=== PATIENT | female | born 1955 | race Caucasian/White ===

== ENCOUNTER 2017-04-08 06:58 | Inpatient (IN) | payer BC ==
[2017-03-22 13:16] VITALS: BMI 40.0
--- NOTE | 2017-03-22 13:49 | PAT Medication Instructions ---
Service Date Mar 22, 2017. Current Home Medication List Adalimumab (Humira Pen), 0.8 ML SC [id number] B-Complex Vitamins (B Complex), 1 CAP PO QAM Cholecalciferol (Vitamin D3), 1 TAB PO QAM Folic Acid (Folvite), 1 MG PO QAM Indomethacin (Indocin), 25 MG PO BID Loratadine (Claritin), 10 MG PO QAM Methotrexate (Methotrexate), 8 TABS PO qsat Multivitamin (Multivitamin), 1 TAB PO QAM Naproxen (Aleve), 440 MG PO QAM Rizatriptan Benzoate (Maxalt), 10 MG PO PRN Triamterene/Hctz (Triamterene/Hctz 37.5-25MG), 1 TAB PO QAM Medication Instructions For Your Scheduled Surgery - Hold the following medications per surgeon's instructions: Adalimumab (Humira Pen), 0.8 ML SC [id number] Methotrexate (Methotrexate), 8 TABS PO qsat Naproxen (Aleve), 440 MG PO QAM Indomethacin (Indocin), 25 MG PO BID - Hold the following medications the morning of surgery: Triamterene/Hctz (Triamterene/Hctz 37.5-25MG), 1 TAB PO QAM Multivitamin (Multivitamin), 1 TAB PO QAM Folic Acid (Folvite), 1 MG PO QAM Loratadine (Claritin), 10 MG PO QAM B-Complex Vitamins (B Complex), 1 CAP PO QAM Cholecalciferol (Vitamin D3), 1 TAB PO QAM - Take the following medications the morning of surgery (IF NEEDED) with a sip of water OTHERWISE NOTHING TO EAT OR DRINK AFTER MIDNIGHT: Rizatriptan Benzoate (Maxalt), 10 MG PO PRN If you have any questions please call us at [phone] or [phone] or [phone]
[2017-03-22 14:43] LABS: BASO % 1.6 %; BASO ABS # 0.09 K/uL (0-0.2); COMPLETE YES; EOS % 3.9 %; HEMATOCRIT 43.9 % (37-47); IG% 0.2 %; LYMPH % 27.1 %; LYMPH ABS # 1.53 K/uL (1.2-3.4); MEAN CORPUSCULAR HEMOGLOBIN 33.7 pg (25-34); MEAN CORPUSCULAR HGB CONC 34.4 g/dl (32-36); MEAN PLATELET VOLUME 10.4 fL (7.4-10.4); MONO % 13.8 %; NEUT % 53.4 %; PLATELET COUNT 276 K/uL (130-400); RED BLOOD COUNT 4.48 M/uL (4.2-5.4); WHITE BLOOD COUNT 5.64 K/uL (4.8-10.8)
[2017-03-22 14:51] LABS: PARTIAL THROMBOPLASTIN RATIO 1.1; PROTHROMBIN TIME (PATIENT) 11.1 SECONDS (9.0-12.0)
[2017-03-22 14:52] LABS: URINE APPEARANCE CLEAR (CLEAR); URINE BILIRUBIN NEG (NEG); URINE COLOR DK YELLOW; URINE EPITHELIAL CELL AUTO >30 /lpf (0-5); URINE NITRITE NEG (NEG); URINE PH 5.5 (4.5-7.5); URINE SPECIFIC GRAVITY 1.031 (1.000-1.030); UROBILINOGEN NEG (NEG); ZZUR CULT IF INDIC CLEAN CATCH NO
[2017-03-22 14:56] LABS: MANUAL MICROSCOPIC REQUIRED? NO; REVIEW REQ? YES
[2017-03-22 14:57] LABS: BUN/CREATININE RATIO 18.9 (10-20); CALCIUM 9.3 mg/dl (8.5-10.1); CREATININE 1.04 mg/dl (0.60-1.20); POTASSIUM 3.4 mmol/L (3.5-5.1)
--- NOTE | 2017-03-22 15:01 | DIAGNOSTIC IMAGING REPORT ---
CHEST PREADMISSION(PA/LAT) CLINICAL HISTORY: Preoperative chest COMPARISON STUDY: 04/08/2015 FINDINGS: The heart is normal in size. There is no failure. There is no focal pulmonary consolidation. There are linear opacities the left lung base likely atelectatic. There are postsurgical changes present within the cervical spine.[ IMPRESSION: Left basilar subsegmental atelectatic change. Otherwise negative chest. Electronically signed by: Brijesh Dave M.D. 03/22/2017 2:59 PM Dictated Date/Time: 03/22/2017 2:58 PM
--- NOTE | 2017-03-22 15:03 | DIAGNOSTIC IMAGING REPORT ---
LATERAL CERVICAL SPINE RADIOGRAPHS INCLUDING FLEXION AND EXTENSION CLINICAL HISTORY: Rheumatoid arthritis. Preoperative evaluation. COMPARISON STUDY: Cervical spine radiographs January 15, 2014. FINDINGS: The patient is status post C5-C6 anterior discectomy and fusion. The hardware is intact. Lucency surrounding at least one screw at the C5 level raises the possibility of loosening. There is no evidence of instability during flexion or extension. No fracture is identified although C7 is partially obscured on this exam. A 3 mm metallic density projecting over the posterior aspect of the thyroid cartilage is unchanged since prior exam. There is severe multilevel facet arthrosis. There is moderate multilevel degenerative disc disease. IMPRESSION: 1. No evidence of cervical spine instability during flexion or extension. 2. Status post C5-C6 anterior discectomy and fusion. Lucency surrounding C5 screws raises the possibility of loosening. 3. Severe multilevel facet arthrosis and moderate multilevel degenerative disc disease. Electronically signed by: Benny Danielle M.D. 03/22/2017 3:01 PM Dictated Date/Time: 03/22/2017 2:58 PM
[2017-03-23 06:39] LABS: ESTIMATED AVERAGE GLUCOSE 137 mg/dl; HA1C FLAG Normal (Normal)
--- NOTE | 2017-04-07 14:45 | HISTORY & PHYSICAL EXAMINATION ---
DATE OF ADMISSION: 04/08/2017 CHIEF COMPLAINT: Chronic left shoulder pain. HISTORY OF PRESENT ILLNESS: This is a 61-year-old female patient of Dr. Valiente, complaining of chronic left shoulder pain, longstanding, now progressively getting worse. She has failed conservative treatment including intraarticular injections, physical therapy, and pain medications. She has been diagnosed with end-stage osteoarthritis per clinical and radiographic exams. The patient wished to proceed with a left total shoulder arthroplasty. PAST MEDICAL HISTORY: Hypertension, possible sleep apnea, carpal tunnel syndrome, rheumatoid arthritis, osteoarthritis, spine problems, neck problems, and obesity. SOCIAL HISTORY: Nonsmoker. Occasional drinker. PAST SURGICAL HISTORY: Bilateral carpal tunnel, cervical spine surgery, bilateral knee replacements, right hip replacement, and right elbow tendonitis surgery. FAMILY HISTORY: Noncontributory. REVIEW OF SYSTEMS: The patient complains of chronic left shoulder pain and decreased function. Otherwise, denies any shortness of breath, chest pain, nausea, vomiting, or any other joint complaints. MEDICATIONS: 1. Triamterene 37.5 mg daily. 2. Hydrochlorothiazide 25 mg daily. 3. ____ daily. 4. Folic acid 1 mg daily. 5. Multivitamin daily. 6. Loratadine 10 mg daily. 7. Humira Pen 40 mg/0.8 mL subQ every 2 weeks. 8. Indomethacin 25 mg b.i.d. with food. 9. Methotrexate 2.5 mg 8 tablets every week. 10. Vitamin D3 daily. 11. Vitamin B daily. 12. Aleve as needed. ALLERGIES: SULFA. PHYSICAL EXAMINATION: GENERAL: Well-developed and well-nourished 61-year-old female, in no acute distress. She is alert and oriented x3 and pleasant. HEENT: Normocephalic and atraumatic. Extraocular motions are intact. Pupils are equal and reactive to light. HEART: Regular rate and rhythm. No murmurs appreciated. LUNGS: Clear. ABDOMEN: Soft and nontender. Bowel sounds are present. EXTREMITIES: Left shoulder reveals 4+/5 strength. She has crepitation with strength at testing and passive range of motion. Actively, she can get to 100 degrees and passively to 140. NEUROLOGIC: Neurovascularly, she is intact in her left upper extremity. DIAGNOSES: Left shoulder end-stage osteoarthritis, hypertension, snoring, questionable shortness of breath, carpal tunnel syndrome, rheumatoid arthritis, osteoarthritis, neck problems, spine problems, and obesity. PLAN: The patient was advised of her diagnoses. Indications, risks, benefits, and postop course have all been reviewed. The patient wished to proceed with a left total shoulder arthroplasty and biceps tenodesis. Necessary consent forms, preoperative testing, and clearances will be obtained.
[~2017-04-08] VITALS: Ht 167.6 cm; Wt 112.4 kg
[2017-04-08] VITALS (8 sets, daily range): BP systolic 129–168; BP diastolic 74–93; PULSE 82–109; TEMP 36.3–37; O2SAT 91–95; BMI 40.0
[~2017-04-08 06:58] MED LIST: ACETAMINOPHEN 500 MG TAB PO SCH; ADAL40KI SC; B-CO1CAP3 PO; CEFAZOLIN 2000MG IV PUSH 10 ML IV SCH; CHOL1000 PO; CLR10 PO; DEXAMETHASONE 4 MG TAB PO SCH; DEXAMETHASONE SOD INJ 4 MG/ML VIAL ONE; FENTANYL CITRATE INJ 50 MCG/1 ML 2 ML VIAL ONE; FOLI1TAB7 PO; GABAPENTIN 300 MG CAP PO SCH; GLYCOPYRROLATE INJ 0.2 MG/ML VIAL ONE; INDO-22 PO; LACTATED RINGER'S 1000ML 1,000 ML IV SCH; LACTATED RINGER'S 1000ML IV SCH; LIDOCAINE HCL 2% 2 ML VIAL (20MG/ML) ONE; METH2.5T PO; METOCLOPRAMIDE HCL 10 MG TAB PO SCH; MIDAZOLAM HCL 1 MG/ML 2ML VIAL ONE; MULT-506 PO; NAPR1TAB9 PO; NEOSTIGMINE METHYLSULFATE 5 MG/5 ML SYR ONE; ONDANSETRON INJ 2 MG/ML 2 ML VIAL ONE; PROPOFOL IV EMULSION 10 MG/ML 20 ML VIAL IV ONE; RIZA10TA18 PO; ROPIVACAINE 0.5% 5 MG/ML 30 ML VIAL ONE; TRIATAB3 PO
[2017-04-08] MEDS ORDERED: BACITRACIN 50000 UNIT VIAL ONE (07:25)
[2017-04-08] MEDS ORDERED: EpINEphrine HCL INJ 1 MG/ML 5ML SYRINGE ONE (07:25)
--- NOTE | 2017-04-08 07:32 | History & Physical Bridge Note ---
H&P Re-Evaluation Bridge Note: I have examined the patient, reviewed the History & Physical and in the interval since the performance of the History & Physical I have noted the following changes of clinical significance: No changes noted
[2017-04-08] MEDS ORDERED: ATROPINE SULFATE 0.1 MG/ML 5ML SYR IV PRN (07:45)
[2017-04-08] MEDS ORDERED: EpHEDrine SULFATE INJ 50 MG/ML AMP IV PRN (07:45)
[2017-04-08] MEDS ORDERED: ONDANSETRON INJ 2 MG/ML 2 ML VIAL IV PRN ×2 (07:45→12:45)
[2017-04-08] MEDS ORDERED: FENTANYL CITRATE INJ 50 MCG/1 ML 2 ML VIAL IV PRN (07:45)
[2017-04-08] MEDS ORDERED: ROCURONIUM BROMIDE 10 MG/ML 5 ML VIAL IV ONE ×2 (10:43→11:15)
--- NOTE | 2017-04-08 12:38 | [facility] Post Operative Brief Note ---
Immediate Operative Summary Operative Date Apr 08, 2017. Pre-Operative Diagnosis Left shoulder end stage osteoarthritis,biceps tendinopathy,morbid obesity Post-Operative Diagnosis Left shoulder end state osteoarthritis,biceps tendinopathy,morbid obesity Procedure(s) Performed Left total shoulder arthroplasty, biceps tenodesis,increased dificulty BMI 40.[address] Valiente Technical Fellow Surgeon(s) Virgil Salcedo PA-C Estimated Blood Loss 100 cc Findings as above Specimens A: left humeral head Drains 2 hemovac Anesthesia general and regional Complication(s) None Disposition Recovery Room / PACU
[2017-04-08] MEDS ORDERED: BISACODYL 10 MG SUPP PR PRN (12:45)
[2017-04-08] MEDS ORDERED: SOD PHOSPHATE/SOD BIPHOSPHATE ENEMA 132 ML BTL PR PRN (12:45)
[2017-04-08] MEDS ORDERED: ZOLPIDEM TARTRATE 5 MG TAB PO PRN (12:45)
[2017-04-08] MEDS ORDERED: MAGNESIUM HYDROXIDE SUSP 30 ML UDC PO PRN (12:45)
[2017-04-08] MEDS ORDERED: RIZATRIPTAN BENZOATE 10 MG TAB PO PRN (12:45)
[2017-04-08] MEDS ORDERED: METOCLOPRAMIDE HCL INJ 5 MG/ML 2 ML VIAL IV PRN (12:45)
[2017-04-08] MEDS ORDERED: OXYCODONE HCL IR 5 MG TAB (IMMEDIATE RELEASE) PO PRN (12:45)
[2017-04-08] MEDS ORDERED: MoRPHine SULFATE 2 MG/ML CARP IV PRN (12:45)
[2017-04-08] MEDS ORDERED: NALOXONE HCL 0.4 MG/1 ML VIAL/CARP IV PRN (12:45)
[2017-04-08] MEDS ORDERED: PHENYLEPHRINE 100MCG/ML 5ML SYR ONE (12:50)
[2017-04-08] MEDS ORDERED: EpHEDrine SULFATE 50MG/5ML SYR ONE (12:50)
--- NOTE | 2017-04-08 13:21 | DIAGNOSTIC IMAGING REPORT ---
LEFT SHOULDER 3 VIEWS CLINICAL HISTORY: Postoperative examination. FINDINGS: 3 portable views of the left shoulder are obtained. A left shoulder arthroplasty is in near anatomic alignment. No acute fracture is seen. There has likely been osteotomy of the distal clavicle. There are expected postoperative changes overlying the left shoulder including skin clips, a surgical drain, subcutaneous gas, and soft tissue swelling. The imaged left lung parenchyma appears clear. IMPRESSION: Expected postoperative findings status post left shoulder arthroplasty. No acute fracture is seen. Electronically signed by: Dannie Campbell M.D. 04/08/2017 1:20 PM Dictated Date/Time: 04/08/2017 1:19 PM
--- NOTE | 2017-04-08 13:23 | Anesthesiology Progress Note ---
Anesthesia Post Op Note Date & Time Apr 08, 2017 at 13:22 Vital Signs Pain Intensity: 0 Vital Signs Past 12 Hours Date Time Temp Pulse Resp B/P (MAP) Pulse Ox O2 Delivery O2 Flow Rate FiO2 04/08/17 13:15 36.2 100 20 156/86 95 Nasal Cannula 2 04/08/17 13:05 99 16 164/69 94 Nasal Cannula 2 04/08/17 12:55 100 19 163/81 94 Oxymask 10 04/08/17 12:45 91 16 165/86 93 Oxymask 10 04/08/17 12:39 36.6 91 17 169/89 96 Oxymask 10 04/08/17 07:25 36.8 82 16 168/84 Room Air Notes Mental Status: alert / awake / arousable, participated in evaluation Pt Amnestic to Procedure: Yes Nausea / Vomiting: adequately controlled Pain: adequately controlled Airway Patency, RR, SpO2: stable & adequate BP & HR: stable & adequate Hydration State: stable & adequate Anesthetic Complications: no major complications apparent
--- NOTE | 2017-04-08 13:45 | OPERATIVE REPORT ---
DATE OF OPERATION: 04/08/2017 INDICATION FOR PROCEDURE: The patient is a 61-year-old female who presents with chronic progressive osteoarthritis of the left shoulder. She had arthroscopic debridement in the past. She has failed conservative management. Radiographs demonstrate she is [id number] in the glenohumeral joint and she has a large inferior humeral osteophytes consistent with osteoarthritis. She is also morbidly obese, BMI of 40. She also had an MRI with significant tenosynovitis of the biceps tendon and likely has significant biceps tendinopathy. PREOPERATIVE DIAGNOSES: Left shoulder end-stage glenohumeral osteoarthritis and chronic biceps tenosynovitis, biceps tendinopathy also morbid obesity, BMI of 40. POSTOPERATIVE DIAGNOSES: Same. PROCEDURE: Left total shoulder arthroplasty including biceps tenodesis and increased difficulty due to morbid obesity, BMI of 40. SURGEON: Dr. Valiente. STEEL FAB[employer]ICATING SUPERVISOR: Virgil Salcedo PA-C. ANESTHESIA: Regional block and general. OPERATIVE PROCEDURE: The patient was brought to the operating room, anesthetized with regional block and general anesthetic. She was placed in the 40 degree beachchair position on a standard operating room table. She was translated to left side of the bed, so her shoulder could be manipulated off the bed as necessary. Her head was placed on a foam headrest. She had protective eyewear. She had TEDs and SCDs. Left shoulder exam demonstrated that she had about 140 to 150 degrees of forward elevation, external rotation to 30 degrees and abduction to 80 degrees. She had an obese arm. She had previous arthroscopic portals that were well healed. Her left shoulder was sterilely prepped and draped with ChloraPrep. An anterior deltopectoral approach was performed. We made it longer than typical incision due to her obesity for exposure purposes. Skin was incised sharply. Deep layer of fat was divided down to the fascia. Subcutaneous flaps were developed off the deltopectoral interval. She did not have a typical cephalic vein. There was a vein that was medially along the pectoralis crossed across the deltopectoral interval and continued up into the anterior superior edge of the deltoid. This had to be sacrificed for exposure. We tied off with silk ties and divided it. She had some other branches to higher up that were crossing and these were tied off with silk ties and divided as well, so we could retract the deltoid laterally. The falciform ligament pectoralis was identified and the proximal 1 cm was released. This revealed a chronic tenosynovitis around the biceps tendon with an intact biceps tendon. In the bicipital groove further large bicipital bone groove spurs. Tenosynovitis continued up into the joint. Tenosynovectomy was performed. The biceps was tenodesed to the pectoralis tendon with [id number] #2 FiberWire sutures and the proximal biceps was resected in the biceps spurs were resected. The circumflex vessels were identified, tied off with silk ties and divided laterally. The rotator cuff was noted to be completely intact. There was some bursa that was resected, some old scarred rotator cuff bursa. The rotator interval was opened up and the fluid was evacuated. The subscapularis muscle fibers were split at the level of the circumflex vessels leaving a cuff of tissue to protect the axillary nerve inferiorly. The capsule was identified clearly and a Kitner elevator was used to reflect these inferior fibers off the capsule and a blunt Hohmann retractor was placed to protect the axillary nerve inferiorly. A blunt Hohmann retractor was placed superiorly. The rotator interval was opened up and divided down to the glenoid. A transtendinous incision was made through the subscapularis tendon leaving a cuff of tissue for repair on the lesser tuberosity. A traction suture was placed with #1 Vicryl into the subscapularis tendon. The incision was carried down through the subscapularis tendon through the capsule and the capsule was taken down off the inferior humeral osteophyte gradually as we externally rotated the humerus. Then the large osteophytes were removed with an artist chisel and a rongeur and then we released the capsule was released around the neck of the humerus using electrocautery on bone and also using a small Marx elevator. After the neck capsule was released, I went ahead and retracted the humerus posterior to the glenoid with a Fukuda retractor and resected the remainder of tendinopathic biceps tendon from within the joint where the biceps was noted to be widened and thickened and chronically tendinopathic. The labrum was resected circumferentially. The glenoid wear pattern was fairly concentric, there was a little bit of articular cartilage on the anterior most rim of the glenoid and a little bit superior. Remainder was completely exposed eburnated bone. The humeral head was completely down to eburnated bone with minimal articular cartilage around the rim. The capsule was then released anteriorly inferiorly and posterior inferiorly using both electrocardiogram bone and a Marx elevator to release the capsule for exposure. Then the humerus was exposed with extension and external rotation. Oscillating saw was used to make the humeral head cut. I used the Tornier Ascend Flex humeral components and the Affinity CortiLoc glenoid component. The humerus head cut was sized for a 46 mm diameter cut, so we went ahead and used a 44 mm glenoid. With the glenoid fully exposed with retractors, we made the drill hole into the central glenoid and then a power reamer was used followed by widening the central hole for the peg and the implant and then using the peripheral peg hole guide, drilled those holes and then after copious irrigation, the drill holes were packed with epinephrine-soaked sponges and then the Palacos G cement was vacuum mixed. Then we placed the Affinity 44 mm pegged glenoid component into position cementing the peripheral pegs, the base of the central peg and back of the implant. There was a tight pressfit and we did hold the implant until the cement cured. All excess cement was cleared. Attention was taken to the humerus. Humerus was repaired with a central awl the broaches to sizing this up to a 3 broaches up to a 3B and then a 46 x 17 low offset head trial and then we did a trial reduction which was stable. Then this trial was then removed after irrigation of the canal, placed 3 drill holes through the hard bone in the bicipital groove lateral to the medial lesser tuberosity and placed #5 FiberWire sutures x3 transosseously. Then went ahead and irrigated out the canal again and assembled the final component which was the 46 x 17 low offset humeral head to the standard 3B Ascend Flex stem. The final implant was then impacted in position with a tight pressfit and then the humerus was reduced to the glenoid. After more copious irrigation, the subscapularis was repaired using #5 FiberWire sutures with the Beka-Jose suture technique and the lateral row soft tissue repair with [id number] #2 FiberWire sutures including the lateral rotator interval. The more medial rotator was closed with #1 Vicryl suture in maximal external rotation which was at 45 degrees. The wound was copiously irrigated. The pectoralis split was repaired with [id number] #2 FiberWire sutures reinforcing the biceps tenodesis. The 2 Hemovac drains were brought out laterally and then the deltopectoral interval was closed with [id number] #1 Vicryl suture and then the subcutaneous tissue closed with interrupted #1 Vicryl and #2 Vicryl sutures. Skin closed with jovanny. Sterile dressings were applied. The patient had estimated 100 mL of blood loss. Increased level of difficulty was significant due to her morbid obesity including exposure and retraction throughout all aspects of the procedure. NIRANJAN Ramirez was my resident care assistant. He functioned as resident care assistant for the entire procedure. He assisted in patient positioning, prepping, draping, arm positioning, instrument management, soft tissue retraction, and instrument management during the procedure, performed the subcutaneous and skin closure and will participate in postoperative care of the patient. I attest to the content of the Intraoperative Record and any orders documented therein. Any exception s are noted below.
[2017-04-08] MEDS ORDERED: MoRPHine SULFATE 4 MG/ML 1 ML CARP\\VIAL IV PRN (14:30)
--- NOTE | 2017-04-08 14:43 | Medical Consult ---
Consultation Date of Consultation: Apr 08, 2017. Attending Physician: Eliseo Valiente M.D. Reason for Consultation: Medical Management History of Present Illness This is a 61 yo F with PMHx of HTN, rheumatoid arthritis on methotrexate, osteoathritis, multiple joint replacements, s/p surgical spine surgery with hardware insertion for DJD/herniated disk. Pt underwent elective total shoulder joint replacement by Dr. Valiente on 04/08/17. She reports still feeling numb and has some tingling into her fingers. She was initially dizzy after surgery and was slightly nauseous. At this point she has lunch and seems to be tolerating a diet. Her dizziness has somewhat improved with some food and fluids. She does not know about plans for rehab at this time, but lives at home with her . Past Medical/Surgical History HTN Rheumatoid arthritis on methotrexate osteoathritis s/p surgical spine surgery with hardware insertion for DJD/herniated disk Surgical Hx Bilateral knee replacements Left hip replacement Left shoulder replacement this admission Cervical spine surgery Social History Smoking Status: Never Smoker Alcohol Use: occasionally Drug Use: none Marital Status: Housing Status: lives with family Occupation Status: employed Allergies Coded Allergies: Sulfa Antibiotics (Unverified Allergy, Severe, difficulty breathing per pt , 03/22/17) Codeine (Verified Adverse Reaction, Unknown, N&V, 03/22/17) Current Inpatient Medications Current Inpatient Medications Medications (Trade) Dose Ordered Sig/Raymond Route Start Time Stop Time Status Last Admin Dose Admin Lactated Ringer's 1,000 ml @ 60 mls/hr [id number] IV 04/08/17 06:00 04/08/17 22:39 04/08/17 07:56 60 MLS/HR Cefazolin Sodium 10 ml @ 2.5 mls/min PREOP IV 04/08/17 06:00 04/08/17 18:00 04/08/17 09:31 2.5 MLS/MIN Acetaminophen (Tylenol Tab) 1,000 mg PREOP PO 04/08/17 06:00 04/08/17 18:00 04/08/17 07:57 1,000 MG Dexamethasone (Decadron Tab) 8 mg PREOP PO 04/08/17 06:00 04/08/17 18:00 04/08/17 07:56 8 MG Gabapentin (Neurontin Cap) 600 mg PREOP PO 04/08/17 06:00 04/08/17 18:00 04/08/17 07:56 600 MG Metoclopramide HCl (Reglan Tab) 10 mg PREOP PO 04/08/17 06:00 04/08/17 18:00 04/08/17 07:56 10 MG Lactated Ringer's 1,000 ml @ 15 mls/hr Q24H IV 04/08/17 06:00 04/09/17 05:59 Vitamin B Complex (Vitamin B Complex) 1 tab QAM PO 04/09/17 09:00 05/09/17 08:59 Cholecalciferol (Vitamin D Tab) 1,000 inter.unit QAM PO 04/09/17 09:00 05/09/17 08:59 Folic Acid (Folvite Tab) 1 mg QAM PO 04/09/17 09:00 05/09/17 08:59 Indomethacin (Indocin Cap) 25 mg BID PO 04/08/17 21:00 05/08/17 20:59 Loratadine (Claritin Tab) 10 mg QAM PO 04/09/17 09:00 05/09/17 08:59 Multivitamins (Multivitamin Tab) 1 tab QAM PO 04/09/17 09:00 05/09/17 08:59 Rizatriptan Benzoate (Maxalt Tab) 10 mg UD PRN PO 04/08/17 12:45 05/08/17 12:44 Triamterene/HCTZ (Maxzide 37.5/25 Tab) 1 tab QAM PO 04/09/17 09:00 05/09/17 08:59 Diphenhydramine HCl (Benadryl Cap) 25 mg Q8 PRN PO 04/08/17 12:45 05/08/17 12:44 Zolpidem Tartrate (Ambien Tab) 5 mg HSZ PRN PO 04/08/17 12:45 05/08/17 12:44 Metoclopramide HCl (Reglan Inj) 10 mg Q6H PRN IV 04/08/17 12:45 05/08/17 12:44 Ondansetron HCl (Zofran Inj) 4 mg Q6H PRN IV 04/08/17 12:45 05/08/17 12:44 Pantoprazole Sodium (Protonix Tab) 40 mg QAM PO 04/09/17 09:00 05/09/17 08:59 Potassium Chloride/Dextrose/ Sod Cl 1,000 ml @ 100 mls/hr Q10H IV 04/08/17 14:30 04/09/17 14:29 Oxycodone HCl (Roxicodone Immediate Rel Tab) `1-2 TABS FOR PAIN `1 TAB... Q4H PRN PO 04/08/17 12:45 04/22/17 12:44 Acetaminophen (Tylenol Tab) 1,000 mg Q8 PO 04/08/17 14:45 05/08/17 14:44 Morphine Sulfate (MoRPHine SULFATE INJ) 2 mg Q2H PRN IV 04/08/17 12:45 04/22/17 12:44 Naloxone HCl (Narcan Inj) 0.1 mg Q2M PRN IV 04/08/17 12:45 05/08/17 12:44 Magnesium Hydroxide (Milk Of Magnesia Susp) 30 ml Q6H PRN PO 04/08/17 12:45 05/08/17 12:44 Bisacodyl (Dulcolax Supp) 10 mg DAILY PRN LA 04/08/17 12:45 05/08/17 12:44 Sodium Biphosphate/ Sodium Phosphate (Fleet Enema) 132 ml DAILY PRN LA 04/08/17 12:45 05/08/17 12:44 Docusate Sodium (coLACE CAP) 100 mg BID PO 04/08/17 21:00 05/08/17 20:59 Cefazolin Sodium 2000 mg/Syringe 10 ml @ 2.5 mls/min Q8H IV 04/08/17 17:00 04/09/17 01:03 Morphine Sulfate (MoRPHine SULFATE INJ) 4 mg Q2H PRN IV 04/08/17 14:30 04/22/17 14:29 Review of Systems Constitutional: No fever, No chills, No sweats, No fatigue Eyes: No redness, No diplopia ENT: No sore throat, No trouble swallowing Respiratory: No cough, No sputum, No wheezing, No shortness of breath Cardiovascular: No chest pain, No edema Abdomen: + nausea (as noted above), No pain, No vomiting, No diarrhea, No constipation Musculoskeletal: No joint pain, No swelling, No calf pain Genitourinary - Female: No dysuria Neurologic: + numbness/tingling (Left hand), No balance problems Endocrine: No fatigue Integumentary: No rash, No itch Physical Exam Date Time Temp Pulse Resp B/P (MAP) Pulse Ox O2 Delivery O2 Flow Rate FiO2 04/08/17 13:30 96 14 156/78 95 Nasal Cannula 2 04/08/17 13:15 36.2 100 20 156/86 95 Nasal Cannula 2 04/08/17 13:05 99 16 164/69 94 Nasal Cannula 2 04/08/17 12:55 100 19 163/81 94 Oxymask 10 04/08/17 12:45 91 16 165/86 93 Oxymask 10 04/08/17 12:39 36.6 91 17 169/89 96 Oxymask 10 04/08/17 07:25 36.8 82 16 168/84 Room Air General Appearance: WD/WN, no apparent distress, + obese Head: normocephalic, atraumatic Eyes: PERRL, EOMI ENT: hearing grossly normal, pharynx normal Neck: no adenopathy, no JVD Respiratory/Chest: lungs clear, no respiratory distress, no accessory muscle use Cardiovascular: regular rate, rhythm, no murmur, normal peripheral pulses Abdomen/GI: normal bowel sounds, non tender, soft Back: normal inspection Extremities/Musculoskelatal: no calf tenderness, no pedal edema, + pertinent finding (Left should dressing C/D/I, Solomon wrap in place, ice pack, hemovac drain in place) Neurologic/Psych: alert, normal reflexes, oriented x 3 Skin: normal color, warm/dry Assessment & Plan This is a 61 yo F with PMHx of HTN, rheumatoid arthritis on methotrexate, osteoathritis, multiple joint replacements, s/p surgical spine surgery with hardware insertion for DJD/herniated disk. Pt underwent elective total shoulder joint replacement by Dr. Valiente on 04/08/17. Left Total Shoulder replacement - Pain management, bowel regimen and DVT ppx per primary team - Pt notes severe constipation with narcotics in the past - she would like to take minimal narcotics if possible. - PT/OT per primary team - Pt from home, not sure about placement at this time Rheumatoid Arthritis - No active flare, methotrexate has been held for 2 week prior to the surgery, and per her waste water worker can resume after off tylenol and in approximately 2 weeks. HTN - Continue triamterene/HCTZ 37.5/25 at this time, BP seems slighty elevated in 150s DVT ppx: Ambulatory CODE STATUS: FULL CODE Disposition: From home, lives with family Thank you for involving us in the consultation of Mrs. Philip, we will follow along. PA Physician Supervision Note: I interviewed and examined the patient. Discussed with Jessenia Pérez PAC and agree with findings and plan as documented in the note. Any exceptions or clarifications are listed here: None Patient status post shoulder surgery she has a history of hypertension and rheumatoid arthritis has stopped her methotrexate and Humira and vitals are stable Her nerve block is still in place on physical exam shows regular heart clear lungs Continue modest hypertensive treatment with Dyazide Documented By: Tim Stewart
[2017-04-08] MEDS: D5W AND 1/2NSS + 20MEQ KCL 1,000 ML IV SCH ×2 (15:49→23:41)
[2017-04-08] MEDS: ACETAMINOPHEN 500 MG TAB PO SCH ×2 (15:49→21:12)
[2017-04-08] MEDS: CEFAZOLIN IV 2,000 MG in SYRINGE 0 ML IV SCH (17:51)
[2017-04-08] MEDS: INDOMETHACIN 25 MG CAP PO SCH (20:50)
[2017-04-08] MEDS: DOCUSATE SODIUM 100 MG CAP PO SCH (20:50)
[2017-04-08] MEDS: POTASSIUM CHLORIDE 20 MEQ TABCR PO SCH (21:11)
[2017-04-09] MEDS: CEFAZOLIN IV 2,000 MG in SYRINGE 0 ML IV SCH (01:20)
[2017-04-09 03:30] VITALS: BP 110/64; PULSE 79; TEMP 36.6; O2SAT 91
[2017-04-09] MEDS: ACETAMINOPHEN 500 MG TAB PO SCH ×3 (05:43→21:48)
[2017-04-09 06:23] LABS: HEMATOCRIT 37.9 % (37-47); MEAN CELL VOLUME 97.2 fL (80-100); MEAN CORPUSCULAR HEMOGLOBIN 33.6 pg (25-34); MEAN CORPUSCULAR HGB CONC 34.6 g/dl (32-36); MEAN PLATELET VOLUME 10.3 fL (7.4-10.4); PLATELET COUNT 290 K/uL (130-400); WHITE BLOOD COUNT 18.34 K/uL (4.8-10.8)
[2017-04-09 06:49] LABS: BUN/CREATININE RATIO 17.2 (10-20); CALCIUM 8.2 mg/dl (8.5-10.1); CREATININE 1.05 mg/dl (0.60-1.20); POTASSIUM 3.8 mmol/L (3.5-5.1)
[2017-04-09 07:01] VITALS: BP 123/68; PULSE 71; TEMP 36.4; O2SAT 92
--- NOTE | 2017-04-09 07:31 | Orthopedic Progress Note ---
Orthopedic Progress Note Date of Service Apr 09, 2017. Subjective Post OP Day: 1 Reports: feeling well, pain controlled w PO medications, Denies: complaints, chest pain, SOB, nausea / vomiting, light headedness, calf pain Objective N/V intact, capillary refill less than 2 sec., dressing C/D/I, A&O x3 Sling in tact, Fingers mobile. Date Time Temp Pulse Resp B/P (MAP) Pulse Ox O2 Delivery O2 Flow Rate FiO2 04/09/17 07:01 36.4 71 16 123/68 (86) 92 Room Air 04/09/17 03:30 36.6 79 17 110/64 (79) 91 Room Air 04/08/17 23:40 Room Air 04/08/17 23:15 36.6 91 17 154/93 (113) 91 Room Air 04/08/17 20:00 37.0 97 18 139/79 (99) 92 Room Air 04/08/17 16:45 36.9 109 18 129/74 (92) 94 Nasal Cannula 2.0 04/08/17 15:45 Nasal Cannula 3.0 04/08/17 15:45 36.7 104 18 154/78 (103) 93 Nasal Cannula 2.0 04/08/17 14:44 100 20 132/75 (94) 91 Nasal Cannula 2.0 04/08/17 14:15 36.3 98 16 130/77 (94) 95 Nasal Cannula 3.0 04/08/17 13:45 93 Nasal Cannula 3.0 04/08/17 13:45 36.6 102 16 135/77 (96) 93 Nasal Cannula 3.0 04/08/17 13:45 93 Nasal Cannula 3.0 04/08/17 13:30 96 14 156/78 95 Nasal Cannula 2 04/08/17 13:15 36.2 100 20 156/86 95 Nasal Cannula 2 04/08/17 13:05 99 16 164/69 94 Nasal Cannula 2 04/08/17 12:55 100 19 163/81 94 Oxymask 10 04/08/17 12:45 91 16 165/86 93 Oxymask 10 04/08/17 12:39 36.6 91 17 169/89 96 Oxymask 10 Laboratory Results 24 Hours: Test 04/09/17 05:36 Hematocrit 37.9 % Hemoglobin 13.1 g/dL Assessment & Plan Assessment: POD #1, Left TSA, Biceps Tenodesis Plan: PT/ OT D/C planning- Home w OPPT As per medicine. Inhouse Planning Pain Management: Morphine, PO Tylenol, Oxy IR DVT Prophylaxis: SCDs Discharge Planning Discharge Planning: home with oppt Pain Management: PO Tylenol, Oxy IR Therapy: Physical Therapy, Occupational Therapy
--- NOTE | 2017-04-09 07:53 | Anesthesiology Progress Note ---
Anesthesia Post Op Note Date & Time Apr 09, 2017 at 07:52 Vital Signs Pain Intensity: 0.0 Vital Signs Past 12 Hours Date Time Temp Pulse Resp B/P (MAP) Pulse Ox O2 Delivery O2 Flow Rate FiO2 04/09/17 07:01 36.4 71 16 123/68 (86) 92 Room Air 04/09/17 03:30 36.6 79 17 110/64 (79) 91 Room Air 04/08/17 23:40 Room Air 04/08/17 23:15 36.6 91 17 154/93 (113) 91 Room Air 04/08/17 20:00 37.0 97 18 139/79 (99) 92 Room Air Notes Mental Status: alert / awake / arousable, participated in evaluation Pt Amnestic to Procedure: Yes Nausea / Vomiting: adequately controlled Pain: adequately controlled Airway Patency, RR, SpO2: stable & adequate BP & HR: stable & adequate Hydration State: stable & adequate Anesthetic Complications: no major complications apparent
--- NOTE | 2017-04-09 08:05 | Hospitalist Progress Note ---
Hospitalist Progress Note Date of Service Apr 09, 2017. Subjective Pt evaluation today including: conversation w/ patient, physical exam, chart review, lab review, review of studies Pain: Moderate L shoulder PO Intake: Good Voiding: no voiding problems The patient was seen and examined this morning. Pt reports her shoulder is hurting today but that it is tolerable. She is requesting a bowel regimen for constipation since she is taking narcotics. Pt is passing gas. She has been ambulating with assistance and is doing well. Numbness and tingling has resolved. Pt reports dizziness has also resolved. Discussion was held regaring Hgb A1C of 6.4 and diet and exercise modification. Pt has been on several courses of steroids in the past few months so this is likely affecting her detention glucose. She is agreeable to diet and exercise. 25 minutes of cardio was encouraged 5x per week, and also yoga for strength training and balance since she has multiple replaced joints. Pt notes cardio is difficult due to joint replacements. She is agreeable to meeting with the channel development manager today. ROS: 6 point ROS reviewed and otherwise negative. Objective Vital Signs Date Time Temp Pulse Resp B/P (MAP) Pulse Ox O2 Delivery O2 Flow Rate FiO2 04/09/17 07:01 36.4 71 16 123/68 (86) 92 Room Air 04/09/17 03:30 36.6 79 17 110/64 (79) 91 Room Air 04/08/17 23:40 Room Air 04/08/17 23:15 36.6 91 17 154/93 (113) 91 Room Air 04/08/17 20:00 37.0 97 18 139/79 (99) 92 Room Air 04/08/17 16:45 36.9 109 18 129/74 (92) 94 Nasal Cannula 2.0 04/08/17 15:45 Nasal Cannula 3.0 04/08/17 15:45 36.7 104 18 154/78 (103) 93 Nasal Cannula 2.0 04/08/17 14:44 100 20 132/75 (94) 91 Nasal Cannula 2.0 04/08/17 14:15 36.3 98 16 130/77 (94) 95 Nasal Cannula 3.0 04/08/17 13:45 93 Nasal Cannula 3.0 04/08/17 13:45 36.6 102 16 135/77 (96) 93 Nasal Cannula 3.0 04/08/17 13:45 93 Nasal Cannula 3.0 04/08/17 13:30 96 14 156/78 95 Nasal Cannula 2 04/08/17 13:15 36.2 100 20 156/86 95 Nasal Cannula 2 04/08/17 13:05 99 16 164/69 94 Nasal Cannula 2 04/08/17 12:55 100 19 163/81 94 Oxymask 10 04/08/17 12:45 91 16 165/86 93 Oxymask 10 04/08/17 12:39 36.6 91 17 169/89 96 Oxymask 10 Physical Exam Notes: General Appearance: WD/WN, no apparent distress, + obese Head: normocephalic, atraumatic Eyes: PERRL, EOMI ENT: hearing grossly normal, pharynx normal Neck: no adenopathy, no JVD Respiratory/Chest: lungs clear, no respiratory distress, no accessory muscle use Cardiovascular: regular rate, rhythm, no murmur, normal peripheral pulses Abdomen/GI: normal bowel sounds, non tender, soft Back: normal inspection Extremities/Musculoskeletal: no calf tenderness, no pedal edema, + pertinent finding (Left should dressing C/D/I, Solomon wrap in place, ice pack, +good sensation to light touch in left fingers) Neurologic/Psych: alert, normal reflexes, oriented x 3 Skin: normal color, warm/dry Laboratory Results Last 24 Hours Test 04/09/17 05:36 White Blood Count 18.34 K/uL Red Blood Count 3.90 M/uL Hemoglobin 13.1 g/dL Hematocrit 37.9 % Mean Corpuscular Volume 97.2 fL Mean Corpuscular Hemoglobin 33.6 pg Mean Corpuscular Hemoglobin Concent 34.6 g/dl RDW Standard Deviation 48.7 fL RDW Coefficient of Variation 13.7 % Platelet Count 290 K/uL Mean Platelet Volume 10.3 fL Sodium Level 139 mmol/L Potassium Level 3.8 mmol/L Chloride Level 102 mmol/L Carbon Dioxide Level 28 mmol/L Anion Gap 9.0 mmol/L Blood Urea Nitrogen 18 mg/dl Creatinine 1.05 mg/dl Est Creatinine Clear Calc Drug Dose 73.3 ml/min Estimated GFR () 67.3 Estimated GFR (Non- 58.1 BUN/Creatinine Ratio 17.2 Random Glucose 184 mg/dl Calcium Level 8.2 mg/dl Assessment and Plan This is a 61 yo F with PMHx of HTN, rheumatoid arthritis on methotrexate, osteoathritis, multiple joint replacements, s/p surgical spine surgery with hardware insertion for DJD/herniated disk. Pt underwent elective total shoulder joint replacement by Dr. Valiente on 04/08/17. Left Total Shoulder replacement - Pain management, bowel regimen and DVT ppx per primary team - Pt notes severe constipation with narcotics in the past - she would like to take minimal narcotics if possible - added daily dulcolax 10 mg PO and miralax daily. Dulcolax suppository prn daily for constipation. - PT/OT per primary team - Pt from home Rheumatoid Arthritis - No active flare, methotrexate has been held for 2 week prior to the surgery, and per her bacteriologist soil can resume after off tylenol and in approximately 2 weeks. HTN - Continue triamterene/HCTZ 37.5/25 at this time, BP seems slighty elevated in 150s DM II - Hgb A1C = 6.4, glucose has been running high in the 160s and 180s likely due to dexamethasone from surgery. - Will ask channel development manager to see the patient - Diet and exercise recommended to the patient - at this point no needs to start oral agent. Will ask PCP to follow A1C in 3 monts as an outpt. DVT ppx: Ambulatory CODE STATUS: FULL CODE Disposition: From home, lives with family Thank you for involving us in the consultation of Mrs. Philip, we will follow along.
[2017-04-09] MEDS: DOCUSATE SODIUM 100 MG CAP PO SCH ×2 (08:32→20:36)
[2017-04-09] MEDS: LORATADINE 10 MG TAB PO SCH (08:32)
[2017-04-09] MEDS: INDOMETHACIN 25 MG CAP PO SCH ×2 (08:33→20:34)
[2017-04-09] MEDS: TRIAMTERENE/HCTZ 37.5/25MG TAB PO SCH (08:33)
[2017-04-09] MEDS: POTASSIUM CHLORIDE 20 MEQ TABCR PO SCH ×2 (08:33→20:34)
[2017-04-09] MEDS: PANTOprazole SOD 40 MG TAB PO SCH (08:34)
[2017-04-09] MEDS: MULTIVITAMIN TAB PO SCH (08:34)
[2017-04-09] MEDS: VITAMIN B COMPLEX TAB PO SCH (08:34)
[2017-04-09] MEDS: CHOLECALCIFEROL 1000 INTER.UNIT TAB PO SCH (08:35)
[2017-04-09] MEDS ORDERED: MULTIVITAMIN TAB PO SCH (09:00)
[2017-04-09] MEDS: D5W AND 1/2NSS + 20MEQ KCL 1,000 ML IV SCH (10:20)
[2017-04-09 11:19] VITALS: BP 146/65; PULSE 76; O2SAT 94
[2017-04-09 11:21] VITALS: PULSE 88; O2SAT 94
[2017-04-09] MEDS: POLYETHYLENE (MIRALAX) 17 GM PACK PO SCH (12:30)
[2017-04-09] MEDS ORDERED: POLYETHYLENE (MIRALAX) 17 GM PACK ONE (13:39)
[2017-04-09] MEDS: BISACODYL 5 MG TABEC PO SCH (13:49)
[2017-04-09 15:15] VITALS: BP 151/70; PULSE 79; TEMP 36.8; O2SAT 94
[2017-04-09 15:31] VITALS: Ht 167.6 cm; Wt 112.4 kg
[2017-04-09] MEDS ORDERED: LOPERAMIDE HCL 2 MG CAP PO PRN ×2 (19:45)
[2017-04-09] MEDS ORDERED: NURSING VERBAL MED ORDER ONE (19:45)
[2017-04-09 22:49] VITALS: BP 133/74; PULSE 72; TEMP 36.4; O2SAT 95
[2017-04-10] MEDS: ACETAMINOPHEN 500 MG TAB PO SCH (05:50)
[2017-04-10 06:15] VITALS: BP 124/76; PULSE 69; TEMP 36.5; O2SAT 94
--- NOTE | 2017-04-10 07:00 | Orthopedic Progress Note ---
Orthopedic Progress Note Date of Service Apr 10, 2017. Subjective Post OP Day: 2 Reports: feeling well, pain controlled w PO medications, Denies: complaints, chest pain, SOB, nausea / vomiting, light headedness, calf pain Objective N/V intact, capillary refill less than 2 sec., incision C/D/I, A&O x3 Fingers mobile, sling in tact. Date Time Temp Pulse Resp B/P (MAP) Pulse Ox O2 Delivery O2 Flow Rate FiO2 04/10/17 06:15 36.5 69 16 124/76 (92) 94 Room Air 04/10/17 00:09 Room Air 04/09/17 22:49 36.4 72 16 133/74 (93) 95 Room Air 04/09/17 15:20 Room Air 04/09/17 15:15 36.8 79 16 151/70 (97) 94 Room Air 04/09/17 11:21 88 94 04/09/17 11:19 76 16 146/65 (92) 94 Room Air 04/09/17 08:16 Room Air 04/09/17 07:01 36.4 71 16 123/68 (86) 92 Room Air Laboratory Results 24 Hours: Test 04/10/17 04:44 Assessment & Plan Assessment: POD #2, Left TSA, Biceps Tenodesis Plan: PT/ OT D/C planning- Home w OPPT As per medicine. Inhouse Planning Pain Management: Morphine, PO Tylenol, Oxy IR DVT Prophylaxis: SCDs Discharge Planning Discharge Planning: home with oppt Pain Management: PO Tylenol, Oxy IR Therapy: Physical Therapy, Occupational Therapy
[2017-04-10] MEDS ORDERED: RXC5 PO (07:03)
[2017-04-10] MEDS ORDERED: ACET-24 PO (07:03)
--- NOTE | 2017-04-10 07:04 | Discharge Instructions ---
Discharge Instructions Date of Service Apr 10, 2017. Admission Reason for Admission: Left Shoulder Degenerative Joint Disease Discharge Discharge Diagnosis / Problem: Left TSA, biceps tenodesis Discharge Goals Goal(s): Improve function Activity Recommendations Activity Limitations: as noted below . Instructions / Follow-Up Instructions / Follow-Up ACTIVITY RECOMMENDATIONS: SELF CARE INSTRUCTIONS AFTER TOTAL SHOULDER ARTHROPLASTY A. You may do daily exercises as taught in physical therapy while in hospital. No lifting with the operative arm. Please schedule your outpatient physical therapy appointment to begin within 2-3 days after leaving the hospital. Specific restrictions will be written on your physical therapy prescription that is provided to you. B. You are to wear your sling/immobilizer at all times EXCEPT when performing your daily exercises, participating in physical therapy and for hygiene purposes. C. You may perform dry, daily dressing changes. Please keep your incision covered. You may shower 48 hours after surgery. Do not apply soap or any ointment/ lotions directly over incision. Do not soak incision in bath tub/swimming pool. D. You may use ice as needed to operative shoulder. SPECIAL CARE INSTRUCTIONS: MEDICATION INSTRUCTIONS: *It is recommended you take Aspirin 325mg daily for four weeks post-op. VERY IMPORTANT TO READ AND REVIEW A. There are a few signs you need to watch for after you are home. Call [facility] at [phone] if you experience any of the followin. Increased severe shoulder pain. Some pain is expected especially when you exercise. 2. Increased swelling in you shoulder or arm; pain or swelling in either upper extremity. 3. Any fluid drainage from the incision. 4. Shortness of breath or chest pain. B. Please call [facility] at [phone] if you have any questions or concerns about your operation or recovery. C. Call your physician if: 1. Temperature is greater than 101 degrees (F). 2. Pain is not relieved by prescribed pain medications. 3. Increase drainage or redness from incision. 4. Unanswered questions or concerns. FOLLOW UP VISIT: Please call [facility] at [phone] to schedule a follow up appointment with Dr. Valiente or his PA in 12-14 days from your surgery date. Current Hospital Diet Patient's current hospital diet: Diabetes Type 2 Diet Discharge Diet Recommended Diet: Regular Diet Procedures Procedures Performed: Left total shoulder arthroplasty, biceps tenodesis,increased dificulty BMI 40.0 Pending Studies Studies pending at discharge: no Laboratory Results Hemoglobin A1c Test 03/22/17 14:05 Range/Units Estimated Average Glucose 137 mg/dl Hemoglobin A1c 6.4 H 4.5-5.6 % Medical Emergencies . Who to Call and When: Medical Emergencies: If at any time you feel your situation is an emergency, please call 911 immediately. . Non-Emergent Contact Non-Emergency issues call your: Primary Care Provider . "Provider Documentation" section prepared by Virgil Salcedo. . VTE Core Measure Inpt VTE Proph given/why not?: SCD's [place] Drug Monitoring Program Search Results: patient reviewed within database, no issues identified
[2017-04-10 07:30] LABS: HEMATOCRIT 39.3 % (37-47); MEAN CELL VOLUME 98.3 fL (80-100); MEAN CORPUSCULAR HEMOGLOBIN 33.5 pg (25-34); MEAN CORPUSCULAR HGB CONC 34.1 g/dl (32-36); MEAN PLATELET VOLUME 9.9 fL (7.4-10.4); PLATELET COUNT 263 K/uL (130-400); WHITE BLOOD COUNT 10.96 K/uL (4.8-10.8)
[2017-04-10] MEDS: VITAMIN B COMPLEX TAB PO SCH (07:47)
[2017-04-10] MEDS: TRIAMTERENE/HCTZ 37.5/25MG TAB PO SCH (07:47)
[2017-04-10] MEDS: PANTOprazole SOD 40 MG TAB PO SCH (07:47)
[2017-04-10] MEDS: MULTIVITAMIN TAB PO SCH (07:47)
[2017-04-10] MEDS: LORATADINE 10 MG TAB PO SCH (07:47)
[2017-04-10] MEDS: BISACODYL 5 MG TABEC PO SCH (07:48)
[2017-04-10] MEDS: DOCUSATE SODIUM 100 MG CAP PO SCH (07:48)
[2017-04-10] MEDS: CHOLECALCIFEROL 1000 INTER.UNIT TAB PO SCH (07:48)
[2017-04-10] MEDS: POLYETHYLENE (MIRALAX) 17 GM PACK PO SCH (07:49)
[2017-04-10 07:58] LABS: BUN/CREATININE RATIO 20.9 (10-20); CALCIUM 8.4 mg/dl (8.5-10.1); CREATININE 1.01 mg/dl (0.60-1.20); POTASSIUM 3.9 mmol/L (3.5-5.1)
[2017-04-10 08:00] VITALS: BP_SYST 128; BP_SYST 172; BP_DIAS 110; BP_DIAS 75; PULSE 62; TEMP 36.6; O2SAT 93
[2017-04-10] MEDS: INDOMETHACIN 25 MG CAP PO SCH (08:16)
[2017-04-10 08:41] VITALS: BP 128/75; PULSE 62; TEMP 36.6; O2SAT 93
[2017-04-10 08:55] VITALS: O2SAT 93
--- NOTE | 2017-04-10 10:57 | Hospitalist Progress Note ---
Hospitalist Progress Note Date of Service Apr 10, 2017. Subjective Pt evaluation today including: conversation w/ patient, physical exam, chart review, lab review, review of studies Pain: L shoulder pain PO Intake: Good Voiding: no voiding problems The patient was seen and examined this morning. Pt reports feeling ok today. She took stool softeners and miralax yesterday and her bowels became loose. She reports now "refusing both the narcotics and bowel regimen" in a joking manor. She is anticipating going home soon, her sister is picking her up. She denies any other acute complaints. Again diet and exercise was encouraged with the patient. ROS: 6 point ROS was reviewed and otherwise negative. Objective Vital Signs Date Time Temp Pulse Resp B/P (MAP) Pulse Ox O2 Delivery O2 Flow Rate FiO2 04/10/17 08:55 93 Room Air 04/10/17 08:41 36.6 62 18 93 Room Air 04/10/17 08:00 36.6 62 18 172/110 (130) 93 Room Air 128/75 (92) 04/10/17 07:20 Room Air 04/10/17 06:15 36.5 69 16 124/76 (92) 94 Room Air 04/10/17 00:09 Room Air 04/09/17 22:49 36.4 72 16 133/74 (93) 95 Room Air 04/09/17 15:20 Room Air 04/09/17 15:15 36.8 79 16 151/70 (97) 94 Room Air 04/09/17 11:21 88 94 04/09/17 11:19 76 16 146/65 (92) 94 Room Air Physical Exam General Appearance: WD/WN, no apparent distress, + obese ENT: hearing grossly normal Neck: supple Respiratory/Chest: lungs clear, no respiratory distress, no accessory muscle use, + pertinent finding (on room air) Cardiovascular: regular rate, rhythm Abdomen: normal bowel sounds, non tender, soft Neurologic/Psychiatric: normal mood/affect, oriented x 3 Skin: normal color, warm/dry Laboratory Results Last 24 Hours Test 04/10/17 06:23 04/10/17 07:12 Bedside Glucose 124 mg/dl White Blood Count 10.96 K/uL Red Blood Count 4.00 M/uL Hemoglobin 13.4 g/dL Hematocrit 39.3 % Mean Corpuscular Volume 98.3 fL Mean Corpuscular Hemoglobin 33.5 pg Mean Corpuscular Hemoglobin Concent 34.1 g/dl RDW Standard Deviation 50.2 fL RDW Coefficient of Variation 14.0 % Platelet Count 263 K/uL Mean Platelet Volume 9.9 fL Sodium Level 140 mmol/L Potassium Level 3.9 mmol/L Chloride Level 105 mmol/L Carbon Dioxide Level 29 mmol/L Anion Gap 6.0 mmol/L Blood Urea Nitrogen 21 mg/dl Creatinine 1.01 mg/dl Est Creatinine Clear Calc Drug Dose 76.2 ml/min Estimated GFR () 70.6 Estimated GFR (Non- 60.9 BUN/Creatinine Ratio 20.9 Random Glucose 133 mg/dl Calcium Level 8.4 mg/dl Assessment and Plan This is a 61 yo F with PMHx of HTN, rheumatoid arthritis on methotrexate, osteoathritis, multiple joint replacements, s/p surgical spine surgery with hardware insertion for DJD/herniated disk. Pt underwent elective total shoulder joint replacement by Dr. Valiente on 04/08/17. Left Total Shoulder replacement - Pain management, bowel regimen and DVT ppx per primary team - Pt notes severe constipation with narcotics in the past - resolved with stool softeners and miralax. - PT/OT per primary team - Pt from home Rheumatoid Arthritis - No active flare, methotrexate has been held for 2 week prior to the surgery, and per her primer charging tool setter can resume after off tylenol and in approximately 2 weeks. HTN - Continue triamterene/HCTZ 37.5/25 at this time, BP controlled DM II - Hgb A1C = 6.4, glucose has been running more stable now: low 133 and highs of 180s. - due to dexamethasone from surgery. - ems educator consulted - appreciate recs - Diet and exercise recommended to the patient - at this point no needs to start oral agent. Will ask PCP to follow A1C in 3 monts as an outpt. DVT ppx: Ambulatory CODE STATUS: FULL CODE Disposition: From home, lives with family Thank you for involving us in the consultation of Mrs. Philip.
== END 2017-04-10 11:40 | disposition home or self-care (01) | DRG 483 ==
LOC: C.ACU 06:58 → C.3E 07:27 → ENRESERV 13:25
PROVIDERS: ADMIT Orthopaedic Surgery Sports Medicine; ATTEND Orthopaedic Surgery Sports Medicine
PROC: 0LQ40ZZ Repair Left Upper Arm Tendon, Open Approach (ICD-10-PCS; principal; 2017-04-08 09:15)
PROC: 0RRK0JZ Replacement of Left Shoulder Joint with Synthetic Substitute, Open Approach (ICD-10-PCS; principal; 2017-04-08 09:15)
DX: M19.012 Primary osteoarthritis, left shoulder (principal); Z68.41 Body mass index [BMI] 40.0-44.9, adult; M75.22 Bicipital tendinitis, left shoulder; E66.01 Morbid (severe) obesity due to excess calories; I10 Essential (primary) hypertension; M06.9 Rheumatoid arthritis, unspecified; E11.9 Type 2 diabetes mellitus without complications; Z79.899 Other long term (current) drug therapy; Z79.52 Long term (current) use of systemic steroids

== ENCOUNTER 2022-07-25 09:25 | Observation (INO) ==
--- NOTE | 2022-07-06 16:01 | PAT Medication Instructions ---
Medication Instructions Date of Service July 06, 2022 Home Medications Medication Instructions Recorded montelukast 10 mg tablet 10 mg PO QPM #30 tabs 09/27/21 (Singulair) cholecalciferol (vitamin D3) 25 mcg (1,000 unit) capsule (Vitamin D3) 1,000 unit PO QAM folic acid 1 mg tablet 1 mg PO QAM hydrochlorothiazide 25 mg tablet 25 mg PO QAM loratadine 10 mg capsule 10 mg PO QAM multivitamin 1 tab PO QAM tofacitinib 11 mg tablet,extended release 24 hr (Xeljanz XR) 11 mg PO QAM vitamin B complex 1 tab PO QAM docusate sodium 100 mg tablet 100 mg PO UD PRN inhalational spacing device (Vortex Holding Chamber) gabapentin 300 mg capsule 300 - 600 mg PO UD aspirin 81 mg tablet,delayed release 81 mg PO QAM diclofenac sodium 50 mg tablet,delayed release 50 mg PO QPM olmesartan 5 mg tablet 5 mg PO QAM montelukast 10 mg tablet (Singulair) 10 mg PO QPM Folate 666 mcg PO HS azelastine 137 mcg (0.1 %) nasal spray aerosol 1 spray intranasal BID PRN biotin 1 tab PO QPM empagliflozin 25 mg tablet (Jardiance) 25 mg PO QAM peg 400-propylene glycol (PF) 0.4 %-0.3 % eye drops in a dropperette (Systane (PF)) 1 drp ophthalmic (eye) BID PRN simvastatin 10 mg tablet 10 mg PO HS trazodone 50 mg tablet 50 mg PO HS STOP 3 days before surgery empagliflozin 25 mg tablet (Jardiance) 25 mg PO QAM Continue as directed gabapentin 300 mg capsule 300 - 600 mg PO UD ASK your surgeon for instructions diclofenac sodium 50 mg tablet,delayed release 50 mg PO QPM ASK your prescriber and surgeon tofacitinib 11 mg tablet,extended release 24 hr (Xeljanz XR) 11 mg PO QAM DO NOT take the morning of surgery cholecalciferol (vitamin D3) 25 mcg (1,000 unit) capsule (Vitamin D3) 1,000 unit PO QAM folic acid 1 mg tablet 1 mg PO QAM hydrochlorothiazide 25 mg tablet 25 mg PO QAM loratadine 10 mg capsule 10 mg PO QAM multivitamin 1 tab PO QAM vitamin B complex 1 tab PO QAM docusate sodium 100 mg tablet 100 mg PO UD PRN(if needed) olmesartan 5 mg tablet 5 mg PO QAM Take morning of surgery With a small sip of water, OTHERWISE NOTHING TO EAT OR DRINK AFTER MIDNIGHT: aspirin 81 mg tablet,delayed release 81 mg PO QAM (unless directed otherwise by surgeon) azelastine 137 mcg (0.1 %) nasal spray aerosol 1 spray intranasal BID PRN(if needed) peg 400-propylene glycol (PF) 0.4 %-0.3 % eye drops in a dropperette (Systane (PF)) 1 drp ophthalmic (eye) BID PRN(if needed) Take evening before surgery montelukast 10 mg tablet (Singulair) 10 mg PO QPM Folate 666 mcg PO HS azelastine 137 mcg (0.1 %) nasal spray aerosol 1 spray intranasal BID PRN(if needed) biotin 1 tab PO QPM peg 400-propylene glycol (PF) 0.4 %-0.3 % eye drops in a dropperette (Systane (PF)) 1 drp ophthalmic (eye) BID PRN(if needed) simvastatin 10 mg tablet 10 mg PO HS trazodone 50 mg tablet 50 mg PO HS Other Notes If you have any questions please call us at [phone] or [phone] or [phone] or [phone]
--- NOTE | 2022-07-11 10:48 | Anesthesiology Consultation ---
Date of Service July 11, 2022 Assessment & Plan (1) Encounter for pre-operative examination: Chart Review Chart Review: Acceptable Risk for Surgery (pending PCP clearance 07/17/22) and Patient seen in Pre Admission Testing - Awaiting PCP clearance PCP 07/17/22 - Discussed with Dr. Rodriguez- patient is not an acceptable Same Day Joint candidate - Check BSG AM DOS Per PAT appt on 07/11/22, patient denies any recent travel or large group activities. Pt is vaccinated for Covid. Will leave to surgeon's discretion if preop Covid testing needed. Educated on importance of using Covid precautions one week prior to surgery Right shoulder arthroscopic SAD, DCE, RC debridement, glenohumeral debridement 03/31/20= Done under [facility] with LMA #4 x 1 attempt/atraumatic/good seal/small preexisting chip to front tooth unchanged Teaching & Discussion Pre-Anesthesia Teaching/Discussion Notes: Instructed NPO after midnight before surgery,except medications with 15 cc of water. Medication instructions provided according to the PAT guidelines. History Surgery Operation Date: 07/25/22 14:25 Proposed Procedures p Right Shoulder Total Arthroplasty - Eliseo Valiente MD Height/Weight Height: 5 ft 3 in Weight: 108.6 kg Allergies Allergy/AdvReac Type Severity Reaction Status Date / Time Sulfa (Sulfonamide Allergy Severe difficulty Verified 07/06/22 09:35 Antibiotics) breathing per pt/pt thinks it rash? celecoxib [From Celebrex] AdvReac Unknown ISN'T Verified 07/06/22 09:35 EFFECTIVE codeine AdvReac Unknown N&V Verified 07/06/22 09:35 Medications Home Medications Medication Instructions Recorded Confirmed Last Taken cholecalciferol (vitamin D3) 25 1,000 unit PO QAM 03/25/18 07/06/22 03/30/20 08:00 mcg (1,000 unit) capsule (Vitamin D3) folic acid 1 mg tablet 1 mg PO QAM 03/25/18 07/06/22 03/30/20 08:00 hydrochlorothiazide 25 mg tablet 25 mg PO QAM 03/25/18 07/06/22 03/30/20 08:00 loratadine 10 mg capsule 10 mg PO QAM 03/25/18 07/06/22 03/30/20 08:00 multivitamin 1 tab PO QAM 03/25/18 07/06/22 03/30/20 08:00 tofacitinib 11 mg tablet,extended 11 mg PO QAM 03/25/18 07/06/22 03/18/20 08:00 release 24 hr (Xeljanz XR) vitamin B complex 1 tab PO QAM 03/25/18 07/06/22 03/30/20 08:00 docusate sodium 100 mg tablet 100 mg PO UD PRN Constipation 12/30/18 07/06/22 03/29/20 08:00 inhalational spacing device #1 ea 12/30/18 10/05/21 Unknown (Vortex Holding Chamber) gabapentin 300 mg capsule 300 - 600 mg PO UD 04/27/19 07/06/22 03/30/20 21:30 aspirin 81 mg tablet,delayed 81 mg PO QAM 03/09/20 07/06/22 03/23/20 08:00 release diclofenac sodium 50 mg 50 mg PO QPM 08/15/20 07/06/22 Unknown tablet,delayed release olmesartan 5 mg tablet 5 mg PO QAM 08/15/20 07/06/22 Unknown montelukast 10 mg tablet 10 mg PO QPM #30 tabs 09/27/21 07/06/22 Unknown (Singulair) Folate 666 mcg PO HS 07/06/22 07/06/22 Unknown azelastine 137 mcg (0.1 %) nasal 1 spray intranasal BID PRN 07/06/22 07/06/22 Unknown spray aerosol allergies biotin 1 tab PO QPM 07/06/22 07/06/22 Unknown empagliflozin 25 mg tablet 25 mg PO QAM 07/06/22 07/06/22 Unknown (Jardiance) peg 400-propylene glycol (PF) 0.4 1 drp ophthalmic (eye) BID PRN Dry 07/06/22 07/06/22 Unknown %-0.3 % eye drops in a dropperette Eyes (Systane (PF)) simvastatin 10 mg tablet 10 mg PO HS 07/06/22 07/06/22 Unknown trazodone 50 mg tablet 50 mg PO HS 07/06/22 07/06/22 Unknown Past Medical History Medical History (Updated 07/12/22 @ 09:34 by Kirsten Good PA-C) Allergies Asthma Appears to be triggered by allergies - follows with pulm- last seen 09/2021- can follow up PRN Diabetes mellitus, type 2 NIDDM; currently on simvastatin for DM purposes per patient Fibromyalgia Hypertension Migraine Hx Morbid obesity Osteoarthritis Rheumatoid arthritis Follows with rheum in [place]- Dr. Aranda Sleep apnea in adult Non-compliant with CPAP Exercise / Class Metabolic Activity II 4-5 Yardwork/Stairs/Walk up hill (one flight of stairs - no chest pain or SOB ) Past Family History Family History Grandfather (Maternal) Family hx of colon cancer Grandfather (Paternal) Family hx of colon cancer Past Surgical History Surgical History Fusion of spine Cervical History of arthroplasty of left shoulder History of arthroscopic surgery of shoulder Right RCR, biceps tendon repair History of carpal tunnel release R/L History of colonoscopy History of total left knee replacement (TKR) History of total right hip replacement History of total right knee replacement (TKR) Hx of myomectomy Hx of release of tendon Right arm Past Anesthesia History No Hx of Anesthesia Complications and No Family Hx of Anesthesia Complications History of PONV No Hx of PONV and No Hx of Motion Sickness Social History Smoking Status: Never smoker Do You Dip or Chew Tobacco: No Hx Alcohol Use: Yes Alcohol type: other alcohol intake frequency: holidays/special occasions only Alcohol Intake Frequency Comment: wine coolers Hx Substance Use: No substance use type: does not use Review of Systems Patient denies chest pain, shortness of breath, dyspnea on exertion, reflux, cough, wheezing, palpitations. No hx of seizures, stroke, [place]. No hx of blood clots or blood transfusions Physical Exam Vital Signs VITALS BP 126/69 P 87 TEMP 98.5 SP02 93% RESP 16 Constitutional no acute distress ENMT Mouth: no TMJ clicking Thyromental Distance: < 3.5 Finger Breadths (3.0) Mallampati Class: III Cap to molar Neck + thick neck and + limited neck extension (minimal) Respiratory normal respiratory effort; no respiratory distress Auscultation: lungs clear to auscultation bilaterally; no wheezes Cardiovascular Rate/Rhythm: regular rate and regular rhythm Heart Sounds: no murmur Vessels: no carotid bruit Musculoskeletal Spine: no pain with cervical ROM Extremities: extremities normal to inspection Psychiatric Orientation: alert Lab Results Anesthesia Preop Results Results Anesthesia Widget: WBC 8.93 K/ul (4.8-10.8) 07/11/22 Hgb 16.0 g/dl (12.0-16.0) 07/11/22 Hct 46.4 % (37.0-47.0) 07/11/22 Plt 311 K/uL (130-400) 07/11/22 Na 140 mmol/L (136-145) 07/11/22 K 3.6 mmol/L (3.5-5.1) 07/11/22 Cl 101 mmol/L (98-107) 07/11/22 CO2 32 mmol/L (21-32) 07/11/22 BUN 21 mg/dl (6-23) 07/11/22 Creat 1.00 mg/dl (0.6-1.2) 07/11/22 Glucose Level 171 mg/dl (70-99(Fasting)) H 07/11/22 PT 11.6 Seconds (9.0-12.0) 07/11/22 PTT 29.2 Seconds (21.0-31.0) 07/11/22 INR 1.1 (0.9-1.1) 07/11/22 HA1c 7.9 % (4.5-5.6) H 07/11/22 Urine Color Yellow 07/11/22 Urine Appearance Clear (Clear) 07/11/22 Urine pH 5.0 (4.5-7.5) 07/11/22 Urine Specific [place] 1.041 (1.000-1.030) H 07/11/22 Urine Protein Negative (Negative) 07/11/22 Urine Glucose (UA) 3+ (Negative) H 07/11/22 Urine Ketones Trace (Negative) H 07/11/22 Urine Blood Negative (Negative) 07/11/22 Urine Nitrite Positive (Negative) A 07/11/22 Urine Bilirubin Negative (Negative) 07/11/22 Urine Urobilinogen Negative (Negative) 07/11/22 Urine Leukocyte Esterase Trace (Negative) H 07/11/22 Urine WBC (Auto) >30 /hpf (0-5) H 07/11/22 Urine RBC (Auto) 0-4 /hpf (0-4) 07/11/22 Urine Hyaline Casts (Auto) 1-5 /lpf (0-5) 07/11/22 Urine Epithelial Cells (Auto) 20-30 /lpf (0-5) H 07/11/22 Urine Bacteria (Auto) 4+ (Negative) H 07/11/22 Blood Type O Positive 07/11/22 Antibody Screen NEGATIVE 07/11/22 Testing Laboratory Results *Surgeon's office informed of UA results Electrocardiogram Date: 07/11/22 Findings: + NSR @ (86bpm ) Incomplete RBBB Chest X-Ray Date: 07/12/22 FINDINGS: There are low lung volumes. No pneumothorax. No pleural effusions. The heart remains borderline enlarged. A few bibasilar linear densities favor subsegmental atelectasis. Otherwise, the lungs are clear. Cervical spinal fusion hardware is noted. There is a left shoulder prosthesis. IMPRESSION: Low lung volumes with a few bibasilar linear densities. These favor subsegmental atelectasis. Otherwise, no acute process within the chest. Cervical Spine Date: 07/11/22 FINDINGS: Anterior cervical fixation hardware is seen. Bilateral shoulder arthroplasty is seen. Degenerative changes are noted in the cervical spine. The alignment is anatomic. Prevertebral soft tissues are within normal limits. IMPRESSION: Degenerative changes without evidence of acute abnormality. COVID-19 Risk Screen Screening Information COVID-19 Screen Date: 07/11/22 Exposure 21 Days Family/Household +COVID Last 21 Days: No Exposure 10 Days Any COVID Exposure Last 10 Days: No Symptoms Last 10 Days Experienced COVID Sx Last 10 Days: No + COVID 0-90 Days COVID + in Last 0-90 Days: No Risk Plan COVID Risk Plan: No Risk Identified Patient Education COVID Preop Screening Education Complete: Yes
--- NOTE | 2022-07-23 09:31 | History & Physical Report ---
Date of Service July 23, 2022 Assessment & Plan (1) Primary osteoarthritis, right shoulder: Plan: Treatment options discussed with the patient. She would like to proceed with surgical intervention. Risks, benefits and alternatives to surgery including but not limited to infection, DVT, pain, stiffness, need for revision surgery, damage to blood vessels, damage to nerves, PE, , were discussed with the patient and they wish to proceed. Plan for right total shoulder arthroplasty scheduled for at [facility] with Dr. Valiente on July 25. Plan on outpatient physical therapy postop. All questions answered. Patient will follow-up postoperatively. History of Present Illness Chief Complaint: Right shoulder pain Primary Care Provider: Skyler Jimenez DO 66-year-old female with past medical history significant for high blood pressure, sleep apnea, diabetes, migraines presents who presents with serina ding right shoulder pain. Pain is interfering with her daily activities. She has failed conservative measures. She would like to proceed with surgical intervention. Patient denies headaches, sweats, fevers, chills, double vision, blurred vision, cough, sore throat, dysphagia, chest pain, sob, wheezing, n/v/d/c, numbness, tingling, fatigue, urinary symptoms, mood disorders. ROS positive for right shoulder pain and stiffness. Allergies Allergy/AdvReac Type Severity Reaction Status Date / Time Sulfa (Sulfonamide Allergy Severe difficulty Verified 07/06/22 09:35 Antibiotics) breathing per pt/pt thinks it rash? celecoxib [From Celebrex] AdvReac Unknown ISN'T Verified 07/06/22 09:35 EFFECTIVE codeine AdvReac Unknown N&V Verified 07/06/22 09:35 Home Medications Medication Instructions Recorded Confirmed Type cholecalciferol (vitamin D3) 25 1,000 unit PO QAM 03/25/18 07/06/22 History mcg (1,000 unit) capsule (Vitamin D3) folic acid 1 mg tablet 1 mg PO QAM 03/25/18 07/06/22 History hydrochlorothiazide 25 mg tablet 25 mg PO QAM 03/25/18 07/06/22 History loratadine 10 mg capsule 10 mg PO QAM 03/25/18 07/06/22 History multivitamin 1 tab PO QAM 03/25/18 07/06/22 History tofacitinib 11 mg tablet,extended 11 mg PO QAM 03/25/18 07/06/22 History release 24 hr (Xeljanz XR) vitamin B complex 1 tab PO QAM 03/25/18 07/06/22 History docusate sodium 100 mg tablet 100 mg PO UD PRN Constipation 12/30/18 07/06/22 History inhalational spacing device #1 ea 12/30/18 10/05/21 History (Vortex Holding Chamber) gabapentin 300 mg capsule 300 - 600 mg PO UD 04/27/19 07/06/22 History aspirin 81 mg tablet,delayed 81 mg PO QAM 03/09/20 07/06/22 History release diclofenac sodium 50 mg 50 mg PO QPM 08/15/20 07/06/22 History tablet,delayed release olmesartan 5 mg tablet 5 mg PO QAM 08/15/20 07/06/22 History montelukast 10 mg tablet 10 mg PO QPM #30 tabs 09/27/21 07/06/22 Rx (Singulair) Folate 666 mcg PO HS 07/06/22 07/06/22 History azelastine 137 mcg (0.1 %) nasal 1 spray intranasal BID PRN 07/06/22 07/06/22 History spray aerosol allergies biotin 1 tab PO QPM 07/06/22 07/06/22 History empagliflozin 25 mg tablet 25 mg PO QAM 07/06/22 07/06/22 History (Jardiance) peg 400-propylene glycol (PF) 0.4 1 drp ophthalmic (eye) BID PRN Dry 07/06/22 07/06/22 History %-0.3 % eye drops in a dropperette Eyes (Systane (PF)) simvastatin 10 mg tablet 10 mg PO HS 07/06/22 07/06/22 History trazodone 50 mg tablet 50 mg PO HS 07/06/22 07/06/22 History Past Med/Surg History Medical History (Updated 07/23/22 @ 09:38 by Benito Pan PA-C) Allergies Asthma Appears to be triggered by allergies - follows with pulm- last seen 09/2021- can follow up PRN Diabetes mellitus, type 2 NIDDM; currently on simvastatin for DM purposes per patient Fibromyalgia Hypertension Migraine Hx Morbid obesity Osteoarthritis Rheumatoid arthritis Follows with rheum in [place]- Dr. Aranda Sleep apnea in adult Non-compliant with CPAP Surgical History Fusion of spine Cervical History of arthroplasty of left shoulder History of arthroscopic surgery of shoulder Right RCR, biceps tendon repair History of carpal tunnel release R/L History of colonoscopy History of total left knee replacement (TKR) History of total right hip replacement History of total right knee replacement (TKR) Hx of myomectomy Hx of release of tendon Right arm Family History Grandfather (Maternal) Family hx of colon cancer Grandfather (Paternal) Family hx of colon cancer Social History Smoking Status: Never smoker Second Hand Exposure: Yes (years ago); Hx Alcohol Use: Yes Alcohol type: other Hx Substance Use: No Preferred Language: Telugu Communication Ability: Effective 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 Beliefs That Will Affect Care: None marital status: Single Current Living Situation: Alone Current Living Situation Comment: with 7 cats current occupational status: employed Feels Safe at Home: Yes Assistive Devices: Glasses Review of Systems All systems reviewed & are unremarkable except as noted in HPI & below Physical Exam Constitutional: well developed and well nourished; no acute distress Eyes: PERRL, conjunctivae normal, anicteric sclerae ENMT: external ear and nose normal, oropharynx normal Neck: trachea midline, no thyromegaly Respiratory: normal respiratory effort, lungs clear to auscultation Cardiovascular: RRR, no murmur, no edema Musculoskeletal: Right shoulder: Pain with resisted strength testing. [id number] crepitation right shoulder consistent with end-stage osteoarthritis. Tenderness anterolateral acromion and anterior glenoid. Range of motion is 140 degrees into abduction, forward flexion into 130 degrees, external rotation at 30 degrees. Ex-Fix Skin: no rashes, warm and dry Neurologic: patellar DTR's 2+ bilat, sensation intact Psychiatric: A+Ox3, euthymic affect Results & Data ([facility]) Diagnostic Findings Right shoulder radiographs demonstrate end-stage osteoarthritis glenohumeral joint with large inferior humeral spur. MRI demonstrates intact rotator cuff, partial tearing to subscapularis.
[~2022-07-25 09:25] MED LIST changes: -ADAL40KI SC; -B-CO1CAP3 PO; +BUPIVACAINE 0.5 % 5 MG/1 ML PF 10ML VIAL ONE; -CEFAZOLIN 2000MG IV PUSH 10 ML IV SCH; -CHOL1000 PO; -CLR10 PO; -DEXAMETHASONE 4 MG TAB PO SCH; -DEXAMETHASONE SOD INJ 4 MG/ML VIAL ONE; +FAMOTIDINE 20 MG TAB PO SCH; -FENTANYL CITRATE INJ 50 MCG/1 ML 2 ML VIAL ONE; -FOLI1TAB7 PO; -GABAPENTIN 300 MG CAP PO SCH; +GABAPENTIN 600 MG DOSE PO SCH; -GLYCOPYRROLATE INJ 0.2 MG/ML VIAL ONE; -INDO-22 PO; -LACTATED RINGER'S 1000ML 1,000 ML IV SCH; -LACTATED RINGER'S 1000ML IV SCH; +LIDOCAINE 2% MPF LOCAL 5 ML VIAL INFIL ONE; -LIDOCAINE HCL 2% 2 ML VIAL (20MG/ML) ONE; +LR 15ML/HR IV SCH; -METH2.5T PO; -METOCLOPRAMIDE HCL 10 MG TAB PO SCH; +METOCLOPRAMIDE HCL 10 MG TABLET PO SCH; -MIDAZOLAM HCL 1 MG/ML 2ML VIAL ONE; -MULT-506 PO; -NAPR1TAB9 PO; -NEOSTIGMINE METHYLSULFATE 5 MG/5 ML SYR ONE; -ONDANSETRON INJ 2 MG/ML 2 ML VIAL ONE; -RIZA10TA18 PO; +ROCURONIUM BROMIDE 10 MG/ML 5 ML VIAL IV ONE; -ROPIVACAINE 0.5% 5 MG/ML 30 ML VIAL ONE; +TRANEXAMIC ACID 1,000 MG **IV Intra-op IV SCH; +TRANEXAMIC ACID 1,000 MG **IV Pre-op IV SCH; -TRIATAB3 PO; +ceFAZolin 2000MG 2,000 MG/15 ML SYR IV SCH
--- NOTE | 2022-07-25 09:44 | History & Physical Bridge Note ---
Date of Service July 25, 2022 History & Physical Bridge Note I have examined the patient, reviewed the History & Physical and in the interval since the performance of the History & Physical I have noted the following changes of clinical significance: no changes noted
[2022-07-25] MEDS ORDERED: HYDROmorphone INJ 2 MG/ML SYR/VIAL IV PRN (10:08)
[2022-07-25] MEDS ORDERED: ePHEDrine sulfate 50 MG/ML AMP IV PRN (10:08)
[2022-07-25] MEDS ORDERED: ONDANSETRON INJ 2 MG/ML 2 ML VIAL IV PRN ×2 (10:08→16:27)
[2022-07-25] MEDS ORDERED: ATROPINE SULFATE 0.1 MG/ML 10ML SYR IV PRN (10:08)
[2022-07-25] MEDS ORDERED: SCOPOLAMINE 1 MG TDSY TD ONE (10:53)
[2022-07-25] MEDS ORDERED: MIDAZOLAM HCL 1 MG/ML 2ML VIAL ONE (11:07)
[2022-07-25] MEDS ORDERED: fentaNYL citrate PF 100 MCG/2 ML VIAL ONE (11:07)
[2022-07-25] MEDS ORDERED: SCOPOLAMINE 1 MG TDSY TD STA (11:12)
[2022-07-25] MEDS ORDERED: EpINEphrine HCL INJ 1 MG/ML 1ML SYRINGE ONE (11:17)
[2022-07-25] MEDS ORDERED: ROCURONIUM BROMIDE 10 MG/ML 5 ML VIAL IV ONE ×2 (13:35→15:01)
[2022-07-25] MEDS ORDERED: GLYCOPYRROLATE 0.2 MG/ML VIAL ONE (14:26)
[2022-07-25] MEDS ORDERED: ONDANSETRON INJ 2 MG/ML 2 ML VIAL ONE ×2 (14:26)
[2022-07-25] MEDS ORDERED: NEOSTIGMINE METHYLSULFATE 1 MG/ML 10ML VIAL ONE (14:26)
--- NOTE | 2022-07-25 14:47 | Operative Report ---
Post Operative Report Pre & Post Diagnosis Operation Date: 07/25/22 11:50 Pre-Op Diagnosis: Right Shoulder Osteoarthritis, marked subacromial bursitis, partial tear rotator cuff, history of right scopic rotator cuff repair subacromial decompression. Post-Op Diagnosis: Right Shoulder Osteoarthritis, marked subacromial bursitis, partial bursal sided rotator cuff tear supraspinatus, partial intra-articular tearing infraspinatus with rotator cuff tendinopathy, loose bodies anterior glenoid. I identified the patient and participated in the time-out.: Yes Procedure Operation Date: 07/25/22 11:50 Actual Procedures p Right Shoulder Total Arthroplasty, subacromial bursectomy, small rotator Cuff Tear Repair, Suture and suture anchor Removal, increased difficulty obesity BMI 40.2. (Right) - Eliseo Valiente MD Surgeon Eliseo Valiente MD Civil Cadd Technician Derek UREÑA, Mary UREÑA Estimated Blood Loss 125 Findings Consistent with Post-Op Diagnosis Specimens Humeral head Drains 2 Hemovac Anesthesia Type General Regional Complications none Disposition Disposition: Recovery Room Indications 66-year-old female history of prior rotator cuff repair. Patient did well for years and has progressive osteoarthritis in the glenohumeral joint to the point where she is [id number] with large inferior osteophytes and limited range of motion now. MRI demonstrates a massive subacromial bursitis but intact appearing rotator cuff repair with some partial tearing of the supraspinatus bursal sided and some intra-articular tendinopathy of the rotator cuff without a clearance of the tear. Biceps tendon absent from prior surgical release or rupture. Description of Procedure The patient was taken to the operating room and anesthetized under a general and regional block anesthesia. A towel roll was placed under the medial border of the scapula of the right shoulder. The patient's head was placed on a foam headrest and protective eyewear was placed and the extremities were well padded. The arm was draped free in order to manipulate the shoulder as necessary. The shoulder exam demonstrated forward flexion 165 degrees, abduction 100 degrees, external rotation 35 degrees. Patient had an obese chest and arm area.. The shoulder was sterilely prepped and draped in the usual sterile fashion. An anterior deltopectoral approach was performed. A slightly larger than typical longitudinal incision was made in the interval due to the obesity to improve exposure. The skin was incised sharply and subcutaneous tissues dissected down to the fascia. The cephalic vein was identified and retracted medially with the pectoralis muscle. Any crossing veins were tied off with silk ties and divided. The clavipectoral fascia was divided at the lateral margin of the conjoined tendon and divided up to the level of the coracoacromial ligament which was preserved. The upper 1 cm of the pectoralis was released for inferior exposure. The biceps tendon findings demonstrated absent biceps tendon. The rotator cuff tendon findings demonstrated rotator cuff repair with a medial row being intact and some partial tearing of the lateral aspect of the supraspinatus with a subcentimeter small transverse bursal sided tear. There was a large bursal collection over the entire rotator cuff with a large chronic bursitis in the subacromial space extending over the subscapularis. The bursa was dissected out carefully from underneath the deltoid and off of the rotator cuff and excised.. The circumflex vessels were identified and tied off with silk ties and divided laterally. The fibers and subscapularis were split longitudinally at the level of the circumflex vessels down to the capsule and then reflected off the inferior capsule using a Kitner elevator. The axillary nerve was identified with a tug test and protected with a blunt Scotty retractor. The rotator interval was opened up and extended down to the glenoid. There were 2 large loose bodies over the anterior degenerative labrum on the anterior labrum that were excised. The subscapularis tendon was taken down with a trans-tendinous incision leaving a cuff of tissue for repair on the lesser tuberosity. The incision was carried down to the tendon and the capsule and a #1 Vicryl suture was placed into the free end of the subscapularis tendon. The capsule was subperiosteally dissected off the inferior neck of the humerus exposing the humeral osteophytes which demonstrated large inferior osteophytes extending from anterior to posterior. Humeral head was eburnated bone with exposed bone on the majority of the humeral head. The osteophytes were excised with an artist chisel and a rongeur. The capsular release along the inferior neck of the humerus was completed. The humerus was then retracted posterior to the glenoid with a Fukuda retractor. The remainder of the labrum was resected. The glenoid findings demonstrated exposed bone with multiple subchondral cysts that were very small cysts but there were multiple cysts covering the entire glenoid surface.. I did an anterior inferior and posterior inferior release with electrocautery on bone and a Marx elevator with the axillary nerve continuing to be protected with the blunt Hohmann retractor inferiorly. When the releases were completed and the humeral head was exposed with some extension and external rotation and an anatomic head cut was made using the oscillating saw. The Tornier total shoulder arthroplasty was used including the Cortiloc glenoid component. Attention was first taken to preparation of the humeral shaft. A peak footprint type suture anchor was removed which was necessary in order to place the stem. The sutures were cut off this anchor and then retrieved in the subacromial space and were cut leaving the medial row tied sutures intact for medial row support as this area was still healed. A centralizing awl was used followed by broaches up to the appropriate templated size. The trial broach was left in place and a cut protector was placed. The humerus was then retracted posterior to the glenoid using a Bankart retractor anteriorly and blunt Scotty and posterior Tornier glenoid retractor. A central drill hole was made into the glenoid. The glenoid was sized for a size 30 radius small Cortiloc glenoid component. The glenoid was reamed and the central drill widened and the guide for the 3 peripheral peg holes was placed in the peg holes were drilled and a trial component was placed with a tight fit. The trial was removed and the glenoid was irrigated with pulsatile lavage antibiotic solution and the drill holes were dried and packed with epinephrine-soaked tampons for hemostasis. The Palacos G cement was vacuum mixed. The final component was cemented into position and held in position with pressure until the cement cured. A humeral head trial was placed. A trial reduction was performed and the shoulder was stable. The trial was removed and the humerus and canal were irrigated with pulse saline solution. The rotator cuff bursal sided tear was repaired with a Beka-Jose suture that was placed transosseous with a drill hole and cutting needle. Repair was secure fully repairing the small tear.. 3 drill holes were made into the hard bone in the bicipital groove lateral to the lesser tuberosity and 3 #5 FiberWire transosseous sutures were placed for repair of the subscapularis. After further irrigation of the canal and the final components were assembled. The final components were the 3A standard humeral stem ass embled to the 46 x 17 low offset humeral head. The implant was then impacted into the humerus with a tight press-fit. The humerus was reduced to the glenoid and stability verified. The subscapularis was repaired with the #5 FiberWire sutures in a Beka-Jose suture technique and lateral row fixation with [id number] #2 FiberWire in the soft tissue. The rotator interval was closed in maximal external rotation. The pectoralis was then closed with [id number] #2 FiberWire suture. the 2 Hemovac drains were placed. The deltopectoral interval was closed with [id number] #1 Vicryl sutures. The subcutaneous tissues were closed with interrupted 2-0 Vicryl and the skin was closed with jovanny and a sterile dressing was applied. The patient tolerated the procedure well. Derek UREÑA my physician events and promotions assistant, participated as executive administrative assistant and was integral part in all aspects of the procedure. He assisted in soft tissue retraction instrument management suture management and assisted in the subcutaneous and skin closure and will participate in the postoperative care the patient. Mary UREÑA also assisted in the procedure and participated in retraction and arm positioning and closure and postoperative care. There was increased difficulty due to her morbid obesity which added 25 minutes to 30 minutes to the procedure. I attest to the content of the Intraoperative Record and any orders documented therein. Any exceptions are noted below.
--- NOTE | 2022-07-25 15:52 | XRay Report ---
XR shoulder RT min 2V routine CLINICAL HISTORY: Post shoulder surgery TECHNIQUE: 3 views of the right shoulder were obtained. Comparison: None available at the time of this dictation. FINDINGS: Patient is status post shoulder arthroplasty with expected postsurgical changes including soft tissue swelling and subcutaneous emphysema. No periarticular lucency or hardware fracture is seen. IMPRESSION: Expected postoperative appearance status post placement of shoulder arthroplasty. ACT 112: Negative or not required by law. Electronically signed by: Hipolito Ricks M.D. 07/25/2022 3:50 PM
--- NOTE | 2022-07-25 15:59 | Anesthesiology Progress Note ---
Date of Service July 25, 2022 Anesthesia Post Procedure Vital Signs Vital Signs: Temp Pulse Resp BP Pulse Ox O2 Del Method O2 Flow Rate 07/25/22 15:45 72 20 149/74 H 95 Nasal Cannula 2 07/25/22 15:35 36.7 C 75 20 151/79 H 96 Nasal Cannula 2 07/25/22 15:25 72 18 153/79 H 91 Room Air 07/25/22 15:15 73 19 159/84 H 96 Oxymask 4 07/25/22 15:05 77 18 167/87 H 98 Oxymask 4 07/25/22 14:55 83 17 178/99 H 97 Oxymask 4 07/25/22 14:48 36.4 C L 69 16 176/88 H 97 Oxymask 6 07/25/22 09:50 36.8 C 89 20 160/84 H 95 Room Air Pain Intensity Right Shoulder: Pain Intensity: 10 Transfer of Care Handoff Completed per policy Notes Mental Status: alert / awake / arousable and participated in evaluation Patient Amnestic to Procedure: Yes Nausea / Vomiting: adequately controlled Pain: adequately controlled Airway Patency, RR, SpO2: stable & adequate BP & HR: stable & adequate Hydration State: stable & adequate Anesthetic Complications: no major complications apparent and Pt Satisfied with anesthetic care
[2022-07-25] MEDS: SODIUM CHLORIDE 0.9% 1000ML 1,000 ML IV SCH (16:00)
[2022-07-25] MEDS ORDERED: CHECK SCOPOLAMINE PATCH PLACEMENT SCH (16:00)
[2022-07-25] MEDS ORDERED: HYDROmorphone INJ 0.5 MG/0.5 ML SYR IV PRN (16:27)
[2022-07-25] MEDS ORDERED: METOCLOPRAMIDE HCL INJ 5 MG/ML 2 ML VIAL IV PRN (16:27)
[2022-07-25] MEDS ORDERED: oxyCODONE HCL IR 5 MG TAB (IMMEDIATE RELEASE) PO PRN (16:27)
[2022-07-25] MEDS ORDERED: PHARMACY GLYCEMIC MGMT CONSULT PRN (16:27)
[2022-07-25] MEDS ORDERED: AZELASTINE HCL 0.1% NASAL 200 SPRAYS/27,400 MCG BTL PRN (16:27)
[2022-07-25] MEDS ORDERED: NALOXONE HCL 0.4 MG/1 ML VIAL/CARP IV PRN (16:27)
[2022-07-25] MEDS ORDERED: MAGNESIUM HYDROXIDE SUSP 30 ML UDC PO PRN (16:27)
[2022-07-25] MEDS ORDERED: bisacodyL 10 MG SUPP PR PRN (16:27)
[2022-07-25] MEDS ORDERED: ARTIFICIAL TEARS OP PRN (16:35)
[2022-07-25] MEDS ORDERED: GLUCAGON FOR INJ 1 MG VIAL IM PRN (16:45)
[2022-07-25] MEDS ORDERED: GLUCOSE 10 TAB/TUBE PO PRN (16:45)
[2022-07-25] MEDS ORDERED: LANTUS PER UNIT CHARGE SQ ONE (16:45)
[2022-07-25] MEDS ORDERED: GLUCOSE 40% GEL 15 GM TUBE PO PRN (16:45)
[2022-07-25] MEDS ORDERED: DEXTROSE 50% 50 ML SYRINGE IV PRN (16:45)
[2022-07-25] MEDS ORDERED: CARBOHYDRATES FOR HYPOGLYCEMIA PO PRN (16:45)
--- NOTE | 2022-07-25 17:42 | Hospitalist Consultation ---
Date of Consultation July 25, 2022 Assessment & Plan (1) Status post reverse arthroplasty of right shoulder: -The patient is currently afebrile, hemodynamically stable, and stable on RA -Pain control, perioperative abx, DVT PPX and IV fluids per the primary team -Agree with am CBC and BMP, we will review -Added daily famotidine for stress ulcer PPX while admitted -Thank you for allowing us to participate in this patient's care, please reach out with any questions or concerns (2) Asthma: -Stable on RA -Added incentive spirometry and prn albuterol nebs (3) Sleep apnea in adult: -Non-compliant with CPAP -Continue to monitor respiratory status (4) Hypertension: -Stable -Can restart Cozaar and HCTZ tomorrow if renal function and electrolytes are stable (5) Rheumatoid arthritis: -Continue to hold Xeljanz until the primary team is comfortable restarting (6) Diabetes mellitus, type 2: -Hold Jardiance -Pharmacy Glycemic control consult already placed -Continue to follow pharmacy's orders -DMII diet Plan The patient was discussed with Dr. Trejo at the time of the consult Supervising Physician Co-Signing Physician Notes I personally saw and examined the patient. I verified all davenport points and agree with Daniel Anderson PA-C with the following exceptions and/or additions: 66 year old female POD#0 right total shoulder. EBL 125ml. O/E HS RRR, no murmurs, Chest CTAB, Abdo SNT, NV intact distal to operation site A/P VTE/Pain/Bowel management per primary orthopedic team In addition to chronic medical conditions above she has fibromyalgia for which she takes gabapentin, continue her usual dosing of this. Thank you for the consult. We will continue to follow along with you. History of Present Illness Reason for Consultation: Post-op medical management Requesting Physician: Eliseo Valiente MD Attending Physician: Dr. Andrew Trejo History of Present Illness Linn is a 66 year old female with a PMH significant for DM II on Jardiance, lumbar stenosis, RA, HTN, hyperlipidemia, migraines, and GERMAINE who presented to the [facility] OR on 07/25/22 for Right Shoulder Total Arthroplasty, subacromial bursectomy, small rotator Cuff Tear Repair, Suture and suture anchor Removal with Dr. Valiente. Per review of the patient's vitals she has been afebrile, hemodynamically stable, and stable on RA. Per the operative report, anesthesia was listed as "General Regional", EBL was listed as 125 cc, and there were no reported intraoperative complications. At the time of the exam the patient was resting in her bedside recliner in no acute distress, she just finished dinner. She states she has mild pain in her RUE at this time, otherwise no other complaints. She states that she refuses to use a CPAP machine as she cannot tolerate the mask. She has been holding her Xeljanz for the past week as instructed. Please refer to Dr. Trejo's attestation for any changes to the treatment plan Allergies Allergy/AdvReac Type Severity Reaction Status Date / Time Sulfa (Sulfonamide Allergy Severe difficulty Verified 07/25/22 09:54 Antibiotics) breathing per pt/pt thinks it rash? celecoxib [From Celebrex] AdvReac Unknown ISN'T Verified 07/25/22 09:54 EFFECTIVE codeine AdvReac Unknown N&V Verified 07/25/22 09:54 Home Medications Medication Instructions Recorded Confirmed Type cholecalciferol (vitamin D3) 25 1,000 unit PO QAM 03/25/18 07/25/22 History mcg (1,000 unit) capsule (Vitamin D3) folic acid 1 mg tablet 1 mg PO QAM 03/25/18 07/25/22 History hydrochlorothiazide 25 mg tablet 25 mg PO QAM 03/25/18 07/25/22 History loratadine 10 mg capsule 10 mg PO QAM 03/25/18 07/25/22 History multivitamin 1 tab PO QAM 03/25/18 07/25/22 History tofacitinib 11 mg tablet,extended 11 mg PO QAM 03/25/18 07/25/22 History release 24 hr (Xeljanz XR) vitamin B complex 1 tab PO QAM 03/25/18 07/25/22 History docusate sodium 100 mg tablet 100 mg PO UD PRN Constipation 12/30/18 07/25/22 History inhalational spacing device #1 ea 12/30/18 10/05/21 History (Vortex Holding Chamber) gabapentin 300 mg capsule 300 - 600 mg PO UD 04/27/19 07/25/22 History aspirin 81 mg tablet,delayed 81 mg PO QAM 03/09/20 07/25/22 History release diclofenac sodium 50 mg 50 mg PO QPM 08/15/20 07/25/22 History tablet,delayed release olmesartan 5 mg tablet 5 mg PO QAM 08/15/20 07/25/22 History montelukast 10 mg tablet 10 mg PO QPM #30 tabs 09/27/21 07/25/22 Rx (Singulair) Folate 666 mcg PO HS 07/06/22 07/25/22 History azelastine 137 mcg (0.1 %) nasal 1 spray intranasal BID PRN 07/06/22 07/25/22 History spray aerosol allergies biotin 1 tab PO QPM 07/06/22 07/25/22 History empagliflozin 25 mg tablet 25 mg PO QAM 07/06/22 07/25/22 History (Jardiance) peg 400-propylene glycol (PF) 0.4 1 drp ophthalmic (eye) BID PRN Dry 07/06/22 07/25/22 History %-0.3 % eye drops in a dropperette Eyes (Systane (PF)) simvastatin 10 mg tablet 10 mg PO HS 07/06/22 07/25/22 History trazodone 50 mg tablet 50 mg PO HS 07/06/22 07/25/22 History Patient History Medical History (Updated 07/25/22 @ 18:35 by Daniel Anderson PA-C) Allergies Asthma Appears to be triggered by allergies - follows with pulm- last seen 09/2021- can follow up PRN Diabetes mellitus, type 2 NIDDM; currently on simvastatin for DM purposes per patient Fibromyalgia Hypertension Migraine Hx Morbid obesity Osteoarthritis Rheumatoid arthritis Follows with rheum in [place]- Dr. Aranda Sleep apnea in adult Non-compliant with CPAP Surgical History (Updated 07/25/22 @ 18:35 by Daniel Anderson PA-C) Fusion of spine Cervical History of arthroplasty of left shoulder History of arthroscopic surgery of shoulder Right RCR, biceps tendon repair History of carpal tunnel release R/L History of colonoscopy History of total left knee replacement (TKR) History of total right hip replacement History of total right knee replacement (TKR) Hx of myomectomy Hx of release of tendon Right arm Family History Grandfather (Maternal) Family hx of colon cancer Grandfather (Paternal) Family hx of colon cancer Social History Smoking Status: Never smoker Second Hand Exposure: Yes (years ago); Do You Dip or Chew Tobacco: No; Tobacco Cessation Education Requested by Patient: No Hx Alcohol Use: Yes Alcohol type: other Hx Substance Use: No Preferred Language: Irish Communication Ability: Effective Universal Grinder Tool Required: No Beliefs That Will Affect Care: None marital status: Single Current Living Situation: Alone Current Living Situation Comment: with 7 cats current occupational status: employed Other Information That Helps Us Care for You: No Feels Safe at Home: Yes Safety Concerns: Feels Safe At This Time Assistive Devices: Glasses Review of Systems Review of Systems: Denies current fever, chills, headache, changes in vision, hearing, taste, and smell, chest pain, SOB, cough, abdominal pain, nausea, vomiting, diarrhea, hematemesis, melena, dysuria, hematuria, and recent falls. All systems have been reviewed and are otherwise negative. Physical Exam Physical Exam: Physical Exam: General: In no acute distress, stated age, obese, non-toxic appearing HEENT: Normocephalic, atraumatic, no scleral icterus, pupils around round, symmetrical, and reactive to light, moist mucus membranes, trachea midline, no thyromegaly Chest/Pulm: No respiratory distress, symmetrical chest expansion, clear breath sounds throughout Cardiac: RRR, no murmurs noted Abdomen: Negative for ascites and bruising, normoactive bowel sounds, soft, non-tender to palpation throughout Musculoskeletal: Patient with RUE wrapped, in a sling, with her drain in place. Currently with intact sensation and strength Extremities: Radial, dorsalis pedis, and posterior tibial pulses are intact and symmetrical, no edema noted in the BL LE's Skin: Warm, dry, no rashes , lesions, or scars noted Neuro: Alert and oriented to person, place, month, year, and president, no focal defects, no tremors noted Psych: No acute distress, calm and cooperative during the exam Results & Data Results & Data ([facility]) Vital Signs (Past 12 Hours) Vital Signs Temp Pulse Resp BP Pulse Ox O2 Del Method O2 Flow Rate 07/25/22 16:00 Nasal Cannula 2 07/25/22 16:00 36.5 C 18 138/75 92 Nasal Cannula 2 07/25/22 16:29 146/83 H 91 Room Air 07/25/22 15:45 72 20 149/74 H 95 Nasal Cannula 2 07/25/22 15:35 36.7 C 75 20 151/79 H 96 Nasal Cannula 2 07/25/22 15:25 72 18 153/79 H 91 Room Air 07/25/22 15:15 73 19 159/84 H 96 Oxymask 4 07/25/22 15:05 77 18 167/87 H 98 Oxymask 4 07/25/22 14:55 83 17 178/99 H 97 Oxymask 4 07/25/22 14:48 36.4 C L 69 16 176/88 H 97 Oxymask 6 07/25/22 09:50 36.8 C 89 20 160/84 H 95 Room Air Laboratory Results Abnormal lab results 07/25/22 07/25/22 07/25/22 Range/Units 09:55 14:51 16:24 POC Glucose 162 H 143 H 147 H (70-99) mg/dl Diagnostic Findings Shoulder X-Ray 07/25/22 14:52 XR shoulder RT min 2V routine CLINICAL HISTORY: Post shoulder surgery TECHNIQUE: 3 views of the right shoulder were obtained. Comparison: None available at the time of this dictation. FINDINGS: Patient is status post shoulder arthroplasty with expected postsurgical changes including soft tissue swelling and subcutaneous emphysema. No periarticular lucency or hardware fracture is seen. IMPRESSION: Expected postoperative appearance status post placement of shoulder arthroplasty. ACT 112: Negative or not required by law. Electronically signed by: Hipolito Ricks M.D. 07/25/2022 3:50 PM PG Care Time/CCT Total # of Minutes Spent Total Time Spent with Patient: Total time spent is greater than 50% in coordination of care (as documented) at patient's floor/unit and/or counseling patient: Coding [place] [address] IN/OBS CONSULT LVL 5,80M Patient Type Established Medical Decision Making Moderate Complexity Diagnoses Status post reverse arthroplasty of right shoulder Z96.611 Asthma J45.909 Sleep apnea in adult G47.30 Hypertension I10 Rheumatoid arthritis M06.9 Diabetes mellitus, type 2 E11.9
[2022-07-25] MEDS: INSULIN ASPART PER UNIT SC SCH ×2 (18:27→22:02)
[2022-07-25] MEDS: ceFAZolin 2000MG 2,000 MG/15 ML SYR IV SCH (18:28)
[2022-07-25] MEDS ORDERED: ALBUTEROL 0.5% NEB SOLN 2.5 MG/0.5 ML VIAL NEB PRN (18:38)
[2022-07-25] MEDS: GABAPENTIN 600 MG TAB PO SCH (21:37)
[2022-07-25] MEDS: DOCUSATE SODIUM 100 MG CAP PO SCH (21:37)
[2022-07-25] MEDS: SENNA 8.6 MG TAB PO SCH (21:38)
[2022-07-25] MEDS: traZODone HCL 50 MG TAB PO SCH (21:38)
[2022-07-25] MEDS: SIMVASTATIN 10 MG TAB PO SCH (21:38)
[2022-07-25] MEDS: MONTELUKAST SODIUM 10 MG TABLET PO SCH (21:38)
[2022-07-25] MEDS: ACETAMINOPHEN 500 MG TAB PO SCH (21:39)
[2022-07-26] MEDS: SODIUM CHLORIDE 0.9% 1000ML 1,000 ML IV SCH (01:19)
[2022-07-26] MEDS: ceFAZolin 2000MG 2,000 MG/15 ML SYR IV SCH (03:28)
[2022-07-26] MEDS: ACETAMINOPHEN 500 MG TAB PO SCH ×3 (06:06→22:51)
[2022-07-26] MEDS: GABAPENTIN 300 MG CAP PO SCH ×2 (08:06→13:02)
[2022-07-26] MEDS: FAMOTIDINE 20 MG TAB PO SCH (08:06)
[2022-07-26] MEDS: DOCUSATE SODIUM 100 MG CAP PO SCH ×2 (08:06→20:21)
[2022-07-26] MEDS: VITAMIN B COMPLEX TAB PO SCH (08:06)
[2022-07-26] MEDS: FOLIC ACID 1 MG TAB PO SCH (08:06)
[2022-07-26] MEDS: LOSARTAN POTASSIUM 25 MG TAB PO SCH (08:07)
[2022-07-26] MEDS: LORATADINE 10 MG TAB PO SCH (08:07)
[2022-07-26] MEDS: hydroCHLOROthiazide 25 MG TAB PO SCH (08:07)
[2022-07-26] MEDS: CHOLECALCIFEROL 1,000 UNITS 25 MCG TAB PO SCH (08:08)
[2022-07-26] MEDS: MULTIVITAMIN TAB PO SCH (08:08)
[2022-07-26] MEDS: ASPIRIN 81 MG ECTAB PO SCH (08:08)
[2022-07-26] MEDS ORDERED: NON-FORMULARY MEDICATION (Multivitamin Tablet) PO SCH (09:00)
[2022-07-26] MEDS: LANTUS PER UNIT CHARGE SQ SCH (09:05)
[2022-07-26] MEDS: INSULIN ASPART PER UNIT SC SCH ×4 (09:06→20:23)
[2022-07-26] MEDS ORDERED: traMADol HCL 50 MG TABLET PO PRN (09:49)
--- NOTE | 2022-07-26 09:54 | Orthopedic Progress Note ---
Date of Service July 26, 2022 Postop day 1 from right shoulder anatomic shoulder arthroplasty Assessment & Plan (1) Status post reverse arthroplasty of right shoulder: Plan: Pt is POD #1 from right reverse arthroplasty of right shoulder -Pt having some pain, states only taking Tylenol because trying to avoid narcotics, will switch Oxycodone to Tramadol. -Pt would like to have more PT/OT prior to D/C, will plan for discharge tomorrow -DVT ppx with SCD/TEDs Admission and Anticipated Discharge Date Admission Date: July 25, 2022 Subjective -Pt is POD #1 from right reverse shoulder arthroplasty. -Pt sitting in up in chair, doing well this morning. States she has some pain but is trying to avoid narcotics due to previous issues with constipation. -Expresses concern about daily activities due to being right handed. Would like to work with PT/OT an additional day before going home. -Drain output 80cc over last shift -Denies CP, SOB, or N/V Review of Systems Constitutional: no fever, no chills, no body aches and no weakness Respiratory: no cough, no dyspnea and no problem reported Cardiovascular: no chest pain, no palpitations, no calf pain and no problem reported Gastrointestinal: no abdominal pain, no heartburn, no nausea and no vomiting Physical Exam Physical Exam: RUE with dressing in place, dressing is c/d/i. Drain in place with minimal output noted. Able to wiggle fingers without issue, good ROM through right wrist, capillary refill less than 2 seconds, perfusion and sensation grossly intact. Results & Data ([facility]) Vital Signs (Past 12 Hours) Vital Signs Temp Pulse Resp BP Pulse Ox O2 Del Method O2 Flow Rate 07/26/22 08:02 91 Room Air 07/26/22 08:02 93 Room Air, Nasal Cannula 2 07/26/22 07:50 89 L Room Air, Nasal Cannula 0 07/26/22 07:37 37.1 C 88 18 134/67 94 Nasal Cannula 2 07/26/22 07:26 Room Air 07/26/22 03:09 37 C 82 20 117/68 95 Room Air 07/25/22 22:45 37.3 C 86 18 109/65 95 Room Air
--- NOTE | 2022-07-26 09:58 | Pharmacy Report ---
Pharmacy Glycemic Short Note 2 - Date of Service July 26, 2022 - Glycemic Short BSG Results (Last 24 hours): 07/25/22 07/25/22 07/25/22 09:55 14:51 16:24 POC Glucose 162 H 143 H 147 H 07/25/22 07/26/22 21:03 08:09 POC Glucose 169 H 169 H OUTPATIENT ANTIDIABETIC REGIMEN: * Jardiance 25mg PO daily * HbA1c: 7.9% (07/11/22) ASSESSMENT: * Ms Philip is a 66yo diabetic F who is POD #1 s/p R total shoulder w/ Dr Valiente yesterday. * It does not appear as though pt received any intraoperative steroids. * Patient's oral DM med held on admission and pt initiated on SQ basal/bolus insulin for glycemic control during hospital stay. * Fasting BSG above goal this morning, so Lantus dose was increased. * Will continue to follow and adjust regimen as indicated. PLAN FOR INPATIENT GLYCEMIC CONTROL: * Hold outpatient oral diabetes medications * Basal insulin * Lantus 15 units SQ daily * Bolus insulin * NovoLog per scale ACHS or Q6hrs while NPO * Goal Range: Low 110 mg/dL - High 140 mg/dL * Correction Factor: 30 mg/dL/unit * Nutritional / Prandial insulin per carb ratio of 1 unit per 10 grams CHO consumed
[2022-07-26 11:17] LABS: Basophils # (auto) 0.06 K/uL (0-0.2); Basophils % (auto) 0.6 %; Eosinophils # (auto) 0.08 K/uL (0-0.50); Eosinophils % (auto) 0.9 %; Hematocrit (blood only) 44.2 % (37.0-47.0); Hemoglobin 15.3 g/dl (12.0-16.0); Immature Granulocytes # (auto) 0.04 K/uL (0.01-0.20); Immature Granulocytes % (auto) 0.4 %; Lymphocytes # (auto) 0.74 K/uL (1.2-3.4); Lymphocytes % (auto) 7.9 %; Mean Corpuscular Hemoglobin 31.6 pg (25.0-34.0); Mean Corpuscular Hgb Conc 34.6 g/dL (32.0-36.0); Mean Corpuscular Volume 91.3 fL (80.0-100.0); Mean Platelet Volume 10.8 fL (9.4-12.4); Monocytes # (auto) 1.16 K/uL (0.11-0.59); Monocytes % (auto) 12.3 %; Neutrophils # (auto) 7.32 K/uL (1.40-6.50); Neutrophils % (auto) 77.9 %; Platelet Count 252 K/uL (130-400); RDW Coefficient of Variation 13.9 % (11.5-14.5); RDW Standard Deviation 46.4 fL (36.4-46.3); Red Blood Count 4.84 M/uL (4.20-5.40)
[2022-07-26 11:46] LABS: BUN Creatinine Ratio 13.7 (10-20); Calcium 8.8 mg/dl (8.5-10.1); Creatinine Clr Calc Pharmacy 68.6 ml/min; Est GFR (African American) 73.4 ml/min; Est GFR (Non-African American) 63.3 ml/min; Potassium 3.2 mmol/L (3.5-5.1)
[2022-07-26] MEDS ORDERED: POTASSIUM CHLORIDE CRTAB 20 MEQ TABCR PO STA (12:41)
--- NOTE | 2022-07-26 12:42 | Hospitalist Progress Note ---
Date of Service July 26, 2022 Assessment & Plan (1) Status post reverse arthroplasty of right shoulder: Plan: -Postop day #1 from right reverse shoulder arthroplasty -Pain control, perioperative abx, DVT PPX and IV fluids per the primary team -Added daily famotidine for stress ulcer PPX while admitted -PT/OT prior to discharge, and work with case management with regard to placement vs. discharge home (2) Hypertension: Plan: -Stable,, mildly hypotensive in the postoperative period however is asymptomatic -Cozaar and HCTZ resumed today, creatinine 0.95 stable, continue to monitor blood pressure with resuming antihypertensives (3) Asthma: Plan: -Stable on RA -Continue incentive spirometry and prn albuterol nebs (4) Sleep apnea in adult: Plan: -Non-compliant with CPAP -Continue to monitor respiratory status (5) Rheumatoid arthritis: Plan: -Continue to hold Xeljanz until the primary team is comfortable restarting, suspect 1 week after surgery (6) Diabetes mellitus, type 2: Plan: -Hold Jardiance -Pharmacy Glycemic control consult already placed -Continue to follow pharmacy's orders -DMII diet (7) Hypokalemia: Plan: - In the setting of no intake yesterday as well as chronic HCTZ use - KCl 40 mEq p.o. given today with repeat BMP in the morning, patient reports that she has had low potassium in the past, may need to either adjust antihypertensive regimen or add potassium supplement, defer to PCP Admission and Anticipated Discharge Date Admission Date: July 25, 2022 Subjective Patient without any acute overnight events. She reports that therapy was difficult secondary to her right shoulder sling, able to walk without issues but is worried that she will be unable to perform her ADLs without assistance and does not have a lot of help at home. She denies any chest pain or shortness of breath, abdominal pain. She states that shoulder pain is not terrible, using Tylenol as needed. Review of Systems Review of Systems: All systems reviewed & are unremarkable except as noted in Subjective Physical Exam Constitutional: WD/WN, vitals as above Respiratory: normal respiratory effort, lungs clear to auscultation Cardiovascular: RRR, no murmur, no edema Gastrointestinal (Abdomen): normal bowel sounds, soft, nontender, no hepatosplenomegaly Musculoskeletal: Right shoulder with sling in place Skin: no rashes, warm and dry Psychiatric: A+Ox3, euthymic affect Results & Data Results & Data ([facility]) Vital Signs (Past 12 Hours) Vital Signs Temp Pulse Resp BP Pulse Ox O2 Del Method O2 Flow Rate 07/26/22 08:02 91 Room Air 07/26/22 08:02 93 Room Air, Nasal Cannula 2 07/26/22 07:50 89 L Room Air, Nasal Cannula 0 07/26/22 07:37 37.1 C 88 18 134/67 94 Nasal Cannula 2 07/26/22 07:26 Room Air 07/26/22 03:09 37 C 82 20 117/68 95 Room Air PG Care Time/CCT Total # of Minutes Spent Total Time Spent with Patient: Total time spent is greater than 50% in coordination of care (as documented) at patient's floor/unit and/or counseling patient: Coding Level of Care Code 83260 SUB INP/OBS CARE 2/35MIN Diagnoses Status post reverse arthroplasty of right shoulder Z96.611 Hypertension I10 Asthma J45.909 Sleep apnea in adult G47.30 Rheumatoid arthritis M06.9 Diabetes mellitus, type 2 E11.9 Hypokalemia E87.6
[2022-07-26] MEDS: MONTELUKAST SODIUM 10 MG TABLET PO SCH (20:21)
[2022-07-26] MEDS: traZODone HCL 50 MG TAB PO SCH (20:21)
[2022-07-26] MEDS: SIMVASTATIN 10 MG TAB PO SCH (20:21)
[2022-07-26] MEDS: GABAPENTIN 600 MG TAB PO SCH (20:22)
[2022-07-26] MEDS: SENNA 8.6 MG TAB PO SCH (20:22)
[2022-07-27] MEDS: ACETAMINOPHEN 500 MG TAB PO SCH (05:49)
--- NOTE | 2022-07-27 07:23 | Orthopedic Progress Note ---
Date of Service July 27, 2022 Assessment & Plan (1) Status post reverse arthroplasty of right shoulder: Plan: Pt is POD #2 right total shoulder arthroplasty -PT/OT: No active motion of her shoulder. PT per total shoulder protocol -Pain management as written. Patient would like to avoid narcotics due to side effects. Tramadol was ordered as needed. -DVT prophylaxis: SCDs, aspirin 81 mg daily -Discharge planning: Plan on discharge home today after therapy. Admission and Anticipated Discharge Date Admission Date: July 25, 2022 Subjective Patient is postop day #1 right total shoulder. She is feeling improved today from yesterday. Pain is controlled. Patient denies chest pain, shortness of breath, nausea/vomiting/diarrhea. Review of Systems Review of Systems: All systems reviewed & are unremarkable except as noted in Subjective Physical Exam Physical Exam: Right shoulder: Dressing is clean, dry, intact. Hemovac in place. Sling in place. Fingers are mobile with good direct entry midwife strength. Distally neurovascular status and sensation grossly intact. Results & Data ([facility]) Vital Signs (Past 12 Hours) Vital Signs Temp Pulse Resp BP Pulse Ox O2 Del Method 07/26/22 20:19 37.2 C 88 16 130/74 95 Room Air
--- NOTE | 2022-07-27 07:46 | Hospitalist Progress Note ---
Date of Service July 27, 2022 Assessment & Plan (1) Status post reverse arthroplasty of right shoulder: Plan: -Postop day #2 from right reverse shoulder arthroplasty -Pain control per the primary team -Will have home PT/OT (2) Hypertension: Plan: -Stable,, mildly hypotensive in the postoperative period however is asymptomatic -Cozaar and HCTZ resumed today, creatinine 0.95 stable, continue to monitor blood pressure with resuming antihypertensives (3) Asthma: Plan: -Stable on RA -Continue incentive spirometry and prn albuterol nebs (4) Sleep apnea in adult: Plan: -Non-compliant with CPAP (5) Rheumatoid arthritis: Plan: -Continue to hold Xeljanz until the primary team is comfortable restarting, suspect 1 week after surgery (6) Diabetes mellitus, type 2: Plan: -Resume home medications (7) Hypokalemia: Plan: - In the setting of no intake prior to surgery as well as chronic HCTZ use - K 3.0 today - Given mild hypokalemia x2 days have started KCl 20 meq PO daily and can continue HCTZ with PCP follow up Admission and Anticipated Discharge Date Admission Date: July 25, 2022 Subjective Patient without any acute events overnight. She is tearful today while talking to me about some losses that she has experienced recently, including a beloved pet, as well as her ongoing musculoskeletal issues and having to navigate her ADLs on her own. She has some shoulder pain, but is otherwise feeling fine without chest pain or shortness of breath. 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 normal Skin: no rashes, warm and dry Psychiatric: A+Ox3, euthymic affect Results & Data Results & Data ([facility]) Vital Signs (Past 12 Hours) Vital Signs Temp Pulse Resp BP Pulse Ox O2 Del Method 07/26/22 20:19 37.2 C 88 16 130/74 95 Room Air PG Care Time/CCT Total # of Minutes Spent Total Time Spent with Patient: Total time spent is greater than 50% in coordination of care (as documented) at patient's floor/unit and/or counseling patient: Coding Level of Care Code 91483 SUB INP/OBS CARE MIN Diagnoses Status post reverse arthroplasty of right shoulder Z96.611 Hypertension I10 Asthma J45.909 Sleep apnea in adult G47.30 Rheumatoid arthritis M06.9 Diabetes mellitus, type 2 E11.9 Hypokalemia E87.6
[2022-07-27 08:15] LABS: BUN Creatinine Ratio 14.4 (10-20); Calcium 8.5 mg/dl (8.5-10.1); Creatinine Clr Calc Pharmacy 72.4 ml/min; Est GFR (African American) 78.3 ml/min; Est GFR (Non-African American) 67.6 ml/min; Magnesium 1.9 mg/dl (1.7-2.4)
[2022-07-27] MEDS: LOSARTAN POTASSIUM 25 MG TAB PO SCH (08:38)
[2022-07-27] MEDS: hydroCHLOROthiazide 25 MG TAB PO SCH (08:38)
[2022-07-27] MEDS: ASPIRIN 81 MG ECTAB PO SCH (08:38)
[2022-07-27] MEDS: FOLIC ACID 1 MG TAB PO SCH (08:38)
[2022-07-27] MEDS: VITAMIN B COMPLEX TAB PO SCH (08:38)
[2022-07-27] MEDS: FAMOTIDINE 20 MG TAB PO SCH (08:38)
[2022-07-27] MEDS: GABAPENTIN 300 MG CAP PO SCH (08:38)
[2022-07-27] MEDS: CHOLECALCIFEROL 1,000 UNITS 25 MCG TAB PO SCH (08:38)
[2022-07-27] MEDS: MULTIVITAMIN TAB PO SCH (08:38)
[2022-07-27] MEDS: LORATADINE 10 MG TAB PO SCH (08:39)
[2022-07-27] MEDS: DOCUSATE SODIUM 100 MG CAP PO SCH (08:39)
[2022-07-27] MEDS: LANTUS PER UNIT CHARGE SQ SCH (08:50)
[2022-07-27] MEDS: INSULIN ASPART PER UNIT SC SCH (08:51)
[2022-07-27] MEDS ORDERED: POTASSIUM CHLORIDE CRTAB 20 MEQ TABCR PO STA (09:10)
[2022-07-27] MEDS ORDERED: POTASSIUM CHLORIDE CRTAB 20 MEQ TABCR PO SCH ×2 (09:45→12:00)
--- NOTE | 2022-07-30 07:32 | Discharge Summary ---
Date of Service July 30, 2022 Admission HPI Per Admitting Provider 66-year-old female with past medical history significant for high blood pressure, sleep apnea, diabetes, migraines presents who presents with longstanding right shoulder pain. Pain is interfering with her daily activit ies. She has failed conservative measures. She would like to proceed with surgical intervention. Patient denies headaches, sweats, fevers, chills, double vision, blurred vision, cough, sore throat, dysphagia, chest pain, sob, wheezing, n/v/d/c, numbness, tingling, fatigue, urinary symptoms, mood disorders. ROS positive for right shoulder pain and stiffness. Admission Exam Per Admitting Provider Constitutional: well developed and well nourished; no acute distress Eyes: PERRL, conjunctivae normal, anicteric sclerae ENMT: external ear and nose normal, oropharynx normal Neck: trachea midline, no thyromegaly Respiratory: normal respiratory effort, lungs clear to auscultation Cardiovascular: RRR, no murmur, no edema Musculoskeletal: Right shoulder: Pain with resisted strength testing. [id number] crepitation right shoulder consistent with end-stage osteoarthritis. Tenderness anterolater al acromion and anterior glenoid. Range of motion is 140 degrees into abduction, forward flexion into 130 degrees, external rotation at 30 degrees. Ex-Fix Skin: no rashes, warm and dry Neurologic: patellar DTR's 2+ bilat, sensation intact Psychiatric: A+Ox3, euthymic affect Principal Diagnosis Right shoulder osteoarthritis Discharge Exam Right shoulder: Dressing is clean, dry, intact. Hemovac in place. Sling in place. Fingers are mobile with good sound recordist strength. Distally neurovascular status and sensation grossly intact. Constitutional well developed and well nourished; no acute distress Discharge Data Allergies Allergy/AdvReac Type Severity Reaction Status Date / Time Sulfa (Sulfonamide Allergy Severe difficulty Verified 07/25/22 09:54 Antibiotics) breathing per pt/pt thinks it rash? celecoxib [From Celebrex] AdvReac Unknown ISN'T Verified 07/25/22 09:54 EFFECTIVE codeine AdvReac Unknown N&V Verified 07/25/22 09:54 Consultations 07/20/22 11:15 Consult Hospitalist Routine Procedures Performed Operation Date: 07/25/22 11:50 Actual Procedures p Right Shoulder Total Arthroplasty, Small rotator Cuff Tear Repair, (Right) - Eliseo Valiente MD s Suture [place] Removal(Right) - Eliseo Valiente MD Ordered Studies 07/25/22 05:00 US - OR guided needle placemen Routine Hospital Course (1) Status post reverse arthroplasty of right shoulder: Pt is POD #2 right total shoulder arthroplasty -PT/OT: No active motion of her shoulder. PT per total shoulder protocol -Pain management as written. Patient would like to avoid narcotics due to side effects. Tramadol was ordered as needed. -DVT prophylaxis: SCDs, aspirin 81 mg daily -Discharge planning: Plan on discharge home today after therapy. Pt is POD #1 from right reverse arthroplasty of right shoulder -Pt having some pain, states only taking Tylenol because trying to avoid narcotics, will switch Oxycodone to Tramadol. -Pt would like to have more PT/OT prior to D/C, will plan for discharge tomorrow -DVT ppx with SCD/TEDs Lab Results 07/25/22 07/25/22 07/25/22 Range/Units 09:49 09:55 14:51 WBC (4.8-10.8) K/ul RBC (4.20-5.40) M/uL Hgb (12.0-16.0) g/dl Hct (37.0-47.0) % MCV (80.0-100.0) fL MCH (25.0-34.0) pg MCHC (32.0-36.0) g/dL RDW Std Deviation (36.4-46.3) fL RDW Coeff of Rachel (11.5-14.5) % Plt Count (130-400) K/uL MPV (9.4-12.4) fL Immature Gran % (Auto) % Neut % (Auto) % Lymph % (Auto) % [place] % (Auto) % Eos % (Auto) % Baso % (Auto) % Neut # (Auto) (1.40-6.50) K/uL Lymph # (Auto) (1.2-3.4) K/uL [place] # (Auto) (0.11-0.59) K/uL Eos # (Auto) (0-0.50) K/uL Baso # (Auto) (0-0.2) K/uL Immature Gran # (Auto) (0.01-0.20) K/uL Sodium (136-145) mmol/L Potassium (3.5-5.1) mmol/L Chloride (98-107) mmol/L Carbon Dioxide (21-32) mmol/L Anion Gap (3-11) BUN (6-23) mg/dl Creatinine (0.6-1.2) mg/dl Est Cr Clr Drug Dosing ml/min Est GFR ( Amer) ml/min Est GFR (Non-Af Amer) ml/min BUN/Creatinine Ratio (10-20) Glucose (70-99(Fasting)) mg/dl POC Glucose 162 H 143 H (70-99) mg/dl Calcium (8.5-10.1) mg/dl Magnesium (1.7-2.4) mg/dl SARS-CoV-2, RNA, NAAT NEGATIVE (NEGATIVE) 07/25/22 07/25/22 07/26/22 Range/Units 16:24 21:03 08:09 WBC (4.8-10.8) K/ul RBC (4.20-5.40) M/uL Hgb (12.0-16.0) g/dl Hct (37.0-47.0) % MCV (80.0-100.0) fL MCH (25.0-34.0) pg MCHC (32.0-36.0) g/dL RDW Std Deviation (36.4-46.3) fL RDW Coeff of Rachel (11.5-14.5) % Plt Count (130-400) K/uL MPV (9.4-12.4) fL Immature Gran % (Auto) % Neut % (Auto) % Lymph % (Auto) % [place] % (Auto) % Eos % (Auto) % Baso % (Auto) % Neut # (Auto) (1.40-6.50) K/uL Lymph # (Auto) (1.2-3.4) K/uL [place] # (Auto) (0.11-0.59) K/uL Eos # (Auto) (0-0.50) K/uL Baso # (Auto) (0-0.2) K/uL Immature Gran # (Auto) (0.01-0.20) K/uL Sodium (136-145) mmol/L Potassium (3.5-5.1) mmol/L Chloride (98-107) mmol/L Carbon Dioxide (21-32) mmol/L Anion Gap (3-11) BUN (6-23) mg/dl Creatinine (0.6-1.2) mg/dl Est Cr Clr Drug Dosing ml/min Est GFR ( Amer) ml/min Est GFR (Non-Af Amer) ml/min BUN/Creatinine Ratio (10-20) Glucose (70-99(Fasting)) mg/dl POC Glucose 147 H 169 H 169 H (70-99) mg/dl Calcium (8.5-10.1) mg/dl Magnesium (1.7-2.4) mg/dl SARS-CoV-2, RNA, NAAT (NEGATIVE) 07/26/22 07/26/22 07/26/22 Range/Units 10:41 10:41 11:49 WBC 9.40 (4.8-10.8) K/ul RBC 4.84 (4.20-5.40) M/uL Hgb 15.3 (12.0-16.0) g/dl Hct 44.2 (37.0-47.0) % MCV 91.3 (80.0-100.0) fL MCH 31.6 (25.0-34.0) pg MCHC 34.6 (32.0-36.0) g/dL RDW Std Deviation 46.4 H (36.4-46.3) fL RDW Coeff of Rachel 13.9 (11.5-14.5) % Plt Count 252 (130-400) K/uL MPV 10.8 (9.4-12.4) fL Immature Gran % (Auto) 0.4 % Neut % (Auto) 77.9 % Lymph % (Auto) 7.9 % [place] % (Auto) 12.3 % Eos % (Auto) 0.9 % Baso % (Auto) 0.6 % Neut # (Auto) 7.32 H (1.40-6.50) K/uL Lymph # (Auto) 0.74 L (1.2-3.4) K/uL [place] # (Auto) 1.16 H (0.11-0.59) K/uL Eos # (Auto) 0.08 (0-0.50) K/uL Baso # (Auto) 0.06 (0-0.2) K/uL Immature Gran # (Auto) 0.04 (0.01-0.20) K/uL Sodium 138 (136-145) mmol/L Potassium 3.2 L (3.5-5.1) mmol/L Chloride 103 (98-107) mmol/L Carbon Dioxide 26 (21-32) mmol/L Anion Gap 9 (3-11) BUN 13 (6-23) mg/dl Creatinine 0.95 (0.6-1.2) mg/dl Est Cr Clr Drug Dosing 68.6 ml/min Est GFR ( Amer) 73.4 ml/min Est GFR (Non-Af Amer) 63.3 ml/min BUN/Creatinine Ratio 13.7 (10-20) Glucose 159 H (70-99(Fasting)) mg/dl POC Glucose 131 H (70-99) mg/dl Calcium 8.8 (8.5-10.1) mg/dl Magnesium (1.7-2.4) mg/dl SARS-CoV-2, RNA, NAAT (NEGATIVE) 07/26/22 07/26/22 07/27/22 Range/Units 17:12 20:18 07:34 WBC (4.8-10.8) K/ul RBC (4.20-5.40) M/uL Hgb (12.0-16.0) g/dl Hct (37.0-47.0) % MCV (80.0-100.0) fL MCH (25.0-34.0) pg MCHC (32.0-36.0) g/dL RDW Std Deviation (36.4-46.3) fL RDW Coeff of Rachel (11.5-14.5) % Plt Count (130-400) K/uL MPV (9.4-12.4) fL Immature Gran % (Auto) % Neut % (Auto) % Lymph % (Auto) % [place] % (Auto) % Eos % (Auto) % Baso % (Auto) % Neut # (Auto) (1.40-6.50) K/uL Lymph # (Auto) (1.2-3.4) K/uL [place] # (Auto) (0.11-0.59) K/uL Eos # (Auto) (0-0.50) K/uL Baso # (Auto) (0-0.2) K/uL Immature Gran # (Auto) (0.01-0.20) K/uL Sodium 136 (136-145) mmol/L Potassium 3.0 L (3.5-5.1) mmol/L Chloride 101 (98-107) mmol/L Carbon Dioxide 29 (21-32) mmol/L Anion Gap 6 (3-11) BUN 13 (6-23) mg/dl Creatinine 0.90 (0.6-1.2) mg/dl Est Cr Clr Drug Dosing 72.4 ml/min Est GFR ( Amer) 78.3 ml/min Est GFR (Non-Af Amer) 67.6 ml/min BUN/Creatinine Ratio 14.4 (10-20) Glucose 150 H (70-99(Fasting)) mg/dl POC Glucose 153 H 123 H (70-99) mg/dl Calcium 8.5 (8.5-10.1) mg/dl Magnesium 1.9 (1.7-2.4) mg/dl SARS-CoV-2, RNA, NAAT (NEGATIVE) 07/27/22 Range/Units 08:01 WBC (4.8-10.8) K/ul RBC (4.20-5.40) M/uL Hgb (12.0-16.0) g/dl Hct (37.0-47.0) % MCV (80.0-100.0) fL MCH (25.0-34.0) pg MCHC (32.0-36.0) g/dL RDW Std Deviation (36.4-46.3) fL RDW Coeff of Rachel (11.5-14.5) % Plt Count (130-400) K/uL MPV (9.4-12.4) fL Immature Gran % (Auto) % Neut % (Auto) % Lymph % (Auto) % [place] % (Auto) % Eos % (Auto) % Baso % (Auto) % Neut # (Auto) (1.40-6.50) K/uL Lymph # (Auto) (1.2-3.4) K/uL [place] # (Auto) (0.11-0.59) K/uL Eos # (Auto) (0-0.50) K/uL Baso # (Auto) (0-0.2) K/uL Immature Gran # (Auto) (0.01-0.20) K/uL Sodium (136-145) mmol/L Potassium (3.5-5.1) mmol/L Chloride (98-107) mmol/L Carbon Dioxide (21-32) mmol/L Anion Gap (3-11) BUN (6-23) mg/dl Creatinine (0.6-1.2) mg/dl Est Cr Clr Drug Dosing ml/min Est GFR ( Amer) ml/min Est GFR (Non-Af Amer) ml/min BUN/Creatinine Ratio (10-20) Glucose (70-99(Fasting)) mg/dl POC Glucose 127 H (70-99) mg/dl Calcium (8.5-10.1) mg/dl Magnesium (1.7-2.4) mg/dl SARS-CoV-2, RNA, NAAT (NEGATIVE) Total Time Total Time Spent Total Time Spent (In Minutes): 20 Discharge Plan Discharge Items Patient Disposition: Home - Home Health Services Reason For Visit: Right Shoulder Osteoarthritis Discharge Diagnosis: Right shoulder arthritis Activity: Per Instructions section Non-emergency contact: Surgeon Call non-emergency contact if: you have any medication questions, your pain is worsening, you have a fever, your temperature is above 101, your wound has increased redness and your wound has increased drainage Follow-up/Referrals: Skyler Jimenez DO [Primary Care Provider] - Diet: Regular Addtl Attending Provider Instructions: ACTIVITY RECOMMENDATIONS: SELF CARE INSTRUCTIONS AFTER TOTAL SHOULDER ARTHROPLASTY A. You may do daily exercises as taught in physical therapy while in hospital. No lifting with the operative arm. Please schedule your outpatient physical therapy appointment to begin within 2-3 days after leaving the hospital. Specific restrictions will be written on your physical therapy prescription that is provided to you. B. You are to wear your sling/immobilizer at all times EXCEPT when performing your daily exercises, participating in physical therapy and for hygiene purposes. C. You may perform dry, daily dressing changes. Please keep your incision covered. You may shower 48 hours after surgery. Do not apply soap or any ointment/lotions directly over incision. Do not soak incision in bath tub/swimming pool. D. You may use ice as needed to operative shoulder. SPECIAL CARE INSTRUCTIONS: MEDICATION INSTRUCTIONS: *It is recommended you take Aspirin 81mg daily for four weeks post-op. You may restart your Xeljanz 2 weeks post op. VERY IMPORTANT TO READ AND REVIEW A. There are a few signs you need to watch for after you are home. Call [facility] at [phone] if you experience any of the followin. Increased severe shoulder pain. Some pain is expected especially when you exercise. 2. Increased swelling in you shoulder or arm; pain or swelling in either upper extremity. 3. Any fluid drainage from the incision. 4. Shortness of breath or chest pain. B. Please call [facility] at [phone] if you have any questions or concerns about your operation or recovery. C. Call your physician if: 1. Temperature is greater than 101 degrees (F). 2. Pain is not relieved by prescribed pain medications. 3. Increase drainage or redness from incision. 4. Unanswered questions or concerns. FOLLOW UP VISIT: Please call [facility] at [phone] to schedule a follow up appointment with Dr. Valiente or his PA in 12-14 days from your surgery date. Addtl Cut Out Operator Provider Instructions: Your potassium was low, this can be due to hydrochlorothiazide. I sent in prescription for 20 meq potassium chloride to take daily, and you should have fo llow up about your low potassium with your family doctor in the next week or two. Stand-Alone Forms: My [employer], Smoking Cessation Medications and DC Order Prescriptions: New tramadol 50 mg Tablet 50 - 100 mg PO Q4H MDD 6 PRN (Reason: pain) Qty: 30 0RF Rx Instructions: Ongoing therapy, Dr. Valiente supervising acetaminophen [Tylenol Extra Strength] 500 mg Tablet 1,000 mg PO Q8 Qty: 60 0RF cefadroxil 500 mg capsule 500 mg PO BID Qty: 28 0RF potassium chloride 20 mEq tablet extended release 20 meq PO DAILY Qty: 30 0RF Continued montelukast [Singulair] 10 mg tablet 10 mg PO QPM Qty: 30 0RF gabapentin 300 mg capsule 300 - 600 mg PO UD Rx Instructions: 300 mg PO 1 tab in am and midday and 2 at hs; docusate sodium 100 mg tablet 100 mg PO UD PRN (Reason: Constipation) (DME) Vortex Holding Chamber spacer See Dose Instructions .ROUTE .MEDSUPPLY Qty: 1 Rx Instructions: As directed olmesartan 5 mg tablet 5 mg PO QAM multivitamin Tablet 1 tab PO QAM vitamin B complex Tablet 1 tab PO QAM folic acid 1 mg Tablet 1 mg PO QAM hydrochlorothiazide 25 mg Tablet 25 mg PO QAM cholecalciferol (vitamin D3) [Vitamin D3] 1,000 unit Capsule 1,000 unit PO QAM loratadine 10 mg Capsule 10 mg PO QAM aspirin 81 mg Tablet,Delayed Release (Dr/Ec) 81 mg PO QAM trazodone 50 mg Tablet 50 mg PO HS simvastatin 10 mg Tablet 10 mg PO HS Jardiance 25 mg Tablet 25 mg PO QAM Folate 666 mcg PO HS biotin 1 tab PO QPM azelastine 137 mcg (0.1 %) aerosol,spray 1 spray INTNAS BID PRN (Reason: allergies) Rx Instructions: administer into each nostril Systane (PF) 0.4-0.3 % Dropperette 1 drp OPHTHALMIC (EYE) BID PRN (Reason: Dry Eyes) Discontinued diclofenac sodium 50 mg tablet,delayed release (DR/EC) 50 mg PO QPM Rx Instructions: lunchtime Xeljanz XR 11 mg Tablet Extended Release 24 Hr 11 mg PO QAM Discharge Orders: Discharge Order (Routine); Ordered 07/27/22 Ordered By: Benito Pan Admission Data Admit Date/Time: 07/25/22 14:52 Attending Provider: Eliseo Valiente Admit Provider: Eliseo Valiente Primary Care Provider: Skyler Jimenez Other Providers: Andrew Lanier Marina M. Other Interventions: Discharge Summary Assessment (RN) Last Done: 07/27/22 10:18
== END 2022-07-27 10:58 | disposition home health service (06) | DRG 483 ==
LOC: ASU 09:25 → INTOOBSV 14:52 → 3N 14:52
DX: E87.6 Hypokalemia; Z79.84 Long term (current) use of oral hypoglycemic drugs; M19.011 Primary osteoarthritis, right shoulder; M85.611 Other cyst of bone, right shoulder; Z88.2 Allergy status to sulfonamides; J45.909 Unspecified asthma, uncomplicated; Z98.1 Arthrodesis status; E11.9 Type 2 diabetes mellitus without complications; E66.01 Morbid (severe) obesity due to excess calories; I45.10 Unspecified right bundle-branch block; M75.51 Bursitis of right shoulder; G47.30 Sleep apnea, unspecified; M06.9 Rheumatoid arthritis, unspecified; Z96.653 Presence of artificial knee joint, bilateral; M75.111 Incomplete rotator cuff tear or rupture of right shoulder, not specified as traumatic; Z68.41 Body mass index [BMI] 40.0-44.9, adult; I10 Essential (primary) hypertension; Z88.5 Allergy status to narcotic agent; Z79.82 Long term (current) use of aspirin

== ENCOUNTER 2024-06-02 15:40 | Inpatient (IN) ==
--- NOTE | 2024-06-02 17:05 | XRay Report ---
EXAM: Radiographs of the Right Elbow Complete 3 Views INDICATION: Trauma. TECHNIQUE: Frontal, lateral and oblique views of the right elbow. COMPARISON: No relevant prior studies available. FINDINGS: Bones/joints: There is a tiny olecranon spur. There is mild spurring of the medial humeral epicondyle and a well-corticated ossicle noted adjacent to the lateral humeral epicondyle presumably related to previous trauma. Appearance chronic. No acute fracture. Joint spaces are maintained. No dislocation or joint effusion. Soft tissues: Mild dorsal soft tissue swelling noted. IMPRESSION: 1. Mild dorsal soft tissue swelling noted. No fracture. 2. Probable previous trauma of the lateral humeral epicondyle. ACT 112: Negative or not required by law. Electronically signed by Lori Gavin 06-02-2024 5:04 PM
--- NOTE | 2024-06-02 17:06 | XRay Report ---
EXAM: Radiographs of the Right Shoulder Complete 2 Views INDICATION: Trauma. TECHNIQUE: 2 views of the right shoulder. COMPARISON: 07/25/2022 FINDINGS: Bones/joints: Satisfactory appearance of humeral prosthesis. No loosening or fracture. No dislocation. Stable acromial spurring and probable post operative deformity of the acromioclavicular joint. Soft tissues: No abnormality noted. No radiopaque foreign body noted. IMPRESSION: No acute abnormality of the right shoulder noted. ACT 112: Negative or not required by law. Electronically signed by Lori Gavin 06-02-2024 5:04 PM
--- NOTE | 2024-06-02 17:06 | XRay Report ---
EXAM: Radiographs of the Right Hip 3 Views INDICATION: Fall. TECHNIQUE: Front view pelvis and AP and frog leg lateral views of the right hip. COMPARISON: No relevant prior studies available. FINDINGS: Limitations: None. Bones/joints: Noncemented total hip arthroplasty components well-seated and intact. No fracture or dislocation. Degenerative changes noted in the lower lumbar segments. Soft tissues: No abnormality noted. No radiopaque foreign body noted. IMPRESSION: No acute abnormality of the right hip. ACT 112: Negative or not required by law. Electronically signed by Lori Gavin 06-02-2024 5:04 PM
--- NOTE | 2024-06-02 17:35 | CT Scan Report ---
Clinical History: Dizziness and falls Technique: Axial computed tomography images were obtained of the brain without intravenous contrast. Findings: There is mild cerebral atrophy, within expected limits for the patient's age. Areas of decreased attenuation are seen within the periventricular white matter, likely representing chronic small vessel ischemic disease. There is no definite sign of acute or old infarction. No intracranial hemorrhage is evident. No definite mass lesion is seen on this noncontrast examination. There is no midline shift or other form of herniation. No hydrocephalus is seen. No fracture is identified. The orbits and the visualized paranasal sinuses appear unremarkable. The mastoid air cells appear clear. Impression: 1. Cerebral atrophy and chronic small vessel ischemic disease 2. Otherwise unremarkable noncontrast CT of the brain Electronically signed by Carmine Queen 06-02-2024 5:34 PM
--- NOTE | 2024-06-02 17:39 | CT Scan Report ---
Clinical History: Dizziness and falls Technique: Axial computed tomography images were obtained of the cervical spine without intravenous contrast. Sagittal and coronal reconstructions were obtained Findings: No definite acute fracture is identified. Well-corticated fragmentation of the spinous process of C7 may be due to old injury. No listhesis is seen. No focal osseous lesion is evident. There is atlantoaxial osteoarthritis. There is an anterior fusion of C5 and C6 with an anterior fixation plate and screws and solidly fused interbody bone graft. There is no definite sign of instrumentation failure At C2-3, no disc herniation is identified. There is no spinal stenosis. The neural foramen are patent At C3-4, there is spinal stenosis due to a disc bulge and a central disc protrusion. There is bilateral neural foramen narrowing that may affect the exiting C4 nerve roots At C4-5, there is spinal stenosis due to a disc bulge and a central disc protrusion. There is right greater than left neural foramen narrowing that may affect the right C5 nerve root At C5-6, there is no spinal stenosis. There is mild left neural foramen narrowing At C6-7, there is a disc bulge without clear spinal cord deformity. There is mild right neural foramen narrowing At C7-T1, there is a disc bulge without clear spinal cord deformity. The neural foramen are patent The lung apices appear clear. The visualized soft tissues of the neck appear unremarkable. No foreign body is seen Impression: 1. No definite cervical spine fracture 2. C5-6 fusion 3. Spinal stenosis at C3-4 and C4-5 4. Bilateral C3-4 and right C4-5 neural foramen narrowing, which may affect the exiting nerve roots Electronically signed by Carmine Queen 06-02-2024 5:38 PM
[2024-06-02] MEDS: DIPHTHER/TETAN/PERTUS Vaccine (Tdap, Adol/Adult) 0.5mL IM ONE (18:17)
--- NOTE | 2024-06-02 19:01 | Emergency Department Note ---
Impression & Plan Closed head injury, Ambulatory dysfunction, Acute hip pain ED Provider Note NAME: HELEN BRAMBILA AGE: 68 SEX: F : 1955 ARRIVES VIA: Ambulance INFORMANT: Patient, ED PROVIDER(S): Kalli Ramirez MD CHIEF COMPLAINT: Fall HPI: This is a 68-year-old female presenting for fall. Patient notes that she has had significant difficulty with ambulation over the past few months gradually worsening since December and worsening over the past few weeks. She notes that today she lost her balance with a walker and fell onto her right side hurting her right arm and hip. She notes that she lives alone with 10+ cats and 1 dog. ROS: See above HPI for pertinent positives & negatives. A total of 10 systems reviewed and were otherwise negative. PAST MEDICAL HISTORY: See Below PAST SURGICAL HISTORY: See Below FAMILY HISTORY: See Below SOCIAL HISTORY: See Below HOME MEDICATIONS: See Below ALLERGIES: See Below VITALS: See Below PHYSICAL EXAMINATION: General: resting comfortably in no acute distress Head: Normocephalic and atraumatic Eyes: Normal inspection, extraocular muscles intact Ear, nose, throat: Normal external exam Neck: Normal range of motion Respiratory: lungs clear to auscultation bilaterally Cardiovascular: Regular rate/rhythm, no murmur GI: soft, nontender, no guarding or rebound Extremities: nontender, moves all extremities Neuro: The patient awake and alert, appropriately conversive, no focal deficits, symmetric faces, cranial 2 through 12 intact Skin: Warm, dry, and intact MEDICAL DECISION MAKING: This is a 68-year-old female presenting after a fall. Patient notes increasing weakness in her right side for she has not had a workup previously. She notes feeling unsteady and has not fallen and lives alone. Will do screening workup that includes x-rays of the shoulder, elbow and hip. Will do CT of the head/neck for trauma. -Scans currently negative for traumatic injuries. -X-rays of the shoulder, elbow and hip are negative for osseous fractures or dislocations upon independent interpretation. -Discussed option with patient and her good to be discharged with outpatient follow-up versus inpatient admission. Patient does not feel safe going home as she lives alone and feels her ambulation is getting worse. -Will admit patient for amatory dysfunction, physical therapy, possible placement -Discussed care with Dr. Terrell for admission Differential diagnosis: Osseous fracture denies hip shoulder or elbow fractures or dislocations, intracranial hemorrhage Independent History obtained from: [facility] interpreted by me: ECG: ECG independently interpreted by me with sinus bradycardia, rate of 57, normal MA, incomplete right bundle branch block, normal QTc, no ST segment elevations consistent with STEMI criteria Cardiac Monitoring: An order was placed for continuous cardiac monitoring. The monitor shows a rate of 67 with sinus rhythm. Past Med/Surg History Problem List (Updated 06/02/24 @ 23:43 by Kalli Ramirez MD) Acute hip pain (Acute) Ambulatory dysfunction (Acute) Closed head injury (Acute) Sacral wound Osteoarthritis Ambulatory dysfunction Abnormal EKG Hypokalemia Diabetes mellitus, type 2 NIDDM; currently on simvastatin for DM purposes per patient Status post reverse arthroplasty of right shoulder Primary osteoarthritis, right shoulder Asthma Appears to be triggered by allergies - follows with pulm- last seen 09/2021- can follow up PRN Inability to ambulate due to hip (Acute) DVT prophylaxis Daytime hypersomnolence Encounter for pre-operative examination Idiopathic polyneuropathy Lumbosacral radiculopathy Dyspnea resolved Allergies Sleep apnea in adult Non-compliant with CPAP History of arthroplasty of left shoulder (Chronic) 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 Aranda Hypertension (Chronic) Medical History (Updated 06/02/24 @ 23:43 by Kalli Ramirez MD) Morbid obesity Migraine Hx Fibromyalgia Surgical History (Updated 07/25/22 @ 18:35 by Daniel Anderson PA-C) Hx of myomectomy History of arthroscopic surgery of shoulder Right RCR, biceps tendon repair Hx of release of tendon Right arm History of colonoscopy Fusion of spine Cervical History of carpal tunnel release R/L Family History Grandfather (Maternal) Family hx of colon cancer Grandfather (Paternal) Family hx of colon cancer Social History Smoking Status: Never smoker Second Hand Exposure: Yes (years ago); Do You Dip or Chew Tobacco: No; Hx Alcohol Use: Yes Alcohol type: other Hx Substance Use: No Preferred Language: Indonesian Communication Ability: Effective [employer] Technician Required: No Beliefs That Will Affect Care: None marital status: Single Current Living Situation: Alone Current Living Situation Comment: with 7 cats current occupational status: employed Feels Safe at Home: Yes Assistive Devices: Cane Allergies Allergies Allergy/AdvReac Type Severity Reaction Status Date / Time Sulfa (Sulfonamide Allergy Severe difficulty Verified 09/25/22 12:39 Antibiotics) breathing per pt/pt thinks it rash? celecoxib [From Celebrex] AdvReac Unknown ISN'T Verified 09/25/22 12:39 EFFECTIVE codeine AdvReac Unknown N&V Verified 09/25/22 12:39 Home Meds Home Medications Medication Instructions Recorded Confirmed cholecalciferol (vitamin D3) 25 1,000 unit PO QAM 03/25/18 06/02/24 mcg (1,000 unit) capsule (Vitamin D3) loratadine 10 mg capsule 10 mg PO QAM 03/25/18 06/02/24 multivitamin 1 tab PO QAM 03/25/18 06/02/24 vitamin B complex 1 tab PO QAM 03/25/18 06/02/24 docusate sodium 100 mg tablet 100 mg PO UD PRN Constipation 12/30/18 06/02/24 inhalational spacing device #1 ea 12/30/18 09/25/22 (Vortex Holding Chamber) gabapentin 300 mg capsule 300 - 600 mg PO UD 04/27/19 06/02/24 aspirin 81 mg tablet,delayed 81 mg PO QAM 03/09/20 06/02/24 release olmesartan 5 mg tablet 5 mg PO QAM 08/15/20 06/02/24 Folate 666 mcg PO HS 07/06/22 06/02/24 azelastine 137 mcg (0.1 %) nasal 1 spray intranasal BID PRN 07/06/22 06/02/24 spray allergies biotin 1 tab PO QPM 07/06/22 06/02/24 empagliflozin 25 mg tablet 25 mg PO QAM 07/06/22 06/02/24 (Jardiance) simvastatin 10 mg tablet 10 mg PO HS 07/06/22 06/02/24 Xeljanz XR 11 mg PO DAILY 06/02/24 06/02/24 diclofenac sodium 25 mg PO DAILY 06/02/24 06/02/24 spironolactone 25 mg PO DAILY 06/02/24 06/02/24 Previous Rx's Medication Instructions Recorded montelukast 10 mg tablet 10 mg PO QPM #30 tabs 09/27/21 (Singulair) acetaminophen 500 mg tablet 1,000 mg (2 x 500 mg) PO Q8 #60 07/27/22 (Tylenol Extra Strength) tabs Results & Data (ED) Vital Signs Vital Signs - 24 hr 06/02/24 15:53 06/02/24 18:44 Temperature 36.6 C Temperature Source Oral Pulse Rate 85 Pulse Rate [Apical] 82 Respiratory Rate 18 18 Blood Pressure 147/86 H Blood Pressure [Left Arm] 165/80 H Blood Pressure Mean 106 Blood Pressure Mean [Left Arm] 108 Pulse Oximetry 98 95 Oxygen Delivery Method Room Air Room Air Sepsis Recent Fever Within 48 Hours No Sepsis New/Unexplained Change in Mental Status No Sepsis Action Taken by Nursing No Action Required Laboratory Data 06/02/24 19:30 06/02/24 19:30 Lab Results 06/02/24 Range/Units 19:30 WBC 10.51 (4.8-10.8) K/ul RBC 5.11 (4.20-5.40) M/uL Hgb 16.1 H (12.0-16.0) g/dl Hct 47.1 H (37.0-47.0) % MCV 92.2 (80.0-100.0) fL MCH 31.5 (25.0-34.0) pg MCHC 34.2 (32.0-36.0) g/dL RDW Std Deviation 45.2 (36.4-46.3) fL RDW Coeff of Rachel 13.2 (11.5-14.5) % Plt Count 376 (130-400) K/uL MPV 10.4 (9.4-12.4) fL Immature Gran % (Auto) 0.3 % Neut % (Auto) 69.8 % Lymph % (Auto) 16.1 % [place] % (Auto) 11.2 % Eos % (Auto) 1.9 % Baso % (Auto) 0.7 % Neut # (Auto) 7.34 H (1.40-6.50) K/uL Lymph # (Auto) 1.69 (1.20-3.40) K/uL [place] # (Auto) 1.18 H (0.11-0.59) K/uL Eos # (Auto) 0.20 (0.00-0.50) K/uL Baso # (Auto) 0.07 (0.00-0.20) K/uL Immature Gran # (Auto) 0.03 (0.01-0.20) K/uL Sodium 143 (136-145) mmol/L Potassium 3.8 (3.5-5.1) mmol/L Chloride 108 H (98-107) mmol/L Carbon Dioxide 27 (21-32) mmol/L Anion Gap 8 (3-11) BUN 21 (6-23) mg/dl Creatinine 0.80 (0.6-1.2) mg/dl Est Cr Clr Drug Dosing 74.8 ml/min eGFR 81.21 BUN/Creatinine Ratio 26.3 H (10-20) Glucose 111 H (70-99(Fasting)) mg/dl Calcium 10.0 (8.6-10.3) mg/dl Magnesium 2.2 (1.7-2.4) mg/dl Total Bilirubin 0.4 (0.2-1.0) mg/dl AST 18 (13-39) U/L ALT 20 (7-52) U/L Alkaline Phosphatase 67 (34-104) U/L Total Protein 7.1 (6.0-8.3) gm/dl Albumin 4.1 (3.4-5.0) gm/dl Globulin 3.0 (2.5-4.0) gm/dl Albumin/Globulin Ratio 1.4 (0.9-2) TSH 2.474 (0.300-4.500) uIu/ml Administered Medications Gabapentin (Gabapentin 300 Mg Cap) 600 mg PO HS ALEXANDR Stop: 07/02/24 22:24 Last Admin: 06/02/24 23:19 Dose: 600 mg Documented By: MPS Montelukast Sodium (Montelukast Sodium 10 Mg Tablet) 10 mg PO QPM ALEXANDR Stop: 07/02/24 22:24 Last Admin: 06/02/24 23:20 Dose: 10 mg Documented By: MPS Simvastatin (Simvastatin 10 Mg Tab) 10 mg PO HS ALEXANDR Stop: 07/02/24 22:24 Last Admin: 06/02/24 23:20 Dose: 10 mg Documented By: MPS Discontinued Medications Diphtheria/Pertussis/Tetanus Vacc (Diphther/Tetan/Pertus Vaccine (Tdap, Adol/Adult) 0.5ml) 0.5 ml IM .ONCE ONE Stop: 06/02/24 16:35 Last Admin: 06/02/24 18:17 Dose: 0.5 ml Documented By: BRONWYN Methylprednisolone (Methylprednisolone 125 Mg/2 Ml Vial) 125 mg IV NOW STA Stop: 06/02/24 21:08 Last Admin: 06/02/24 23:19 Dose: 125 mg Documented By: MPS Imaging Data Radiologist's Impression: Cervical Spine CT 06/02/24 16:34 Clinical History: Dizziness and falls Technique: Axial computed tomography images were obtained of the cervical spine without intravenous contrast. Sagittal and coronal reconstructions were obtained Findings: No definite acute fracture is identified. Well-corticated fragmentation of the spinous process of C7 may be due to old injury. No listhesis is seen. No focal osseous lesion is evident. There is atlantoaxial osteoarthritis. There is an anterior fusion of C5 and C6 with an anterior fixation plate and screws and solidly fused interbody bone graft. There is no definite sign of instrumentation failure At C2-3, no disc herniation is identified. There is no spinal stenosis. The neural foramen are patent At C3-4, there is spinal stenosis due to a disc bulge and a central disc protrusion. There is bilateral neural foramen narrowing that may affect the exiting C4 nerve roots At C4-5, there is spinal stenosis due to a disc bulge and a central disc protrusion. There is right greater than left neural foramen narrowing that may affect the right C5 nerve root At C5-6, there is no spinal stenosis. There is mild left neural foramen narrowing At C6-7, there is a disc bulge without clear spinal cord deformity. There is mild right neural foramen narrowing At C7-T1, there is a disc bulge without clear spinal cord deformity. The neural foramen are patent The lung apices appear clear. The visualized soft tissues of the neck appear unremarkable. No foreign body is seen Impression: 1. No definite cervical spine fracture 2. C5-6 fusion 3. Spinal stenosis at C3-4 and C4-5 4. Bilateral C3-4 and right C4-5 neural foramen narrowing, which may affect the exiting nerve roots Electronically signed by Carmine Queen 06-02-2024 5:38 PM Elbow X-Ray 06/02/24 16:34 EXAM: Radiographs of the Right Elbow Complete 3 Views INDICATION: Trauma. TECHNIQUE: Frontal, lateral and oblique views of the right elbow. COMPARISON: No relevant prior studies available. FINDINGS: Bones/joints: There is a tiny olecranon spur. There is mild spurring of the medial humeral epicondyle and a well-corticated ossicle noted adjacent to the lateral humeral epicondyle presumably related to previous trauma. Appearance chronic. No acute fracture. Joint spaces are maintained. No dislocation or joint effusion. Soft tissues: Mild dorsal soft tissue swelling noted. IMPRESSION: 1. Mild dorsal soft tissue swelling noted. No fracture. 2. Probable previous trauma of the lateral humeral epicondyle. ACT 112: Negative or not required by law. Electronically signed by Lori Gavin 06-02-2024 5:[address] 06/02/24 16:34 Clinical History: Dizziness and falls Technique: Axial computed tomography images were obtained of the brain without intravenous contrast. Findings: There is mild cerebral atrophy, within expected limits for the patient's age. Areas of decreased attenuation are seen within the periventricular white matter, likely representing chronic small vessel ischemic disease. There is no definite sign of acute or old infarction. No intracranial hemorrhage is evident. No definite mass lesion is seen on this noncontrast examination. There is no midline shift or other form of herniation. No hydrocephalus is seen. No fracture is identified. The orbits and the visualized paranasal sinuses appear unremarkable. The mastoid air cells appear clear. Impression: 1. Cerebral atrophy and chronic small vessel ischemic disease 2. Otherwise unremarkable noncontrast CT of the brain Electronically signed by Carmine Queen 06-02-2024 5:34 PM Hip/Pelvis X-Ray 06/02/24 16:34 EXAM: Radiographs of the Right Hip 3 Views INDICATION: Fall. TECHNIQUE: Front view pelvis and AP and frog leg lateral views of the right hip. COMPARISON: No relevant prior studies available. FINDINGS: Limitations: None. Bones/joints: Noncemented total hip arthroplasty components well-seated and intact. No fracture or dislocation. Degenerative changes noted in the lower lumbar segments. Soft tissues: No abnormality noted. No radiopaque foreign body noted. IMPRESSION: No acute abnormality of the right hip. ACT 112: Negative or not required by law. Electronically signed by Lori Gavin 06-02-2024 5:04 PM Shoulder X-Ray 06/02/24 16:34 EXAM: Radiographs of the Right Shoulder Complete 2 Views INDICATION: Trauma. TECHNIQUE: 2 views of the right shoulder. COMPARISON: 07/25/2022 FINDINGS: Bones/joints: Satisfactory appearance of humeral prosthesis. No loosening or fracture. No dislocation. Stable acromial spurring and probable post operative deformity of the acromioclavicular joint. Soft tissues: No abnormality noted. No radiopaque foreign body noted. IMPRESSION: No acute abnormality of the right shoulder noted. ACT 112: Negative or not required by law. Electronically signed by Lori Gavin 06-02-2024 5:04 PM Discharge Plan Visit Data Chief Complaint: Fall ED Provider: Kalli Ramirez Discharge Problem: Closed head injury, Ambulatory dysfunction, Acute hip pain Patient Disposition: Admitted As Inpatient Discharge Instructions Interventions: ED Discharge Assessment Last Done: 06/02/24 21:33
--- NOTE | 2024-06-02 19:19 | History & Physical Report ---
Date of Service June 02, 2024 Assessment & Plan (1) Ambulatory dysfunction: (2) Idiopathic polyneuropathy: (3) Rheumatoid arthritis: (4) Osteoarthritis: (5) Sacral wound: (6) Diabetes mellitus, type 2: (7) Sleep apnea in adult: Plan Patient is a 68-year-old female with a past medical history of hypertension, GERMAINE, DM, osteoarthritis, rheumatoid arthritis, fibromyalgia, asthma. She presents today after a fall; all imaging negative for acute fractures. She has been admitted for ambulatory dysfunction with PT/OT evals. Patient lives at home alone and has HH services with [facility]. #ambulatory dysfunction/fall Uses walker at baseline, lives at home alone s/p fall at home 06/02, NO HS or LOC Overall decline since December 2023, frequently loses balance and falls right elbow XR showing probable previous trauma of lateral humeral epicondyle head CT, hip/pelvis XR, shoulder XR, cervical spine CT negative for acute changes TSH WNL UA ordered PT/OT consulted fall and aspiration precautions #Polyneuropathy Patient stated worsening numbness and tingling of extremities since March 2024, contributing to falls outpatient appointment with neurology 07/[address] 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, cannot hotel custodian walker, resulting in falls Continue tofacitinib, diclofenac PO Voltaren gel prn and Tylenol prn ordered ordered 125 mg IV solu-Medrol on admission; defer further dosing based on response #sacral wound stage 1 daily wound care #T2DM Controlled on Jardiance at home; held Most recent A1C 7.3 in 2022; A1C with AM labs loose SSI with target BSG range 110-140mg/dL, CF 30, defer carb ratio; adjust prn #GERMAINE no CPAP/BiPap; declines use declines sleep study out patient Chronic stable diagnoses: cervical stenosis - seen on cervical CT, continue OTC pain medication as above HTN - continue olmesartan and spironolactone HLD - continue statin neuropathy - continue gabapentin asthma - induced by allergies, continue home loratadine, singular, and nasal spray VTE ppx: SCDs - low risk Diet: T2DM Dispo: med surg Admission and Anticipated Discharge Date Admission Date: 06/02/24 History of Present Illness Chief Complaint: fall Primary Care Provider: Skyler Jimenez DO Patient is a 68-year-old female with a past medical history of hypertension, GERMAINE, DM, osteoarthritis, rheumatoid arthritis, fibromyalgia, asthma. She presents today after a fall; all imaging negative for acute fractures. She has been admitted for ambulatory dysfunction with PT/OT stephanie. Patient seen at bedside. She stated that since December she has been losing her balance and feels as though she falls backwards easily. She has been using a walker since early March. She has bilateral lower extremity numbness and tingling since March, she has an appointment to see neurologist, Dr. Lennon, 07/07. She feels as though she has been overall declining since December. She stated in the past few weeks her right hand has been swollen and had decreased strength, she cannot close it as she used to. This is caused issues because she cannot hotel custodian her walker and it has resulted in her fall this morning. This morning she was walking with her walker and felt like she lost her balance and like she was falling backwards. She fell to the floor because she was unable to hotel custodian her walker. She fell on her right side which has a replaced hip, she came into the ER because she was concerned that this was fractured. She has chronic pain of her bilateral hips, shoulders, elbows, hands. This pain is unchanged. Patient stated that she lives at home alone with her 10 cats and 1 dog. Her sister has been checking on her daily since when she noticed a decline in the patient. The patient has had a decreased appetite and often skips meals, her sister has been bringing her dinner daily and helping her take care of her cats. She denies any chest pain or dizziness prior to the fall. Patient denies headache, dizziness, lightheadedness, dyspnea,chest pain, abdominal pain, nausea, vomiting, diarrhea, constipation. she does not use nicotine products and only drinks alcohol approximately 3 times a year. She denies past history of CA, or VTE. She does not use any oxygen at home; no CPAP/BiPAP for GERMAINE. She has declined sleep studies. She took her home medications this morning and at noon, she is due for her evening doses. She wishes to be full code at this time. She does have home health PT/OT with [facility] services. Allergies Allergy/AdvReac Type Severity Reaction Status Date / Time Sulfa (Sulfonamide Allergy Severe difficulty Verified 09/25/22 12:39 Antibiotics) breathing per pt/pt thinks it rash? celecoxib [From Celebrex] AdvReac Unknown ISN'T Verified 09/25/22 12:39 EFFECTIVE codeine AdvReac Unknown N&V Verified 09/25/22 12:39 Home Medications Medication Instructions Recorded Confirmed Type cholecalciferol (vitamin D3) 25 1,000 unit PO QAM 03/25/18 06/02/24 History mcg (1,000 unit) capsule (Vitamin D3) loratadine 10 mg capsule 10 mg PO QAM 03/25/18 06/02/24 History multivitamin 1 tab PO QAM 03/25/18 06/02/24 History vitamin B complex 1 tab PO QAM 03/25/18 06/02/24 History docusate sodium 100 mg tablet 100 mg PO UD PRN Constipation 12/30/18 06/02/24 History inhalational spacing device #1 ea 12/30/18 09/25/22 History (Vortex Holding Chamber) gabapentin 300 mg capsule 300 - 600 mg PO UD 04/27/19 06/02/24 History aspirin 81 mg tablet,delayed 81 mg PO QAM 03/09/20 06/02/24 History release olmesartan 5 mg tablet 5 mg PO QAM 08/15/20 06/02/24 History montelukast 10 mg tablet 10 mg PO QPM #30 tabs 09/27/21 06/02/24 Rx (Singulair) Folate 666 mcg PO HS 07/06/22 06/02/24 History azelastine 137 mcg (0.1 %) nasal 1 spray intranasal BID PRN 07/06/22 06/02/24 History spray allergies biotin 1 tab PO QPM 07/06/22 06/02/24 History empagliflozin 25 mg tablet 25 mg PO QAM 07/06/22 06/02/24 History (Jardiance) simvastatin 10 mg tablet 10 mg PO HS 07/06/22 06/02/24 History acetaminophen 500 mg tablet 1,000 mg (2 x 500 mg) PO Q8 #60 07/27/22 06/02/24 Rx (Tylenol Extra Strength) tabs Xeljanz XR 11 mg PO DAILY 06/02/24 06/02/24 History diclofenac sodium 25 mg PO DAILY 06/02/24 06/02/24 History spironolactone 25 mg PO DAILY 06/02/24 06/02/24 History Past Med/Surg History Problem List (Updated 06/02/24 @ 21:12 by Karen Izaguirre PA-C) Sacral wound Osteoarthritis Ambulatory dysfunction Abnormal EKG Hypokalemia Diabetes mellitus, type 2 NIDDM; currently on simvastatin for DM purposes per patient Status post reverse arthroplasty of right shoulder Primary osteoarthritis, right shoulder Asthma Appears to be triggered by allergies - follows with pulm- last seen 09/2021- can follow up PRN Inability to ambulate due to hip (Acute) DVT prophylaxis Daytime hypersomnolence Encounter for pre-operative examination Idiopathic polyneuropathy Lumbosacral radiculopathy Dyspnea resolved Allergies Sleep apnea in adult Non-compliant with CPAP History of arthroplasty of left shoulder (Chronic) History of total right hip replacement (Chronic) History of total left knee replacement (TKR) (Chronic) History of total right knee replacement (TKR) (Chronic) Rheumatoid arthritis (Chronic) Follows with rheum in [place]- Dr. Aranda Hypertension (Chronic) Medical History (Updated 06/02/24 @ 21:12 by Karen Izaguirre PA-C) Morbid obesity Migraine Hx Fibromyalgia Surgical History (Updated 07/25/22 @ 18:35 by Daniel Anderson PA-C) Hx of myomectomy History of arthroscopic surgery of shoulder Right RCR, biceps tendon repair Hx of release of tendon Right arm History of colonoscopy Fusion of spine Cervical History of carpal tunnel release R/L Family History Grandfather (Maternal) Family hx of colon cancer Grandfather (Paternal) Family hx of colon cancer Social History Smoking Status: Never smoker Second Hand Exposure: Yes (years ago); Do You Dip or Chew Tobacco: No; Hx Alcohol Use: Yes Alcohol type: other Hx Substance Use: No Preferred Language: Slovenian Communication Ability: Effective Dat Instructor Required: No Beliefs That Will Affect Care: None marital status: Single Current Living Situation: Alone Current Living Situation Comment: with 7 cats current occupational status: employed Feels Safe at Home: Yes Assistive Devices: Cane Review of Systems Review of Systems: see HPI Physical Exam Physical Exam: The patient is awake, alert and oriented 3, well developed and well nourished, normocephalic and atraumatic, in no acute distress. Non-toxic appearing. HEENT- EOMI, mucous membranes moist. Hearing grossly intact. Heart-normal S1 and S2. No murmurs, rubs or gallops. Lungs-clear bilaterally, no respiratory distress, no accessory muscle use. Abdomen-normal bowel sounds and soft. No ascites noted. Non-tender. Extremities- no clubbing, cyanosis. Right hand with swelling. Rheumatologic-decreased range of motion. Psychiatric-normal affect. Skin: Sacral wound, stage 1 Results & Data Results & Data Vital Signs (Past 12 Hours) Vital Signs Temp Pulse Pulse Resp BP BP Pulse Ox 06/02/24 18:44 82 18 165/80 H 95 06/02/24 15:53 36.6 C 85 18 147/86 H 98 O2 Del Method 06/02/24 18:44 Room Air 06/02/24 15:53 Room Air Laboratory Results Reviewed CBC, CMP, Mg, TSH Diagnostic Findings reviewed shoulder XR, hip and pelvis XR, head CT, elbow XR, cervical spine CT Medications Administered TDAP vaccine ECG Additional Comments: NSR Code Status & VTE Plan Code Status full VTE Prophylaxis Plan VTE Prophylaxis will be ordered: Yes Supervising Physician Co-Signing Physician Notes Attending addendum: I have physically seen this patient, have supervised the SERJIO's activities, and agree with the H&P unless as otherwise noted. Assessment and Plan: Patient is a 68-year-old female medical history including hypertension, GERMAINE, diabetes mellitus, severe osteoarthritis, rheumatoid arthritis, fibromyalgia, asthma who presents to the emergency department with progressively worsening generalized weakness, ambulatory dysfunction, and frequent falls at home. She had a fall earlier in the day today where she laid on the right side, with imaging in the emergency department negative for fracture. She will be admitted for PT/OT assessment, and probable inpatient rehab. She should likely be assessed for a home health assessment. #Ambulatory dysfunction/frequent falls- CT scan head without acute event, primarily shows chronic small vessel disease CT scan cervical spine shows bilateral C3-4 foraminal narrowing, and right C4-5 foraminal narrowing X-ray right shoulder is negative X-ray right hip and pelvis negative X-ray right elbow shows mild dorsal swelling Consult PT/OT, and will need inpatient rehab #Rheumatoid arthritis/osteoarthritis- Patient is on Xeljanz in the outpatient setting She did have a short course of prednisone over the holidays, which seemed to help somewhat. Placed on a trial of methylprednisolone 125 mg IV now, and if improvement over the evening, can continue adjusted dosing in the a.m. #Neuropathy- Symptoms in part may be related to underlying neurologic issue She has an appoint with Dr. Lennon from neurology in July 05. Place a consult with neurology see while in hospital #Ongoing medical issues- Hypertension-continue aspirin, hold losartan, spironolactone Diabetes mellitus-hold Jardiance-most recent hemoglobin A1c is 7.323 Placed on Accu-Cheks with NovoLog SSI as noted Hyperlipidemia-simvastatin PG Care Time/CCT Total # of Minutes Spent Total Time Spent with Patient: Total time spent is greater than 50% in coordination of care (as documented) at patient's floor/unit and/or counseling patient: Coding Level of Care Code 76999 INT INP/OBS CARE 3/75MIN Diagnoses Ambulatory dysfunction R26.2 Idiopathic polyneuropathy G60.9 Rheumatoid arthritis M06.9 Osteoarthritis M19.90 Sacral wound S31.000A Diabetes mellitus, type 2 E11.9 Sleep apnea in adult G47.30
[2024-06-02 19:48] LABS: Basophils # (auto) 0.07 K/uL (0.00-0.20); Basophils % (auto) 0.7 %; Eosinophils % (auto) 1.9 %; Hematocrit (blood only) 47.1 % (37.0-47.0); Hemoglobin 16.1 g/dl (12.0-16.0); Immature Granulocytes # (auto) 0.03 K/uL (0.01-0.20); Immature Granulocytes % (auto) 0.3 %; Lymphocytes # (auto) 1.69 K/uL (1.20-3.40); Lymphocytes % (auto) 16.1 %; Mean Corpuscular Hemoglobin 31.5 pg (25.0-34.0); Mean Corpuscular Hgb Conc 34.2 g/dL (32.0-36.0); Mean Corpuscular Volume 92.2 fL (80.0-100.0); Mean Platelet Volume 10.4 fL (9.4-12.4); Monocytes # (auto) 1.18 K/uL (0.11-0.59); Monocytes % (auto) 11.2 %; Neutrophils # (auto) 7.34 K/uL (1.40-6.50); Neutrophils % (auto) 69.8 %; Platelet Count 376 K/uL (130-400); RDW Coefficient of Variation 13.2 % (11.5-14.5); RDW Standard Deviation 45.2 fL (36.4-46.3); Red Blood Count 5.11 M/uL (4.20-5.40); White Blood Count 10.51 K/ul (4.8-10.8)
[2024-06-02 20:04] LABS: Albumin Globulin Ratio 1.4 (0.9-2); Albumin Level 4.1 gm/dl (3.4-5.0); BUN Creatinine Ratio 26.3 (10-20); Bilirubin,Total 0.4 mg/dl (0.2-1.0); Creatinine Clr Calc Pharmacy 74.8 ml/min; Magnesium 2.2 mg/dl (1.7-2.4); Potassium 3.8 mmol/L (3.5-5.1); Total Protein 7.1 gm/dl (6.0-8.3)
[2024-06-02 20:19] LABS: Thyroid Stimulating Hormone 2.474 uIu/ml (0.300-4.500)
[2024-06-02] MEDS ORDERED: ACETAMINOPHEN 325 MG TAB PO PRN (22:25)
[2024-06-02] MEDS ORDERED: CARBOHYDRATES FOR HYPOGLYCEMIA PO PRN (22:25)
[2024-06-02] MEDS ORDERED: GLUCOSE 10 TAB/TUBE PO PRN (22:25)
[2024-06-02] MEDS ORDERED: GLUCAGON FOR INJ 1 MG VIAL SQ PRN (22:25)
[2024-06-02] MEDS ORDERED: DEXTROSE 50% 50 ML SYRINGE IV PRN (22:25)
[2024-06-02] MEDS ORDERED: GLUCOSE 40% GEL 15 GM TUBE PO PRN (22:25)
[2024-06-02] MEDS: INSULIN ASPART PER UNIT CHARGE SC SCH (23:00)
[2024-06-02] MEDS: GABAPENTIN 300 MG CAP PO SCH (23:19)
[2024-06-02] MEDS: methylPREDNISolone 125 MG/2 ML VIAL IV STA (23:19)
[2024-06-02] MEDS: MONTELUKAST SODIUM 10 MG TABLET PO SCH (23:20)
[2024-06-02] MEDS: SIMVASTATIN 10 MG TAB PO SCH (23:20)
[2024-06-03 04:36] LABS: Appearance Urine Cloudy (Clear); Bacteria Urine Automated 2+ (None Seen); Bilirubin Urine Negative (Negative); Blood Urine Negative (Negative); Calcium Oxalate Crystals Urine Present (None Prsent); Cast Urine Automated 0-2 /lpf (0-2); Color Urine Dark Yellow; Glucose Urine UA 3+ (Negative); Ketones Urine Trace (Negative); Leukocyte Esterase Urine 1+ (Negative); Nitrite Urine Negative (Negative); Protein Urine Negative (Negative); Specific Gravity Urine > 1.045 (1.000-1.030); Urobilinogen Urine Negative (Negative); WBC Urine Automated >50 /hpf (0-5)
[2024-06-03 04:38] LABS: RBC Urine Automated 0-2 /hpf (0-2)
[2024-06-03] MEDS: ACETAMINOPHEN 500 MG TAB PO PRN (07:25)
[2024-06-03] MEDS: DICLOFENAC SOD 1% GEL 100 GM TUBE EXT PRN (07:26)
[2024-06-03 08:41] LABS: Estimated Average Glucose 140 mg/dl; Hemoglobin A1C 6.5 % (4.5-5.6)
[2024-06-03] MEDS: ASPIRIN 81 MG ECTAB PO SCH (08:58)
[2024-06-03] MEDS: CHOLECALCIFEROL 25 MCG (1000 UNITS) TAB PO SCH (08:59)
[2024-06-03] MEDS: LOSARTAN POTASSIUM 25 MG TAB PO SCH (08:59)
[2024-06-03] MEDS ORDERED: SPIRONOLACTONE 25 MG TAB PO SCH (09:00)
[2024-06-03] MEDS: DICLOFENAC SODIUM 25 MG TABDR PO SCH (09:00)
[2024-06-03] MEDS: GABAPENTIN 300 MG CAP PO SCH (09:01)
[2024-06-03] MEDS: LORATADINE 10 MG TAB PO SCH (09:51)
--- NOTE | 2024-06-03 09:57 | Hospitalist Progress Note ---
Date of Service June 03, 2024 Assessment & Plan (1) Ambulatory dysfunction: (2) Idiopathic polyneuropathy: (3) Rheumatoid arthritis: (4) Osteoarthritis: (5) Sacral wound: (6) Diabetes mellitus, type 2: (7) Sleep apnea in adult: Plan Patient is a 68-year-old female with a past medical history of hypertension, GERMAINE, DM, osteoarthritis, rheumatoid arthritis, fibromyalgia, asthma. She presents today after a fall; all imaging negative for acute fractures. She has been admitted for ambulatory dysfunction with PT/OT evals. Patient lives at home alone and has HH services with [facility]. #ambulatory dysfunction/fall Uses walker at baseline, lives at home alone s/p fall at home 06/02, NO HS or LOC Overall decline since December 2023, frequently loses balance and falls Likely a combination of arthritis and deconditioning right elbow XR showing probable previous trauma of lateral humeral epicondyle head CT, hip/pelvis XR, shoulder XR, cervical spine CT negative for acute changes Physical Therapy #Polyneuropathy Patient stated worsening numbness and tingling of extremities since March 2024, contributing to falls outpatient appointment with neurology 07/[address] 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, cannot building attendant walker, resulting in falls Continue tofacitinib, diclofenac PO Voltaren gel prn and Tylenol prn ordered ordered 125 mg IV solu-Medrol on admission; #sacral wound stage 1 daily wound care #T2DM Controlled on Jardiance at home; held Most recent A1C 7.3 in 2022; A1C with AM labs loose SSI with target BSG range 110-140mg/dL, CF 30, defer carb ratio; adjust prn #GERMAINE no CPAP/BiPap; declines use declines sleep study out patient Chronic stable diagnoses: cervical stenosis - seen on cervical CT, continue OTC pain medication as above HTN - continue olmesartan and spironolactone HLD - continue statin neuropathy - continue gabapentin asthma - induced by allergies, continue home loratadine, singular, and nasal spray VTE ppx: SCDs - low risk Diet: T2DM Dispo: med surg Admission and Anticipated Discharge Date Admission Date: June 02, 2024 Subjective patient seen and examined, feels better, but says she still has some pain on the right arm Review of Systems Review of Systems: All systems reviewed are negative, apart from the ones contained in the history. Physical Exam Physical Exam: The patient is awake, alert and oriented 3, well developed and well nourished, normocephalic and atraumatic, lying in bed and in no acute distress. HEENT--PERRL, EOMI, mucous membranes and oropharynx mildly dry Neck--supple. No JVD. No bruits. Thyroid normal, trachea midline, no adenopathy. Heart--normal S1 and S2. No murmurs, rubs or gallops. Lungs--clear bilaterally, no respiratory distress, no accessory muscle use. Abdomen--normal bowel sounds and soft. Extremities--no cyanosis or clubbing. No edema. Dermatologic--normal skin turgor, normal color, no abnormal lymph nodes, no rash. Neurologic--cranial nerves II through XII grossly intact. Rheumatologic--normal range of motion. Psychiatric--normal affect. Results & Data Results & Data Vital Signs (Past 12 Hours) Vital Signs Temp Pulse Resp BP Pulse Ox O2 Del Method 06/03/24 08:03 Room Air 06/03/24 08:03 97.9 F 83 16 163/83 H 92 Room Air 06/02/24 22:00 Room Air 06/02/24 22:00 97.9 F 70 16 137/72 94 Room Air PG Care Time/CCT Total # of Minutes Spent Total Time Spent with Patient: Total time spent is greater than 50% in coordination of care (as documented) at patient's floor/unit and/or counseling patient: Coding Level of Care Code 25618 SUB INP/OBS CARE 2/35MIN Diagnoses Ambulatory dysfunction R26.2 Idiopathic polyneuropathy G60.9 Rheumatoid arthritis M06.9 Osteoarthritis M19.90 Sacral wound S31.000A Diabetes mellitus, type 2 E11.9 Sleep apnea in adult G47.30 Time Spent (min) 35
--- NOTE | 2024-06-03 10:35 | Neurology Consultation ---
Date of Consultation June 03, 2024 Assessment & Plan (1) Ambulatory dysfunction: (2) Weakness: (3) Numbness and tingling in both hands: (4) Idiopathic polyneuropathy: (5) Lhermitte sign positive: Plan This patient has progressive gait disturbance with falling over at least 6 months. She has progressive weakness and numbness in the upper extremities, right greater than left side, and some right lower extremity weakness with spasticity in the legs. Reflexes are relative brisk, and despite her polyneuropathy (which will decrease reflexes) she still has Achilles reflexes. She has upgoing toes bilaterally. Clinically she has a positive Lhermitte sign referable to the cervical spine. Taking this altogether, I suspect cervical spinal stenosis with cervical myelopathy creating progressive upper motor neuron signs in the legs and mixed upper and lower motor neuron symptoms and signs in her arms. She does have peripheral neuropathy involving predominantly sensory fibers. There is no evidence to necessarily suspect a brain origin to her symptoms. This is not consistent with multiple sclerosis, but rather, a progressive cervical spine/spinal cord problem. Taken together and myelopathy and neuropathy will give significant gait disturbance. Recommendations: 1. MRI of the cervical spine with and without contrast. 2. Consider MRI of the brain 3. Physical and Occupational Therapy with strengthening and gait training. This patient would likely make an excellent rehab hospital candidate. 4. EMG and nerve conduction studies can be done but these can only be done as an outpatient. 5. B12, CK, ESR, CRP Lyme antibody titers, and MERCED profile 12. 6. Additional recommendations will be made after the above test, specifically the MRI of the cervical spine. Overall, I spent a total of 90 minutes with this case, including review of records, review of CT films, direct evaluation of the patient at bedside, report generation, and discussion of the case with the patient and RN at bedside, and Dr. Mann, including differential diagnosis and treatment options. History of Present Illness Reason for Consultation: Patient is a 68-year-old, who I was asked to see at the request of MAKAYLA Hunter, for neurologic evaluation regarding progressive weakness and numbness with falling. Requesting Physician: Familia Izaguirre PA-C Attending Physician: Conner Mann MD History of Present Illness This patient has a 12-year history of rheumatoid arthritis and advanced osteoarthritis followed by Dr. Aranda in [place], rheumatology. She has been on multiple treatments but currently is on Xeljanz. This helped at first but is no t helping as much and she does have joint pain. She has a history of diabetes, hypertension, asthma, and sleep apnea. Over the years she has had multiple surgeries including a right hip replacement and bilateral knee replacement. She also, in the late , had fusion with plate and screws at C5-6 in [place]. She has had shoulder/rotator cuff issues and repairs, as recently as July 2022. In May 2021, I did EMG and nerve conduction studies of both legs. She had a mild underlying polyneuropathy involving predominantly sensory fibers and very mild L4/S1 radiculopathy. She believes she has had numbness in her feet for at least 2 years. Starting in 2023 the patient has had the gradual onset and progression of limb symptoms and gait problems. By December she had her first significant fall. She has had 6-8 falls since as well as numerous "near falls". Starting in February of this year she is had the onset of numbness and tingling in the right hand which over time has come up the arm. It started in the left hand in March 2024. By April 2024 she has had hand and arm weakness right greater than left side. All of the symptoms are currently still progressive. She does not have a lot of neck pain but has noted since the fall that when she moves her neck in certain directions, takes a deep breath, or coughs, she will have electric shocks down the back of the spine from the neck to the lumbar spine and sometimes even down the legs into the toes. This is a frequent symptom. She denies incontinence of bowel or bladder. Despite the progression of the upper extremities, she has had no progressive numbness or weakness of her lower extremities. She has had cramps and spasms, however, and her legs over the last 2 months, getting worse with time. The patient stopped driving in March and has been using a wheeled walker since 2023. Patient is falling, without any dizziness, vertigo, lightheadedness, or syncope. She does not trip. She just simply loses her balance. 1 time, recently, she was pulling a shirt over her head and just fell over. The most recent fall, June 02, occurred when she was trying to hold onto her walker and missed the crew mess attendant and fell over to the side. She arrived to emergency room June 02 at 1553 with a temperature 36.0, pulse 85 and regular, respiratory rate 18, blood pressure 147/86, and O2 saturation 98%. Examination did not show any focal findings in the emergency room. CBC showed polycythemia and CHEM profile was unremarkable. Urinalysis showed changes consistent with possible urinary tract infection. CT scan of the head showed some minor atrophy and small vessel ischemic disease of a nonspecific nature with no acute findings. CT scan of the cervical spine showed degenerative changes in the fusion at C5-6. Plain x-rays did not show any fractures. Currently the patient has low back pain, was weak all over, and is tired. Allergies Allergy/AdvReac Type Severity Reaction Status Date / Time Sulfa (Sulfonamide Allergy Severe difficulty Verified 09/25/22 12:39 Antibiotics) breathing per pt/pt thinks it rash? celecoxib [From Celebrex] AdvReac Unknown ISN'T Verified 09/25/22 12:39 EFFECTIVE codeine AdvReac Unknown N&V Verified 09/25/22 12:39 Home Medications Medication Instructions Recorded Confirmed Type cholecalciferol (vitamin D3) 25 1,000 unit PO QAM 03/25/18 06/02/24 History mcg (1,000 unit) capsule (Vitamin D3) loratadine 10 mg capsule 10 mg PO QAM 03/25/18 06/02/24 History multivitamin 1 tab PO QAM 03/25/18 06/02/24 History vitamin B complex 1 tab PO QAM 03/25/18 06/02/24 History docusate sodium 100 mg tablet 100 mg PO UD PRN Constipation 12/30/18 06/02/24 History inhalational spacing device #1 ea 12/30/18 09/25/22 History (Vortex Holding Chamber) gabapentin 300 mg capsule 300 - 600 mg PO UD 04/27/19 06/02/24 History aspirin 81 mg tablet,delayed 81 mg PO QAM 03/09/20 06/02/24 History release olmesartan 5 mg tablet 5 mg PO QAM 08/15/20 06/02/24 History montelukast 10 mg tablet 10 mg PO QPM #30 tabs 09/27/21 06/02/24 Rx (Singulair) Folate 666 mcg PO HS 07/06/22 06/02/24 History azelastine 137 mcg (0.1 %) nasal 1 spray intranasal BID PRN 07/06/22 06/02/24 History spray allergies biotin 1 tab PO QPM 07/06/22 06/02/24 History empagliflozin 25 mg tablet 25 mg PO QAM 07/06/22 06/02/24 History (Jardiance) simvastatin 10 mg tablet 10 mg PO HS 07/06/22 06/02/24 History acetaminophen 500 mg tablet 1,000 mg (2 x 500 mg) PO Q8 #60 07/27/22 06/02/24 Rx (Tylenol Extra Strength) tabs Xeljanz XR 11 mg PO DAILY 06/02/24 06/02/24 History diclofenac sodium 25 mg PO DAILY 06/02/24 06/02/24 History spironolactone 25 mg PO DAILY 06/02/24 06/02/24 History Patient History Medical History Morbid obesity Migraine Hx Fibromyalgia Surgical History Hx of myomectomy History of arthroscopic surgery of shoulder Right RCR, biceps tendon repair Hx of release of tendon Right arm History of colonoscopy Fusion of spine Cervical History of carpal tunnel release R/L Family History Grandfather (Maternal) Family hx of colon cancer Grandfather (Paternal) Family hx of colon cancer Mother , in their mid 80s of an [place]. Stroke Myocardial infarction Father , in his mid 80s of a brain bleed. 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 Other Information That Helps Us Care for You: No Feels Safe at Home: Yes Safety Concerns: Feels Safe At This Time Assistive Devices: Walker Review of Systems Constitutional: + fatigue and + weakness; no fever Eyes: no diplopia, no eye pain and no worsening vision Ear, Nose, Mouth, Throat: no ear pain, no tinnitus, no hearing loss, no dizziness, no snoring, no hoarseness and no dysphagia Respiratory: no cough and no dyspnea Cardiovascular: no chest pain, no palpitations and no lightheadedness Gastrointestinal: no abdominal pain, no nausea and no vomiting Genitourinary: no dysuria, no urinary frequency and no urinary incontinence Musculoskeletal: + back pain, + neck pain and + joint rosalee n; no radicular pain and no myalgia Integumentary: no rash and no lesions Neurologic: + gait abnormality, + localized weakness and + numbness; no generalized weakness, no tingling, no tremor(s), no abnormal movements, no headache(s), no abnormal speech, no confusion and no memory loss Psychiatric: no depression, no irritability, no anxiety, no difficulty concentrating, no confusion and no hallucinations Endocrine: no fatigue and no flushing Hematologic / Lymphatic: no easy bleeding and no easy bruising Allergy / Immunological: no urticaria and no problem reported Exam (Neuro) Physical Exam: The patient is right-handed (does some things with her left hand). The patient is awake, alert, and attentive. Speech is normal without any aphasia or dysarthria. Mentation and thought processes are intact, with full orientation and normal fund of knowledge. Mood and affect are normal and appropriate. Appearance and grooming are normal. Short and long-term memory are intact. Pupils are 4 mm bilaterally and reactive to light. Extraocular eye muscles are intact without nystagmus. Visual acuity and visual new seem normal grossly to confrontation. There are no deficits to sensation in the face in all 3 distributions of the fifth cranial nerve bilaterally. Corneal reflexes are positive bilaterally. Facial strength and symmetry was normal bilaterally. Hearing seems intact grossly to voice and finger rub bilaterally. Palate moves well without asymmetry. There is normal sternocleidomastoid and trapezius strength bilaterally. Tongue is midline with good strength bilaterally. Neck has a deep range of motion with some discomfort. With neck extension, she had pain radiating down her spine. There are no cervical bruits bilaterally. There are no cranial or ocular bruits. Heart is without murmur. There is a regular rhythm and rate. Cervical, thoracic, and lumbar spine are nontender to palpation on the surface. Gait was not tested and stance sitting up is somewhat poor secondary to spine pain. With outstretched arms there is drift on the right. There are no resting, postural, or action tremors. There is no ataxia with finger to nose testing. There is decreased facility in the right hand. No other abnormal involuntary movements are noted. Motor strength is 4+/5 diffusely in the left upper extremity, including de ltoids, biceps, triceps, brachioradialis, wrist flexors and extensors, crew mess attendant, and intrinsic hand muscles. Motor strength is 4/5 diffusely in the right upper extremity proximally and 4-/5 distally. Motor strength is essentially 5/5 diffusely in the left lower extremity, including hip flexors, quadriceps, hamstrings, gastrocnemius, tibialis anterior, tibialis posterior, and Peroneii muscles. Motor strength is 4/5 diffusely in the right lower extremity both proximally and distally. Legs have increased tone (mild spasticity). Sensory examination reveals mild decreased pinprick in a stocking glove distribution to the ankles and wrist bilaterally. More proximally is spared. Reflexes are 2/4 (close to 3/4) in the biceps, triceps, brachioradialis, and quadriceps tendons bilaterally. The right Achilles reflex is trace in the left is 1/4. Toes are upgoing with plantar stimulation bilaterally. Peripheral pulses are present and of normal quality distally in all 4 limbs. There is no peripheral edema noted in the limbs. Results & Data Vital Signs (Past 12 Hours) Vital Signs Temp Pulse Resp BP Pulse Ox O2 Del Method 06/03/24 08:03 Room Air 06/03/24 08:03 36.6 C 83 16 163/83 H 92 Room Air PG Care Time/CCT Total # of Minutes Spent Total Time Spent with Patient: Total time spent is greater than 50% in coordination of care (as documented) at patient's floor/unit and/or counseling patient: Coding Level of Care Code 31862 INT INP/OBS CARE 3/75MIN Diagnoses Ambulatory dysfunction R26.2 Weakness R53.1 Numbness and tingling in both hands R20.0; R20.2 Idiopathic polyneuropathy G60.9 Lhermitte sign positive R29.818 Time Spent (min) 90
[2024-06-03] MEDS: LORazepam 2 MG/1 ML VIAL IV STA (13:10)
[2024-06-03] MEDS: diphenhydrAMINE 50 MG/ML VIAL IV STA (13:12)
[2024-06-04] MEDS ORDERED: Nursing to Pharmacy Communication SCH ×2 (02:30→18:45)
[2024-06-04] MEDS: INSULIN ASPART PER UNIT CHARGE SC SCH ×2 (06:13→21:33)
[2024-06-04 08:02] LABS: Hematocrit (blood only) 45.4 % (37.0-47.0); Hemoglobin 15.5 g/dl (12.0-16.0); Mean Corpuscular Hemoglobin 31.8 pg (25.0-34.0); Mean Corpuscular Hgb Conc 34.1 g/dL (32.0-36.0); Mean Corpuscular Volume 93.2 fL (80.0-100.0); Mean Platelet Volume 10.5 fL (9.4-12.4); Platelet Count 393 K/uL (130-400); RDW Coefficient of Variation 13.5 % (11.5-14.5); RDW Standard Deviation 46.5 fL (36.4-46.3); Red Blood Count 4.87 M/uL (4.20-5.40); White Blood Count 10.38 K/ul (4.8-10.8)
[2024-06-04 08:06] LABS: BUN Creatinine Ratio 35.5 (10-20); Calcium 9.7 mg/dl (8.6-10.3); Creatinine Clr Calc Pharmacy 66.2 ml/min; Potassium 3.7 mmol/L (3.5-5.1)
[2024-06-04] MEDS: AZELASTINE HCL 0.1% NASAL 200 SPRAYS/27,400 MCG BTL PRN (08:35)
--- NOTE | 2024-06-04 09:47 | Hospitalist Progress Note ---
Date of Service June 04, 2024 Assessment & Plan (1) Ambulatory dysfunction: (2) Idiopathic polyneuropathy: (3) Rheumatoid arthritis: (4) Osteoarthritis: (5) Sacral wound: (6) Diabetes mellitus, type 2: (7) Sleep apnea in adult: (8) Lhermitte sign positive: (9) Numbness and tingling in both hands: (10) Myelopathic gait: Plan Patient is a 68-year-old female with a past medical history of hypertension, GERMAINE, DM, osteoarthritis, rheumatoid arthritis, fibromyalgia, asthma. She presents today after a fall; all imaging negative for acute fractures. She has been admitted for ambulatory dysfunction with PT/OT evals. Patient lives at home alone and has HH services with [facility]. # Myelopathy Most likely cervical myelopathy causing upper motor neuron signs CT c spine suggests some cervical stenosis of c3-5 Patient could not tolerate MRI c spine yesterday even with ativan and Benadryl Plan is for MRI under anastdeyviia Appreciate Neurology recs #ambulatory dysfunction/fall Uses walker at baseline, lives at home alone s/p fall at home 06/02, NO HS or LOC Overall decline since December 2023, frequently loses balance and falls Likely a combination of arthritis and deconditioning right elbow XR showing probable previous trauma of lateral humeral epicondyle head CT, hip/pelvis XR, shoulder XR, cervical spine CT negative for acute changes Physical Therapy #Polyneuropathy Patient stated worsening numbness and tingling of extremities since March 2024, contributing to falls outpatient appointment with neurology 07/[address] 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, resulting in falls Continue tofacitinib, diclofenac PO Voltaren gel prn and Tylenol prn ordered ordered 125 mg IV solu-Medrol on admission; #sacral wound stage 1 daily wound care #T2DM Controlled on Jardiance at home; held Most recent A1C 7.3 in 2022; A1C with AM labs loose SSI with target BSG range 110-140mg/dL, CF 30, defer carb ratio; adjust prn #GERMAINE no CPAP/BiPap; declines use declines sleep study out patient Chronic stable diagnoses: cervical stenosis - seen on cervical CT, continue OTC pain medication as above HTN - continue olmesartan and spironolactone HLD - continue statin neuropathy - continue gabapentin asthma - induced by allergies, continue home loratadine, singular, and nasal spray VTE ppx: SCDs - low risk Diet: T2DM Dispo: med surg Admission and Anticipated Discharge Date Admission Date: June 02, 2024 Subjective patient seen and examined, feels better, but says she still has some pain on the right arm Review of Systems Review of Systems: All systems reviewed are negative, apart from the ones contained in the history. Physical Exam Physical Exam: The patient is awake, alert and oriented 3, well developed and well nourished, normocephalic and atraumatic, lying in bed and in no acute distress. HEENT--PERRL, EOMI, mucous membranes and oropharynx mildly dry Neck--supple. No JVD. No bruits. Thyroid normal, trachea midline, no adenopathy. Heart--normal S1 and S2. No murmurs, rubs or gallops. Lungs--clear bilaterally, no respiratory distress, no accessory muscle use. Abdomen--normal bowel sounds and soft. Extremities--no cyanosis or clubbing. No edema. Dermatologic--normal skin turgor, normal color, no abnormal lymph nodes, no rash . Neurologic--cranial nerves II through XII grossly intact. brisk reflex Rheumatologic--normal range of motion. Psychiatric--normal affect. Results & Data Results & Data Vital Signs (Past 12 Hours) Vital Signs Temp Pulse Resp BP Pulse Ox O2 Del Method 06/04/24 07:33 98.1 F 68 16 116/70 94 Room Air PG Care Time/CCT Total # of Minutes Spent Total Time Spent with Patient: Total time spent is greater than 50% in coordination of care (as documented) at patient's floor/unit and/or counseling patient: Coding Level of Care Code 25584 SUB INP/OBS CARE 2/35MIN Diagnoses Ambulatory dysfunction R26.2 Idiopathic polyneuropathy G60.9 Rheumatoid arthritis M06.9 Osteoarthritis M19.90 Sacral wound S31.000A Diabetes mellitus, type 2 E11.9 Sleep apnea in adult G47.30 Lhermitte sign positive R29.818 Numbness and tingling in both hands R20.0; R20.2 Myelopathic gait R26.89 Time Spent (min) 35
--- NOTE | 2024-06-04 09:59 | Neurology Progress Note ---
Date of Service June 04, 2024 Assessment & Plan (1) Ambulatory dysfunction: (2) Weakness: (3) Numbness and tingling in both hands: (4) Idiopathic polyneuropathy: (5) Lhermitte sign positive: Plan This patient has progressive gait disturbance with falling over at least 6 m onths. She has progressive weakness and numbness in the upper extremities, right greater than left side, and some right lower extremity weakness with spasticity in the legs. Reflexes are relative brisk, and despite her polyneuropathy (which will decrease reflexes) she still has Achilles reflexes. She has upgoing toes bilaterally. Clinically she has a positive Lhermitte sign referable to the cervical spine. Taking this altogether, I suspect cervical spinal stenosis with cervical myelopathy creating progressive upper motor neuron signs in the legs and mixed upper and lower motor neuron symptoms and signs in her arms. She does have peripheral neuropathy involving predominantly sensory fibers. There is no evidence to necessarily suspect a brain origin to her symptoms. This is not consistent with multiple sclerosis, but rather, a progressive cervical spine/spinal cord problem. Taken together and myelopathy and neuropathy will give significant gait disturbance. Recommendations: 1. MRI of the cervical spine with and without contrast. Likely will need heavier sedation to get through this test. 2. Consider adding MRI of the brain (with and without contrast) also. 3. Physical and Occupational Therapy with strengthening and gait training. This patient would likely make an excellent rehab hospital candidate. 4. EMG and nerve conduction studies of all 4 limbs. This has to be scheduled as an outpatient, however. 5. Obtain B12, CK, ESR, CRP Lyme antibody titers, and MERCED profile 12. 6. Additional recommendations will be made after the above tests, specifically the MRI of the cervical spine. Overall, I spent a total of 35 minutes with this case, including review of records, direct evaluation of the patient at bedside, report generation, and discussion of the case with the patient at bedside, and Dr. Mann, including differential diagnosis and treatment options. Admission and Anticipated Discharge Date Admission Date: June 02, 2024 Subjective Patient has been doing well since yesterday with no new issues or problems. She continues to have some neck pain and the weakness and numbness in her limbs as per yesterday. CBC and CHEM profile were largely unremarkable. Blood pressure is 116/70 and she is afebrile. Unfortunately, she could not get MRI of the cervical spine due to "claustrophobia". Results & Data Vital Signs (Past 12 Hours) Vital Signs Temp Pulse Resp BP Pulse Ox O2 Del Method 06/04/24 07:33 36.7 C 68 16 116/70 94 Room Air Exam (Neuro) Physical Exam: She is awake and alert. Speech is without aphasia or dysarthria. Mood and affect are normal and appropriate. Processes are intact to conversation Extraocular muscles are intact without nystagmus. There is no facial droop. Tongue is midline. Coordination is normal in the arms without obvious tremor or ataxia. She has some drift and clumsiness of the right hand as before compared to the left which is more normal. Strength is about the same as yesterday with the right arm and leg weaker than the left arm and leg. Reflexes are 3/4 in the right biceps, triceps, brachioradialis, and quadriceps tendons. Reflexes are 2/4 in these locations on the left. The Achilles tendon reflexes are 1/4 bilaterally without clonus. Toes are upgoing with plantar stimulation bilaterally. There is increased tone in the limbs right greater than left side and legs greater than arms. PG Care Time/CCT Total # of Minutes Spent Total Time Spent with Patient: Total time spent is greater than 50% in coordination of care (as documented) at patient's floor/unit and/or counseling patient: Coding Level of Care Code 60311 SUB INP/OBS CARE 2/35MIN Diagnoses Ambulatory dysfunction R26.2 Weakness R53.1 Numbness and tingling in both hands R20.0; R20.2 Idiopathic polyneuropathy G60.9 Lhermitte sign positive R29.818 Time Spent (min) 35
--- NOTE | 2024-06-04 12:23 | Anesthesiology Consultation ---
Date of Service June 04, 2024 Assessment & Plan (1) Encounter for pre-operative examination: Chart Review Chart Review: Acceptable Risk for Surgery and Patient NOT seen in Pre Admission Testing Consults Requested none History Height/Weight Height: 5 ft 3 in Weight: 97.5 kg Allergies Allergy/AdvReac Type Severity Reaction Status Date / Time Sulfa (Sulfonamide Allergy Severe difficulty Verified 09/25/22 12:39 Antibiotics) breathing per pt/pt thinks it rash? celecoxib [From Celebrex] AdvReac Unknown ISN'T Verified 09/25/22 12:39 EFFECTIVE codeine AdvReac Unknown N&V Verified 09/25/22 12:39 Medications Home Medications Medication Instructions Recorded Confirmed Last Taken cholecalciferol (vitamin D3) 25 1,000 unit PO QAM 03/25/18 06/02/24 06/02/24 mcg (1,000 unit) capsule (Vitamin D3) loratadine 10 mg capsule 10 mg PO QAM 03/25/18 06/02/24 06/02/24 multivitamin 1 tab PO QAM 03/25/18 06/02/24 06/02/24 vitamin B complex 1 tab PO QAM 03/25/18 06/02/24 06/02/24 docusate sodium 100 mg tablet 100 mg PO UD PRN Constipation 12/30/18 06/02/24 06/02/24 inhalational spacing device #1 ea 12/30/18 09/25/22 Unknown (Vortex Holding Chamber) gabapentin 300 mg capsule 300 - 600 mg PO UD 04/27/19 06/02/24 06/02/24 aspirin 81 mg tablet,delayed 81 mg PO QAM 03/09/20 06/02/24 06/02/24 release olmesartan 5 mg tablet 5 mg PO QAM 08/15/20 06/02/24 06/02/24 montelukast 10 mg tablet 10 mg PO QPM #30 tabs 09/27/21 06/02/24 06/02/24 (Singulair) Folate 666 mcg PO HS 07/06/22 06/02/24 06/02/24 azelastine 137 mcg (0.1 %) nasal 1 spray intranasal BID PRN 07/06/22 06/02/24 06/02/24 spray allergies biotin 1 tab PO QPM 07/06/22 06/02/24 06/02/24 empagliflozin 25 mg tablet 25 mg PO QAM 07/06/22 06/02/24 06/02/24 (Jardiance) simvastatin 10 mg tablet 10 mg PO HS 07/06/22 06/02/24 06/02/24 acetaminophen 500 mg tablet 1,000 mg (2 x 500 mg) PO Q8 #60 07/27/22 06/02/24 06/02/24 (Tylenol Extra Strength) tabs Xeljanz XR 11 mg PO DAILY 06/02/24 06/02/24 06/02/24 diclofenac sodium 25 mg PO DAILY 06/02/24 06/02/24 06/02/24 spironolactone 25 mg PO DAILY 06/02/24 06/02/24 06/02/24 Active Medications Generic Name Dose Route Start Last Admin Trade Name Freq PRN Reason Stop Dose Admin Acetaminophen 1,000 mg 06/03/24 00:52 06/03/24 07:25 Acetaminophen 500 Mg Tab PO 07/03/24 00:51 1,000 mg Q8H PRN Administration Pain or Fever Aspirin 81 mg 06/03/24 09:00 06/04/24 08:37 Aspirin 81 Mg Ectab PO 07/03/24 08:59 81 mg QAM ALEXANDR Administration Diclofenac Sodium 4 gm 06/02/24 22:25 06/03/24 07:26 Diclofenac Sod 1% Gel 100 Gm Tube EXT 07/02/24 22:24 4 gm QID PRN Administration Pain Protocol Diclofenac Sodium 25 mg 06/03/24 09:00 06/04/24 08:35 Diclofenac Sodium 25 Mg Tabdr PO 07/03/24 08:59 25 mg DAILY ALEXANDR Administration Gabapentin 600 mg 06/02/24 22:25 06/03/24 20:30 Gabapentin 300 Mg Cap PO 07/02/24 22:24 600 mg HS ALEXANDR Administration Gabapentin 300 mg 06/03/24 09:00 06/04/24 08:38 Gabapentin 300 Mg Cap PO 07/03/24 08:59 300 mg TODAY@0900,1400 ALEXANDR Administration Insulin Aspart 0 units 06/04/24 06:00 06/04/24 06:13 Insulin Aspart Per Unit Charge SC 07/02/24 22:24 Not Given Q6 ALEXANDR Loratadine 10 mg 06/03/24 09:00 06/04/24 08:37 Loratadine 10 Mg Tab PO 07/03/24 08:59 10 mg QAM ALEXANDR Administration Losartan Potassium 12.5 mg 06/03/24 09:00 06/04/24 08:37 Losartan Potassium 25 Mg Tab PO 07/03/24 08:59 12.5 mg QAM ALEXANDR Administration Miscellaneous 1 each 06/03/24 00:00 06/04/24 08:35 Order Awaiting Action - Xeljanz Xr 11 Mg Capsule N/A 07/03/24 00:00 Not Given QS ALEXANDR Montelukast Sodium 10 mg 06/02/24 22:25 06/03/24 20:31 Montelukast Sodium 10 Mg Tablet PO 07/02/24 22:24 10 mg QPM ALEXANDR Administration Simvastatin 10 mg 06/02/24 22:25 06/03/24 20:31 Simvastatin 10 Mg Tab PO 07/02/24 22:24 10 mg HS ALEXANDR Administration Vitamin D 25 mcg 06/03/24 09:00 06/04/24 08:38 Cholecalciferol 25 Mcg (1000 Units) Tab PO 07/03/24 08:59 25 mcg QAM ALEXANDR Administration Past Medical History Medical History (Updated 06/04/24 @ 12:23 by Ruperto Brownlee MD) Myelopathic gait Numbness and tingling in both hands Weakness Ambulatory dysfunction Diabetes mellitus, type 2 NIDDM; currently on simvastatin for DM purposes per patient Asthma Appears to be triggered by allergies - follows with pulm- last seen 09/2021- can follow up PRN Idiopathic polyneuropathy Sleep apnea in adult Non-compliant with CPAP Rheumatoid arthritis Follows with rheum in [place]- Dr. Aranda Morbid obesity Migraine Hx Fibromyalgia Past Family History Family History Grandfather (Maternal) Family hx of colon cancer Grandfather (Paternal) Family hx of colon cancer Mother , in their mid 80s of an LA. Stroke Myocardial infarction Father , in his mid 80s of a brain bleed. Heart disease Hypertension Past Surgical History Surgical History Hx of myomectomy History of arthroscopic surgery of shoulder Right RCR, biceps tendon repair Hx of release of tendon Right arm History of colonoscopy Fusion of spine Cervical History of carpal tunnel release R/L Social History Smoking Status: Never smoker Do You Dip or Chew Tobacco: No Hx Alcohol Use: Yes Alcohol type: wine alcohol intake frequency: holidays/special occasions only Hx Substance Use: No substance use type: does not use Physical Exam Vital Signs Last Vital Signs Temp 36.7 C 06/04/24 07:33 Pulse 68 06/04/24 07:33 Resp 16 06/04/24 07:33 BP 116/70 06/04/24 07:33 Pulse Ox 94 06/04/24 07:33 O2 Del Method Room Air 06/04/24 07:33 Testing Laboratory Results 06/04/24 06:21 06/04/24 06:21 Hemoglobin A1c 6.5 % (4.5-5.6) H 06/03/24 07:23 Urine Color Dark Yellow 06/03/24 04:05 Urine Appearance Cloudy (Clear) A 06/03/24 04:05 Urine pH 5.0 (4.5-7.5) 06/03/24 04:05 Ur Specific [place] > 1.045 (1.000-1.030) H 06/03/24 04:05 Urine Protein Negative (Negative) 06/03/24 04:05 Urine Glucose (UA) 3+ (Negative) H 06/03/24 04:05 Urine Ketones Trace (Negative) H 06/03/24 04:05 Urine Nitrite Negative (Negative) 06/03/24 04:05 Ur Leukocyte Esterase 1+ (Negative) H 06/03/24 04:05 Urine WBC (Auto) >50 /hpf (0-5) H 06/03/24 04:05 Urine RBC (Auto) 0-2 /hpf (0-2) 06/03/24 04:05 U Hyaline Cast (Auto) 0-2 /lpf (0-2) 06/03/24 04:05 U Epithel Cells (Auto) 3-5 /hpf (0-2) H 06/03/24 04:05 Urine Bacteria (Auto) 2+ (None Seen) H 06/03/24 04:05 06/03/24 04:05 Urine Culture - Final Urine,Clean Catch Three types or organisms present, all moderate counts probable skin andie. No further identifications or sensitivities to follow. 06/04/24 06/04/24 11:40 06:07 POC Glucose 95 114 H Electrocardiogram Date: 06/02/24 sinus isabella. sinus arrhythmia.
[2024-06-04] MEDS ORDERED: PROPOFOL IV EMULSION 10 MG/ML 20 ML VIAL IV ONE (12:46)
[2024-06-04] MEDS ORDERED: LIDOCAINE 2% 2 ML VIAL/AMP(20MG/ML) INFIL ONE (12:46)
[2024-06-04] MEDS ORDERED: MIDAZOLAM HCL 1 MG/ML 2ML VIAL ONE (12:46)
[2024-06-04] MEDS ORDERED: KETAMINE HCL 10MG/ML SYR ONE (12:46)
[2024-06-04] MEDS ORDERED: fentaNYL citrate PF 100 MCG/2 ML VIAL ONE (12:48)
[2024-06-04] MEDS ORDERED: fentaNYL citrate PF 100 MCG/2 ML VIAL IV PRN (13:20)
[2024-06-04] MEDS ORDERED: ATROPINE SULFATE 0.1 MG/ML 10ML SYR IV PRN (13:20)
[2024-06-04] MEDS ORDERED: ePHEDrine sulfate 50 MG/ML AMP IV PRN (13:20)
[2024-06-04] MEDS ORDERED: ONDANSETRON INJ 2 MG/ML 2 ML VIAL IV PRN (13:20)
[2024-06-04] MEDS: GADOBUTROL 65ML VIAL IV ONE (14:05)
--- NOTE | 2024-06-04 14:48 | Magnetic Resonance Report ---
CLINICAL HISTORY: cord compression TECHNIQUE: MRI of the cervical spine is performed utilizing various T1 and T2 sequences in the axial and sagittal planes. IV contrast was administered for this examination. Comparison: None available at the time of this dictation. FINDINGS: The alignment is anatomical. ACDF is seen spanning C5-C6. C2-C3: Unremarkable. C3-C4: Facet arthropathy is seen with moderate bilateral neural foraminal stenosis. C4-C5: Bilateral facet arthropathy and posterior disc bulges are seen with moderate canal stenosis, A P diameter 7 mm, and severe bilateral neuroforaminal stenosis. C5-C6: Unremarkable. C6-C7: Facet arthropathy results in mild bilateral foraminal stenosis. C7-T1: Unremarkable. The spinal ligaments are intact, without evidence of disruption or abnormal signal intensity. There i s minimal increased T2 signal at the level of C4-C5. There is no evidence of an extradural, intradura l, extramedullary or intramedullary lesion. Visualized soft tissues are normal. Visualized brain pare nchyma is normal. IMPRESSION: Multilevel degenerative changes with up to moderate canal stenosis, AP diameter 7 mm and severe bilat eral neuroforaminal stenosis. There is displacement of the cord at the level of C4-C5 with minimal T2 signal which may represent mild compression. ACT 112: Negative or not required by law. Electronically signed by: Hipolito Ricks M.D. 06/04/2024 2:46 PM
--- NOTE | 2024-06-04 16:04 | Anesthesiology Progress Note ---
Date of Service June 04, 2024 Anesthesia Post Procedure Vital Signs Vital Signs: Temp Pulse Pulse Resp BP Pulse Ox O2 Del Method 06/04/24 15:10 36.5 C 16 123/70 92 Room Air 06/04/24 15:00 60 18 121/75 94 Room Air 06/04/24 14:50 36.4 C L 61 17 124/73 95 Room Air 06/04/24 14:40 70 17 125/75 93 Nasal Cannula 06/04/24 14:31 36.5 C 74 20 114/73 90 Room Air 06/04/24 07:33 36.7 C 68 16 116/70 94 Room Air 06/03/24 19:50 36.7 C 80 16 145/73 H 93 Room Air O2 Flow Rate 06/04/24 15:10 06/04/24 15:00 0 06/04/24 14:50 0 06/04/24 14:40 2 06/04/24 14:31 06/04/24 07:33 06/03/24 19:50 Pain Intensity Generalized: Pain Intensity: 8 Lower Back: Pain Intensity: 5 Transfer of Care Handoff Completed per policy Notes Mental Status: alert / awake / arousable and participated in evaluation Patient Amnestic to Procedure: Yes Nausea / Vomiting: adequately controlled Pain: adequately controlled Airway Patency, RR, SpO2: stable & adequate BP & HR: stable & adequate Hydration State: stable & adequate Anesthetic Complications: no major complications apparent and Pt Satisfied with anesthetic care
--- NOTE | 2024-06-04 16:16 | Magnetic Resonance Report ---
MR brain MS wo/w con HISTORY: 68 years-old Female upper extremity weakness COMPARISON: MRI cervical spine of same day, head CT 06/02/2024 TECHNIQUE: Multiplanar multisequence MRI the brain was obtained with and without IV contrast FINDINGS: No restricted diffusion to suggest acute or subacute infarct. Midline structures appear unremarkable. Degenerative changes of the cervical spine. No acute intracranial hemorrhage, midline shift, abnorma l extra-axial collection, hydrocephalus or intra-axial mass. Indeterminate 1.3 cm right parotid gland lesion. Cerebral venous sinuses and major arterial flow voids appear patent. Skull, orbits and soft tissues a re unremarkable. Mastoid air cells and paranasal sinuses appear clear. Mild involutional changes. Charles dy is motion degraded. Mild scattered T2/FLAIR hyperintense foci noted throughout the white matter of the cerebral hemispheres. No infratentorial or brainstem lesions identified. No abnormal enhancement . IMPRESSION: 1. Motion degraded exam without acute intracranial abnormality identified. 2. Mild scattered T2/FLAIR hyperintense foci noted within the white matter of the cerebral hemisphere s. This is a nonspecific finding and favors chronic microvascular ischemic disease. A demyelinating p rocess such as multiple sclerosis could appear similarly. 3. No abnormal enhancement. 4. Indeterminate 1.3 cm right parotid gland lesion. ACT 112: Negative or not required by law. The above report was generated using voice recognition software. It may contain grammatical, syntax o r spelling errors. Electronically signed by: Fox Goodrich M.D. 06/04/2024 4:13 PM
[2024-06-04] MEDS: KETOROLAC TROMETHAMINE 15 MG/ML VIAL IV ONE (18:34)
--- NOTE | 2024-06-05 07:03 | Hospitalist Progress Note ---
Date of Service June 05, 2024 Assessment & Plan (1) Myelopathy concurrent with and due to spinal stenosis of cervical region: (2) Ambulatory dysfunction: (3) Frequent falls: (4) Rheumatoid arthritis: (5) Osteoarthritis: Plan Patient is a 68-year-old female medical history including hypertension, GERMAINE, diabetes mellitus, severe osteoarthritis, rheumatoid arthritis, fibromyalgia, asthma who presents to the emergency department with progressively worsening generalized weakness, ambulatory dysfunction, and frequent falls at home. She had a fall earlier in the day of ED arrival where she laid on the right side, with imaging in the emergency department negative for fracture. She will be admitted for further neurological work-up. #Myelopathy Concurrent with and due to Spinal Stenosis of Cervical Region #Ambulatory Dysfunction/Frequent Falls - Progressive gait disturbance/falling for 6 months + weakness/numbness of limbs (R>L) - X-ray: right shoulder, right hip, and right elbow unremarkable - CT head: unremarkable for acute processes - CT C-spine: bilateral cervical foraminal narrowing (C3-C4) and right sided narrowing (C4-C5) - MRI Brain: unremarkable for acute processes - MRI C-spine: severe spinal stenosis with cord compression at C4-C5 (above previous C5-C6 fusion) - Neurology consulted and following - Spinal Orthopaedist consulted and following - Cervical spinal decompression tentatively scheduled for 06/08 - Anterior cervical corpectomy of the C4 with possible removal of instrumentation at C5-C6 - Will continue to follow recommendations - Soft collar to limit neck motion - PT/OT evaluation held to after surgery - Oxycodone 5 mg PO TID PRN - Gabapentin 600 mg PO QHS - Diclofenac (gel) 4 g PO QID PRN - Cyclobenzaprine 5 mg PO BID PRN - Acetaminophen 1000 mg PO TID PRN #Rheumatoid Arthritis/Osteoarthritis - Continue Tofacitinib 1 tab PO QD - Methylprednisolone 125 mg IV, once #Chronic Conditions - Hypertension - continue aspirin, hold losartan, spironolactone - Diabetes mellitus - hold Jardiance-most recent hemoglobin A1c is 7.323 - Placed on Accu-Cheks with NovoLog SSI as noted - Hyperlipidemia - simvastatin Admission and Anticipated Discharge Date Admission Date: June 02, 2024 Supervising Physician Co-Signing Physician Notes I personally examined the patient and verified all [place] points of history and exam, discussed case, and agree with decision making with Dr Murillo and Apolinar Cramer MS4 feeling ok at rest but does have a lot of pain vitals noted nad heent nc at mmm breathing unlabored no accessory muscles good effort. Exam otherwise as above. Cervical myelopathy weakness cervical spinal stenosispain control, surgery next week. Continue to follow closely. DVT proph - SCDs, OOB to chair Subjective Linn was seen at bedside after being reevaluated by Dr. Diaz. She described how difficulty her life has been since dealing with weakness, numbness, and inability to ambulate. She mentioned how she has been the foundation for other people to lean on, and having the role swapped has been disheartening as she cannot help them in her current state. She mentioned that her sister has been taking care of her (helping with activities of daily life) and helping care for her dogs and cats. She became tearful during the conversation. I reassured her that, especially given her circumstance, that though it is difficult to switch roles, being taken care of shows that she is loved and supported. Additionally, in order to take care of others, we must be able to care for ourselves. From there, she was concerned about having another spinal surgery and what she will look like post-operatively (i.e., limitations, time of rehab, time before getting home). At this time, it is hard to tell because we need to get through the surgery first, and then we can game plan from there. Afterwards, we talked about her family and animals. She was smiling prior to my departure. Review of Systems Review of Systems: Per HPI Physical Exam Constitutional: Lying in bed, though appear uncomfortable Respiratory: Conversational without shortness of breath Respiratory effort and rate appropriate for situation Neurologic: Relatively unchanged compared to neurology's assessment Notable for brisk reflexes bilaterally Right sided strength < Left sided strength Sensory deficits to light touch Dorsiflexion on Babinski reflex Results & Data Results & Data Vital Signs (Past 12 Hours) Vital Signs Temp Pulse Resp BP Pulse Ox O2 Del Method 06/05/24 02:48 36.4 C L 50 L 16 119/69 96 Room Air 06/04/24 22:47 36.5 C 56 L 16 156/78 H 94 Room Air 06/04/24 21:45 Room Air 06/04/24 19:52 36.8 C 58 L 14 136/74 93 Room Air Resident Activity Tracking Resident Involvement: Resident Care Provided Care Provided: Adult [facility]
[2024-06-05 07:52] LABS: Hematocrit (blood only) 47.8 % (37.0-47.0); Mean Corpuscular Hemoglobin 31.4 pg (25.0-34.0); Mean Corpuscular Hgb Conc 33.5 g/dL (32.0-36.0); Mean Corpuscular Volume 93.7 fL (80.0-100.0); Mean Platelet Volume 10.3 fL (9.4-12.4); Platelet Count 350 K/uL (130-400); RDW Coefficient of Variation 13.2 % (11.5-14.5); RDW Standard Deviation 45.7 fL (36.4-46.3); White Blood Count 9.67 K/ul (4.8-10.8)
[2024-06-05 08:10] LABS: Albumin Globulin Ratio 1.4 (0.9-2); Albumin Level 3.9 gm/dl (3.4-5.0); BUN Creatinine Ratio 34.9 (10-20); Bilirubin,Total 0.5 mg/dl (0.2-1.0); C Reactive Protein 0.6 mg/dl (0-0.5); Calcium 9.6 mg/dl (8.6-10.3); Creatinine Clr Calc Pharmacy 71.6 ml/min; Globulin 2.7 gm/dl (2.5-4.0); Total Protein 6.6 gm/dl (6.0-8.3)
--- NOTE | 2024-06-05 08:42 | Neurology Progress Note ---
Date of Service June 05, 2024 Assessment & Plan (1) Ambulatory dysfunction: (2) Weakness: (3) Numbness and tingling in both hands: (4) Idiopathic polyneuropathy: (5) Lhermitte sign positive: Plan This patient has progressive gait disturbance with falling over at least 6 m onths. She has progressive weakness and numbness in the upper extremities, right greater than left side, and some right lower extremity weakness with spasticity in the legs. Reflexes are relative brisk, and despite her polyneuropathy (which will decrease reflexes) she still has Achilles reflexes. She has upgoing toes bilaterally. Clinically she has a positive Lhermitte sign referable to the cervical spine. Taking this altogether, I suspect cervical spinal stenosis with cervical myelopathy creating progressive upper motor neuron signs in the legs and mixed upper and lower motor neuron symptoms and signs in her arms. She does have peripheral neuropathy involving predominantly sensory fibers. There is no evidence to necessarily suspect a brain origin to her symptoms. This is not consistent with multiple sclerosis, but rather, a progressive cervical spine/spinal cord problem. Taken together and myelopathy and neuropathy will give significant gait disturbance. MRI of the cervical spine showed severe spinal stenosis with cord compression at C4-5. There was signal change within the cord as well. This was just above her surgical site/fusion at C5-6. MRI of the brain was largely unremarkable although she has some mild old small vessel ischemic disease. Recommendations: 1. Urgent orthopedic spine consultation. 2. Consider soft collar to limit neck motion until surgical correction, but I will leave this to orthopedic spine to order. 3. Physical and Occupational Therapy with strengthening and gait training. This patient would likely make an excellent rehab hospital candidate. However, avoid neck movements and strain on the cervical spine. . 4. We could consider EMG and nerve conduction studies as an outpatient but will see how the patient does postoperatively. Overall, I spent a total of 50 minutes with this case, including review of records, review of MRI films, direct evaluation of the patient at bedside, report generation, and discussion of the case with the patient and RN at bedside, and Dr. Murillo, including differential diagnosis and treatment options. Admission and Anticipated Discharge Date Admission Date: June 02, 2024 Subjective Patient feels about the same today as yesterday. Discomfort, weakness, and numbness is unchanged. She has no new issues. MRI of the brain without contrast showed some mild, nonspecific old small vessel ischemic disease but no acute issues. There was no enhancement with contrast. I reviewed these films MRI of the cervical spine showed a severe spinal stenosis from disc and bone at C4-5 (just above the surgical siteC5/C6 fusion). This stenosis created cord impingement with deforming of the cord and signal change within the cord suggesting compression/irritation. I reviewed these films. Blood pressure is 138/80 and she is afebrile. CBC is unremarkable. Sed rate was normal at 23. CHEM profile was unremarkable and liver profile was normal. C-reactive protein was slightly elevated at 0.6. B12 was normal at 337. MERCED 12 profile is pending and Lyme antibody titer is pending Results & Data Vital Signs (Past 12 Hours) Vital Signs Temp Pulse Resp BP Pulse Ox O2 Del Method 06/05/24 07:42 Room Air 06/05/24 07:40 36.6 C 52 L 15 138/80 93 Room Air 06/05/24 02:48 36.4 C L 50 L 16 119/69 96 Room Air 06/04/24 22:47 36.5 C 56 L 16 156/78 H 94 Room Air 06/04/24 21:45 Room Air Exam (Neuro) Physical Exam: Patient is awake and alert. Speech is without aphasia or dysarthria. Mood and affect are normal and appropriate. Thought processes are intact to conversation Extraocular eye muscles are intact without nystagmus. There is no facial droop and tongue is midline. The patient still has clumsiness and weakness in the right greater than left hands and her motor strength is 4/5 with some spasticity in the right arm and leg and 4+/5 with less spasticity in the left arm and leg. Reflexes are 3/4 in the right arm and leg as before. Reflexes are 2/4 in the left arm and leg. Toes are upgoing with plantar stimulation bilaterally. Achilles tendon reflexes are trace bilaterally. PG Care Time/CCT Total # of Minutes Spent Total Time Spent with Patient: Total time spent is greater than 50% in coordination of care (as documented) at patient's floor/unit and/or counseling patient: Coding Level of Care Code 18452 SUB INP/OBS CARE 3/50MIN Diagnoses Ambulatory dysfunction R26.2 Weakness R53.1 Numbness and tingling in both hands R20.0; R20.2 Idiopathic polyneuropathy G60.9 Lhermitte sign positive R29.818 Time Spent (min) 50
[2024-06-05] MEDS: TOFACITINIB CITRATE 11 MG PO SCH (09:53)
--- NOTE | 2024-06-05 10:11 | XRay Report ---
XR cervical spine w flex/ext HISTORY: 68 years-old Female neck pain COMPARISON: MRI cervical spine 06/04/2024 TECHNIQUE: 7 radiographic views of the cervical spine FINDINGS: Anterior plate and screw fusion hardware with discectomy noted at C5-C6. The hardware appears intact. Multilevel degenerative changes of the cervical spine including moderate disc space narrowing at C4- C5 and C6-C7 with moderate to severe multilevel facet arthrosis. No acute fracture, subluxation or en dplate erosion. Bilateral bony neuroforaminal narrowing, better assessed on prior MRI. Unchanged appe arance of the C7 spinous process. Unremarkable prevertebral tissues. The lung apices appear clear. IMPRESSION: 1. No acute fracture or subluxation. 2. Degenerative and postoperative changes as above. ACT 112: Negative or not required by law. The above report was generated using voice recognition software. It may contain grammatical, syntax o r spelling errors. Electronically signed by: Fox Goodrich M.D. 06/05/2024 10:09 AM
[2024-06-05] MEDS: oxyCODONE HCL IR 5 MG TAB (IMMEDIATE RELEASE) PO PRN (11:34)
--- NOTE | 2024-06-05 12:20 | Orthopedic Consultation ---
Date of Consultation June 05, 2024 Assessment & Plan (1) Myelopathy concurrent with and due to spinal stenosis of cervical region: Assessment cervical spinal stenosis with myelopathy. Plan at this time patient is obtained x-rays as well as an updated MRI of the cervical spine demonstrates evidence of instability at C4-C5 with gross cord myelomalacia. There is evidence of fusion with instrumentation C5-C6. Plan at this time at length discussed today with the patient reviewing her MRI findings and clinical representation. In light of her cord compression and impending damage I am recommending surgical invention. Would require an anterior cervical corpectomy of the C4 with possible removal of instrumentation at C5-C6. The primary goal of surgery is to decompress the cervical canal and prevent any further cord deterioration. Hopefully in time she will obtain some recovery of function. Risk benefits pros cons and alternatives were all in detail. Risk include but not limited to anesthesia blindness to process nerve damage blood loss requiring transfusion infection requiring reoperation dysphonia dysphagia. Passively be stabilization of cervical spine and improvement of her neurologic function. At this time we will have her cleared medically and plan for surgery as soon as possible. History of Present Illness Reason for Consultation: Cervical spinal stenosis Attending Physician: Abhi Irving DO History of Present Illness This is a 68-year-old female who presents the hospital with a marked decline in status over the past several months. She is noting balance disturbance leg weakness loss of function of the bilateral upper extremities including her hands. She has been in and out of the emergency room on several occasions and finally was admitted and underwent a thorough evaluation. An MRI cervical spine was obtained demonstrating severe cervical spinal stenosis with evidence of cord myelomalacia. Patient notes still loss of function has been progressive but denies any specific trauma fall or event. Allergies Allergy/AdvReac Type Severity Reaction Status Date / Time Sulfa (Sulfonamide Allergy Severe difficulty Verified 09/25/22 12:39 Antibiotics) breathing per pt/pt thinks it rash? celecoxib [From Celebrex] AdvReac Unknown ISN'T Verified 09/25/22 12:39 EFFECTIVE codeine AdvReac Unknown N&V Verified 09/25/22 12:39 Home Medications Medication Instructions Recorded Confirmed Type cholecalciferol (vitamin D3) 25 1,000 unit PO QAM 03/25/18 06/02/24 History mcg (1,000 unit) capsule (Vitamin D3) loratadine 10 mg capsule 10 mg PO QAM 03/25/18 06/02/24 History multivitamin 1 tab PO QAM 03/25/18 06/02/24 History vitamin B complex 1 tab PO QAM 03/25/18 06/02/24 History docusate sodium 100 mg tablet 100 mg PO UD PRN Constipation 12/30/18 06/02/24 History inhalational spacing device #1 ea 12/30/18 09/25/22 History (Vortex Holding Chamber) gabapentin 300 mg capsule 300 - 600 mg PO UD 04/27/19 06/02/24 History aspirin 81 mg tablet,delayed 81 mg PO QAM 03/09/20 06/02/24 History release olmesartan 5 mg tablet 5 mg PO QAM 08/15/20 06/02/24 History montelukast 10 mg tablet 10 mg PO QPM #30 tabs 09/27/21 06/02/24 Rx (Singulair) Folate 666 mcg PO HS 07/06/22 06/02/24 History azelastine 137 mcg (0.1 %) nasal 1 spray intranasal BID PRN 07/06/22 06/02/24 History spray allergies biotin 1 tab PO QPM 07/06/22 06/02/24 History empagliflozin 25 mg tablet 25 mg PO QAM 07/06/22 06/02/24 History (Jardiance) simvastatin 10 mg tablet 10 mg PO HS 07/06/22 06/02/24 History acetaminophen 500 mg tablet 1,000 mg (2 x 500 mg) PO Q8 #60 07/27/22 06/02/24 Rx (Tylenol Extra Strength) tabs Xeljanz XR 11 mg PO DAILY 06/02/24 06/02/24 History diclofenac sodium 25 mg PO DAILY 06/02/24 06/02/24 History spironolactone 25 mg PO DAILY 06/02/24 06/02/24 History Patient History Medical History (Updated 06/05/24 @ 12:18 by Kush Murphy DO) Myelopathic gait Numbness and tingling in both hands Weakness Ambulatory dysfunction Diabetes mellitus, type 2 NIDDM; currently on simvastatin for DM purposes per patient Asthma Appears to be triggered by allergies - follows with pulm- last seen 09/2021- can follow up PRN Idiopathic polyneuropathy Sleep apnea in adult Non-compliant with CPAP Rheumatoid arthritis Follows with rheum in [place]- Dr. Aranda Morbid obesity Migraine Hx Fibromyalgia Surgical History Hx of myomectomy History of arthroscopic surgery of shoulder Right RCR, biceps tendon repair Hx of release of tendon Right arm History of colonoscopy Fusion of spine Cervical History of carpal tunnel release R/L Family History Grandfather (Maternal) Family hx of colon cancer Grandfather (Paternal) Family hx of colon cancer Mother , in their mid 80s of an [place]. Stroke Myocardial infarction Father , in his mid 80s of a brain bleed. 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 She exhibits bilateral Babinski sign I am unable to obtain clonus in the bilateral ankles. Sensory is diminished. Strength is a 4+/5 bilateral lower extremities plantarflexion dorsiflexion. Upper extremities demonstrate significant deficits in the hand grasp at 4-/5 bilaterally biceps triceps 4/5. Sensory deficits in the hand.-Unable to elicit a Liz sign. She has Lhermitte's phenomenon cervical flexion. Results & Data Vital Signs (Past 12 Hours) Vital Signs Temp Pulse Resp BP Pulse Ox O2 Del Method 06/05/24 07:42 Room Air 06/05/24 07:40 36.6 C 52 L 15 138/80 93 Room Air 06/05/24 02:48 36.4 C L 50 L 16 119/69 96 Room Air
[2024-06-05] MEDS: CYCLOBENZAPRINE HCL 5 MG TAB PO PRN (12:52)
--- NOTE | 2024-06-05 18:07 | Billing Data ---
Date of Service June 05, 2024 Coding Level of Care Code 83674 SUB INP/OBS CARE MIN
[2024-06-05] MEDS: DOCUSATE SODIUM 100 MG CAP PO PRN (21:03)
[2024-06-05] MEDS: NYSTATIN POWDER 15GM BTL EXT PRN (21:30)
--- NOTE | 2024-06-05 22:13 | Electrocardiogram Report ---
Test Reason : Blood Pressure : */* mmHG Vent. Rate : 57 BPM Atrial Rate : 57 BPM P-R Int : 168 ms QRS Dur : 106 ms QT Int : 444 ms P-R-T Axes : 50 32 38 degrees QTcB Int : 432 ms Sinus bradycardia with sinus arrhythmia Low voltage QRS Incomplete right bundle branch block Borderline ECG When compared with ECG of 11-Jul-2022 11:07, Vent. rate has decreased by 29 bpm Confirmed by Shashi Cárdenas ([id number]) on 06/05/2024 10:12:46 PM Referred By: REFERRED SELF Confirmed By: Shashi Cárdenas
--- NOTE | 2024-06-06 07:04 | Hospitalist Progress Note ---
Date of Service June 06, 2024 Assessment & Plan (1) Myelopathy concurrent with and due to spinal stenosis of cervical region: (2) Ambulatory dysfunction: (3) Frequent falls: (4) Osteoarthritis: Plan Patient is a 68-year-old female medical history including hypertension, GERMAINE, diabetes mellitus, severe osteoarthritis, rheumatoid arthritis, fibromyalgia, asthma who presented for worsening weakness and falls at home, she was admitted for management of myelopathy 2/2 cervical spinal stenosis. #Myelopathy a/w Cervical Spinal Stenosis w/ Cord Compression at C4-C5 #Ambulatory Dysfunction/Frequent Falls - Progressive gait disturbance/falling for 6 months + weakness/numbness of limbs (R>L) - Imaging: XR Shoulder, CT Head, and MRI brain w/o acute process CT C-spine: bilateral cervical foraminal narrowing (C3-C4) and right sided narrowing (C4-C5) MRI C-spine: severe spinal stenosis with cord compression at C4-C5 (above previous C5-C6 fusion) - Neurology following, appreciate recommendations - Ortho-spine following, appreciate recommendations Cervical spinal decompression tentatively scheduled for 06/08 Anterior cervical corpectomy of the C4 with possible removal of instrumentation at C5-C6 Soft collar to limit neck motion - Pain Management: Oxycodone 5 mg PO TID PRN Gabapentin 600 mg PO QHS Diclofenac (gel) 4 g PO QID PRN Cyclobenzaprine 5 mg PO BID PRN Acetaminophen 1000 mg PO TID PRN - PT/OT evaluation held to after surgery #Rheumatoid Arthritis/Osteoarthritis - Continue Tofacitinib 1 tab PO QD - Methylprednisolone 125 mg IV, once #Chronic Conditions - Hypertension - continue aspirin, hold losartan, spironolactone - Diabetes mellitus - hold Jardiance-most recent hemoglobin A1c is 7.323 Placed on Accu-Cheks with NovoLog SSI as noted - Hyperlipidemia - Simvastatin DVT Ppx: SCDs Code: Full Dispo: Pending surgical intervention Admission and Anticipated Discharge Date Admission Date: June 02, 2024 Supervising Physician Co-Signing Physician Notes I personally examined the patient and verified all [place] points of history and exam, discussed case, and agree with decision making with Dr Marquez Pain under better control. Denies needs for escalating medications. Sister present. Updated her to the best my ability and her satisfaction as well. vitals noted nad heent nc at mmm breathing unlabored no accessory muscles good effort. Exam otherwise as above. Cervical myelopathy weakness cervical spinal stenosispain control is doing better, surgery next week. Continue to follow closely. somewhat low B12 levelreplacesuspect her myelopathy is really due to her spinal stenosis, but certainly a low B12 would not be helpful. DVT proph - SCDs, OOB to chair Subjective No acute events overnight. Notes frustration about requiring help w/ ADLs, provided reassurance. Ongoing limb weakness and intermittent neck pains w/o acute worsening. Physical Exam Physical Exam: Gen: NAD, alert, interactive HEENT: Supple, NCAT Resp:Non-labored, CTAB CV:RRR, normal S1/S2, no M/R/G Neuro: Brisk reflexes remain, R side UE/LE strength diminished, reduced sensation to light tough Extr: 2+ dp bilaterally, no edema Skin: No rashes lesions or erythema Results & Data Results & Data Vital Signs (Past 12 Hours) Vital Signs Temp Pulse Resp BP Pulse Ox O2 Del Method 06/05/24 21:05 Room Air 06/05/24 20:29 36.6 C 63 16 150/88 H 94 Room Air Resident Activity Tracking Resident Involvement: Resident Care Provided Care Provided: Adult Hospital Medicine
[2024-06-06 07:46] LABS: Hematocrit (blood only) 47.7 % (37.0-47.0); Hemoglobin 16.2 g/dl (12.0-16.0); Mean Corpuscular Volume 94.1 fL (80.0-100.0); Mean Platelet Volume 10.5 fL (9.4-12.4); Platelet Count 339 K/uL (130-400); RDW Coefficient of Variation 13.2 % (11.5-14.5); RDW Standard Deviation 45.9 fL (36.4-46.3); Red Blood Count 5.07 M/uL (4.20-5.40); White Blood Count 9.73 K/ul (4.8-10.8)
[2024-06-06 08:05] LABS: BUN Creatinine Ratio 30.5 (10-20); Calcium 9.5 mg/dl (8.6-10.3); Potassium 3.9 mmol/L (3.5-5.1)
[2024-06-06] MEDS: CYANOCOBALAMIN 1000 MCG/ML VIAL IM SCH (10:28)
[2024-06-06] MEDS: POLYETHYLENE (MIRALAX) 17 GM PACK PO PRN (14:09)
--- NOTE | 2024-06-06 17:53 | Billing Data ---
Date of Service June 06, 2024 Coding Level of Care Code 98530 SUB INP/OBS CARE MIN
--- NOTE | 2024-06-07 06:50 | Hospitalist Progress Note ---
Date of Service June 07, 2024 Assessment & Plan (1) Myelopathy concurrent with and due to spinal stenosis of cervical region: (2) Ambulatory dysfunction: (3) Frequent falls: (4) Osteoarthritis: Plan Patient is a 68-year-old female medical history including hypertension, GERMAINE, diabetes mellitus, severe osteoarthritis, rheumatoid arthritis, fibromyalgia, asthma who presented for worsening weakness and falls at home, she was admitted for management of myelopathy 2/2 cervical spinal stenosis. #Myelopathy a/w Cervical Spinal Stenosis w/ Cord Compression at C4-C5 #Ambulatory Dysfunction/Frequent Falls - Progressive gait disturbance/falling for 6 months + weakness/numbness of limbs (R>L) - Imaging: XR Shoulder, CT Head, and MRI brain w/o acute process CT C-spine: bilateral cervical foraminal narrowing (C3-C4) and right sided narrowing (C4-C5) MRI C-spine: severe spinal stenosis with cord compression at C4-C5 (above previous C5-C6 fusion) - Neurology evaluated, appreciate recommendations - Ortho-spine following, appreciate ongoing recommendations Cervical spinal decompression tentatively scheduled for 06/08 Anterior cervical corpectomy of the C4 with possible removal of instrumentation at C5-C6 Soft collar to limit neck motion - Pain Management: Oxycodone 5 mg PO TID PRN Gabapentin 600 mg PO QHS Diclofenac (gel) 4 g PO QID PRN Cyclobenzaprine 5 mg PO BID PRN Acetaminophen 1000 mg PO TID PRN - PT/OT evaluation held to after surgery Constipation - Encouraged daily use of Miralax to promote soft bowel movements - Discussed importance of preventing constipation/obstruction w/ narcotic use and upcoming surgery #Rheumatoid Arthritis/Osteoarthritis - Continue Tofacitinib 1 tab PO QD - Methylprednisolone 125 mg IV, once #Chronic Conditions - Hypertension - continue aspirin, hold losartan, spironolactone - Diabetes mellitus - hold Jardiance-most recent hemoglobin A1c is 7.323 Placed on Accu-Cheks with NovoLog SSI as noted - Hyperlipidemia - Simvastatin DVT Ppx: SCDs Code: Full Dispo: Pending surgical intervention Admission and Anticipated Discharge Date Admission Date: June 02, 2024 Supervising Physician Co-Signing Physician Notes I personally examined the patient and verified all [place] points of history and exam, discussed case, and agree with decision making with Dr Marquez patient sleeping. With no new issues, and case discussed with resident physician, and pain under good control. Patient allowed to rest. vitals noted nad heent nc at mmm breathing unlabored no accessory muscles good effort. Exam otherwise as above. Cervical myelopathy weakness cervical spinal stenosispain control is doing better, surgery tomorrow. somewhat low B12 levelreplacesuspect her myelopathy is really due to her spinal stenosis, but certainly a low B12 would not be helpful. DVT proph - SCDs, OOB to chair postopPT/OT, high likelihood to need rehab Subjective No acute events overnight. Feels she is unable to transition to chair/ambulate w/o instability. No acute change in weakness or pain. Patient attempting to limit narcotic use. Has hx of infrequent bowel movements when not eating/ambulating consistently. Denies abdominal discomfort, nausea, or emesis. Has been 1 week since last BM. Physical Exam Physical Exam: Gen: NAD, alert, interactive HEENT: NCAT, MMM Resp:Non-labored, CTAB CV:RRR, normal S1/S2, no M/R/G Neuro: Brisk reflexes remain, R side UE/LE strength diminished, reduced sensation to light tough Extr: 2+ dp bilaterally, no edema Skin: No rashes lesions or erythema Results & Data Results & Data Vital Signs (Past 12 Hours) Vital Signs Temp Pulse Resp BP Pulse Ox O2 Del Method 06/07/24 02:41 Room Air 06/06/24 20:49 36.7 C 75 18 113/70 94 Room Air Resident Activity Tracking Resident Involvement: Resident Care Provided Care Provided: Adult Hospital Medicine
[2024-06-07 07:07] LABS: Hematocrit (blood only) 47.9 % (37.0-47.0); Hemoglobin 16.5 g/dl (12.0-16.0); Mean Corpuscular Hemoglobin 32.3 pg (25.0-34.0); Mean Corpuscular Hgb Conc 34.4 g/dL (32.0-36.0); Mean Corpuscular Volume 93.7 fL (80.0-100.0); Mean Platelet Volume 10.6 fL (9.4-12.4); Platelet Count 353 K/uL (130-400); RDW Coefficient of Variation 13.2 % (11.5-14.5); RDW Standard Deviation 45.6 fL (36.4-46.3); Red Blood Count 5.11 M/uL (4.20-5.40); White Blood Count 8.41 K/ul (4.8-10.8)
[2024-06-07 07:23] LABS: BUN Creatinine Ratio 28.6 (10-20); Calcium 9.5 mg/dl (8.6-10.3); Creatinine Clr Calc Pharmacy 67.6 ml/min; Potassium 4.1 mmol/L (3.5-5.1)
--- NOTE | 2024-06-07 17:20 | Billing Data ---
Date of Service June 07, 2024 Coding Level of Care Code 91646 SUB INP/OBS CARE
[2024-06-07] MEDS: MELATONIN 3 MG TAB PO PRN (20:28)
[2024-06-08] MEDS ORDERED: Nursing to Pharmacy Communication SCH ×3 (06:00→16:30)
[2024-06-08] MEDS: INSULIN ASPART PER UNIT CHARGE SC SCH ×2 (06:11→17:02)
[2024-06-08] MEDS ORDERED: ROCURONIUM BROMIDE 10 MG/ML 5 ML VIAL IV ONE (07:02)
[2024-06-08] MEDS ORDERED: LIDOCAINE 2% 2 ML VIAL/AMP(20MG/ML) INFIL ONE (07:02)
[2024-06-08] MEDS ORDERED: ONDANSETRON INJ 2 MG/ML 2 ML VIAL ONE (07:02)
[2024-06-08] MEDS ORDERED: DEXAMETHASONE SOD INJ 4 MG/ML VIAL ONE (07:02)
[2024-06-08] MEDS ORDERED: PROPOFOL IV EMULSION 10 MG/ML 20 ML VIAL IV ONE (07:02)
[2024-06-08] MEDS ORDERED: MIDAZOLAM HCL 1 MG/ML 2ML VIAL ONE (07:03)
[2024-06-08] MEDS ORDERED: fentaNYL citrate PF 100 MCG/2 ML VIAL ONE ×2 (07:03→09:28)
[2024-06-08] MEDS: LR 15ML/HR IV SCH (07:08)
[2024-06-08 07:21] LABS: Hematocrit (blood only) 48.2 % (37.0-47.0); Hemoglobin 16.3 g/dl (12.0-16.0); Mean Corpuscular Hemoglobin 31.5 pg (25.0-34.0); Mean Corpuscular Hgb Conc 33.8 g/dL (32.0-36.0); Mean Corpuscular Volume 93.1 fL (80.0-100.0); Mean Platelet Volume 10.6 fL (9.4-12.4); Platelet Count 354 K/uL (130-400); RDW Coefficient of Variation 13.2 % (11.5-14.5); RDW Standard Deviation 45.3 fL (36.4-46.3); Red Blood Count 5.18 M/uL (4.20-5.40); White Blood Count 10.22 K/ul (4.8-10.8)
--- NOTE | 2024-06-08 07:24 | Anesthesiology Consultation ---
Date of Service June 08, 2024 Assessment & Plan ASA [id number] Proposed Anesthesia Anesthesia Type: General Risk / Benefits Reviewed With: PT / POA / Parent / Guardian, Accepts Plan and Informed Consent Obtained History Surgery Operation Date: 06/04/24 11:20 Proposed Procedures p Brain and Cervical MRI with Anesthesia Sedation, with and without Contrast - Conner Mann MD Operation Date: 06/08/24 07:45 Proposed Procedures p C4 Corpectomy - Kush Murphy DO Height/Weight Height: 5 ft 3 in Weight: 97.5 kg Allergies Allergy/AdvReac Type Severity Reaction Status Date / Time Sulfa (Sulfonamide Allergy Severe difficulty Verified 09/25/22 12:39 Antibiotics) breathing per pt/pt thinks it rash? celecoxib [From Celebrex] AdvReac Unknown ISN'T Verified 09/25/22 12:39 EFFECTIVE codeine AdvReac Unknown N&V Verified 09/25/22 12:39 Medications Home Medications Medication Instructions Recorded Confirmed Last Taken cholecalciferol (vitamin D3) 25 1,000 unit PO QAM 03/25/18 06/02/24 06/02/24 mcg (1,000 unit) capsule (Vitamin D3) loratadine 10 mg capsule 10 mg PO QAM 03/25/18 06/02/24 06/02/24 multivitamin 1 tab PO QAM 03/25/18 06/02/24 06/02/24 vitamin B complex 1 tab PO QAM 03/25/18 06/02/24 06/02/24 docusate sodium 100 mg tablet 100 mg PO UD PRN Constipation 12/30/18 06/02/24 06/02/24 inhalational spacing device #1 ea 12/30/18 09/25/22 Unknown (Vortex Holding Chamber) gabapentin 300 mg capsule 300 - 600 mg PO UD 04/27/19 06/02/24 06/02/24 aspirin 81 mg tablet,delayed 81 mg PO QAM 03/09/20 06/02/24 06/02/24 release olmesartan 5 mg tablet 5 mg PO QAM 08/15/20 06/02/24 06/02/24 montelukast 10 mg tablet 10 mg PO QPM #30 tabs 09/27/21 06/02/24 06/02/24 (Singulair) Folate 666 mcg PO HS 07/06/22 06/02/24 06/02/24 azelastine 137 mcg (0.1 %) nasal 1 spray intranasal BID PRN 07/06/22 06/02/24 06/02/24 spray allergies biotin 1 tab PO QPM 07/06/22 06/02/24 06/02/24 empagliflozin 25 mg tablet 25 mg PO QAM 07/06/22 06/02/24 06/02/24 (Jardiance) simvastatin 10 mg tablet 10 mg PO HS 07/06/22 06/02/24 06/02/24 acetaminophen 500 mg tablet 1,000 mg (2 x 500 mg) PO Q8 #60 07/27/22 06/02/24 06/02/24 (Tylenol Extra Strength) tabs Xeljanz XR 11 mg PO DAILY 06/02/24 06/02/24 06/02/24 diclofenac sodium 25 mg PO DAILY 06/02/24 06/02/24 06/02/24 spironolactone 25 mg PO DAILY 06/02/24 06/02/24 06/02/24 cyanocobalamin (vitamin B-12) 1,000 mcg PO DAILY #30 tabs 06/06/24 Unknown 1,000 mcg tablet Active Medications Generic Name Dose Route Start Last Admin Trade Name Freq PRN Reason Stop Dose Admin Acetaminophen 1,000 mg 06/03/24 00:52 06/03/24 07:25 Acetaminophen 500 Mg Tab PO 07/03/24 00:51 1,000 mg Q8H PRN Administration Pain or Fever Aspirin 81 mg 06/03/24 09:00 06/07/24 08:08 Aspirin 81 Mg Ectab PO 07/03/24 08:59 81 mg QAM ALEXANDR Administration Cyanocobalamin 1,000 mcg 06/06/24 09:30 06/07/24 08:09 Cyanocobalamin 1000 Mcg/Ml Vial IM 07/06/24 09:29 1,000 mcg QAM ALEXANDR Administration Cyclobenzaprine HCl 5 mg 06/05/24 11:18 06/08/24 00:27 Cyclobenzaprine Hcl 5 Mg Tab PO 07/05/24 11:29 5 mg BID PRN Administration muscle spasm Diclofenac Sodium 4 gm 06/02/24 22:25 06/07/24 19:45 Diclofenac Sod 1% Gel 100 Gm Tube EXT 07/02/24 22:24 4 gm QID PRN Administration Pain Protocol Diclofenac Sodium 25 mg 06/03/24 09:00 06/07/24 08:08 Diclofenac Sodium 25 Mg Tabdr PO 07/03/24 08:59 25 mg DAILY ALEXANDR Administration Docusate Sodium 100 mg 06/02/24 22:36 06/07/24 20:31 Docusate Sodium 100 Mg Cap PO 07/02/24 22:35 100 mg DAILY PRN Administration Constipation Gabapentin 600 mg 06/02/24 22:25 06/07/24 20:30 Gabapentin 300 Mg Cap PO 07/02/24 22:24 600 mg HS ALEXANDR Administration Gabapentin 300 mg 06/03/24 09:00 06/07/24 14:33 Gabapentin 300 Mg Cap PO 07/03/24 08:59 300 mg TODAY@0900,1400 ALEXANDR Administration Lactated Ringer's 1,000 mls @ 15 mls/hr 06/08/24 06:00 06/08/24 07:08 Lr IV 06/09/24 05:59 0 mls/hr .Q24H ALEXANDR Infusion Insulin Aspart 0 units 06/08/24 06:00 06/08/24 06:11 Insulin Aspart Per Unit Charge SC 07/08/24 05:59 Not Given Q6 ALEXANDR Loratadine 10 mg 06/03/24 09:00 06/07/24 08:08 Loratadine 10 Mg Tab PO 07/03/24 08:59 10 mg QAM ALEXANDR Administration Losartan Potassium 12.5 mg 06/03/24 09:00 06/07/24 08:08 Losartan Potassium 25 Mg Tab PO 07/03/24 08:59 12.5 mg QAM ALEXANDR Administration Melatonin 3 mg 06/02/24 22:25 06/07/24 20:28 Melatonin 3 Mg Tab PO 07/02/24 22:24 3 mg HS PRN Administration Insomnia Montelukast Sodium 10 mg 06/02/24 22:25 06/07/24 20:30 Montelukast Sodium 10 Mg Tablet PO 07/02/24 22:24 10 mg QPM ALEXNADR Administration Nystatin 1 appln 06/03/24 12:44 06/06/24 13:38 Nystatin Powder 15gm Btl EXT 07/03/24 12:43 1 appln Q8H PRN Administration Rash Oxycodone HCl 5 mg 06/05/24 11:18 06/06/24 09:15 Oxycodone Hcl Ir 5 Mg Tab (Immediate Release) PO 06/19/24 11:17 5 mg Q8H PRN Administration Pain Polyethylene Glycol 17 gm 06/06/24 13:41 06/06/24 14:09 Polyethylene (Miralax) 17 Gm Pack PO 07/06/24 13:40 17 gm DAILY PRN Administration Constipation Simvastatin 10 mg 06/02/24 22:25 06/07/24 20:31 Simvastatin 10 Mg Tab PO 07/02/24 22:24 10 mg HS ALEXANDR Administration Tofacitinib 1 each 06/05/24 09:00 06/07/24 08:09 Tofacitinib Citrate 11mg PO 07/05/24 08:59 1 each DAILY ALEXANDR Administration Protocol Vitamin D 25 mcg 06/03/24 09:00 06/07/24 08:08 Cholecalciferol 25 Mcg (1000 Units) Tab PO 07/03/24 08:59 25 mcg QAM ALEXANDR Administration NPO Date Last Intake of Fluids: 06/08/24 Time Last Intake of Fluids: 00:30 Last Intake of Fluids Comment: sip water with pill Date Last Intake of Solids: 06/07/24 Time Last Intake of Solids: 17:00 Past Medical History Medical History Myelopathic gait Numbness and tingling in both hands Weakness Ambulatory dysfunction Diabetes mellitus, type 2 NIDDM; currently on simvastatin for DM purposes per patient Asthma Appears to be triggered by allergies - follows with pulm- last seen 09/2021- can follow up PRN Idiopathic polyneuropathy Sleep apnea in adult Non-compliant with CPAP Rheumatoid arthritis Follows with rheum in [place]- Dr. Aranda Morbid obesity Migraine Hx Fibromyalgia Exercise / Class Metabolic Activity II 4-5 Yardwork/Stairs/Walk up hill Past Family History Family History Grandfather (Maternal) Family hx of colon cancer Grandfather (Paternal) Family hx of colon cancer Mother , in their mid 80s of an [place]. Stroke Myocardial infarction Father , in his mid 80s of a brain bleed. Heart disease Hypertension Past Surgical History Surgical History Hx of myomectomy History of arthroscopic surgery of shoulder Right RCR, biceps tendon repair Hx of release of tendon Right arm History of colonoscopy Fusion of spine Cervical History of carpal tunnel release R/L Past Anesthesia History No Hx of Anesthesia Complications and No Family Hx of Anesthesia Complications History of PONV No Hx of PONV and No Hx of Motion Sickness Social History Smoking Status: Never smoker Do You Dip or Chew Tobacco: No Hx Alcohol Use: Yes Alcohol type: wine alcohol intake frequency: holidays/special occasions only Hx Substance Use: No substance use type: does not use Review of Systems denies fever/cough/ colds/ chest pain/ SOB/ GERMAINE denies GERMAINE Physical Exam Vital Signs Last Vital Signs Temp 36.8 C 06/08/24 06:49 Pulse 62 06/08/24 06:49 Resp 20 06/08/24 06:49 BP 134/83 06/08/24 06:49 Pulse Ox 93 06/08/24 06:49 O2 Del Method Room Air 06/08/24 06:49 O2 Flow Rate 0 06/04/24 15:00 ENMT Mouth: no TMJ abnormality and no dentition abnormality Thyromental Distance: > or= 3.5 Finger Breadths Mallampati Class: IV Neck + limited neck extension Respiratory normal respiratory effort; no respiratory distress Auscultation: lungs clear to auscultation bilaterally Cardiovascular Rate/Rhythm: regular rate and regular rhythm Neurologic pt can move all extremities but to varying degrees. she is weaker on the right side in both upper and lower extremities. she is unable to lift her arms very much Psychiatric Orientation: alert and oriented x 3 Testing Laboratory Results 06/08/24 07:01 Hemoglobin A1c 6.5 % (4.5-5.6) H 06/03/24 07:23 Urine Color Dark Yellow 06/03/24 04:05 Urine Appearance Cloudy (Clear) A 06/03/24 04:05 Urine pH 5.0 (4.5-7.5) 06/03/24 04:05 Ur Specific [place] > 1.045 (1.000-1.030) H 06/03/24 04:05 Urine Protein Negative (Negative) 06/03/24 04:05 Urine Glucose (UA) 3+ (Negative) H 06/03/24 04:05 Urine Ketones Trace (Negative) H 06/03/24 04:05 Urine Nitrite Negative (Negative) 06/03/24 04:05 Ur Leukocyte Esterase 1+ (Negative) H 06/03/24 04:05 Urine WBC (Auto) >50 /hpf (0-5) H 06/03/24 04:05 Urine RBC (Auto) 0-2 /hpf (0-2) 06/03/24 04:05 U Hyaline Cast (Auto) 0-2 /lpf (0-2) 06/03/24 04:05 U Epithel Cells (Auto) 3-5 /hpf (0-2) H 06/03/24 04:05 Urine Bacteria (Auto) 2+ (None Seen) H 06/03/24 04:05 06/03/24 04:05 Urine Culture - Final Urine,Clean Catch Three types or organisms present, all moderate counts probable skin andie. No further identifications or sensitivities to follow. 06/08/24 06/07/24 06:00 20:19 POC Glucose 137 H 123 H Electrocardiogram Date: 06/02/24 sinus isabella. sinus arrhythmia.
[2024-06-08] MEDS ORDERED: fentaNYL citrate PF 100 MCG/2 ML VIAL IV PRN (07:25)
[2024-06-08] MEDS ORDERED: ATROPINE SULFATE 0.1 MG/ML 10ML SYR IV PRN (07:25)
[2024-06-08] MEDS ORDERED: HYDROmorphone INJ 2 MG/ML SYR/VIAL IV PRN (07:25)
[2024-06-08] MEDS ORDERED: ePHEDrine sulfate 50 MG/ML AMP IV PRN (07:25)
--- NOTE | 2024-06-08 07:40 | History & Physical Bridge Note ---
Date of Service June 08, 2024 History & Physical Bridge Note I have examined the patient, reviewed the History & Physical and in the interval since the performance of the History & Physical I have noted the following changes of clinical significance: no changes noted C4 corpectomy with hardware removal C5-C6
[2024-06-08] MEDS: ceFAZolin 2000MG 2,000 MG/15 ML SYR IV ONE (07:45)
--- NOTE | 2024-06-08 07:46 | Hospitalist Progress Note ---
Date of Service June 08, 2024 Assessment & Plan (1) Myelopathy concurrent with and due to spinal stenosis of cervical region: (2) Ambulatory dysfunction: (3) Frequent falls: (4) Osteoarthritis: Plan Patient is a 68-year-old female medical history including hypertension, GERMAINE, diabetes mellitus, severe osteoarthritis, rheumatoid arthritis, fibromyalgia, asthma who presented for worsening weakness and falls at home, she was admitted for management of myelopathy 2/2 cervical spinal stenosis. #Myelopathy a/w Cervical Spinal Stenosis w/ Cord Compression at C4-C5 #Ambulatory Dysfunction/Frequent Falls - Progressive gait disturbance/falling for 6 months + weakness/numbness of limbs (R>L) - Imaging: XR Shoulder, CT Head, and MRI brain w/o acute process CT C-spine: bilateral cervical foraminal narrowing (C3-C4) and right sided narrowing (C4-C5) MRI C-spine: severe spinal stenosis with cord compression at C4-C5 (above previous C5-C6 fusion) - Neurology evaluated, appreciate recommendations - Ortho-spine following, appreciate ongoing recommendations POD 0 s/p Cervical spinal decompression (anterior cervical corpectomy of of C4) Soft collar to limit neck motion - Pain Management: Oxycodone 5-10 mg PO Q4H PRN Gabapentin 600 mg PO QHS Dilaudid .5/1 mg Q3H PRN Cyclobenzaprine 5 mg PO BID PRN Acetaminophen 1000 mg PO TID PRN - PT/OT evaluation post-op Constipation - Miralax Q6H, Senokot BID to promote soft bowel movements - Discussed importance of preventing constipation/obstruction w/ narcotic use #Rheumatoid Arthritis/Osteoarthritis - Continue Tofacitinib 1 tab PO QD #Chronic Conditions - Hypertension - continue Losartan - Diabetes mellitus - hold Jardiance-most recent hemoglobin A1c is 7.323 Placed on Accu-Cheks with NovoLog SSI as noted - Hyperlipidemia - Simvastatin DVT Ppx: SCDs Code: Full Dispo: Med-Surg Admission and Anticipated Discharge Date Admission Date: June 02, 2024 Supervising Physician Co-Signing Physician Notes Attending attestation Pt seen and examined in concert with Dr. Slater. In agreement with the documented findings as noted in the resident documentation with any exceptions or additions as noted here. Resting in bed with pain well controlled on present regimen following procedure. Some interval improvement in LUE paresthesia reported, RUE stable at present. Not comfortable in the collar. V/S as noted. On examination, S1/S2 nl RRR no MCG. CTAB. Abd NT/ND BS+ve Myelopathy in the setting of cervical spinal stenosis and cord compression s/p decompression - continue pain control, monitor for anxiety and treat if needed. PT/OT consult. Constipation, acute on chronic - management as noted above, limit opioid use where able, encourage activity when appropriate Else see resident documentation as noted. Subjective POD 0, wearing cervical collar. Pain adequately controlled, neuro sx largely unchanged. No acute concerns. Review of Systems Review of Systems: as per HPI Physical Exam Physical Exam: Constitutional: no acute distress HEENT: NCAT, no conjunctival injection CV: extremities well-perfused, no LE edema Resp: no increased work of breathing GI: nondistended MSK: Right hand motor skills less proficient compared to left Skin: warm, dry, no rash appreciated Neuro: alert, oriented, no focal neurologic deficit appreciated Results & Data Results & Data Vital Signs (Past 12 Hours) Vital Signs Temp Pulse Resp BP Pulse Ox O2 Del Method 06/08/24 06:49 36.8 C 62 20 134/83 93 Room Air Resident Activity Tracking Resident Involvement: Resident Care Provided Care Provided: Adult Hospital Medicine
[2024-06-08 07:50] LABS: BUN Creatinine Ratio 27.1 (10-20); Calcium 9.8 mg/dl (8.6-10.3); Creatinine Clr Calc Pharmacy 72.4 ml/min; Potassium 4.6 mmol/L (3.5-5.1)
[2024-06-08] MEDS ORDERED: SUGAMMADEX SODIUM 200 MG/2 ML VIAL IV ONE (09:39)
[2024-06-08] MEDS: FLOSEAL HEMOSTATIC MATRIX 10ML TOP ONE (09:44)
[2024-06-08] MEDS: ceFAZolin 330 MG/ML 1 GM VIAL ONE (09:44)
--- NOTE | 2024-06-08 09:53 | Operative Report ---
Post Operative Report Pre & Post Diagnosis Operation Date: 06/08/24 07:45 Pre-Op Diagnosis: Myelopathy concurrent with and due to spinal stenosis of cervical region Post-Op Diagnosis: Myelopathy concurrent with and due to spinal stenosis of cervical region I identified the patient and participated in the time-out.: Yes Procedure Operation Date: 06/08/24 07:45 Actual Procedures #1 removal of anterior cervical plate and screws c 5 C6. #2 expiration fusion C5-C6. #3 anterior cervical corpectomy of C4 with bilateral foraminotomies. #4 anterior cervical arthrodesis C3-C5. #5 placement Spira 23 mm cage C3-C5. #6 placement locally harvested morselized autograft combined with os design bone graft in the interbody cage. #7 application of Z plate and screws from C3-C5. Surgeon Kush Murphy, DO Custom Van Converter None Estimated Blood Loss 25 Findings Consistent with Post-Op Diagnosis Specimens None Indications This is a 68-year-old female who presents with profound myelopathy. Imaging demonstrates severe cord compression she is here for urgent decompression fusion. Description of Procedure Patient was met with identified informed consent obtained. Patient was then taken to the operative suite underwent send patient placed in a supine position on the Alcides table with a head August head ordered. All bony promises well- padded eyes inspected to ensure no external pressure placed upon the. This point the anterior cervical spine was prepped and draped no sterile fashion. The assistance of fluoroscopy identified the see 4 vertebral body. A longitudinal incision was then placed along the right anterior aspect of the cervical spine extending from C3-C6. Blunt dissection with the assistance of bipolar electrocautery was performed down to and exposing the anterior cervical spine from C3 to the instrumentation at C5-C6. Then proceeded to move the hardware at C5-C6. Explored the fusion to be intact. I then performed a complete discectomy of C3-C4 out to the uncovertebral joints bilaterally followed by complete discectomy of C4-C5 out to the joints bilaterally. Lamar distracting pins were then placed in C3 and C5 distract processes for vertebral body. Complete corpectomy of C4 was then performed. This included removal of all posterior annular fibers longitudinal ligament bilateral foraminotomies performed for complete decompression. Endplates were then burred to subcortical bleeding bone and a 23 mm spiral cage filled with os design and local morselized autograft was tapped into position. Distracting apparatus was removed. A Z plate and screws applied with the assistance of fluoroscopy. The incision was then copiously irrigated explored to ensure no damage to surrounding structures or remaining bleeding. 10 round TIGRE drain inserted. The incision was then closed with 2 Vicryl in the fashion of 4 Monocryl for final skin closure. Ster i-Strips sterile dressing placed. Patient waken taken PACU stable condition. Please note spinal cord monitoring was utilized at the procedure no changes noted. I attest to the content of the Intraoperative Record and any orders documented therein. Any exceptions are noted below.
[2024-06-08] MEDS: ONDANSETRON INJ 2 MG/ML 2 ML VIAL IV PRN (10:26)
[2024-06-08] MEDS ORDERED: LORazepam 0.5 MG TAB PO PRN (11:06)
[2024-06-08] MEDS ORDERED: SOD PHOSPHATE/SOD BIPHOSPHATE ENEMA 132 ML BTL PR PRN (11:06)
[2024-06-08] MEDS ORDERED: RACEPINEPHRINE 2.25% NEBU SOLN 0.5 ML VIAL INH PRN (11:06)
[2024-06-08] MEDS ORDERED: LORazepam 2 MG/1 ML VIAL IV PRN (11:06)
[2024-06-08] MEDS ORDERED: hydrOXYzine HCl 25 MG TAB PO PRN (11:06)
[2024-06-08] MEDS ORDERED: oxyCODONE HCL IR 5 MG TAB (IMMEDIATE RELEASE) PO PRN (11:06)
[2024-06-08] MEDS ORDERED: MAGNESIUM HYDROXIDE SUSP 30 ML UDC PO PRN (11:06)
[2024-06-08] MEDS ORDERED: ACETAMINOPHEN 1,000 MG/100 ML VIAL IV PRN (11:06)
[2024-06-08] MEDS ORDERED: HYDROmorphone INJ 0.5 MG/0.5 ML SYR IV PRN (11:06)
[2024-06-08] MEDS ORDERED: diphenhydrAMINE Capsule 25 MG CAP PO PRN (11:06)
[2024-06-08] MEDS ORDERED: FAMOTIDINE 20 MG TAB PO PRN (11:06)
[2024-06-08] MEDS ORDERED: DO NOT ADMINISTER FLU VACCINE PRN (11:06)
[2024-06-08] MEDS ORDERED: ALUMINUM/MAGNESIUM SUSP 30 ML UDC PO PRN (11:06)
[2024-06-08] MEDS ORDERED: ONDANSETRON INJ 2 MG/ML 2 ML VIAL IV PRN (11:06)
[2024-06-08] MEDS ORDERED: METOCLOPRAMIDE HCL INJ 5 MG/ML 2 ML VIAL IV PRN (11:06)
[2024-06-08] MEDS ORDERED: ONDANSETRON 4 MG OD TAB PO PRN (11:06)
[2024-06-08] MEDS ORDERED: ACETAMINOPHEN 500 MG TAB PO PRN (11:06)
[2024-06-08] MEDS ORDERED: PROMETHAZINE 12.5 MG/50.5 ML BAG IV PRN (11:06)
[2024-06-08] MEDS ORDERED: dexAMETHasone 8 MG in SYRINGE 0 ML IV PRN (11:06)
[2024-06-08] MEDS ORDERED: DO NOT ADMINISTER PNEUMOCOCCAL VACCINE PRN (11:06)
[2024-06-08] MEDS ORDERED: NALOXONE HCL 0.4 MG/1 ML VIAL/CARP IV PRN (11:06)
--- NOTE | 2024-06-08 11:41 | Anesthesiology Progress Note ---
Date of Service June 08, 2024 Anesthesia Post Procedure Vital Signs Vital Signs: Temp Pulse Pulse Resp BP Pulse Ox O2 Del Method 06/08/24 11:25 36.5 C 84 16 136/80 95 Nasal Cannula 06/08/24 11:17 Nasal Cannula 06/08/24 11:00 86 16 94 Nasal Cannula 06/08/24 10:55 36.3 C L 103 H 14 146/82 H 93 Nasal Cannula 06/08/24 10:45 85 16 155/80 H 92 Nasal Cannula 06/08/24 10:30 36.6 C 86 16 157/81 H 92 Room Air 06/08/24 10:20 95 H 14 147/84 H 96 Nasal Cannula 06/08/24 10:10 87 14 171/94 H 95 Nasal Cannula 06/08/24 10:04 36.1 C L 112 H 12 156/100 H 94 Nasal Cannula 06/08/24 06:49 36.8 C 62 20 134/83 93 Room Air 06/07/24 19:45 36.3 C L 94 H 18 136/74 93 Room Air 06/07/24 15:35 36.9 C 75 16 142/73 H 94 Room Air O2 Flow Rate 06/08/24 11:25 1 06/08/24 11:17 2 06/08/24 11:00 2 06/08/24 10:55 2 06/08/24 10:45 2 06/08/24 10:30 06/08/24 10:20 3 06/08/24 10:10 3 06/08/24 10:04 4 06/08/24 06:49 06/07/24 19:45 06/07/24 15:35 Pain Intensity Generalized: Pain Intensity: 8 Lower Back: Pain Intensity: 9 Anterior Neck: Pain Intensity: 4 Transfer of Care Handoff Completed per policy Notes Mental Status: alert / awake / arousable and participated in evaluation Patient Amnestic to Procedure: Yes Nausea / Vomiting: adequately controlled Pain: adequately controlled Airway Patency, RR, SpO2: stable & adequate BP & HR: stable & adequate Hydration State: stable & adequate Anesthetic Complications: no major complications apparent and Pt Satisfied with anesthetic care
[2024-06-08] MEDS: HYDROmorphone INJ 0.5 MG/0.5 ML SYR ONE (11:45)
[2024-06-08] MEDS: dexAMETHasone 10 MG in SYRINGE 0 ML IV SCH (12:03)
[2024-06-08] MEDS: ceFAZolin 2000MG 2,000 MG/15 ML SYR IV SCH (16:27)
[2024-06-08] MEDS: bisacodyL 10 MG SUPP PR PRN (16:32)
[2024-06-08] MEDS: DOCUSATE SODIUM/SENNA 50/8.6MG TAB PO SCH (20:39)
[2024-06-09] MEDS: HYDROmorphone INJ 1 MG/ML SYRINGE IV PRN (00:15)
[2024-06-09] MEDS: POLYETHYLENE (MIRALAX) 17 GM PACK PO SCH (06:14)
--- NOTE | 2024-06-09 07:08 | Hospitalist Progress Note ---
Date of Service June 09, 2024 Assessment & Plan (1) Myelopathy concurrent with and due to spinal stenosis of cervical region: (2) Ambulatory dysfunction: (3) Frequent falls: (4) Osteoarthritis: Plan Linn Philip is a 68-year-old female with a past medical history including hypertension, GERMAINE, diabetes mellitus, severe osteoarthritis, rheumatoid arthritis, fibromyalgia, asthma who presented for worsening weakness and falls at home, she was admitted for management of myelopathy 2/2 cervical spinal stenosis with cord compression. #Myelopathy associated with Cervical Spinal Stenosis with Cord Compression at C4-C5 #Ambulatory Dysfunction/Frequent Falls - Progressive gait disturbance/falling for 6 months + weakness/numbness of limbs (R>L) - Imaging: XR Shoulder, CT Head, and MRI brain w/o acute process CT C-spine: bilateral cervical foraminal narrowing (C3-C4) and right sided narrowing (C4-C5) MRI C-spine: severe spinal stenosis with cord compression at C4-C5 (above previous C5-C6 fusion) - Neurology evaluated, appreciate recommendations - Ortho-spine following, appreciate ongoing recommendations POD 1 s/p Cervical spinal decompression (anterior cervical corpectomy of of C4) Soft collar to limit neck motion - Pain Management: Oxycodone 5-10 mg PO Q4H PRN Gabapentin 600 mg PO QHS Dilaudid .5/1 mg Q3H PRN Cyclobenzaprine 5 mg PO BID PRN Acetaminophen 1000 mg PO TID PRN - PT/OT following: Working on ADLS and mobility with most activities between minimum assistance to complete dependence #Constipation - resolved - Miralax Q6H, Senokot BID to promote soft bowel movements - Discussed importance of preventing constipation/obstruction w/ narcotic use - Bowel movement on the night of 06/08 Continue bowel program #Rheumatoid Arthritis/Osteoarthritis - Continue Tofacitinib 1 tab PO QD #Chronic Conditions - Hypertension - continue Losartan - Diabetes mellitus - hold Jardiance-most recent hemoglobin A1c is 7.323 Placed on Accu-Cheks with NovoLog SSI as noted - Hyperlipidemia - Simvastatin DVT Ppx: SCDs Code: Full Dispo: Med-Surg Admission and Anticipated Discharge Date Admission Date: June 02, 2024 Supervising Physician Co-Signing Physician Notes Attending attestation Pt seen and examined in concert with Dr. Slater. In agreement with the documented findings as noted in the resident documentation with any exceptions or additions as noted here. Resting in bed with pain well controlled on present regimen. Ongoing improvement in LUE paresthesia, RUE function. Engaged w/ PT/OT V/S as noted. On examination, S1/S2 nl RRR no MCG. CTAB. Abd NT/ND BS+ve Myelopathy in the setting of cervical spinal stenosis and cord compression s/p decompression - continue pain control, monitor for anxiety and treat if needed. PT/OT consult. Constipation, acute on chronic - management as noted above, limit opioid use where able, encourage activity when appropriate Else see resident documentation as noted. Queta Esteves was seen at bedside this morning on post-operative day 1. She stated that she has had no back pain/spasming since the cervical spinal surgery, irrespective of position (which used to be positionally triggered). She mentioned that she was regain functionality of her right hand and arms, which was an improvement for yesterday. She states that she still has some right leg weakness but is able to use it more than prior to the surgery. She supported that her ideal rehabilitation process would be closer to [place], but is okay if she needs to remain the the [place] area for some more time. She moved her bowels yesterday. She is excited to get to work with physical/occupational therapy. Otherwise, she denies pain, has no further questions, concerns, or updates. Review of Systems Review of Systems: as per HPI Physical Exam Constitutional: Sitting comfortably in bed with a rigid C-collar in place In no apparent distress Respiratory: Lungs are clear to auscultation bilaterally in the upper lungs new Possible bibasilar crackles Conversational without shortness of breath Respiratory rate and effort appropriate for situation Cardiovascular: Regular rate and rhythm S1 and S2 appreciated No murmurs, rubs, or gallops appreciated. 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, wrist extension, wrist flexion, arm flexion, arm extension 3/5 on the right + 4/5 on the left Lower Extremity Leg flexion & leg extension 3/5 on the right + 4/5 on the left Dorsiflexion & Plantarflexion 5/5 bilaterally Sensation: Grossly intact bilaterally to light touch in the upper and lower limbs Results & Data Results & Data Vital Signs (Past 12 Hours) Vital Signs Temp Pulse Resp BP Pulse Ox O2 Del Method O2 Flow Rate 06/09/24 05:55 36.3 C L 78 16 116/72 95 Nasal Cannula 2 06/09/24 03:56 36.3 C L 79 16 114/76 96 Nasal Cannula 2 06/09/24 02:31 79 18 96 Nasal Cannula 1 06/09/24 01:55 36.3 C L 72 16 137/70 94 Nasal Cannula 2 06/08/24 23:55 36.6 C 75 14 119/72 94 Nasal Cannula 2 06/08/24 23:48 90 18 93 Nasal Cannula 1 06/08/24 21:57 36.3 C L 86 14 116/74 95 Nasal Cannula 2 06/08/24 20:39 Nasal Cannula 2 06/08/24 20:30 91 H 16 92 Nasal Cannula 1 06/08/24 19:55 36.4 C L 93 H 18 109/68 93 Nasal Cannula 2.0 Resident Activity Tracking Resident Involvement: Resident Care Provided Care Provided: Adult Hospital Medicine
[2024-06-09 07:11] LABS: Hemoglobin 16.3 g/dl (12.0-16.0); Mean Corpuscular Hemoglobin 31.6 pg (25.0-34.0); Mean Platelet Volume 10.8 fL (9.4-12.4); Platelet Count 372 K/uL (130-400); RDW Coefficient of Variation 13.3 % (11.5-14.5); RDW Standard Deviation 45.6 fL (36.4-46.3); Red Blood Count 5.16 M/uL (4.20-5.40); White Blood Count 17.71 K/ul (4.8-10.8)
--- NOTE | 2024-06-09 07:46 | Fluoroscopy Report ---
FL cervical 2-3V CLINICAL HISTORY: C4 CORPECTOMY COMPARISON STUDY: None FLUOROSCOPY TIME: 11 seconds FLUOROSCOPY IMAGES: 3 EXPOSURE DOSE: 2 mGy FINDINGS: Fluoroscopy was provided for spinal fusion. IMPRESSION: Intraoperative fluoroscopy ACT 112: Negative or not required by law. Electronically signed by: Delio Trujillo M.D. 06/09/2024 7:45 AM
[2024-06-09 07:50] LABS: Basophils # (auto) 0.03 K/uL (0.00-0.20); Basophils % (auto) 0.2 %; Immature Granulocytes % (auto) 0.6 %; Lymphocytes # (auto) 0.66 K/uL (1.20-3.40); Lymphocytes % (auto) 3.7 %; Monocytes # (auto) 0.46 K/uL (0.11-0.59); Monocytes % (auto) 2.6 %; Neutrophils # (auto) 16.46 K/uL (1.40-6.50); Neutrophils % (auto) 92.9 %
[2024-06-09 07:55] LABS: BUN Creatinine Ratio 29.6 (10-20); Creatinine Clr Calc Pharmacy 86.7 ml/min; Potassium 4.2 mmol/L (3.5-5.1)
--- NOTE | 2024-06-09 13:39 | Orthopedic Progress Note ---
Date of Service June 09, 2024 Assessment & Plan (1) Myelopathy concurrent with and due to spinal stenosis of cervical region: Plan: At this time continue physical therapy and Occupational Therapy. They are hoping for rehab the next few days. Admission and Anticipated Discharge Date Admission Date: June 02, 2024 Subjective Neck pain controlled arm and leg symptoms steadily improving. Swallowing without difficulty. Physical Exam Physical Exam: On exam she is comfortable. Her grasp seems to improved. Sensory is intact. Results & Data Vital Signs (Past 12 Hours) Vital Signs Temp Pulse Resp BP Pulse Ox O2 Del Method O2 Flow Rate 06/09/24 11:59 37 C 80 18 122/70 93 Room Air 06/09/24 11:00 92 H 18 92 Room Air 06/09/24 10:15 37 C 91 H 18 118/72 93 Room Air 06/09/24 07:55 36.9 C 89 16 144/81 H 95 Room Air 06/09/24 07:00 74 16 93 Room Air 06/09/24 05:55 36.3 C L 78 16 116/72 95 Nasal Cannula 2 06/09/24 03:56 36.3 C L 79 16 114/76 96 Nasal Cannula 2 06/09/24 02:31 79 18 96 Nasal Cannula 1 06/09/24 01:55 36.3 C L 72 16 137/70 94 Nasal Cannula 2 Queries Orthopedic Spine Obesity: Yes
[2024-06-09] MEDS: traMADol HCL 50 MG TABLET PO PRN (21:44)
--- NOTE | 2024-06-10 08:00 | Hospitalist Progress Note ---
Date of Service June 10, 2024 Assessment & Plan (1) Myelopathy concurrent with and due to spinal stenosis of cervical region: (2) Ambulatory dysfunction: (3) Frequent falls: (4) Osteoarthritis: Plan Linn Philip is a 68-year-old female with a past medical history including hypertension, GERMAINE, diabetes mellitus, severe osteoarthritis, rheumatoid arthritis, fibromyalgia, asthma who presented for worsening weakness and falls at home, she was admitted for management of myelopathy 2/2 cervical spinal stenosis with cord compression. #Myelopathy associated with Cervical Spinal Stenosis with Cord Compression at C4-C5 #Ambulatory Dysfunction/Frequent Falls - Progressive gait disturbance/falling for 6 months + weakness/numbness of limbs (R>L) - Imaging: XR Shoulder, CT Head, and MRI brain w/o acute process CT C-spine: bilateral cervical foraminal narrowing (C3-C4) and right sided narrowing (C4-C5) MRI C-spine: severe spinal stenosis with cord compression at C4-C5 (above previous C5-C6 fusion) - Neurology evaluated, appreciate recommendations - Ortho-spine following, appreciate ongoing recommendations POD 2 s/p Cervical spinal decompression (anterior cervical corpectomy of of C4) Soft collar to limit neck motion - Pain Management: Oxycodone 5-10 mg PO Q4H PRN Gabapentin 600 mg PO QHS Dilaudid .5/1 mg Q3H PRN Cyclobenzaprine 5 mg PO BID PRN Acetaminophen 1000 mg PO TID PRN - PT/OT following: Recommend rehab placement, placement pending #Constipation - resolved - Continue bowel regimen - Miralax daily, Senokot BID to promote soft bowel movements - Discussed importance of preventing constipation/obstruction w/ narcotic use #Rheumatoid Arthritis/Osteoarthritis - Continue Tofacitinib 1 tab PO QD #Chronic Conditions - Hypertension - continue Losartan - Diabetes mellitus - hold Jardiance-most recent hemoglobin A1c is 7.3 Placed on Accu-Cheks with NovoLog SSI as noted - Hyperlipidemia - Simvastatin DVT Ppx: SCDs Code: Full Dispo: Med-Surg Admission and Anticipated Discharge Date Admission Date: June 02, 2024 Supervising Physician Co-Signing Physician Notes Attending attestation Pt seen and examined in concert with Dr. Slater. In agreement with the documented findings as noted in the resident documentation with any exceptions or additions as noted here. Resting in bed with pain well controlled on present regimen. Continued improvement in LUE paresthesia, RUE function, ambulation. Engaged w/ PT/OT V/S as noted. On examination, S1/S2 nl RRR no MCG. CTAB. Abd NT/ND BS+ve Myelopathy in the setting of cervical spinal stenosis and cord compression s/p decompression - continue pain control, monitor for anxiety and treat if needed. PT/OT consult. Constipation, acute on chronic - doing well. management as noted above, limit opioid use where able, encourage activity when appropriate Else see resident documentation as noted. Subjective No acute overnight events. Pain adequately controlled. Worked with PT/OT, rehab placement pending. Review of Systems Review of Systems: as per HPI Physical Exam Physical Exam: Constitutional: no acute distress HEENT: NCAT, no conjunctival injection CV: extremities well-perfused, no LE edema Resp: no increased work of breathing GI: nondistended MSK: no gross deformities Skin: warm, dry, no rash appreciated Neuro: alert, oriented, improving right hand mobility and strength Results & Data Results & Data Vital Signs (Past 12 Hours) Vital Signs Temp Pulse Resp BP Pulse Ox O2 Del Method 06/10/24 07:31 36.6 C 68 18 132/77 93 Room Air 06/10/24 03:03 36.2 C L 60 16 126/75 93 Room Air 06/09/24 23:00 Room Air 06/09/24 23:00 36.8 C 74 18 150/79 H 93 Room Air Resident Activity Tracking Resident Involvement: Resident Care Provided Care Provided: Adult Hospital Medicine
[2024-06-10] MEDS: POLYETHYLENE (MIRALAX) 17 GM PACK PO SCH (08:27)
[2024-06-10 11:25] VITALS: RESP 16
--- NOTE | 2024-06-10 12:30 | Orthopedic Progress Note ---
Date of Service June 10, 2024 Assessment & Plan (1) Myelopathy concurrent with and due to spinal stenosis of cervical region: Plan: At this time we will continue physical therapy await rehab placement. Will discontinue her dressing and drain today. Admission and Anticipated Discharge Date Admission Date: June 02, 2024 Subjective Arm and leg symptoms improving. Patient is swallowing well. Physical Exam Physical Exam: Patient is currently bed. She has reasonable strength testing upper extremities. Sensory is intact. Results & Data Vital Signs (Past 12 Hours) Vital Signs Temp Pulse Resp BP Pulse Ox O2 Del Method 06/10/24 11:24 36.5 C 60 16 134/76 93 Room Air 06/10/24 07:31 36.6 C 68 18 132/77 93 Room Air 06/10/24 03:03 36.2 C L 60 16 126/75 93 Room Air Queries Orthopedic Spine Obesity: Yes
[2024-06-10] MEDS: dexAMETHasone 8 MG in SYRINGE 0 ML IV SCH (14:08)
[2024-06-11 07:35] VITALS: BP 157/82; PULSE 61; TEMP 98.6; O2SAT 95
--- NOTE | 2024-06-11 07:47 | Hospitalist Progress Note ---
Date of Service June 11, 2024 Assessment & Plan (1) Myelopathy concurrent with and due to spinal stenosis of cervical region: (2) Ambulatory dysfunction: (3) Frequent falls: (4) Osteoarthritis: Plan Linn Philip is a 68-year-old female with a past medical history including hypertension, GERMAINE, diabetes mellitus, severe osteoarthritis, rheumatoid arthritis, fibromyalgia, asthma who presented for worsening weakness and falls at home, she was admitted for management of myelopathy 2/2 cervical spinal stenosis with cord compression. #Myelopathy associated with Cervical Spinal Stenosis with Cord Compression at C4-C5 #Ambulatory Dysfunction/Frequent Falls - Progressive gait disturbance/falling for 6 months + weakness/numbness of limbs (R>L) - Imaging: XR Shoulder, CT Head, and MRI brain w/o acute process CT C-spine: bilateral cervical foraminal narrowing (C3-C4) and right sided narrowing (C4-C5) MRI C-spine: severe spinal stenosis with cord compression at C4-C5 (above previous C5-C6 fusion) - Neurology evaluated, appreciate recommendations - Ortho-spine following, appreciate ongoing recommendations POD 2 s/p Cervical spinal decompression (anterior cervical corpectomy of of C4) Soft collar to limit neck motion - Pain Management: Oxycodone 5-10 mg PO Q4H PRN Gabapentin 600 mg PO QHS Dilaudid .5/1 mg Q3H PRN Cyclobenzaprine 5 mg PO BID PRN Acetaminophen 1000 mg PO TID PRN - PT/OT following: Recommend rehab placement, placement pending #Constipation - resolved - Continue bowel regimen - Miralax daily, Senokot BID to promote soft bowel movements - Discussed importance of preventing constipation/obstruction w/ narcotic use #Rheumatoid Arthritis/Osteoarthritis - Continue Tofacitinib 1 tab PO QD #Chronic Conditions - Hypertension - continue Losartan - Diabetes mellitus - hold Jardiance-most recent hemoglobin A1c is 7.3 Placed on Accu-Cheks with NovoLog SSI as noted - Hyperlipidemia - Simvastatin DVT Ppx: SCDs Code: Full Dispo: Med-Surg Admission and Anticipated Discharge Date Admission Date: June 02, 2024 Subjective No acute overnight events. Pain adequately controlled. Worked with PT/OT, rehab placement pending. Review of Systems Review of Systems: as per HPI Physical Exam Physical Exam: Constitutional: no acute distress HEENT: NCAT, no conjunctival injection CV: extremities well-perfused, no LE edema Resp: no increased work of breathing GI: nondistended MSK: no gross deformities Skin: warm, dry, no rash appreciated Neuro: alert, oriented, improving right hand mobility and strength Results & Data Results & Data Vital Signs (Past 12 Hours) Vital Signs Temp Pulse Resp BP Pulse Ox O2 Del Method 06/11/24 07:34 37.0 C 61 16 157/82 H 95 Room Air
--- NOTE | 2024-06-11 13:52 | Discharge Summary ---
Date of Service June 11, 2024 Admission HPI Per Admitting Provider Patient is a 68-year-old female with a past medical history of hypertension, GERMAINE, DM, osteoarthritis, rheumatoid arthritis, fibromyalgia, asthma. She presents today after a fall; all imaging negative for acute fractures. She has been admitted for ambulatory dysfunction with PT/OT stephanie. Patient seen at bedside. She stated that since December she has been losing her balance and feels as though she falls backwards easily. She has been using a walker since early March. She has bilateral lower extremity numbness and tingling since March, she has an appointment to see neurologist, Dr. Lennon, 07/07. She feels as though she has been overall declining since December. She stated in the past few weeks her right hand has been swollen and had decreased strength, she cannot close it as she used to. This is caused issues because she cannot unclaimed property manager her walker and it has resulted in her fall this morning. This morning she was walking with her walker and felt like she lost her balance and like she was falling backwards. She fell to the floor because she was unable to unclaimed property manager her walker. She fell on her right side which has a replaced hip, she came into the ER because she was concerned that this was fractured. She has chronic pain of her bilateral hips, shoulders, elbows, hands. This pain is unchanged. Patient stated that she lives at home alone with her 10 cats and 1 dog. Her sister has been checking on her daily since when she noticed a decline in the patient. The patient has had a decreased appetite and often skips meals, her sister has been bringing her dinner daily and helping her take care of her cats. She denies any chest pain or dizziness prior to the fall. Patient denies headache, dizziness, lightheadedness, dyspnea,chest pain, abdominal pain, nausea, vomiting, diarrhea, constipation. she does not use nicotine products and only drinks alcohol approximately 3 times a year. She denies past history of CA, or VTE. She does not use any oxygen at home; no CPAP/BiPAP for GERMAINE. She has declined sleep studies. She took her home medications this morning and at noon, she is due for her evening doses. She wishes to be full code at this time. She does have home health PT/OT with [facility] services. Admission Exam Per Admitting Provider The patient is awake, alert and oriented 3, well developed and well nourished, normocephalic and atraumatic, in no acute distress. Non-toxic appearing. HEENT- EOMI, mucous membranes moist. Hearing grossly intact. Heart-normal S1 and S2. No murmurs, rubs or gallops. Lungs-clear bilaterally, no respiratory distress, no accessory muscle use. Abdomen-normal bowel sounds and soft. No ascites noted. Non-tender. Extremities- no clubbing, cyanosis. Right hand with swelling. Rheumatologic-decreased range of motion. Psychiatric-normal affect. Skin: Sacral wound, stage 1 Principal Diagnosis cervical myelopathy Discharge Exam Constitutional: no acute distress HEENT: NCAT, no conjunctival injection CV: extremities well-perfused, no LE edema Resp: no increased work of breathing GI: nondistended MSK: no gross deformities Skin: warm, dry, no rash appreciated Neuro: alert, oriented, improving right hand mobility and strength Discharge Data Allergies Allergy/AdvReac Type Severity Reaction Status Date / Time Sulfa (Sulfonamide Allergy Severe difficulty Verified 09/25/22 12:39 Antibiotics) breathing per pt/pt thinks it rash? celecoxib [From Celebrex] AdvReac Unknown ISN'T Verified 09/25/22 12:39 EFFECTIVE codeine AdvReac Unknown N&V Verified 09/25/22 12:39 Consultations 06/02/24 19:06 ED Decision to Admit Stat 06/02/24 22:25 Consult Neurology Routine 06/04/24 10:07 Consult Anesthesiology Routine 06/04/24 16:21 Consult Orthopedic Spine Surgery Routine Procedures Performed Operation Date: 06/08/24 07:45 Actual Procedures p C4 Corpectomy, Removal of hardware C5-C6(Not Applicable) - Kush Murphy DO Ordered Studies 06/02/24 16:34 CT cervical spine wo con Stat CT head/brain wo con Stat 06/04/24 00:00 MR brain MS wo/w con Routine MR cervical spine wo/w con Routine 06/08/24 07:45 FL cervical 2-3V Routine Hospital Course (1) Myelopathy concurrent with and due to spinal stenosis of cervical region: (2) Ambulatory dysfunction: (3) Frequent falls: (4) Osteoarthritis: Gucci Philip is a 68-year-old female with a past medical history including hypert ension, GERMAINE, diabetes mellitus, severe osteoarthritis, rheumatoid arthritis, fibromyalgia, asthma who presented for worsening weakness and falls at home, she was admitted for management of myelopathy 2/2 cervical spinal stenosis with cord compression. #Myelopathy associated with Cervical Spinal Stenosis with Cord Compression at C4-C5 #Ambulatory Dysfunction/Frequent Falls - Progressive gait disturbance/falling for 6 months + weakness/numbness of limbs (R>L) - Imaging: XR Shoulder, CT Head, and MRI brain w/o acute process CT C-spine: bilateral cervical foraminal narrowing (C3-C4) and right sided narrowing (C4-C5) MRI C-spine: severe spinal stenosis with cord compression at C4-C5 (above previous C5-C6 fusion) POD 3 s/p Cervical spinal decompression (anterior cervical corpectomy of of C4) Soft collar to limit neck motion - Pain Management: Oxycodone 5-10 mg PO Q4H PRN Gabapentin 600 mg PO QHS Dilaudid .5/1 mg Q3H PRN Cyclobenzaprine 5 mg PO BID PRN Acetaminophen 1000 mg PO TID PRN #Constipation - resolved - Continue bowel regimen as long as pt requires opioid analgesics - Miralax daily, Senokot BID #Rheumatoid Arthritis/Osteoarthritis - Continue Tofacitinib 1 tab PO QD #Chronic Conditions - Hypertension - continue Losartan - Diabetes mellitus -most recent hemoglobin A1c is 7.3 - resume home Jardiance - Hyperlipidemia - Simvastatin Total Time Total Time Spent Total Time Spent (In Minutes): see attending attestation Discharge Plan Discharge Items Patient Disposition: Transfer Inpatient Rehab Fac Reason For Visit: AMBULATORY DYSFUNCTION Discharge Diagnosis: Cervical spinal stenosis with myelopathy Activity: As commented below Non-emergency contact: Primary Care Provider Call non-emergency contact if: you have any medication questions Follow-up/Referrals: Skyler Jimenez DO [Primary Care Provider] - Diet: Regular Addtl Attending Provider Instructions: ACTIVITY RECOMMENDATIONS: SELF CARE INSTRUCTIONS AFTER CERVICAL FUSIONS 1. No smoking. Smoking drastically decreases the chance of a solid fusion. 2. No bending, lifting more than 5 pounds, or twisting (roll like a log when turning in bed). 3. You may shower 3 days after surgery. Thoroughly dry wound. Do not soak in the tub. 4. Cervical collar: Must be worn at all times including sleeping. You may remove the brace only to bath, eat and if you are sitting in a recliner. 5. Please walk as much as you can for exercise. Gradually increase the distance that you walk as your endurance increases. 6. You may return to previous diet. SPECIAL CARE INSTRUCTIONS: VERY IMPORTANT TO READ AND REVIEW A. Do not take any anti-inflammatory medications (i.e. Indocin, Advil, Aspirin, Naprosyn, Aleve, Motrin, etc.) as these may inhibit the chance of a solid fusion. Tylenol is okay to take. B. Your surgical incision has been closed with a cosmetic suture under the skin that will dissolve in about 6 weeks. In 14 days, you can use a pair of clean scissors and cut the suture that is left outside of the skin at the ends of your incision. C. Complications are uncommon, but please contact us if you have any signs or symptoms of: 1. wound infection (fever higher than 102.5 degrees F, redness, separation of wound, drainage, or increasing pain from the incision) 2. blood clots in legs (pain, swelling, redness and warmth in legs) 3. urinary tract infection (fever higher than 102.5 degrees, burning upon urination or increased frequency of urination) 4. nerve problems (inability to walk on your toes or heels, numbness, loss of bowel or bladder control) 5. any other symptoms that concern you. D. Please call the office at if you have any concerns or questions about your operation or recovery. MANAGING PAIN AFTER SPINAL SURGERY 1. Narcotic medication is intended for short-term use and will be provided for surgical pain. Surgical pain usually lasts for a period of 4-6 weeks. Narcotic medication includes Percocet, Vicodin, Darvocet, Tylenol #3 or Lortab. 2. Longer-term pain is more appropriately treated with non-narcotic medication such as Tylenol ES. 3. Muscle spasm is not appropriately treated with narcotics. Muscle relaxers such as Soma, Flexeril or Skelaxin can be used along with Tylenol ES. 4. Remember that we all live with some "aches and pains". This is not unusual or uncommon after an injury or as we get older. 5. We will provide appropriate medication within the normal guidelines of their prescribed use. We will also be very cautious and aware of potential abuse and extended duration of patients' medication needs. 6. Please allow 2-3 days to process refills. Prescriptions will not be mailed but must be picked up at the office. FOLLOW UP VISIT: Keep your scheduled follow-up appointment. Any questions, please call the office at . Addtl Hot Box Checker Provider Instructions: Linn Philip is a 68-year-old female with a past medical history including hypertension, GERMAINE, diabetes mellitus, severe osteoarthritis, rheumatoid arthritis, fibromyalgia, asthma who presented for worsening weakness and falls at home, she was admitted for management of myelopathy 2/2 cervical spinal stenosis with cord compression. #Myelopathy associated with Cervical Spinal Stenosis with Cord Compression at C4-C5 #Ambulatory Dysfunction/Frequent Falls - Progressive gait disturbance/falling for 6 months + weakness/numbness of limbs (R>L) - Imaging: XR Shoulder, CT Head, and MRI brain w/o acute process CT C-spine: bilateral cervical foraminal narrowing (C3-C4) and right sided narrowing (C4-C5) MRI C-spine: severe spinal stenosis with cord compression at C4-C5 (above previous C5-C6 fusion) POD 3 s/p Cervical spinal decompression (anterior cervical corpectomy of of C4) Soft collar to limit neck motion - Pain Management: Oxycodone 5-10 mg PO Q4H PRN Gabapentin 600 mg PO QHS Dilaudid .5/1 mg Q3H PRN Cyclobenzaprine 5 mg PO BID PRN Acetaminophen 1000 mg PO TID PRN #Constipation - resolved - Continue bowel regimen as long as pt requires opioid analgesics - Miralax daily, Senokot BID #Rheumatoid Arthritis/Osteoarthritis - Continue Tofacitinib 1 tab PO QD #Chronic Conditions - Hypertension - continue Losartan - Diabetes mellitus -most recent hemoglobin A1c is 7.3 - resume home Jardiance - Hyperlipidemia - Simvastatin Pending Studies at Discharge: No Stand-Alone Forms: My [employer] Skilled Items Patient informed of condition?: Yes DNR: No Discharge Level of Care: Acute rehab Communicable Disease: No Discharge Prognosis: Improving Lines: None Urinary Catheter: No Medications and DC Order Prescriptions: New cyanocobalamin (vitamin B-12) 1,000 mcg tablet 1,000 mcg PO DAILY Qty: 30 0RF cyclobenzaprine 5 mg Tablet 5 mg PO BID PRNQty: 0 0RF Continued montelukast [Singulair] 10 mg tablet 10 mg PO QPM Qty: 30 0RF gabapentin 300 mg capsule 300 - 600 mg PO UD Rx Instructions: 300 mg PO 1 tab in am and midday and 2 at hs; docusate sodium 100 mg tablet 100 mg PO UD PRN (Reason: Constipation) (DME) Vortex Holding Chamber spacer See Dose Instructions .ROUTE .MEDSUPPLY Qty: 1 Rx Instructions: As directed olmesartan 5 mg tablet 5 mg PO QAM multivitamin Tablet 1 tab PO QAM vitamin B complex Tablet 1 tab PO QAM cholecalciferol (vitamin D3) [Vitamin D3] 1,000 unit Capsule 1,000 unit PO QAM loratadine 10 mg Capsule 10 mg PO QAM aspirin 81 mg Tablet,Delayed Release (Dr/Ec) 81 mg PO QAM simvastatin 10 mg Tablet 10 mg PO HS Jardiance 25 mg Tablet 25 mg PO QAM Folate 666 mcg PO HS biotin 1 tab PO QPM azelastine 137 mcg (0.1 %) aerosol,spray 1 spray INTNAS BID PRN (Reason: allergies) Rx Instructions: administer into each nostril acetaminophen [Tylenol Extra Strength] 500 mg Tablet 1,000 mg PO Q8 Qty: 60 0RF Xeljanz XR 11 mg PO DAILY diclofenac sodium 25 mg PO DAILY spironolactone 25 mg PO DAILY Discharge Orders: Discharge Order (Routine); Ordered 06/11/24 Ordered By: Wild Gallagher/Other Patient Handouts: DVT Post Op Prevention, Managing Type 2 Diabetes Admission Data Admit Date/Time: 06/02/24 21:02 Attending Provider: Jim Alexander Admit Provider: Nael Bui Primary Care Provider: Skyler Jimenez Other Providers: Nael Bui; Alejandro Diaz; Jey Rocha; Kush Murphy; [facility],Home Healthcare; [facility]; [facility] Other Interventions: Discharge Summary Assessment (RN) Last Done: 06/11/24 11:30 Supervising Physician Co-Signing Physician Notes Attending attestation Pt seen and examined in concert with Dr. Slater. In agreement with the documented findings as noted in the resident documentation with any exceptions or additions as noted here. Resting in bed with pain well controlled on present regimen. Continued improvement in LUE paresthesia, RUE function, ambulation. Engaged w/ PT/OT. Anxiety regarding falls and accidents based on weakness with close contact w/ hip fx. Reassurance provided V/S as noted. On examination, S1/S2 nl RRR no MCG. CTAB. Abd NT/ND BS+ve Myelopathy in the setting of cervical spinal stenosis and cord compression s/p decompression - engaged with rehab services. Constipation, acute on chronic - doing well. limit opioid use where able, encourage activity when appropriate Else see resident documentation as noted. Total attending physician time spent with this patient's care on the day of discharge: 32 minutes. Resident Activity Tracking Resident Involvement: Resident Care Provided Care Provided: Adult [facility]
[2024-06-11 16:42] LABS: Anti Cardiolipin Ab IgG <2.0 GPL-U/mL; Anti Cardiolipin Ab IgM 3.3 MPL-U/mL; Anti Nuclear Antibody Screen NEGATIVE (NEGATIVE); Anti-Centromere Ab <1.0 NEG AI (<1.0 NEG); Anti-SS-A <1.0 NEG AI (<1.0 NEG); Anti-SS-B <1.0 NEG AI (<1.0 NEG); Chromatin Antibody <1.0 NEG AI (<1.0 NEG); Complement C3 162 mg/dL (83-193); DNA ds Crithidia NEGATIVE (NEGATIVE); Microsomal Ab <1 IU/mL (<9); RNP Antibody <1.0 NEG AI (<1.0 NEG); Sm Antibody <1.0 NEG AI (<1.0 NEG)
== END 2024-06-11 16:02 | DRG 471 ==
LOC: ED 15:40 → 3N 21:02 → SUATTDRO 21:02 → 3N 21:33 → 3E 06-08 11:09

== ENCOUNTER 2025-05-14 14:51 | Inpatient (IN) ==
--- NOTE | 2025-05-14 15:04 | Emergency Department Note ---
ED Provider Note History of Present Illness Chief Complaint: Hip Pain Stated Complaint: FALL, L HIP & LEG PAIN Time Seen by Provider: 05/14/25 14:54 Source: patient Mode of arrival: EMS Limitations: no limitations Patient is a 69-year-old female who presents to the emergency department with complaints of left hip pain. Patient reports that she had a ground-level fall at home when she was attempting to get her lunch out of the refrigerator. Patient reports that she tripped wearing her new ankle brace and when she was trying to fall she grabbed onto the refrigerator door and landed down onto her left side. Patient denies hitting her head and denies any loss of consciousness. Patient also denies any blood thinner use. Patient denies any other injuries from the fall. Home Medications Medication Instructions Recorded Confirmed Type cholecalciferol (vitamin D3) 25 1,000 unit PO QDL 03/25/18 05/14/25 History mcg (1,000 unit) capsule (Vitamin D3) loratadine 10 mg capsule 10 mg PO QAM 03/25/18 05/14/25 History multivitamin 1 tab PO QAM 03/25/18 05/14/25 History vitamin B complex 1 tab PO QAM 03/25/18 05/14/25 History aspirin 81 mg tablet,delayed 81 mg PO QAM 03/09/20 05/14/25 History release olmesartan 5 mg tablet 5 mg PO QAM 08/15/20 05/14/25 History montelukast 10 mg tablet 10 mg PO QPM #30 tabs 09/27/21 05/14/25 Rx (Singulair) azelastine 137 mcg (0.1 %) nasal 1 spray intranasal BID PRN 07/06/22 05/14/25 History spray allergies biotin 1 tab PO QPM 07/06/22 05/14/25 History simvastatin 10 mg tablet 10 mg PO HS 07/06/22 05/14/25 History acetaminophen 500 mg tablet 1,000 mg PO Q8 PRN Pain 05/14/25 05/14/25 History (Tylenol Extra Strength) cyanocobalamin (vitamin B-12) 1,000 mcg PO QAM 05/14/25 05/14/25 History 1,000 mcg tablet cyclobenzaprine 5 mg tablet 5 mg PO BID PRN muscle spasms 05/14/25 05/14/25 History diclofenac potassium 50 mg tablet 50 mg PO QDL 05/14/25 05/14/25 History gabapentin 400 mg capsule 400 mg PO UD 05/14/25 05/14/25 History gabapentin 400 mg capsule 800 mg PO HS 05/14/25 05/14/25 History spironolactone 25 mg tablet 25 mg PO QAM 05/14/25 05/14/25 History tofacitinib 11 mg tablet,extended 11 mg PO QAM 05/14/25 05/14/25 History release 24 hr (Xeljanz XR) Allergies Allergy/AdvReac Type Severity Reaction Status Date / Time Sulfa (Sulfonamide Allergy Severe difficulty Verified 09/25/22 12:39 Antibiotics) breathing per pt/pt thinks it rash? celecoxib [From Celebrex] AdvReac Unknown ISN'T Verified 09/25/22 12:39 EFFECTIVE codeine AdvReac Unknown N&V Verified 09/25/22 12:39 Past Med/Surg History Problem List Fall (Acute) Intertrochanteric fracture of left hip (Acute) Hip pain (Acute) Frequent falls (Acute) Myelopathy concurrent with and due to spinal stenosis of cervical region Lhermitte sign positive Acute hip pain (Acute) Ambulatory dysfunction (Acute) Closed head injury (Acute) Sacral wound Osteoarthritis Abnormal EKG Hypokalemia Status post reverse arthroplasty of right shoulder Primary osteoarthritis, right shoulder Inability to ambulate due to hip (Acute) DVT prophylaxis Daytime hypersomnolence Encounter for pre-operative examination Lumbosacral radiculopathy Dyspnea resolved Allergies History of arthroplasty of left shoulder (Chronic) 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 Aranda Morbid obesity Migraine Hx Fibromyalgia Surgical History Hx of myomectomy History of arthroscopic surgery of shoulder Right RCR, biceps tendon repair Hx of release of tendon Right arm History of colonoscopy Fusion of spine Cervical History of carpal tunnel release R/L Family History Grandfather (Maternal) Family hx of colon cancer Grandfather (Paternal) Family hx of colon cancer Mother , in their mid 80s of an MT. Stroke Myocardial infarction Father , in his mid 80s of a brain bleed. 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 Feels Safe at Home: Yes Assistive Devices: Walker Physical Exam Vital Signs Vital Signs - 24 hr 05/14/25 15:00 05/14/25 15:05 Temperature 36.4 C L Temperature Source Oral Pulse Rate 84 84 Pulse Rhythm Regular Pulse Strength Normal Respiratory Rate 18 Respiratory Effort / Characteristics Non-Labored Spontaneous Respiratory Depth Normal Respiratory Pattern Regular Blood Pressure 112/52 L Blood Pressure Mean 72 Blood Pressure Position Lying Pulse Oximetry 96 Oxygen Delivery Method Room Air Sepsis Recent Fever Within 48 Hours No Sepsis New/Unexplained Change in Mental Status N/A Sepsis Action Taken by Nursing No Action Required Physical Exam: VITAL SIGNS - Vital signs and nursing notes were reviewed. GENERAL -69-year-old female appearing her stated age and in noticeable discomfort throughout the exam. Patient presents via EMS. MUSCULOSKELETAL -left lower extremity with some severe tenderness to palpation over the hip joint. Patient has some mild edema noted. No evidence of erythema or ecchymosis. Increased tenderness to palpation appreciated over the hip joint. No tenderness extending into the foot or ankle. Decreased strength appreciated secondary to patient discomfort. Pt limited AROM at affected joint. NEUROLOGIC/VASCULAR - Neurovascularly intact distally with +3/5 dorsalis pedis pulses palpated bilaterally. Intact sensation to light and sharp touch appreciated distally, sensation is diminished on the left lower extremity, however the patient reports that this is baseline as she has injured the left ankle previously and has reduced sensation in her left foot at baseline.. Course Administered Medications Insulin Aspart (Insulin Aspart Per Unit Charge) 0 units SC ACHS ALEXANDR Stop: 06/13/25 20:59 Last Admin: 05/14/25 20:45 Dose: Not Given Documented By: ALIS Discontinued Medications Cyclobenzaprine HCl (Cyclobenzaprine Hcl 10 Mg Tab) 10 mg PO NOW STA Stop: 05/14/25 16:58 Last Admin: 05/14/25 17:50 Dose: Not Given Documented By: rona Fentanyl Citrate (Fentanyl Citrate Pf 100 Mcg/2 Ml Vial) 100 mcg IV NOW STA Stop: 05/14/25 16:42 Last Admin: 05/14/25 16:48 Dose: 100 mcg Documented By: MAX Lorazepam (Lorazepam 1 Mg/1 Ml Syr Ed Inj Use) 0.5 mg IV ONE STA Stop: 05/14/25 17:18 Last Admin: 05/14/25 17:34 Dose: 0.5 mg Documented By: rona Lorazepam (Lorazepam 1 Mg/1 Ml Syr Ed Inj Use) 1 mg IV ONE STA Stop: 05/14/25 18:55 Last Admin: 05/14/25 19:02 Dose: 1 mg Documented By: ALIS Morphine Sulfate (Morphine Sulfate 4 Mg/Ml 1 Ml Carp\Vial) 4 mg IV NOW STA Stop: 05/14/25 15:23 Last Admin: 05/14/25 15:33 Dose: 4 mg Documented By: rona Morphine Sulfate (Morphine Sulfate 4 Mg/Ml 1 Ml Carp\Vial) 4 mg IV NOW STA Stop: 05/14/25 18:55 Last Admin: 05/14/25 19:02 Dose: 4 mg Documented By: ALIS Medical Decision Making Differential Diagnosis Fracture, dislocation, ligamentous injury, muscular strain, sprain, contusion, among others Medical Records Attestation: I reviewed the patient's medical records. Home Medications was personally reviewed by me Laboratory Data Attestation: I reviewed the patient's lab results. 05/14/25 14:58 05/14/25 14:58 Lab Results 05/14/25 Range/Units 14:58 WBC 13.21 H (4.8-10.8) K/ul RBC 4.63 (4.20-5.40) M/uL Hgb 14.2 (12.0-16.0) g/dL Hct 42.4 (37.0-47.0) % MCV 91.6 (80.0-100.0) fL MCH 30.7 (25.0-34.0) pg MCHC 33.5 (32.0-36.0) g/dL RDW Std Deviation 45.7 (36.4-46.3) fL RDW Coeff of Rachel 13.6 (11.5-14.5) % Plt Count 306 (130-400) K/uL MPV 9.8 (9.4-12.4) fL Immature Gran % (Auto) 0.5 % Neut % (Auto) 82.6 % Lymph % (Auto) 9.1 % [place] % (Auto) 6.8 % Eos % (Auto) 0.5 % Baso % (Auto) 0.5 % Neut # (Auto) 10.92 H (1.40-6.50) K/uL Lymph # (Auto) 1.20 (1.20-3.40) K/uL [place] # (Auto) 0.90 H (0.11-0.59) K/uL Eos # (Auto) 0.06 (0.00-0.50) K/uL Baso # (Auto) 0.07 (0.00-0.20) K/uL Immature Gran # (Auto) 0.06 (0.01-0.20) K/uL PT 10.7 (9.0-12.0) Seconds INR 1.0 (0.9-1.1) APTT 20 L (21-31) Seconds PTT Ratio 0.7 Sodium 137 (136-145) mmol/L Potassium 4.2 (3.5-5.1) mmol/L Chloride 102 (98-107) mmol/L Carbon Dioxide 28 (21-32) mmol/L Anion Gap 7 (3-11) BUN 21 (6-23) mg/dl Creatinine 0.89 (0.6-1.2) mg/dl Est Cr Clr Drug Dosing 72.0 ml/min eGFR 71.01 BUN/Creatinine Ratio 23.6 H (10-20) Glucose 183 H (70-99(Fasting)) mg/dl Calcium 9.3 (8.6-10.3) mg/dl Total Bilirubin 0.3 (0.2-1.0) mg/dl AST 19 (13-39) U/L ALT 19 (7-52) U/L Alkaline Phosphatase 75 (34-104) U/L Total Protein 7.0 (6.0-8.3) gm/dl Albumin 4.1 (3.4-5.0) gm/dl Globulin 2.9 (2.5-4.0) gm/dl Albumin/Globulin Ratio 1.4 (0.9-2) Imaging Data Radiologist's Impression: Hip/Pelvis X-Ray 05/14/25 15:00 COMPARISON: 01/11/2025 FINDINGS: BONES: Acute comminuted and displaced intertrochanteric left hip fracture. Osteopenia. Stable appearance of the right hip arthroplasty without complications. Mild degenerative changes of the left hip. Additional degenerative changes noted at the SI joints and visualized portions of the lumbar spine. SOFT TISSUES: Moderate retained stool in the visualized portions of the colon and rectum IMPRESSION: Acute comminuted and displaced intertrochanteric left hip fracture. Electronically signed by Danilo Calzada 05-14-2025 4:32 PM Chest X-Ray 05/14/25 15:01 COMPARISON: 07/11/2022 FINDINGS: HEART: Normal in size. LUNGS: No focal consolidation, pleural effusion, or vascular congestion. MEEDIASTINUM: Unremarkable. BONES: Bilateral shoulder replacement.No acute fractures are appreciated. OTHER: Unremarkable. IMPRESSION: No acute disease. Electronically signed by Danilo Calzada 05-14-2025 4:33 PM MDM Narrative Patient is a 69-year-old female who presents to the emergency department with complaints of left hip pain. Patient reports that she had a ground-level fall at home when she was attempting to get her lunch out of the refrigerator. Patient reports that she tripped wearing her new ankle brace and when she was trying to fall she grabbed onto the refrigerator door and landed down onto her left side. Patient denies hitting her head and denies any loss of consciousness. Patient also denies any blood thinner use. Patient denies any other injuries from the fall. Patient was evaluated by myself and findings were noted in the physical exam above. Patient was ordered IV placement, lab work, urinalysis, x-rays of the chest and left hip and pelvis. Patient had 100 mcg of fentanyl and 4 of Zofran en route to the hospital by EMS and reports that her pain has improved significantly. Patient's lab work resulted with a mildly elevated white blood cell count of 13.21. Patient had no indication of anemia with a hemoglobin of 14.2 and hematocrit of 42.4. Patient had no significant electrolyte imbalance noted. Upon reevaluation the patient reports that her pain has returned and she is having some severe pain in that left hip. Patient was ordered a dose of 100 mcg of fentanyl via IV. Patient's x-ray of the chest was completed and interpreted by radiology to note no acute disease. There was no evidence of focal consolidation, pleural effusion or vascular congestion. Patient also had an x-ray of the left hip and pelvis that was completed and interpreted by radiology to note an acute comminuted and displaced intertrochanteric left hip fracture. I discussed these findings with the patient and the patient verbalized understanding. The patient also reported to the nursing staff that she was having severe pain again and Dr. Olivia placed an order for morphine to help with pain control. I discussed with the patient that I would need to reach out to orthopedics and have her admitted to the hospital as this was a significant fracture that would require surgical intervention. The patient verbalized understanding and was agreeable to the plan. I reached out and spoke with Dr. Mercado of orthopedics and gave him a full report of the patient's chief complaint, current status and the results of her imaging and lab work. He verbalized agreement that the patient would require surgical intervention to stabilize the injury but he felt that it would be appropriate for her to do tomorrow as she just had something to eat approximately 3 hours prior to arrival. I discussed this with the patient and she verbalized understanding and is agreeable to the plan. I spoke with Dr. Cross of the [facility] hospitalist group and gave her a full report on the patient's chief complaint, current status and the results of her imaging and lab work. I also discussed my consultation with Dr. Mercado and advised that he would see the patient either later this evening or tomorrow morning and the patient would have surgical intervention, likely tomorrow. I advised that Dr. Mercado requested the patient to be made n.p.o. at midnight and Dr. Cross verbalized understanding. Dr. Cross agreed to admit the patient to the hospital under her service. Please refer the [facility] hospitalist group's documentation for further evaluation and management of this patient in the documentation of Dr. Mcmillan and the orthopedics team for further evaluation and management as well. Impression Hip pain, Intertrochanteric fracture of left hip, Fall Discharge Plan Visit Data Chief Complaint: Hip Pain Stated Complaint: FALL, L HIP & LEG PAIN ED Provider: Meek Olivia ED Midlevel Provider: Mirella Soni Discharge Problem: Hip pain, Intertrochanteric fracture of left hip, Fall Patient Disposition: Admitted As Inpatient Condition: Fair Discharge Instructions Interventions: ED Discharge Assessment Last Done: 05/14/25 20:27 ED DC CONDITION Conditon at Discharge Condition at Discharge: Fair Discharge Problem: Hip pain Qualifiers: Laterality: left Qualified Code(s): M25.552 - Pain in left hip Intertrochanteric fracture of left hip Qualifiers: Encounter type: initial encounter Fracture type: closed Fracture alignment: d isplaced Qualified Code(s): S72.142A - Displaced intertrochanteric fracture of left femur, initial encounter for closed fracture Fall Qualifiers: Encounter type: initial encounter Qualified Code(s): W19.XXXA - Unspecified fall, initial encounter
[2025-05-14 15:10] LABS: Hematocrit (blood only) 42.4 % (37.0-47.0); Hemoglobin 14.2 g/dL (12.0-16.0); Immature Granulocytes # (auto) 0.06 K/uL (0.01-0.20); Immature Granulocytes % (auto) 0.5 %; Mean Corpuscular Hemoglobin 30.7 pg (25.0-34.0); Mean Corpuscular Volume 91.6 fL (80.0-100.0); Platelet Count 306 K/uL (130-400); RDW Standard Deviation 45.7 fL (36.4-46.3); Red Blood Count 4.63 M/uL (4.20-5.40); White Blood Count 13.21 K/ul (4.8-10.8)
[2025-05-14 15:31] LABS: Alanine Aminotransferase 19.0 U/L (7-52); Albumin Globulin Ratio 1.4 (0.9-2); Albumin Level 4.1 gm/dl (3.4-5.0); Alkaline Phosphatase 75.0 U/L (34-104); Anion Gap 7.0 (3-11); Bilirubin,Total 0.3 mg/dl (0.2-1.0); Blood Urea Nitrogen 21.0 mg/dl (6-23); Calcium 9.3 mg/dl (8.6-10.3); Carbon Dioxide 28.0 mmol/L (21-32); Chloride 102.0 mmol/L (98-107); Creatinine Clr Calc Pharmacy 72.0 ml/min; Globulin 2.9 gm/dl (2.5-4.0); Glucose 183.0 mg/dl (70-99(Fasting)); Potassium 4.2 mmol/L (3.5-5.1); Sodium 137.0 mmol/L (136-145); Total Protein 7.0 gm/dl (6.0-8.3)
[2025-05-14] MEDS: MoRPHine SULFATE 4 MG/ML 1 ML CARP\\VIAL IV STA ×2 (15:33→19:02)
[2025-05-14 15:41] LABS: INR 1.0 (0.9-1.1); Partial Thromboplastin Time 20 Seconds (21-31); Prothrombin Time 10.7 Seconds (9.0-12.0)
--- NOTE | 2025-05-14 16:26 | Emergency Department Note ---
ED Visit Note I was consulted by the Advanced Practice Provider TAIWO Hanson. I performed a substantive portion of the visit including all aspects of medical decision making. Patient presented due to concern for ground-level fall hip pain noted to have a left-sided intertrochanteric hip fracture. Dr. Mercado notified the patient was admitted to the medicine service. .
--- NOTE | 2025-05-14 16:33 | XRay Report ---
COMPARISON: 01/11/2025 FINDINGS: BONES: Acute comminuted and displaced intertrochanteric left hip fracture. Osteopenia. Stable appearance of the right hip arthroplasty without complications. Mild degenerative changes of the left hip. Additional degenerative changes noted at the SI joints and visualized portions of the lumbar spine. SOFT TISSUES: Moderate retained stool in the visualized portions of the colon and rectum IMPRESSION: Acute comminuted and displaced intertrochanteric left hip fracture. Electronically signed by Danilo Calzada 05-14-2025 4:32 PM
--- NOTE | 2025-05-14 16:33 | XRay Report ---
COMPARISON: 07/11/2022 FINDINGS: HEART: Normal in size. LUNGS: No focal consolidation, pleural effusion, or vascular congestion. MEEDIASTINUM: Unremarkable. BONES: Bilateral shoulder replacement.No acute fractures are appreciated. OTHER: Unremarkable. IMPRESSION: No acute disease. Electronically signed by Danilo Calzada 05-14-2025 4:33 PM
[2025-05-14] MEDS: LORazepam 1 MG/1 ML SYR ED Inj Use IV STA ×2 (17:34→19:02)
[2025-05-14] MEDS: CYCLOBENZAPRINE HCL 10 MG TAB PO STA (17:50)
--- NOTE | 2025-05-14 18:59 | History & Physical Report ---
Date of Service May 14, 2025 Assessment & Plan (1) Intertrochanteric fracture of left hip: (2) Myelopathy concurrent with and due to spinal stenosis of cervical region: (3) Hypertension: (4) Sleep apnea in adult: (5) Morbid obesity: (6) Rheumatoid arthritis: Plan # Pathologic osteoporotic fracture of L hip, difficult pain control -NWB/bedrest, purewick (Rns unable to place Peoples in ED), monitor PVR, pain control with IV morphine and IV lorazepam for spasms -hypoxia related to hypoventilation/atelectasis underlying GERMAINE and morbid obesity - extreme caution with sedating meds unfortunately having severe pain, admitted to PCU for close monitoring/pulse oximetry -no medical contraindications to proceeding with surgery as planned -consulted Dr. Mercado, ortho, hip repair planned tomorrow, npo after midnight -SCDs, postop DT ppx per ortho #GERMAINE, morbid obesity with BMI 41.9 - - intolerant of CPAP, hypoxia due to hypoventilation - pulse oximetry, at risk for hypercarbic respiratory failure - IS # DM type 2 - - monitor BG qAC and qHS, prn premeal aspart, check A1c in AM, diabetic diet, A1c in AM # cervical myelopathy, recent L ankle fusion - contributes to fall risk and ambulatory dysfunction -wbat from ankle perspective once hip repaired, L ankle brace as needed -PT/OT postop -cont gabapentin # HRN - relatively hypotensive, hold ARB # RA - stable, hold xeljanz # HLD - cont simvastatin DVT ppx- SCDs, postop per ortho History of Present Illness Chief Complaint: left hip pain Primary Care Provider: Skyler Jimenez, DO 69 y/o with diabetes, RA, asthma and multiple orthopedic problems including bilateral TSAs and R TYREE and cervical myelopathy s/p c-spine fusion with frequent falls. Underwent L ankle fusion Sept this year, cleared for weightbearing. Was in her USOH and wearing new ankle brace when she opened refrigerator and lost her balance. She fell, reached out and grabbed nearby doorknob but door swung and she landed on her left side with immediate severe L hip pain and unable to get up / bear weight. BIB EMS and found to have L sided intratrochanteric hip fracture in ED. Currently having episodes of severe LBP and L hip/leg pain related to muscle spasms. Denies shortness of breath, requiring 2-3L supp O2 after receiving fentanyl, morphine and lorazepam IV for pain control. Hx GERMAINE intolerant of CPAP and morbid obesity with BMI 41.9. No significant cardiac history and no chest pain. Allergies Allergy/AdvReac Type Severity Reaction Status Date / Time Sulfa (Sulfonamide Allergy Severe difficulty Verified 09/25/22 12:39 Antibiotics) breathing per pt/pt thinks it rash? celecoxib [From Celebrex] AdvReac Unknown ISN'T Verified 09/25/22 12:39 EFFECTIVE codeine AdvReac Unknown N&V Verified 09/25/22 12:39 Home Medications Medication Instructions Recorded Confirmed Type cholecalciferol (vitamin D3) 25 1,000 unit PO QDL 03/25/18 05/14/25 History mcg (1,000 unit) capsule (Vitamin D3) loratadine 10 mg capsule 10 mg PO QAM 03/25/18 05/14/25 History multivitamin 1 tab PO QAM 03/25/18 05/14/25 History vitamin B complex 1 tab PO QAM 03/25/18 05/14/25 History aspirin 81 mg tablet,delayed 81 mg PO QAM 03/09/20 05/14/25 History release olmesartan 5 mg tablet 5 mg PO QAM 08/15/20 05/14/25 History montelukast 10 mg tablet 10 mg PO QPM #30 tabs 09/27/21 05/14/25 Rx (Singulair) azelastine 137 mcg (0.1 %) nasal 1 spray intranasal BID PRN 07/06/22 05/14/25 History spray allergies biotin 1 tab PO QPM 07/06/22 05/14/25 History simvastatin 10 mg tablet 10 mg PO HS 07/06/22 05/14/25 History acetaminophen 500 mg tablet 1,000 mg PO Q8 PRN Pain 05/14/25 05/14/25 History (Tylenol Extra Strength) cyanocobalamin (vitamin B-12) 1,000 mcg PO QAM 05/14/25 05/14/25 History 1,000 mcg tablet cyclobenzaprine 5 mg tablet 5 mg PO BID PRN muscle spasms 05/14/25 05/14/25 History diclofenac potassium 50 mg tablet 50 mg PO QDL 05/14/25 05/14/25 History gabapentin 400 mg capsule 400 mg PO UD 05/14/25 05/14/25 History gabapentin 400 mg capsule 800 mg PO HS 05/14/25 05/14/25 History spironolactone 25 mg tablet 25 mg PO QAM 05/14/25 05/14/25 History tofacitinib 11 mg tablet,extended 11 mg PO QAM 05/14/25 05/14/25 History release 24 hr (Xeljanz XR) Past Med/Surg History Problem List Fall (Acute) Intertrochanteric fracture of left hip (Acute) Hip pain (Acute) Frequent falls (Acute) Myelopathy concurrent with and due to spinal stenosis of cervical region Lhermitte sign positive Acute hip pain (Acute) Ambulatory dysfunction (Acute) Closed head injury (Acute) Sacral wound Osteoarthritis Abnormal EKG Hypokalemia Status post reverse arthroplasty of right shoulder Primary osteoarthritis, right shoulder Inability to ambulate due to hip (Acute) DVT prophylaxis Daytime hypersomnolence Encounter for pre-operative examination Lumbosacral radiculopathy Dyspnea resolved Allergies History of arthroplasty of left shoulder (Chronic) History of total right hip replacement (Chronic) History of total left knee replacement (TKR) (Chronic) History of total right knee replacement (TKR) (Chronic) Hypertension (Chronic) Medical History Myelopathic gait Numbness and tingling in both hands Weakness Ambulatory dysfunction Diabetes mellitus, type 2 NIDDM; currently on simvastatin for DM purposes per patient Asthma Appears to be triggered by allergies - follows with pulm- last seen 09/2021- can follow up PRN Idiopathic polyneuropathy Sleep apnea in adult Non-compliant with CPAP Rheumatoid arthritis Follows with rheum in [place]- Dr. Aranda Morbid obesity Migraine Hx Fibromyalgia Surgical History Hx of myomectomy History of arthroscopic surgery of shoulder Right RCR, biceps tendon repair Hx of release of tendon Right arm History of colonoscopy Fusion of spine Cervical History of carpal tunnel release R/L Family History Grandfather (Maternal) Family hx of colon cancer Grandfather (Paternal) Family hx of colon cancer Mother , in their mid 80s of an DE. Stroke Myocardial infarction Father , in his mid 80s of a brain bleed. 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 Face symmetric, speech normal, moves 4 ext spontaneously and equally Results & Data Results & Data Vital Signs (Past 12 Hours) Vital Signs Temp Pulse Pulse Resp BP BP Pulse Ox 05/14/25 18:30 94 H 17 147/80 H 98 05/14/25 15:05 84 05/14/25 15:00 36.4 C L 84 18 112/52 L 96 O2 Del Method O2 Flow Rate 05/14/25 18:30 Nasal Cannula 2 05/14/25 15:05 05/14/25 15:00 Room Air Laboratory Results W 13 Hg 14.2 Plt normal coag nl BMP nl Glc 164 LFT nl UA - tr prot, tr ket, tr LE, 6-10 W, no bacteria did not meet criteria for reflex culture L hip xray - L intratrochanteric hip fracture CXR - personally reviewed/interpreted film - bilateral TSAs, no acute disease in the chest Personally interpreted EKG tracing which is normal Code Status & VTE Plan VTE Prophylaxis Plan VTE Prophylaxis will be ordered: Yes PG Care Time/CCT Total # of Minutes Spent Total Time Spent with Patient: Total time spent is greater than 50% in coordination of care (as documented) at patient's floor/unit and/or counseling patient: Coding Level of Care Code 87781 INT INP/OBS CARE 3/75MIN Diagnoses Intertrochanteric fracture of left hip S72.142A Encounter type: initial encounter Fracture alignment: displaced Fracture type: closed Myelopathy concurrent with and due to spinal stenosis of cervical region M48.02; G99.2 Hypertension I10 Sleep apnea in adult G47.30 Morbid obesity E66.01 Rheumatoid arthritis M06.9 (1) Intertrochanteric fracture of left hip Encounter type: initial encounter Fracture alignment: displaced Fracture type: closed Qualified Code(s): S72.142A - Displaced intertrochanteric fracture of left femur, initial encounter for closed fracture
[2025-05-14 20:03] LABS: Appearance Urine Clear (Clear); Bacteria Urine Automated None Seen (None Seen); Cast Urine Automated 0-2 /lpf (0-2); Epithelial Cell Urine Auto 0-2 /hpf (0-2); Glucose Urine UA Negative (Negative); RBC Urine Automated 0-2 /hpf (0-2)
[2025-05-14] MEDS ORDERED: AZELASTINE HCL 0.1% NASAL 200 SPRAYS/27,400 MCG BTL PRN (20:26)
[2025-05-14] MEDS ORDERED: MAGNESIUM HYDROXIDE SUSP 30 ML UDC PO PRN (20:26)
[2025-05-14] MEDS ORDERED: ALUMINUM/MAGNESIUM SUSP 30 ML UDC PO PRN (20:26)
[2025-05-14] MEDS ORDERED: MELATONIN 3 MG TAB PO PRN (20:26)
[2025-05-14] MEDS ORDERED: GLUCAGON FOR INJ 1 MG VIAL SQ PRN (20:26)
[2025-05-14] MEDS ORDERED: CARBOHYDRATES FOR HYPOGLYCEMIA PO PRN (20:26)
[2025-05-14] MEDS ORDERED: POLYETHYLENE (MIRALAX) 17 GM PACK PO PRN (20:26)
[2025-05-14] MEDS ORDERED: GLUCOSE 40% GEL 15 GM TUBE PO PRN (20:26)
[2025-05-14] MEDS ORDERED: LORazepam Inj 0.5 MG in SYRINGE 0.25 ML IV PRN (20:26)
[2025-05-14] MEDS ORDERED: MoRPHine SULFATE 2 MG/ML CARP IV PRN (20:26)
[2025-05-14] MEDS ORDERED: DEXTROSE 50% 50 ML SYRINGE IV PRN (20:26)
[2025-05-14] MEDS ORDERED: GLUCOSE 10 TAB/TUBE PO PRN (20:26)
[2025-05-14] MEDS: INSULIN ASPART PER UNIT CHARGE SC SCH (20:45)
[2025-05-14] MEDS: SIMVASTATIN 10 MG TAB PO SCH (20:53)
[2025-05-14] MEDS: GABAPENTIN 400 MG CAP PO SCH (20:53)
[2025-05-14] MEDS: ACETAMINOPHEN 325 MG TAB PO SCH (20:53)
[2025-05-14] MEDS: MONTELUKAST SODIUM 10 MG TABLET PO SCH (20:54)
[2025-05-15] MEDS: MoRPHine SULFATE 4 MG/ML 1 ML CARP\\VIAL IV PRN (00:06)
[2025-05-15] MEDS: LORazepam 1 MG/1 ML SYR ED Inj Use IV ONE (04:21)
--- NOTE | 2025-05-15 06:23 | Orthopedic Consultation ---
Date of Consultation May 15, 2025 Assessment & Plan (1) Intertrochanteric fracture of left hip: The patient is a 69 year old female who sustained a left hip fracture from a ground level fall. The patients treatment options of conservative versus surgical intervention were discussed. Since the patient was an ambulatory prior to the injury and to avoid the risks of bed sores, pulmonary complications, and to give the best chance for ambulation, I recommended surgery. The patient understands the risks of surgery, which include but are not limited to: bleeding, infection, re-operation, damage to nerves and arteries, continued pain, failure of the hardware, mal-union, non-union, DVT, and . In addition, the patient is aware of the 20-30% morbidity associated with hip fracture for up to 1 year following a hip fracture. The patient has elected to proceed with surgery ORIF left hip fracture, and the informed consent was signed. The patient understands all these instructions and explanations; all their questions have been satisfactorily addressed. Placed on the add-on schedule for today. Will proceed with surgery as she is medically stable. Patient has been NPO after midnight. The patient is NWB. TEDs and foot pumps to RLE. 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 Present on Admission?: Yes History of Present Illness Reason for Consultation: Left hip fracture Requesting Physician: Mayra Mercado MD Attending Physician: Zenia Cross MD History of Present Illness 69 yo female with ground level fall yesterday sustaining a left hip fracture. S he was admitted to hospitalist service. I was consulted for further evaluation and treatment of the left hip fracture. Allergies Allergy/AdvReac Type Severity Reaction Status Date / Time Sulfa (Sulfonamide Allergy Severe difficulty Verified 09/25/22 12:39 Antibiotics) breathing per pt/pt thinks it rash? celecoxib [From Celebrex] AdvReac Unknown ISN'T Verified 09/25/22 12:39 EFFECTIVE codeine AdvReac Unknown N&V Verified 09/25/22 12:39 Home Medications Medication Instructions Recorded Confirmed Type cholecalciferol (vitamin D3) 25 1,000 unit PO QDL 03/25/18 05/14/25 History mcg (1,000 unit) capsule (Vitamin D3) loratadine 10 mg capsule 10 mg PO QAM 03/25/18 05/14/25 History multivitamin 1 tab PO QAM 03/25/18 05/14/25 History vitamin B complex 1 tab PO QAM 03/25/18 05/14/25 History aspirin 81 mg tablet,delayed 81 mg PO QAM 03/09/20 05/14/25 History release olmesartan 5 mg tablet 5 mg PO QAM 08/15/20 05/14/25 History montelukast 10 mg tablet 10 mg PO QPM #30 tabs 09/27/21 05/14/25 Rx (Singulair) azelastine 137 mcg (0.1 %) nasal 1 spray intranasal BID PRN 07/06/22 05/14/25 History spray allergies biotin 1 tab PO QPM 07/06/22 05/14/25 History simvastatin 10 mg tablet 10 mg PO HS 07/06/22 05/14/25 History acetaminophen 500 mg tablet 1,000 mg PO Q8 PRN Pain 05/14/25 05/14/25 History (Tylenol Extra Strength) cyanocobalamin (vitamin B-12) 1,000 mcg PO QAM 05/14/25 05/14/25 History 1,000 mcg tablet cyclobenzaprine 5 mg tablet 5 mg PO BID PRN muscle spasms 05/14/25 05/14/25 History diclofenac potassium 50 mg tablet 50 mg PO QDL 05/14/25 05/14/25 History gabapentin 400 mg capsule 400 mg PO UD 05/14/25 05/14/25 History gabapentin 400 mg capsule 800 mg PO HS 05/14/25 05/14/25 History spironolactone 25 mg tablet 25 mg PO QAM 05/14/25 05/14/25 History tofacitinib 11 mg tablet,extended 11 mg PO QAM 05/14/25 05/14/25 History release 24 hr (Xeljanz XR) Patient History Medical History Myelopathic gait Numbness and tingling in both hands Weakness Ambulatory dysfunction Diabetes mellitus, type 2 NIDDM; currently on simvastatin for DM purposes per patient Asthma Appears to be triggered by allergies - follows with pulm- last seen 09/2021- can follow up PRN Idiopathic polyneuropathy Sleep apnea in adult Non-compliant with CPAP Rheumatoid arthritis Follows with rheum in [place]- Dr. Aranda Morbid obesity Migraine Hx Fibromyalgia Surgical History Hx of myomectomy History of arthroscopic surgery of shoulder Right RCR, biceps tendon repair Hx of release of tendon Right arm History of colonoscopy Fusion of spine Cervical History of carpal tunnel release R/L Family History Grandfather (Maternal) Family hx of colon cancer Grandfather (Paternal) Family hx of colon cancer Mother , in their mid 80s of an OR. Stroke Myocardial infarction Father , in his mid 80s of a brain bleed. 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 2+ DP pulse. Able to wiggle great toe and 4th & 5th toes. Previous ankle knee incisions well healed. + TTP left hip. Hip propped with bump. Results & Data Vital Signs (Past 12 Hours) Vital Signs Temp Pulse Pulse Resp BP BP Pulse Ox 05/15/25 04:38 94 H 05/15/25 04:08 05/15/25 03:30 36.4 C L 85 16 125/79 98 05/15/25 03:28 05/15/25 03:12 100 H 14 05/15/25 03:00 162/93 H 05/15/25 03:00 162/93 H 05/15/25 03:00 162/93 H 05/15/25 03:00 162/93 H 05/15/25 03:00 162/93 H 05/15/25 03:00 98 H 15 98 05/15/25 02:51 95 H 15 96 05/15/25 02:42 101 H 14 99 12/27/25 02:30 101 H 13 97 05/15/25 02:21 87 13 99 05/15/25 02:12 97 H 14 98 05/15/25 02:00 149/75 H 05/15/25 02:00 149/75 H 05/15/25 02:00 149/75 H 05/15/25 02:00 149/75 H 05/15/25 02:00 149/75 H 05/15/25 02:00 92 H 14 96 05/15/25 01:51 101 H 16 99 05/15/25 01:42 95 H 12 98 05/15/25 01:30 99 H 14 98 05/15/25 01:30 164/77 H 05/15/25 01:30 164/77 H 05/15/25 01:30 164/77 H 05/15/25 01:30 164/77 H 05/15/25 01:30 164/77 H 05/15/25 01:21 92 H 15 98 05/15/25 01:12 92 H 14 96 05/15/25 01:01 05/15/25 01:00 149/77 H 05/15/25 01:00 149/77 H 05/15/25 01:00 149/77 H 05/15/25 01:00 149/77 H 05/15/25 01:00 149/77 H 05/15/25 01:00 95 H 14 98 05/15/25 00:51 96 H 16 97 05/15/25 00:42 103 H 18 97 05/15/25 00:30 134/73 05/15/25 00:30 134/73 05/15/25 00:30 134/73 05/15/25 00:30 134/73 05/15/25 00:30 134/73 05/15/25 00:30 98 H 14 98 05/15/25 00:21 90 13 98 05/15/25 00:12 91 H 14 92 05/15/25 00:01 126/81 05/15/25 00:01 126/81 05/15/25 00:01 126/81 05/15/25 00:01 126/81 05/15/25 00:01 126/81 05/15/25 00:00 108 H 21 05/14/25 23:51 107 H 18 98 12/26/25 23:42 96 H 15 97 05/14/25 23:30 104 H 15 97 05/14/25 23:30 130/75 05/14/25 23:30 130/75 05/14/25 23:30 130/75 05/14/25 23:30 130/75 05/14/25 23:30 130/75 05/14/25 23:21 108 H 16 95 05/14/25 23:12 108 H 20 96 05/14/25 23:00 111 H 19 05/14/25 23:00 134/77 05/14/25 23:00 134/77 05/14/25 23:00 134/77 05/14/25 23:00 134/77 05/14/25 23:00 134/77 05/14/25 22:51 113 H 24 05/14/25 22:42 103 H 20 05/14/25 22:30 147/71 H 05/14/25 22:30 147/71 H 05/14/25 22:30 147/71 H 05/14/25 22:30 147/71 H 05/14/25 22:30 147/71 H 05/14/25 22:30 107 H 16 05/14/25 22:21 106 H 20 97 05/14/25 22:20 97 05/14/25 22:12 111 H 20 97 05/14/25 22:02 112 H 17 134/75 98 05/14/25 22:00 110 H 18 98 05/14/25 22:00 134/75 05/14/25 22:00 134/75 05/14/25 22:00 134/75 05/14/25 22:00 134/75 05/14/25 22:00 134/75 05/14/25 21:51 110 H 20 98 05/14/25 21:42 103 H 19 98 05/14/25 21:21 111 H 21 126/66 96 05/14/25 21:20 85 L 05/14/25 20:00 105 H 16 151/79 H 100 05/14/25 19:30 98 H 05/14/25 18:30 94 H 17 147/80 H 98 O2 Del Method O2 Flow Rate 05/15/25 04:38 05/15/25 04:08 Nasal Cannula 2 05/15/25 03:30 Nasal Cannula 2 05/15/25 03:28 Nasal Cannula 05/15/25 03:12 05/15/25 03:00 05/15/25 03:00 05/15/25 03:00 05/15/25 03:00 05/15/25 03:00 05/15/25 03:00 05/15/25 02:51 05/15/25 02:42 05/15/25 02:30 05/15/25 02:21 05/15/25 02:12 05/15/25 02:00 05/15/25 02:00 05/15/25 02:00 05/15/25 02:00 05/15/25 02:00 05/15/25 02:00 05/15/25 01:51 05/15/25 01:42 05/15/25 01:30 05/15/25 01:30 05/15/25 01:30 05/15/25 01:30 05/15/25 01:30 05/15/25 01:30 05/15/25 01:21 05/15/25 01:12 05/15/25 01:01 Nasal Cannula 05/15/25 01:00 05/15/25 01:00 05/15/25 01:00 05/15/25 01:00 05/15/25 01:00 05/15/25 01:00 05/15/25 00:51 05/15/25 00:42 05/15/25 00:30 05/15/25 00:30 05/15/25 00:30 05/15/25 00:30 05/15/25 00:30 05/15/25 00:30 05/15/25 00:21 05/15/25 00:12 05/15/25 00:01 05/15/25 00:01 05/15/25 00:01 05/15/25 00:01 05/15/25 00:01 05/15/25 00:00 05/14/25 23:51 05/14/25 23:42 05/14/25 23:30 05/14/25 23:30 05/14/25 23:30 05/14/25 23:30 05/14/25 23:30 05/14/25 23:30 05/14/25 23:21 05/14/25 23:12 05/14/25 23:00 05/14/25 23:00 05/14/25 23:00 05/14/25 23:00 05/14/25 23:00 05/14/25 23:00 05/14/25 22:51 05/14/25 22:42 05/14/25 22:30 05/14/25 22:30 05/14/25 22:30 05/14/25 22:30 05/14/25 22:30 05/14/25 22:30 05/14/25 22:21 05/14/25 22:20 Nasal Cannula 3 05/14/25 22:12 05/14/25 22:02 Nasal Cannula 3 05/14/25 22:00 05/14/25 22:00 05/14/25 22:00 05/14/25 22:00 05/14/25 22:00 05/14/25 22:00 05/14/25 21:51 05/14/25 21:42 Nasal Cannula 05/14/25 21:21 Nasal Cannula 3 05/14/25 21:20 Room Air 0 05/14/25 20:00 Nasal Cannula 2 05/14/25 19:30 05/14/25 18:30 Nasal Cannula 2 Laboratory Results Laboratory Results WBC 13.21 K/ul (4.8-10.8) H 05/14/25 14:58 RBC 4.63 M/uL (4.20-5.40) 05/14/25 14:58 Hgb 14.2 g/dL (12.0-16.0) 05/14/25 14:58 Hct 42.4 % (37.0-47.0) 05/14/25 14:58 MCV 91.6 fL (80.0-100.0) 05/14/25 14:58 MCH 30.7 pg (25.0-34.0) 05/14/25 14:58 MCHC 33.5 g/dL (32.0-36.0) 05/14/25 14:58 RDW Std Deviation 45.7 fL (36.4-46.3) 05/14/25 14:58 RDW Coeff of Rachel 13.6 % (11.5-14.5) 05/14/25 14:58 Plt Count 306 K/uL (130-400) 05/14/25 14:58 MPV 9.8 fL (9.4-12.4) 05/14/25 14:58 Immature Gran % (Auto) 0.5 % 05/14/25 14:58 Neut % (Auto) 82.6 % 05/14/25 14:58 Lymph % (Auto) 9.1 % 05/14/25 14:58 Linn % (Auto) 6.8 % 05/14/25 14:58 Eos % (Auto) 0.5 % 05/14/25 14:58 Baso % (Auto) 0.5 % 05/14/25 14:58 Neut # (Auto) 10.92 K/uL (1.40-6.50) H 05/14/25 14:58 Lymph # (Auto) 1.20 K/uL (1.20-3.40) 05/14/25 14:58 Linn # (Auto) 0.90 K/uL (0.11-0.59) H 05/14/25 14:58 Eos # (Auto) 0.06 K/uL (0.00-0.50) 05/14/25 14:58 Baso # (Auto) 0.07 K/uL (0.00-0.20) 05/14/25 14:58 Immature Gran # (Auto) 0.06 K/uL (0.01-0.20) 05/14/25 14:58 PT 10.7 Seconds (9.0-12.0) 05/14/25 14:58 INR 1.0 (0.9-1.1) 05/14/25 14:58 APTT 20 Seconds (21-31) L 05/14/25 14:58 PTT Ratio 0.7 05/14/25 14:58 Sodium 137 mmol/L (136-145) 05/14/25 14:58 Potassium 4.2 mmol/L (3.5-5.1) 05/14/25 14:58 Chloride 102 mmol/L (98-107) 05/14/25 14:58 Carbon Dioxide 28 mmol/L (21-32) 05/14/25 14:58 Anion Gap 7 (3-11) 05/14/25 14:58 BUN 21 mg/dl (6-23) 05/14/25 14:58 Creatinine 0.89 mg/dl (0.6-1.2) 05/14/25 14:58 Est Cr Clr Drug Dosing 72.0 ml/min 05/14/25 14:58 eGFR 71.01 05/14/25 14:58 BUN/Creatinine Ratio 23.6 (10-20) H 05/14/25 14:58 Glucose 183 mg/dl (70-99(Fasting)) H 05/14/25 14:58 POC Glucose 146 mg/dl (70-99) H 05/15/25 06:17 Calcium 9.3 mg/dl (8.6-10.3) 05/14/25 14:58 Total Bilirubin 0.3 mg/dl (0.2-1.0) 05/14/25 14:58 AST 19 U/L (13-39) 05/14/25 14:58 ALT 19 U/L (7-52) 05/14/25 14:58 Alkaline Phosphatase 75 U/L (34-104) 05/14/25 14:58 Total Protein 7.0 gm/dl (6.0-8.3) 05/14/25 14:58 Albumin 4.1 gm/dl (3.4-5.0) 05/14/25 14:58 Globulin 2.9 gm/dl (2.5-4.0) 05/14/25 14:58 Albumin/Globulin Ratio 1.4 (0.9-2) 05/14/25 14:58 Urine Color Dark Yellow 05/14/25 19:50 Urine Appearance Clear (Clear) 05/14/25 19:50 Urine pH 5.5 (4.5-7.5) 05/14/25 19:50 Ur Specific Martin 1.032 (1.000-1.030) H 05/14/25 19:50 Urine Protein Trace (Negative) H 05/14/25 19:50 Urine Glucose (UA) Negative (Negative) 05/14/25 19:50 Urine Ketones Trace (Negative) H 05/14/25 19:50 Urine Blood Negative (Negative) 05/14/25 19:50 Urine Nitrite Negative (Negative) 05/14/25 19:50 Urine Bilirubin Negative (Negative) 05/14/25 19:50 Urine Urobilinogen Negative (Negative) 05/14/25 19:50 Ur Leukocyte Esterase Trace (Negative) H 05/14/25 19:50 Urine WBC (Auto) 6-10 /hpf (0-5) H 05/14/25 19:50 Urine RBC (Auto) 0-2 /hpf (0-2) 05/14/25 19:50 U Hyaline Cast (Auto) 0-2 /lpf (0-2) 05/14/25 19:50 U Epithel Cells (Auto) 0-2 /hpf (0-2) 05/14/25 19:50 Urine Bacteria (Auto) None Seen (None Seen) 05/14/25 19:50 Urine Comment 05/14/25 19:50 Impressions Hip/Pelvis X-Ray 05/14/25 15:00 COMPARISON: 01/11/2025 FINDINGS: BONES: Acute comminuted and displaced intertrochanteric left hip fracture. Osteopenia. Stable appearance of the right hip arthroplasty without complications. Mild degenerative changes of the left hip. Additional degenerative changes noted at the SI joints and visualized portions of the lumbar spine. SOFT TISSUES: Moderate retained stool in the visualized portions of the colon and rectum IMPRESSION: Acute comminuted and displaced intertrochanteric left hip fracture. Electronically signed by Danilo Calzada 05-14-2025 4:32 PM Chest X-Ray 05/14/25 15:01 COMPARISON: 07/11/2022 FINDINGS: HEART: Normal in size. LUNGS: No focal consolidation, pleural effusion, or vascular congestion. MEEDIASTINUM: Unremarkable. BONES: Bilateral shoulder replacement.No acute fractures are appreciated. OTHER: Unremarkable. IMPRESSION: No acute disease. Electronically signed by Danilo Calzada 05-14-2025 4:33 PM (1) Intertrochanteric fracture of left hip Encounter type: initial encounter Fracture alignment: displaced Fracture type: closed Qualified Code(s): S72.142A - Displaced intertrochanteric fracture of left femur, initial encounter for closed fracture
[2025-05-15] MEDS: ONDANSETRON INJ 2 MG/ML 2 ML VIAL IV PRN (06:24)
[2025-05-15 06:48] LABS: Hematocrit (blood only) 38.8 % (37.0-47.0); Hemoglobin 12.8 g/dL (12.0-16.0); Mean Corpuscular Hemoglobin 30.8 pg (25.0-34.0); Mean Corpuscular Volume 93.3 fL (80.0-100.0); Platelet Count 329 K/uL (130-400); RDW Standard Deviation 47.6 fL (36.4-46.3); Red Blood Count 4.16 M/uL (4.20-5.40); White Blood Count 13.50 K/ul (4.8-10.8)
[2025-05-15] MEDS ORDERED: MIDAZOLAM HCL 1 MG/ML 2ML VIAL ONE (06:53)
[2025-05-15] MEDS ORDERED: SUGAMMADEX SODIUM 200 MG/2 ML VIAL IV ONE (06:53)
[2025-05-15] MEDS ORDERED: ONDANSETRON INJ 2 MG/ML 2 ML VIAL ONE (06:53)
[2025-05-15] MEDS ORDERED: DEXAMETHASONE SOD INJ 4 MG/ML VIAL ONE (06:53)
[2025-05-15] MEDS ORDERED: PROPOFOL IV EMULSION 10 MG/ML 20 ML VIAL IV ONE (06:53)
[2025-05-15] MEDS ORDERED: ROCURONIUM BROMIDE 10 MG/ML 5 ML VIAL IV ONE ×2 (06:53→08:12)
[2025-05-15] MEDS ORDERED: ATROPINE SULFATE 0.1 MG/ML 10ML SYR IV PRN (07:22)
[2025-05-15] MEDS ORDERED: ONDANSETRON INJ 2 MG/ML 2 ML VIAL IV PRN (07:22)
--- NOTE | 2025-05-15 07:22 | Anesthesiology Consultation ---
Date of Service May 15, 2025 Assessment & Plan Chart Review Chart Review: Acceptable Risk for Surgery Consults Requested none ASA ASA3 Proposed Anesthesia Anesthesia Type: General Risk / Benefits Reviewed With: PT / POA / Parent / Guardian, Accepts Plan and Informed Consent Obtained History Surgery Operation Date: 05/15/25 07:30 Proposed Procedures p Left Long Troch Nail.(Left) - Devon Mercado MD Height/Weight Height: 5 ft 3 in Weight: 107.4 kg Allergies Allergy/AdvReac Type Severity Reaction Status Date / Time Sulfa (Sulfonamide Allergy Severe difficulty Verified 09/25/22 12:39 Antibiotics) breathing per pt/pt thinks it rash? celecoxib [From Celebrex] AdvReac Unknown ISN'T Verified 09/25/22 12:39 EFFECTIVE codeine AdvReac Unknown N&V Verified 09/25/22 12:39 Medications Home Medications Medication Instructions Recorded Confirmed Last Taken cholecalciferol (vitamin D3) 25 1,000 unit PO QDL 03/25/18 05/14/25 05/14/25 mcg (1,000 unit) capsule (Vitamin D3) loratadine 10 mg capsule 10 mg PO QAM 03/25/18 05/14/25 05/14/25 09:00 multivitamin 1 tab PO QAM 03/25/18 05/14/25 05/14/25 09:00 vitamin B complex 1 tab PO QAM 03/25/18 05/14/25 05/14/25 09:00 aspirin 81 mg tablet,delayed 81 mg PO QAM 03/09/20 05/14/25 05/14/25 09:00 release olmesartan 5 mg tablet 5 mg PO QAM 08/15/20 05/14/25 05/14/25 09:00 montelukast 10 mg tablet 10 mg PO QPM #30 tabs 09/27/21 05/14/25 05/13/25 20:00 (Singulair) azelastine 137 mcg (0.1 %) nasal 1 spray intranasal BID PRN 07/06/22 05/14/25 06/02/24 spray allergies biotin 1 tab PO QPM 07/06/22 05/14/25 05/13/25 simvastatin 10 mg tablet 10 mg PO HS 07/06/22 05/14/25 05/13/25 20:00 acetaminophen 500 mg tablet 1,000 mg PO Q8 PRN Pain 05/14/25 05/14/25 Unknown (Tylenol Extra Strength) cyanocobalamin (vitamin B-12) 1,000 mcg PO QAM 05/14/25 05/14/25 05/14/25 09:00 1,000 mcg tablet cyclobenzaprine 5 mg tablet 5 mg PO BID PRN muscle spasms 05/14/25 05/14/25 Unknown diclofenac potassium 50 mg tablet 50 mg PO QDL 05/14/25 05/14/25 05/14/25 12:00 gabapentin 400 mg capsule 400 mg PO UD 05/14/25 05/14/25 05/14/25 12:00 gabapentin 400 mg capsule 800 mg PO HS 05/14/25 05/14/25 05/13/25 20:00 spironolactone 25 mg tablet 25 mg PO QAM 05/14/25 05/14/25 05/14/25 09:00 tofacitinib 11 mg tablet,extended 11 mg PO QAM 05/14/25 05/14/25 05/14/25 09:00 release 24 hr (Xeljanz XR) Active Medications Generic Name Dose Route Start Last Admin Trade Name Freq PRN Reason Stop Dose Admin Acetaminophen 650 mg 05/14/25 21:00 05/14/25 20:53 Acetaminophen 325 Mg Tab PO 06/13/25 20:59 650 mg QID ALEXANDR Administration Gabapentin 800 mg 05/14/25 21:00 05/14/25 20:53 Gabapentin 400 Mg Cap PO 06/13/25 20:59 800 mg HS ALEXANDR Administration Insulin Aspart 0 units 05/14/25 21:00 05/14/25 20:45 Insulin Aspart Per Unit Charge SC 06/13/25 20:59 Not Given ACHS ALEXANDR Montelukast Sodium 10 mg 05/14/25 21:00 05/14/25 20:54 Montelukast Sodium 10 Mg Tablet PO 06/13/25 20:59 10 mg QPM ALEXANDR Administration Morphine Sulfate 4 mg 05/14/25 20:26 05/15/25 06:21 Morphine Sulfate 4 Mg/Ml 1 Ml Carp\Vial IV 05/28/25 20:25 4 mg Q3H PRN Administration Pain (6,7,8,9,10) Ondansetron HCl 4 mg 05/14/25 20:26 05/15/25 06:24 Ondansetron Inj 2 Mg/Ml 2 Ml Vial IV 06/13/25 20:25 4 mg Q6H PRN Administration Nausea Simvastatin 10 mg 05/14/25 21:00 05/14/25 20:53 Simvastatin 10 Mg Tab PO 06/13/25 20:59 10 mg HS ALEXANDR Administration NPO Date Last Intake of Fluids: 05/14/25 Time Last Intake of Fluids: 09:30 Last Intake of Fluids Comment: patient did report some sips of water with meds in the evening Date Last Intake of Solids: 05/14/25 Time Last Intake of Solids: 09:30 Past Medical History Medical History Myelopathic gait Numbness and tingling in both hands Weakness Ambulatory dysfunction Diabetes mellitus, type 2 NIDDM; currently on simvastatin for DM purposes per patient Asthma Appears to be triggered by allergies - follows with pulm- last seen 09/2021- can follow up PRN Idiopathic polyneuropathy Sleep apnea in adult Non-compliant with CPAP Rheumatoid arthritis Follows with rheum in [place]- Dr. Aranda Morbid obesity Migraine Hx Fibromyalgia Past Family History Family History Grandfather (Maternal) Family hx of colon cancer Grandfather (Paternal) Family hx of colon cancer Mother , in their mid 80s of an [place]. Stroke Myocardial infarction Father , in his mid 80s of a brain bleed. Heart disease Hypertension Past Surgical History Surgical History Hx of myomectomy History of arthroscopic surgery of shoulder Right RCR, biceps tendon repair Hx of release of tendon Right arm History of colonoscopy Fusion of spine Cervical History of carpal tunnel release R/L Social History Smoking Status: Never smoker Do You Dip or Chew Tobacco: No Hx Alcohol Use: Yes Alcohol type: wine alcohol intake frequency: holidays/special occasions only Hx Substance Use: No substance use type: does not use Physical Exam Vital Signs Last Vital Signs Temp 36.4 C L 05/15/25 03:30 Pulse 94 H 05/15/25 04:38 Resp 16 05/15/25 03:30 BP 125/79 05/15/25 03:30 Pulse Ox 98 05/15/25 03:30 O2 Del Method Nasal Cannula 05/15/25 04:08 O2 Flow Rate 2 05/15/25 04:08 Constitutional + acute distress ENMT Mouth: no dentition abnormality and no dentures Thyromental Distance: < 3.5 Finger Breadths Mallampati Class: III Neck normal visual inspection Respiratory normal respiratory effort Auscultation: lungs clear to auscultation bilaterally Cardiovascular Rate/Rhythm: regular rate Musculoskeletal Spine: + limited cervical ROM Neurologic + does not move all extremities L Hip pain limiting leg movement Psychiatric Orientation: alert and oriented x 3 Testing Laboratory Results 05/15/25 05:19 05/14/25 14:58 PT 10.7 Seconds (9.0-12.0) 05/14/25 14:58 INR 1.0 (0.9-1.1) 05/14/25 14:58 APTT 20 Seconds (21-31) L 05/14/25 14:58 Urine Color Dark Yellow 05/14/25 19:50 Urine Appearance Clear (Clear) 05/14/25 19:50 Urine pH 5.5 (4.5-7.5) 05/14/25 19:50 Ur Specific [place] 1.032 (1.000-1.030) H 05/14/25 19:50 Urine Protein Trace (Negative) H 05/14/25 19:50 Urine Glucose (UA) Negative (Negative) 05/14/25 19:50 Urine Ketones Trace (Negative) H 05/14/25 19:50 Urine Nitrite Negative (Negative) 05/14/25 19:50 Ur Leukocyte Esterase Trace (Negative) H 05/14/25 19:50 Urine WBC (Auto) 6-10 /hpf (0-5) H 05/14/25 19:50 Urine RBC (Auto) 0-2 /hpf (0-2) 05/14/25 19:50 U Hyaline Cast (Auto) 0-2 /lpf (0-2) 05/14/25 19:50 U Epithel Cells (Auto) 0-2 /hpf (0-2) 05/14/25 19:50 Urine Bacteria (Auto) None Seen (None Seen) 05/14/25 19:50 05/15/25 05/14/25 05/14/25 06:17 22:16 20:40 POC Glucose 146 H 158 H 164 H
[2025-05-15] MEDS: TRANEXAMIC ACID / 0.7% NACL 1,000 MG/100 ML BAG IV ONE ×2 (07:23→09:23)
[2025-05-15] MEDS ORDERED: KETAMINE HCL 10MG/ML SYR ONE (07:35)
[2025-05-15] MEDS ORDERED: ACETAMINOPHEN 1000 MG/100 ML IV IV ONE (07:44)
[2025-05-15] MEDS ORDERED: PHENYLEPHRINE HCL 10 MG/ML VIAL ONE (07:58)
[2025-05-15] MEDS ORDERED: PHENYLEPHRINE 100MCG/ML 5ML SYR ONE (07:58)
[2025-05-15 07:59] LABS: Hemoglobin A1C 6.5 % (4.5-5.6)
[2025-05-15] MEDS ORDERED: ePHEDrine sulfate 50 MG/5 ML SYR ONE (08:01)
[2025-05-15] MEDS ORDERED: GLYCOPYRROLATE 0.2 MG/ML VIAL ONE (08:01)
[2025-05-15] MEDS ORDERED: HYDROmorphone INJ 2 MG/ML SYR/VIAL ONE (10:19)
[2025-05-15] MEDS: LIDOCAINE 1% LOCAL 20 ML VIAL ONE (11:11)
[2025-05-15] MEDS: BUPIVACAINE/EPINEPHRINE 0.5% MPF 1:200,000 30 ML VIAL ONE (11:11)
[2025-05-15] MEDS: GABAPENTIN 400 MG CAP PO SCH (11:29)
--- NOTE | 2025-05-15 11:53 | Post Operative Brief Note ---
Immediate Post Op Note Date of Surgery May 15, 2025 Pre & Post Diagnosis Operation Date: 05/15/25 07:30 Pre-Op Diagnosis: Intertrochanteric fracture of left hip Post-Op Diagnosis: Intertrochanteric fracture of left hip I identified the patient and participated in the time-out.: Yes Procedure Operation Date: 05/15/25 07:30 Actual Procedures p Open Reduction Internal Fixation Left Hip Fracture(Left) - Devon Mercado MD Surgeon Devon Mercado MD Paper Stacker C CLARKE Pathak (No fellow avail) Estimated Blood Loss 150 Findings Consistent with Post-Op Diagnosis Fluids 2000 ml Drains Gonzales Catheter Anesthesia Type General Complications none
--- NOTE | 2025-05-15 11:55 | Operative Report ---
Post Operative Report Pre & Post Diagnosis Operation Date: 05/15/25 07:30 Pre-Op Diagnosis: Intertrochanteric fracture of left hip, 4- part Post-Op Diagnosis: Intertrochanteric fracture of left hip, 4- part, with subtrochanteric extension I identified the patient and participated in the time-out.: Yes Procedure Operation Date: 05/15/25 07:30 Actual Procedures p Open Reduction Internal Fixation Left Hip Fracture(Left) - Devon Mercado MD Surgeon Devon Mercado MD Flight Operation Coordinator Rashmi Pathak PA-C (No fellow avail) Estimated Blood Loss 150 Findings See Below Displaced 4-part intertrochanteric hip fracture with subtrochanteric extension Fluids 2000 ml Specimens n/a Anesthesia Type General Complications none Indications The patient is a 69 year old female who sustained a left hip fracture from a ground level fall. The patients treatment options of conservative versus surgical intervention were discussed. Since the patient was an ambulatory prior to the injury and to avoid the risks of bed sores, pulmonary complications, and to give the best chance for ambulation, I recommended surgery. The patient understands the risks of surgery, which include but are not limited to: bleeding, infection, re-operation, damage to nerves and arteries, continued pain, failure of the hardware, mal-union, non-union, DVT, and . In addition, the patient is aware of the 20-30% morbidity associated with hip fracture for up to 1 year following a hip fracture. The patient understands all these instructions and explanations; all their questions have been satisfactorily addressed. The patient has elected to proceed with surgery ORIF left hip fracture, and the informed consent was signed. Description of Procedure Rashmi Pathak PA-C is assisting with positioning, retraction, aiding in reduction and closure due to fellow not available. IMPLANTS: 1) 10 mm x 340 mm Long Troch nail (Synthes). 2) 10 x 100 mm Helical screw. 3) 5 x 36 & 42 mm Locking screw. 4) Dull Miles Cable Procedure: The patient was taken to the Operating Room and placed in the supine position on the fracture table after general anesthesia was administered. A multidisciplinary time-out was performed identifying my initials on the left lower limb as the correct and operative limb. Prior to the incision being made, 2 grams of intravenous Ancef and 1g TXA were given. Fluoroscopy was brought in to ensure adequate x-rays images could be obtained. A reduction was performed with traction, adduction, and external rotation of the operative limb. There was still displacement of the neck anteriorly. The left lower extremity was prepped in the standard fashion. The trochanter was marked as was the planned incision and trajectory of the helical screw as well as an extended incision laterally for open reduction for placement of cable, and distal screws. The incisions were injected with a 50:50 mixture of 1% Lidocaine plain and 0.5% Bupivacaine with epinephrine for a total of 20 cc. The planned extended lateral incision was carried down to the tensor fer fascia. The fascia was incised in-line with its fibers. The rectus lateralis herniated through the fascia and divided to expose the femur and the distal end of the fracture. Any hematoma or muscle within the fracture was removed with rongeur. The fracture was reduced with bone hook on medial fragment, providing lateral displacement; while posey was placed under the inferior proximal fragment reducing the shaft to the greater trochanter fragment. A Dull MyOtherDrive Cable was passed around the fracture fragments distal to the lesser trochanteric fragment. The cable was tensioned in the standard fashion to 40 psi and locked in place. The tensioner was removed. The femoral neck was then reduced to the Greater trochanter by placing the posey over the femur and providing downward pressure on the neck after freeing it up with bone hook gently providing lateral displacement of the greater trochanter. The planned incision proximal to the greater trochanter was made and carried down through the Tensor Fascia Fer to expose the tip of the greater trochanter and the starting position. After a starting guide wire was placed, a hand awl was used to initially open the starting point and switch to a long guide wire, which was placed down the distal femur and checked in both AP & lateral projections. The starting reamer was used to create the entry hole. A size 10 was selected. The shaft was sequentially reamed to 11.5 mm. The implant was then inserted without difficulty. Using the extended lateral incision the helical blade was placed in the standard fashion, while maintaining the femoral neck reduced to the greater trochanter/shaft. It was placed through the aiming guide in the standard fashion. The Helical blade was locked in place. The traction was released. The distal screws (Dynamized and proximal) were placed using perfect port graham technique. The cable was retensioned to 40 psi, cremped, and cut. Final x-rays were obtained showing TAD of less than 25mm. The wounds were copiously irrigated. The Tensor Fascia Fer was closed with 0 Vicryl. The subcutaneous tissue was closed with 3-0 Vicryl. The skin was closed with jovanny. The incisions were covered with Xeroform, 4x4s, ABD, and foam tape. The patient was transferred to her hospital bed and taken to the PACU in stable condition. The sponge and needle counts were correct. Post-op Instructions: The patient was re-admitted to the Hospitalist service to Med/Surg. The patient will be WBAT with a walker and her brace. The patient will be seen by PT/OT. Labs will be checked in the am. DVT prophylaxis will be with TEDs, mechanical devices, ASA 81 mg BID will be started. I attest to the content of the Intraoperative Record and any orders documented therein. Any exceptions are noted below.
--- NOTE | 2025-05-15 12:24 | Operative Report ---
Post Operative Report Pre & Post Diagnosis Operation Date: 05/15/25 07:30 Pre-Op Diagnosis: Intertrochanteric fracture of left hip Post-Op Diagnosis: Intertrochanteric fracture of left hip I identified the patient and participated in the time-out.: Yes Procedure Operation Date: 05/15/25 07:30 Actual Procedures p Open Reduction Internal Fixation Left Hip Fracture(Left) - Devon Reny Mercado MD Surgeon Mayra Mercado MD Call Center Support Representative Rashmi Pathak PA-C (No fellow avail) Estimated Blood Loss 150 Findings Consistent with Post-Op Diagnosis see operative report Specimens none Drains none Complications none Disposition Accompanied Patient To Recovery: Yes Indications This 69 year old female presented through the ED after falling at home. She felt a snap in her hip and then fell. She sustained a comminuted left hip fracture after imaging in the ED. She elected proceed with surgical intervention after being educated about potential risks and outcomes. Informed written consent was obtained. Description of Procedure The patient was taken to the operating room where she was given general anesthesia. She was prepped and draped in the usual sterile fashion. Please see Dr. Mercado's operative report for specifics of the procedure. I was present for the entire case from initial patient positioning through final wound closure. Assistance was provided in tissue retraction, hemostasis, implant placement, fracture reduction, and final wound closure. The patient was taken to the recovery room in satisfactory condition. I attest to the content of the Intraoperative Record and any orders documented therein. Any exceptions are noted below.
--- NOTE | 2025-05-15 13:12 | Anesthesiology Progress Note ---
Date of Service May 15, 2025 Anesthesia Post Procedure Vital Signs Vital Signs: Temp Pulse Pulse Resp BP BP Pulse Ox 05/15/25 13:05 36.4 C L 88 13 165/77 H 92 05/15/25 12:55 103 H 13 139/87 94 05/15/25 12:45 112 H 13 147/66 H 100 05/15/25 12:35 85 16 128/61 92 05/15/25 12:25 96 H 18 152/78 H 91 05/15/25 12:15 120 H 18 145/76 H 91 05/15/25 12:06 36 C L 109 H 16 140/77 94 05/15/25 10:05 91 H 05/15/25 04:38 94 H 05/15/25 04:08 05/15/25 03:30 36.4 C L 85 16 125/79 98 05/15/25 03:28 05/15/25 03:12 100 H 14 05/15/25 03:00 162/93 H 05/15/25 03:00 162/93 H 05/15/25 03:00 162/93 H 05/15/25 03:00 162/93 H 05/15/25 03:00 162/93 H 05/15/25 03:00 98 H 15 98 05/15/25 02:51 95 H 15 96 05/15/25 02:42 101 H 14 99 05/15/25 02:30 101 H 13 97 05/15/25 02:21 87 13 99 05/15/25 02:12 97 H 14 98 05/15/25 02:00 149/75 H 05/15/25 02:00 149/75 H 05/15/25 02:00 149/75 H 05/15/25 02:00 149/75 H 05/15/25 02:00 149/75 H 05/15/25 02:00 92 H 14 96 05/15/25 01:51 101 H 16 99 05/15/25 01:42 95 H 12 98 05/15/25 01:30 99 H 14 98 05/15/25 01:30 164/77 H 05/15/25 01:30 164/77 H 05/15/25 01:30 164/77 H 05/15/25 01:30 164/77 H 05/15/25 01:30 164/77 H 05/15/25 01:21 92 H 15 98 05/15/25 01:12 92 H 14 96 05/15/25 01:01 05/15/25 01:00 149/77 H 05/15/25 01:00 149/77 H 05/15/25 01:00 149/77 H 05/15/25 01:00 149/77 H 05/15/25 01:00 149/77 H 05/15/25 01:00 95 H 14 98 05/15/25 00:51 96 H 16 97 05/15/25 00:42 103 H 18 97 05/15/25 00:30 134/73 05/15/25 00:30 134/73 05/15/25 00:30 134/73 05/15/25 00:30 134/73 05/15/25 00:30 134/73 05/15/25 00:30 98 H 14 98 05/15/25 00:21 90 13 98 05/15/25 00:12 91 H 14 92 05/15/25 00:01 126/81 05/15/25 00:01 126/81 05/15/25 00:01 126/81 05/15/25 00:01 126/81 05/15/25 00:01 126/81 05/15/25 00:00 108 H 21 05/14/25 23:51 107 H 18 98 05/14/25 23:42 96 H 15 97 05/14/25 23:30 104 H 15 97 05/14/25 23:30 130/75 05/14/25 23:30 130/75 05/14/25 23:30 130/75 05/14/25 23:30 130/75 05/14/25 23:30 130/75 05/14/25 23:21 108 H 16 95 05/14/25 23:12 108 H 20 96 05/14/25 23:00 111 H 19 05/14/25 23:00 134/77 05/14/25 23:00 134/77 05/14/25 23:00 134/77 05/14/25 23:00 134/77 05/14/25 23:00 134/77 05/14/25 22:51 113 H 24 05/14/25 22:42 103 H 20 05/14/25 22:30 147/71 H 05/14/25 22:30 147/71 H 05/14/25 22:30 147/71 H 05/14/25 22:30 147/71 H 05/14/25 22:30 147/71 H 05/14/25 22:30 107 H 16 05/14/25 22:21 106 H 20 97 05/14/25 22:20 97 05/14/25 22:12 111 H 20 97 05/14/25 22:02 112 H 17 134/75 98 05/14/25 22:00 110 H 18 98 05/14/25 22:00 134/75 05/14/25 22:00 134/75 05/14/25 22:00 134/75 05/14/25 22:00 134/75 05/14/25 22:00 134/75 05/14/25 21:51 110 H 20 98 05/14/25 21:42 103 H 19 98 05/14/25 21:21 111 H 21 126/66 96 05/14/25 21:20 85 L 05/14/25 20:00 105 H 16 151/79 H 100 05/14/25 19:30 98 H 05/14/25 18:30 94 H 17 147/80 H 98 05/14/25 15:05 84 05/14/25 15:00 36.4 C L 84 18 112/52 L 96 O2 Del Method O2 Flow Rate 05/15/25 13:05 Nasal Cannula 3 05/15/25 12:55 Nasal Cannula 3 05/15/25 12:45 Nasal Cannula 3 05/15/25 12:35 Nasal Cannula 3 05/15/25 12:25 Room Air 05/15/25 12:15 Room Air 05/15/25 12:06 Room Air 05/15/25 10:05 05/15/25 04:38 05/15/25 04:08 Nasal Cannula 2 05/15/25 03:30 Nasal Cannula 2 05/15/25 03:28 Nasal Cannula 05/15/25 03:12 05/15/25 03:00 05/15/25 03:00 05/15/25 03:00 05/15/25 03:00 05/15/25 03:00 05/15/25 03:00 05/15/25 02:51 05/15/25 02:42 05/15/25 02:30 05/15/25 02:21 05/15/25 02:12 05/15/25 02:00 05/15/25 02:00 05/15/25 02:00 05/15/25 02:00 05/15/25 02:00 05/15/25 02:00 05/15/25 01:51 05/15/25 01:42 05/15/25 01:30 05/15/25 01:30 05/15/25 01:30 05/15/25 01:30 05/15/25 01:30 05/15/25 01:30 05/15/25 01:21 05/15/25 01:12 05/15/25 01:01 Nasal Cannula 05/15/25 01:00 05/15/25 01:00 05/15/25 01:00 05/15/25 01:00 05/15/25 01:00 05/15/25 01:00 05/15/25 00:51 05/15/25 00:42 05/15/25 00:30 05/15/25 00:30 05/15/25 00:30 05/15/25 00:30 05/15/25 00:30 05/15/25 00:30 05/15/25 00:21 05/15/25 00:12 05/15/25 00:01 05/15/25 00:01 05/15/25 00:01 05/15/25 00:01 05/15/25 00:01 05/15/25 00:00 05/14/25 23:51 05/14/25 23:42 05/14/25 23:30 05/14/25 23:30 05/14/25 23:30 05/14/25 23:30 05/14/25 23:30 05/14/25 23:30 05/14/25 23:21 05/14/25 23:12 05/14/25 23:00 05/14/25 23:00 05/14/25 23:00 05/14/25 23:00 05/14/25 23:00 05/14/25 23:00 05/14/25 22:51 05/14/25 22:42 05/14/25 22:30 05/14/25 22:30 05/14/25 22:30 05/14/25 22:30 05/14/25 22:30 05/14/25 22:30 05/14/25 22:21 05/14/25 22:20 Nasal Cannula 3 05/14/25 22:12 05/14/25 22:02 Nasal Cannula 3 05/14/25 22:00 05/14/25 22:00 05/14/25 22:00 05/14/25 22:00 05/14/25 22:00 05/14/25 22:00 05/14/25 21:51 05/14/25 21:42 Nasal Cannula 05/14/25 21:21 Nasal Cannula 3 05/14/25 21:20 Room Air 0 05/14/25 20:00 Nasal Cannula 2 05/14/25 19:30 05/14/25 18:30 Nasal Cannula 2 05/14/25 15:05 05/14/25 15:00 Room Air Pain Intensity Left Hip: Pain Intensity: 10 Transfer of Care Handoff Completed per policy Notes Mental Status: alert / awake / arousable Patient Amnestic to Procedure: Yes Nausea / Vomiting: adequately controlled Pain: adequately controlled Airway Patency, RR, SpO2: stable & adequate BP & HR: stable & adequate Hydration State: stable & adequate Anesthetic Complications: no major complications apparent
[2025-05-15] MEDS ORDERED: NALOXONE HCL 0.4 MG/1 ML VIAL/CARP IV PRN (13:29)
[2025-05-15] MEDS ORDERED: HYDROmorphone INJ 0.5 MG/0.5 ML SYR IV PRN (13:29)
--- NOTE | 2025-05-15 13:29 | Fluoroscopy Report ---
FL hip LT 2-3V CLINICAL HISTORY: LT TROCH NAIL COMPARISON STUDY: 05/14/2025 FLUOROSCOPY TIME: 2 minutes 40 seconds FLUOROSCOPY IMAGES: 5 EXPOSURE DOSE: 51 mGy FINDINGS: Fluoroscopy was provided for left femoral gamma nail. IMPRESSION: Intraoperative fluoroscopy. ACT 112: Negative or not required by law. Electronically signed by: Delio Trujillo M.D. 05/15/2025 1:28 PM
[2025-05-15] MEDS: LORATADINE 10 MG TAB PO SCH (13:55)
[2025-05-15] MEDS: CHOLECALCIFEROL 25 MCG (1000 UNITS) TAB PO SCH (13:55)
[2025-05-15] MEDS: CYANOCOBALAMIN (B-12) 500 MCG TABLET PO SCH (13:55)
--- NOTE | 2025-05-15 16:32 | Hospitalist Progress Note ---
Date of Service May 15, 2025 Assessment & Plan (1) Intertrochanteric fracture of left hip: (2) Myelopathy concurrent with and due to spinal stenosis of cervical region: (3) Hypertension: (4) Sleep apnea in adult: (5) Morbid obesity: (6) Rheumatoid arthritis: Plan 69-year-old woman admitted with hip fracture after a mechanical fall in her kitchen # Pathologic osteoporotic fracture of L hip Operation Date: 05/15/25 07:30 Actual Procedures p Open Reduction Internal Fixation Left Hip Fracture(Left) - Devonraul Mercado MD - continue acetaminophen, oxycodone, gabapentin for pain control as well as her usual as needed cyclobenzaprine - BID aspirin for DVT prophylaxis postoperatively for 6 weeks - vitamin D level pending - mild hypoxia related to hypoventilation improved - PT/OT evaluation # DM type 2 - A1c 6.5%, at goal - monitor BG qAC and qHS, prn premeal aspart, check A1c in AM, diabetic diet, A1c in AM - blood glucose mainly at goal past 24 hours, continue current insulin dosing # cervical myelopathy, recent L ankle fusion - contributes to fall risk and ambulatory dysfunction -wbat from ankle perspective once hip repaired, L ankle brace as needed -PT/OT postop -cont gabapentin # obstructive sleep apnea and morbid obesity with BMI of 41.9 contributing to hypoxia/hypoventilation. continue to be extremely cautious with sedating medications. incentive spirometer # HTN - relatively hypotensive, hold ARB # RA - stable, hold xeljanz # HLD - cont simvastatin DVT ppx- twice daily aspirin I updated her sister at the bedside 05/15, discussed with orthopedics after surgery Admission and Anticipated Discharge Date Admission Date: May 14, 2025 Subjective seen postoperatively, surgery went as planned, her sister is at the bedside she is sleepy, she feels poorly because she has some nausea, Zofran was administered Physical Exam Physical Exam: Last 24h vitals reviewed GEN: looks much more comfortable than yesterday evening, sleepy but arouses to voice HEENT: pupils equal, sclerae anicteric, moist MM RESP: normal WOB, CTAB CV: reg no mrg ABD: soft/nt/nd +BT : no peoples SKIN: warm and dry, no generalized rashes EXT: left lateral hip incision dressed, CDI, some surrounding ecchymosis in the thigh, lower extremity warm and well-perfused 2+ DP pulse NEURO: Sleepy/lethargic but verbal and oriented to situation. Face symmetric, speech normal, moves 4 ext spontaneously Results & Data Results & Data Vital Signs (Past 12 Hours) Vital Signs Temp Pulse Pulse Resp BP Pulse Ox O2 Del Method 05/15/25 16:20 36.6 C 101 H 18 100/63 95 Nasal Cannula 05/15/25 15:19 36.5 C 93 H 18 101/63 95 Nasal Cannula 05/15/25 14:23 35.8 C L 86 14 111/66 94 Nasal Cannula 05/15/25 13:49 35.8 C L 88 14 109/66 95 Nasal Cannula 05/15/25 13:20 Nasal Cannula 05/15/25 13:20 36.3 C L 91 H 14 140/83 92 Nasal Cannula 05/15/25 13:05 36.4 C L 88 13 165/77 H 92 Nasal Cannula 05/15/25 12:55 103 H 13 139/87 94 Nasal Cannula 05/15/25 12:45 112 H 13 147/66 H 100 Nasal Cannula 05/15/25 12:35 85 16 128/61 92 Nasal Cannula 05/15/25 12:25 96 H 18 152/78 H 91 Room Air 05/15/25 12:15 120 H 18 145/76 H 91 Room Air 05/15/25 12:06 36 C L 109 H 16 140/77 94 Room Air 05/15/25 10:05 91 H 05/15/25 04:38 94 H O2 Flow Rate 05/15/25 16:20 1 05/15/25 15:19 2 05/15/25 14:23 2 05/15/25 13:49 2 05/15/25 13:20 2 05/15/25 13:20 2 05/15/25 13:05 3 05/15/25 12:55 3 05/15/25 12:45 3 05/15/25 12:35 3 05/15/25 12:25 05/15/25 12:15 05/15/25 12:06 05/15/25 10:05 05/15/25 04:38 Laboratory Results hemoglobin decreased from 14.2 down to 12.8, white blood count 13.5 urinalysis negative for any significant pyuria, trace protein hemoglobin A1c 6.5% PG Care Time/CCT Total # of Minutes Spent Total Time Spent with Patient: Total time spent is greater than 50% in coordination of care (as documented) at patient's floor/unit and/or counseling patient: Coding Level of Care Code 94411 SUB INP/OBS CARE 3/50MIN Diagnoses Intertrochanteric fracture of left hip S72.142A Encounter type: initial encounter Fracture alignment: displaced Fracture type: closed Myelopathy concurrent with and due to spinal stenosis of cervical region M48.02; G99.2 Hypertension I10 Sleep apnea in adult G47.30 Morbid obesity E66.01 Rheumatoid arthritis M06.9 (1) Intertrochanteric fracture of left hip Encounter type: initial encounter Fracture alignment: displaced Fracture type: closed Qualified Code(s): S72.142A - Displaced intertrochanteric fracture of left femur, initial encounter for closed fracture
[2025-05-15] MEDS: SPIRONOLACTONE 25 MG TAB PO SCH (16:44)
[2025-05-15] MEDS: ASPIRIN 81 MG ECTAB PO SCH (21:14)
[2025-05-15] MEDS: LACTATED RINGER'S 500 ML IV ONE (22:31)
[2025-05-16] MEDS: CYCLOBENZAPRINE HCL 5 MG TAB PO PRN (00:36)
[2025-05-16] MEDS: TROLAMINE SALICYLATE 10% CRM 255 APPLN/85 GM TUBE EXT PRN (01:54)
[2025-05-16] MEDS: MAGNESIUM SULFATE / D5W 1 GM/100 ML BAG IV ONE (05:02)
[2025-05-16 06:34] LABS: Hematocrit (blood only) 30.4 % (37.0-47.0); Hemoglobin 10.2 g/dL (12.0-16.0); Immature Granulocytes # (auto) 0.03 K/uL (0.01-0.20); Immature Granulocytes % (auto) 0.3 %; Mean Corpuscular Hemoglobin 30.9 pg (25.0-34.0); Mean Corpuscular Volume 92.1 fL (80.0-100.0); Platelet Count 251 K/uL (130-400); RDW Standard Deviation 47.0 fL (36.4-46.3); Red Blood Count 3.30 M/uL (4.20-5.40); White Blood Count 9.43 K/ul (4.8-10.8)
[2025-05-16 06:59] LABS: Anion Gap 6.0 (3-11); Blood Urea Nitrogen 23.0 mg/dl (6-23); Calcium 8.5 mg/dl (8.6-10.3); Carbon Dioxide 28.0 mmol/L (21-32); Chloride 100.0 mmol/L (98-107); Creatinine Clr Calc Pharmacy 75.4 ml/min; Glucose 154.0 mg/dl (70-99(Fasting)); Potassium 4.5 mmol/L (3.5-5.1); Sodium 134.0 mmol/L (136-145)
--- NOTE | 2025-05-16 09:11 | Orthopedic Progress Note ---
Date of Service May 16, 2025 Assessment & Plan (1) Intertrochanteric fracture of left hip: Plan: IMPRESSION: POD#1 s/p ORIF left hip fracture, doing fairly well PLAN: Resume diet. WBAT LLE with walker and ankle brace. DVT Prophylaxis: TEDs and foot pumps to BLE, 81 mg ASA BID x 6 weeks. Continue pain control with Oxycodone. Plan change dressing POD #2. PT/OT D/C Planning Continue care per primary service. Will Continue to follow Admission and Anticipated Discharge Date Admission Date: May 14, 2025 Subjective Left leg pain and muscle spasm overnight Physical Exam Physical Exam: LLE: Diminished sensation to light touch, unchanged. BCR < 2 sec. Able to wiggle great toe and 4th & 5th toes. Previous ankle knee incisions well healed. Dressings Clean, Dry, Intact. Results & Data Vital Signs (Past 12 Hours) Vital Signs Temp Pulse Resp BP Pulse Ox O2 Del Method O2 Flow Rate 05/16/25 08:46 113/64 05/16/25 07:20 36.9 C 94 H 20 99/60 L 94 Nasal Cannula 2 05/16/25 03:06 36.8 C 91 H 16 102/68 96 Nasal Cannula 2 05/16/25 01:39 36.7 C 86 18 104/64 95 Nasal Cannula 2 05/15/25 23:10 36.6 C 104 H 16 130/74 97 Nasal Cannula 2 05/15/25 21:37 Room Air 05/15/25 21:29 113 H 18 94/61 L Laboratory Results Laboratory Results WBC 9.43 K/ul (4.8-10.8) 05/16/25 05:48 RBC 3.30 M/uL (4.20-5.40) L 05/16/25 05:48 Hgb 10.2 g/dL (12.0-16.0) L 05/16/25 05:48 Hct 30.4 % (37.0-47.0) L 05/16/25 05:48 MCV 92.1 fL (80.0-100.0) 05/16/25 05:48 MCH 30.9 pg (25.0-34.0) 05/16/25 05:48 MCHC 33.6 g/dL (32.0-36.0) 05/16/25 05:48 RDW Std Deviation 47.0 fL (36.4-46.3) H 05/16/25 05:48 RDW Coeff of Rachel 13.9 % (11.5-14.5) 05/16/25 05:48 Plt Count 251 K/uL (130-400) 05/16/25 05:48 MPV 10.2 fL (9.4-12.4) 05/16/25 05:48 Immature Gran % (Auto) 0.3 % 05/16/25 05:48 Neut % (Auto) 74.1 % 05/16/25 05:48 Lymph % (Auto) 13.3 % 05/16/25 05:48 [place] % (Auto) 11.7 % 05/16/25 05:48 Eos % (Auto) 0.2 % 05/16/25 05:48 Baso % (Auto) 0.4 % 05/16/25 05:48 Neut # (Auto) 6.99 K/uL (1.40-6.50) H 05/16/25 05:48 Lymph # (Auto) 1.25 K/uL (1.20-3.40) 05/16/25 05:48 [place] # (Auto) 1.10 K/uL (0.11-0.59) H 05/16/25 05:48 Eos # (Auto) 0.02 K/uL (0.00-0.50) 05/16/25 05:48 Baso # (Auto) 0.04 K/uL (0.00-0.20) 05/16/25 05:48 Immature Gran # (Auto) 0.03 K/uL (0.01-0.20) 05/16/25 05:48 PT 10.7 Seconds (9.0-12.0) 05/14/25 14:58 INR 1.0 (0.9-1.1) 05/14/25 14:58 APTT 20 Seconds (21-31) L 05/14/25 14:58 PTT Ratio 0.7 05/14/25 14:58 Sodium 134 mmol/L (136-145) L 05/16/25 05:48 Potassium 4.5 mmol/L (3.5-5.1) 05/16/25 05:48 Chloride 100 mmol/L (98-107) 05/16/25 05:48 Carbon Dioxide 28 mmol/L (21-32) 05/16/25 05:48 Anion Gap 6 (3-11) 05/16/25 05:48 BUN 23 mg/dl (6-23) 05/16/25 05:48 Creatinine 0.85 mg/dl (0.6-1.2) 05/16/25 05:48 Est Cr Clr Drug Dosing 75.4 ml/min 05/16/25 05:48 eGFR 75.04 05/16/25 05:48 BUN/Creatinine Ratio 27.1 (10-20) H 05/16/25 05:48 Glucose 154 mg/dl (70-99(Fasting)) H 05/16/25 05:48 POC Glucose 163 mg/dl (70-99) H 05/16/25 07:22 Estimat Average Glucose 140 mg/dl 05/15/25 05:19 Hemoglobin A1c 6.5 % (4.5-5.6) H 05/15/25 05:19 Calcium 8.5 mg/dl (8.6-10.3) L 05/16/25 05:48 Total Bilirubin 0.3 mg/dl (0.2-1.0) 05/14/25 14:58 AST 19 U/L (13-39) 05/14/25 14:58 ALT 19 U/L (7-52) 05/14/25 14:58 Alkaline Phosphatase 75 U/L (34-104) 05/14/25 14:58 Total Protein 7.0 gm/dl (6.0-8.3) 05/14/25 14:58 Albumin 4.1 gm/dl (3.4-5.0) 05/14/25 14:58 Globulin 2.9 gm/dl (2.5-4.0) 05/14/25 14:58 Albumin/Globulin Ratio 1.4 (0.9-2) 05/14/25 14:58 25-OH Vitamin D Total 60.2 ng/ml (30-100) 05/16/25 05:48 Urine Color Dark Yellow 05/14/25 19:50 Urine Appearance Clear (Clear) 05/14/25 19:50 Urine pH 5.5 (4.5-7.5) 05/14/25 19:50 Ur Specific [place] 1.032 (1.000-1.030) H 05/14/25 19:50 Urine Protein Trace (Negative) H 05/14/25 19:50 Urine Glucose (UA) Negative (Negative) 05/14/25 19:50 Urine Ketones Trace (Negative) H 05/14/25 19:50 Urine Blood Negative (Negative) 05/14/25 19:50 Urine Nitrite Negative (Negative) 05/14/25 19:50 Urine Bilirubin Negative (Negative) 05/14/25 19:50 Urine Urobilinogen Negative (Negative) 05/14/25 19:50 Ur Leukocyte Esterase Trace (Negative) H 05/14/25 19:50 Urine WBC (Auto) 6-10 /hpf (0-5) H 05/14/25 19:50 Urine RBC (Auto) 0-2 /hpf (0-2) 05/14/25 19:50 U Hyaline Cast (Auto) 0-2 /lpf (0-2) 05/14/25 19:50 U Epithel Cells (Auto) 0-2 /hpf (0-2) 05/14/25 19:50 Urine Bacteria (Auto) None Seen (None Seen) 05/14/25 19:50 Urine Comment 05/14/25 19:50 Impressions Hip/Pelvis X-Ray 05/14/25 15:00 COMPARISON: 01/11/2025 FINDINGS: BONES: Acute comminuted and displaced intertrochanteric left hip fracture. Osteopenia. Stable appearance of the right hip arthroplasty without complications. Mild degenerative changes of the left hip. Additional degenerative changes noted at the SI joints and visualized portions of the lumbar spine. SOFT TISSUES: Moderate retained stool in the visualized portions of the colon and rectum IMPRESSION: Acute comminuted and displaced intertrochanteric left hip fracture. Electronically signed by Danilo aClzada 05-14-2025 4:32 PM Chest X-Ray 05/14/25 15:01 COMPARISON: 07/11/2022 FINDINGS: HEART: Normal in size. LUNGS: No focal consolidation, pleural effusion, or vascular congestion. MEEDIASTINUM: Unremarkable. BONES: Bilateral shoulder replacement.No acute fractures are appreciated. OTHER: Unremarkable. IMPRESSION: No acute disease. Electronically signed by Danilo Calzada 05-14-2025 4:33 PM Hip X-Ray 05/15/25 07:30 FL hip LT 2-3V CLINICAL HISTORY: LT TROCH NAIL COMPARISON STUDY: 05/14/2025 FLUOROSCOPY TIME: 2 minutes 40 seconds FLUOROSCOPY IMAGES: 5 EXPOSURE DOSE: 51 mGy FINDINGS: Fluoroscopy was provided for left femoral gamma nail. IMPRESSION: Intraoperative fluoroscopy. ACT 112: Negative or not required by law. Electronically signed by: Delio Trujillo M.D. 05/15/2025 1:28 PM (1) Intertrochanteric fracture of left hip Encounter type: initial encounter Fracture alignment: displaced Fracture type: closed Qualified Code(s): S72.142A - Displaced intertrochanteric fracture of left femur, initial encounter for closed fracture
[2025-05-16 10:11] LABS: Prealbumin 19.0 mg/dl (20-40)
[2025-05-16] MEDS ORDERED: HYDROmorphone INJ 0.5 MG/0.5 ML SYR IV PRN (14:33)
--- NOTE | 2025-05-16 14:39 | Hospitalist Progress Note ---
Date of Service May 16, 2025 Assessment & Plan (1) Intertrochanteric fracture of left hip: (2) Myelopathy concurrent with and due to spinal stenosis of cervical region: (3) Hypertension: (4) Sleep apnea in adult: (5) Morbid obesity: (6) Rheumatoid arthritis: Plan 69-year-old woman admitted with hip fracture after a mechanical fall in her kitchen # Pathologic osteoporotic fracture of L hip Operation Date: 05/15/25 07:30 Actual Procedures p Open Reduction Internal Fixation Left Hip Fracture(Left) - Devon Mercado MD - continue acetaminophen, oxycodone, gabapentin for pain control as well as her usual as needed cyclobenzaprine - adjusted pain medications: Oxycodone 5 mg as needed moderate pain, oxycodone 10 mg as needed severe pain improved PT, hydromorphone 0.5 mg IV as needed if pain and oxycodone ineffective - BID aspirin for DVT prophylaxis postoperatively for 6 weeks - vitamin D level pending - mild hypoxia related to hypoventilation improved - PT/OT recommending rehab - ordered scheduled MiraLAX for bowel regimen - reassess tomorrow for discontinuation of Gonzales catheter # DM type 2 - A1c 6.5%, at goal - monitor BG qAC and qHS, prn premeal aspart, check A1c in AM, diabetic diet, A1c in AM - blood glucose mainly at goal past 24 hours, continue current insulin dosing # cervical myelopathy, recent L ankle fusion - contributes to fall risk and ambulatory dysfunction -wbat from ankle perspective once hip repaired, L ankle brace as needed -PT/OT postop -cont gabapentin # obstructive sleep apnea and morbid obesity with BMI of 41.9 contributing to hypoxia/hypoventilation. continue to be extremely cautious with sedating medications. incentive spirometer # HTN - relatively hypotensive, hold ARB # RA - stable, hold xeljanz # HLD - cont simvastatin DVT ppx- twice daily aspirin Admission and Anticipated Discharge Date Admission Date: May 14, 2025 Subjective severe left hip pain, worsened overnight due to spasms. She has low back spasms and difficulty with mobility, experiencing significant pain from left hip. No BM yet and continues to have Gonzales catheter because of difficulty with bed mobility, discussed with nursing staff Physical Exam Physical Exam: General Appearance: Normal. Vital signs: Reviewed past 24h vital signs in EMR, notable for: HR 95-113 bpm, BP 100/60 mmHg, SpO2 94% on 2 L overnight, currently on room air. HEENT: Within normal limits. Respiratory: Lungs clear bilaterally, no rhonchi, rales, or wheezes. Cardiovascular: Regular heart rhythm, no murmurs, rubs, or gallops. Gastrointestinal: Abdomen soft, nontender, nondistended, bowel sounds present. Extremities: Lower extremities warm, well perfused, no edema. Skin: Warm and dry, no rash. Neurological: Awake, alert, oriented x4. Psychiatric: Normal. Other observations: Dressing on left hip with no strikethrough and associated left thigh swelling. Results & Data Results & Data Vital Signs (Past 12 Hours) Vital Signs Temp Pulse Resp BP Pulse Ox O2 Del Method O2 Flow Rate 05/16/25 09:00 Nasal Cannula 2 05/16/25 08:46 113/64 05/16/25 07:20 36.9 C 94 H 20 99/60 L 94 Nasal Cannula 2 05/16/25 03:06 36.8 C 91 H 16 102/68 96 Nasal Cannula 2 Laboratory Results - Laboratory Studies: - Sodium: 134 - Creatinine: 0.8 - WBC: 9 - Hemoglobin: 10.2 (down from 14-day of admission) PG Care Time/CCT Total # of Minutes Spent Total Time Spent with Patient: Total time spent is greater than 50% in coordination of care (as documented) at patient's floor/unit and/or counseling patient: Coding Level of Care Code 68879 SUB INP/OBS CARE 3/50MIN Diagnoses Intertrochanteric fracture of left hip S72.142A Encounter type: initial encounter Fracture alignment: displaced Fracture type: closed Myelopathy concurrent with and due to spinal stenosis of cervical region M48.02; G99.2 Hypertension I10 Sleep apnea in adult G47.30 Morbid obesity E66.01 Rheumatoid arthritis M06.9 (1) Intertrochanteric fracture of left hip Encounter type: initial encounter Fracture alignment: displaced Fracture type: closed Qualified Code(s): S72.142A - Displaced intertrochanteric fracture of left femur, initial encounter for closed fracture
[2025-05-16] MEDS: POLYETHYLENE (MIRALAX) 17 GM PACK PO SCH (14:53)
--- NOTE | 2025-05-16 20:41 | Electrocardiogram Report ---
Test Reason : Blood Pressure : */* mmHG Vent. Rate : 92 BPM Atrial Rate : 92 BPM P-R Int : 150 ms QRS Dur : 94 ms QT Int : 376 ms P-R-T Axes : 9 64 31 degrees QTcB Int : 464 ms Normal sinus rhythm Normal ECG When compared with ECG of 02-Jun-2024 20:28, Vent. rate has increased by 35 bpm Incomplete right bundle branch block is no longer Present Confirmed by Maria Del Carmen Sawant ([email or web address]) on 05/16/2025 8:41:06 PM Referred By: REFERRED SELF Confirmed By: Maria Del Carmen Sawant
--- NOTE | 2025-05-17 08:49 | Orthopedic Progress Note ---
Date of Service May 17, 2025 Assessment & Plan (1) Intertrochanteric fracture of left hip: Plan: IMPRESSION: POD#2 s/p ORIF left hip fracture PLAN: Continue diabetic diet. BSG is elevated at 163. She will need tighter glycemic control to assist with wound healing WBAT LLE with walker and ankle brace. DVT Prophylaxis: TEDs and foot pumps to BLE, 81 mg ASA BID x 6 weeks. Continue pain control with Oxycodone. Her dressing was changed today to a [place] dressing. This can remain in place until she is seen in the office in 2 weeks. She may shower over it. Continue PT/OT D/C Planning per case management. The patient continues to voice interest in [facility] or [facility] Continue care per primary service. The patient was seen in conjunction with Dr. Mercado, who also evaluated the patient and concurred with today's diagnosis and treatment plan. Admission and Anticipated Discharge Date Admission Date: May 14, 2025 Subjective This 69-year-old female is seen today in her room. She is 2 days status post left hip ORIF with a long trochanteric nail. She states she had less spasms last evening. She is still having considerable pain. She was able to get up out of bed and put a little weight on the left leg. She has not been in her bedside chair yet. She has finished her breakfast. No additional complaints. No chest pain, shortness of breath, abdominal pain, nausea, or vomiting. Physical Exam Physical Exam: General: Well-developed, well-nourished, middle-aged female, in no acute distress. Obvious discomfort. Laying in bed. Alert and oriented. Skin: Warm and dry with good turgor. Left hip has an intact postsurgical dressing. Upon removal, there is scant dried blood on the dressing. No active bleeding from her surgical incisions. [place] are in place. Wound edges are well-approximated. Expected postoperative edema. No ecchymosis yet. No erythema. Musculoskeletal: The patient has intact motor function of her ankles and toes. He is unable to perform a straight leg raise. She has full extension of the left leg. Limited flexion secondary to pain. Neurologic: Gross sensation is intact across the left leg by soft touch. Baseline diminished sensation in the right foot which is unchanged. Peripheral pulses are 2+. Results & Data Vital Signs (Past 12 Hours) Vital Signs Temp Pulse Resp BP Pulse Ox O2 Del Method O2 Flow Rate 05/17/25 07:11 37.0 C 88 16 118/69 94 Nasal Cannula 2 05/16/25 22:39 37.0 C 101 H 18 113/64 92 Nasal Cannula 2 05/16/25 21:35 Room Air Laboratory Results Glucose this morning was 163. (1) Intertrochanteric fracture of left hip Encounter type: initial encounter Fracture alignment: displaced Fracture type: closed Qualified Code(s): S72.142A - Displaced intertrochanteric fracture of left femur, initial encounter for closed fracture
--- NOTE | 2025-05-17 12:48 | Hospitalist Progress Note ---
Date of Service May 17, 2025 Assessment & Plan (1) Intertrochanteric fracture of left hip: (2) Myelopathy concurrent with and due to spinal stenosis of cervical region: (3) Hypertension: (4) Sleep apnea in adult: (5) Morbid obesity: (6) Rheumatoid arthritis: Plan 69-year-old woman admitted with hip fracture after a mechanical fall in her kitchen # Pathologic osteoporotic fracture of L hip Operation Date: 05/15/25 07:30 Actual Procedures p Open Reduction Internal Fixation Left Hip Fracture(Left) - Devon Mercado MD - continue acetaminophen, oxycodone, gabapentin for pain control as well as her usual cyclobenzaprine PRN - pain medications: Oxycodone 5 mg as needed moderate pain, oxycodone 10 mg as needed severe pain improved PT, hydromorphone 0.5 mg IV as needed if pain and oxycodone ineffective - BID aspirin for DVT prophylaxis postoperatively for 6 weeks - vitamin D level normal at 60 - mild hypoxia related to hypoventilation improved - PT/OT recommending rehab - ordered scheduled MiraLAX for bowel regimen - d/c peoples - slow to mobilize but improving # DM type 2 - A1c 6.5%, at goal - monitor BG qAC and qHS, prn premeal aspart - overall BG at goal with two spikes past 24h. Increased CR 05/17 # cervical myelopathy, recent L ankle fusion - contributes to fall risk and ambulatory dysfunction -wbat from ankle perspective once hip repaired, L ankle brace as needed -PT/OT postop -cont gabapentin # obstructive sleep apnea and morbid obesity with BMI of 41.9 contributing to hypoxia/hypoventilation. continue to be extremely cautious with sedating medications. incentive spirometer # HTN - hypotension improved now normotensive, cont hold ARB # RA - stable, hold xeljanz # HLD - cont simvastatin DVT ppx- twice daily aspirin SNF referrals made today for rehab Admission and Anticipated Discharge Date Admission Date: May 14, 2025 Subjective Ongoing postop hip pain but no issues with spasms overnight No shortness of breath or chest pain Physical Exam Physical Exam: General Appearance: Normal. Vital signs: unremarkable past 24h, has been on room air HEENT: Within normal limits. Respiratory: Lungs clear bilaterally, no rhonchi, rales, or wheezes. Cardiovascular: Regular heart rhythm, no murmurs, rubs, or gallops. Gastrointestinal: Abdomen soft, nontender, nondistended, bowel sounds present. Extremities: Lower extremities warm, well perfused, no edema. Skin: Warm and dry, no rash. Neurological: Awake, alert, oriented x4. Psychiatric: Normal. Other observations: Dressing on left hip with no strikethrough and associated left thigh swelling. - unchanged Still with peoples catheter - yellow urine Results & Data Results & Data Vital Signs (Past 12 Hours) Vital Signs Temp Pulse Resp BP Pulse Ox O2 Del Method O2 Flow Rate 05/17/25 07:40 Nasal Cannula 2 05/17/25 07:11 37.0 C 88 16 118/69 94 Nasal Cannula 2 PG Care Time/CCT Total # of Minutes Spent Total Time Spent with Patient: Total time spent is greater than 50% in coordination of care (as documented) at patient's floor/unit and/or counseling patient: Coding Level of Care Code 98558 SUB INP/OBS CARE 2/35MIN Diagnoses Intertrochanteric fracture of left hip S72.142A Encounter type: initial encounter Fracture alignment: displaced Fracture type: closed Myelopathy concurrent with and due to spinal stenosis of cervical region M48.02; G99.2 Hypertension I10 Sleep apnea in adult G47.30 Morbid obesity E66.01 Rheumatoid arthritis M06.9 (1) Intertrochanteric fracture of left hip Encounter type: initial encounter Fracture alignment: displaced Fracture type: closed Qualified Code(s): S72.142A - Displaced intertrochanteric fracture of left femur, initial encounter for closed fracture
[2025-05-17] MEDS: MICONAZOLE NITRATE POWDER 85 GM EXT PRN (14:38)
[2025-05-18 07:13] VITALS: RESP 16
[2025-05-18 08:27] LABS: Hematocrit (blood only) 27.9 % (37.0-47.0); Hemoglobin 9.5 g/dL (12.0-16.0); Mean Corpuscular Hemoglobin 31.4 pg (25.0-34.0); Mean Corpuscular Volume 92.1 fL (80.0-100.0); Platelet Count 272 K/uL (130-400); RDW Standard Deviation 45.2 fL (36.4-46.3); Red Blood Count 3.03 M/uL (4.20-5.40); White Blood Count 8.97 K/ul (4.8-10.8)
--- NOTE | 2025-05-18 09:54 | Orthopedic Progress Note ---
Date of Service May 18, 2025 Assessment & Plan (1) Intertrochanteric fracture of left hip: Plan: IMPRESSION: POD#3 s/p ORIF left hip fracture PLAN: Continue diabetic diet. She will need tighter glycemic control to assist with wound healing WBAT LLE with walker and ankle brace. DVT Prophylaxis: TEDs and foot pumps to BLE, 81 mg ASA BID x 6 weeks. Continue pain control with Oxycodone. Silverlon dressing was C/D/I and left in place. This can remain in place until she is seen in the office in 2 weeks. She may shower over it. Continue PT/OT D/C Planning per case management. The patient states that she has previously had inpatient rehab at [facility] Continue care per primary service. Admission and Anticipated Discharge Date Admission Date: May 14, 2025 Subjective This 69-year-old female is 3 days status post left hip fracture fixation with trochanteric nailing. Patient states that her pain is effectively controlled with p.o. pain medication. She states that she has been unable to participate with PT or OT. She states that the range of motion of her left lower extremity is very limited due to pain. She states she is on 2 L of oxygen because her O2 sat is around 94%. She states that this is where she lives. Currently she denies chest pain, shortness of breath, fever, chills, sweats, nausea, vomiting or diarrhea. She has no difficulty voiding. She states she has chronic numbness in her left lower extremity since having an ankle fusion several years ago. Review of Systems Review of Systems: All systems reviewed & are unremarkable except as noted in Subjective Physical Exam Physical Exam: Left lower extremity: Silverlon dressings are clean dry intact and left in place. Patient is unable to perform active straight leg raise test. She has very limited range of motion of her ankle with dorsi or plantarflexion. She is unable to detect light sensation to touch over the pads of her digits. Her peripheral pulses are 2+. Her calf is soft and supple. Her quad strength is 3 out of 5. She has exquisite tenderness around the surgical incision sites. She has extreme pain with logroll testing or attempted passive straight leg raise testing. She did not tolerate any type of flexion of her knee. Results & Data Vital Signs (Past 12 Hours) Vital Signs Temp Pulse Resp BP Pulse Ox O2 Del Method O2 Flow Rate 12/30/25 07:20 Nasal Cannula 2 05/18/25 07:12 36.9 C 89 16 149/75 H 96 Room Air 05/17/25 23:02 36.7 C 89 18 118/72 95 Nasal Cannula 2 Diagnostic Findings Laboratory Results WBC 8.97 K/ul (4.8-10.8) 05/18/25 07:50 RBC 3.03 M/uL (4.20-5.40) L 05/18/25 07:50 Hgb 9.5 g/dL (12.0-16.0) L 05/18/25 07:50 Hct 27.9 % (37.0-47.0) L 05/18/25 07:50 MCV 92.1 fL (80.0-100.0) 05/18/25 07:50 MCH 31.4 pg (25.0-34.0) 05/18/25 07:50 MCHC 34.1 g/dL (32.0-36.0) 05/18/25 07:50 RDW Std Deviation 45.2 fL (36.4-46.3) 05/18/25 07:50 RDW Coeff of Rachel 13.5 % (11.5-14.5) 05/18/25 07:50 Plt Count 272 K/uL (130-400) 05/18/25 07:50 MPV 10.2 fL (9.4-12.4) 05/18/25 07:50 Immature Gran % (Auto) 0.3 % 05/16/25 05:48 Neut % (Auto) 74.1 % 05/16/25 05:48 Lymph % (Auto) 13.3 % 05/16/25 05:48 [place] % (Auto) 11.7 % 05/16/25 05:48 Eos % (Auto) 0.2 % 05/16/25 05:48 Baso % (Auto) 0.4 % 05/16/25 05:48 Neut # (Auto) 6.99 K/uL (1.40-6.50) H 05/16/25 05:48 Lymph # (Auto) 1.25 K/uL (1.20-3.40) 05/16/25 05:48 [place] # (Auto) 1.10 K/uL (0.11-0.59) H 05/16/25 05:48 Eos # (Auto) 0.02 K/uL (0.00-0.50) 05/16/25 05:48 Baso # (Auto) 0.04 K/uL (0.00-0.20) 05/16/25 05:48 Immature Gran # (Auto) 0.03 K/uL (0.01-0.20) 05/16/25 05:48 Absolute Nucleated RBC 0.02 K/uL (0.00-0.12) 05/18/25 07:50 Nucleated RBC % (auto) 0.2 % 05/18/25 07:50 PT 10.7 Seconds (9.0-12.0) 05/14/25 14:58 INR 1.0 (0.9-1.1) 05/14/25 14:58 APTT 20 Seconds (21-31) L 05/14/25 14:58 PTT Ratio 0.7 05/14/25 14:58 Sodium 134 mmol/L (136-145) L 05/16/25 05:48 Potassium 4.5 mmol/L (3.5-5.1) 05/16/25 05:48 Chloride 100 mmol/L (98-107) 05/16/25 05:48 Carbon Dioxide 28 mmol/L (21-32) 05/16/25 05:48 Anion Gap 6 (3-11) 05/16/25 05:48 BUN 23 mg/dl (6-23) 05/16/25 05:48 Creatinine 0.85 mg/dl (0.6-1.2) 05/16/25 05:48 Est Cr Clr Drug Dosing 75.4 ml/min 05/16/25 05:48 eGFR 75.04 05/16/25 05:48 BUN/Creatinine Ratio 27.1 (10-20) H 05/16/25 05:48 Glucose 154 mg/dl (70-99(Fasting)) H 05/16/25 05:48 POC Glucose 137 mg/dl (70-99) H 05/18/25 07:40 Estimat Average Glucose 140 mg/dl 05/15/25 05:19 Hemoglobin A1c 6.5 % (4.5-5.6) H 05/15/25 05:19 Calcium 8.5 mg/dl (8.6-10.3) L 05/16/25 05:48 Total Bilirubin 0.3 mg/dl (0.2-1.0) 05/14/25 14:58 AST 19 U/L (13-39) 05/14/25 14:58 ALT 19 U/L (7-52) 05/14/25 14:58 Alkaline Phosphatase 75 U/L (34-104) 05/14/25 14:58 Total Protein 7.0 gm/dl (6.0-8.3) 05/14/25 14:58 Albumin 4.1 gm/dl (3.4-5.0) 05/14/25 14:58 Globulin 2.9 gm/dl (2.5-4.0) 05/14/25 14:58 Albumin/Globulin Ratio 1.4 (0.9-2) 05/14/25 14:58 Prealbumin 19.0 mg/dl (20-40) L 05/16/25 05:48 25-OH Vitamin D Total 60.2 ng/ml (30-100) 05/16/25 05:48 Urine Color Dark Yellow 05/14/25 19:50 Urine Appearance Clear (Clear) 05/14/25 19:50 Urine pH 5.5 (4.5-7.5) 05/14/25 19:50 Ur Specific [place] 1.032 (1.000-1.030) H 05/14/25 19:50 Urine Protein Trace (Negative) H 05/14/25 19:50 Urine Glucose (UA) Negative (Negative) 05/14/25 19:50 Urine Ketones Trace (Negative) H 05/14/25 19:50 Urine Blood Negative (Negative) 05/14/25 19:50 Urine Nitrite Negative (Negative) 05/14/25 19:50 Urine Bilirubin Negative (Negative) 05/14/25 19:50 Urine Urobilinogen Negative (Negative) 05/14/25 19:50 Ur Leukocyte Esterase Trace (Negative) H 05/14/25 19:50 Urine WBC (Auto) 6-10 /hpf (0-5) H 05/14/25 19:50 Urine RBC (Auto) 0-2 /hpf (0-2) 05/14/25 19:50 U Hyaline Cast (Auto) 0-2 /lpf (0-2) 05/14/25 19:50 U Epithel Cells (Auto) 0-2 /hpf (0-2) 05/14/25 19:50 Urine Bacteria (Auto) None Seen (None Seen) 05/14/25 19:50 Urine Comment 05/14/25 19:50 Impressions Hip/Pelvis X-Ray 05/14/25 15:00 COMPARISON: 01/11/2025 FINDINGS: BONES: Acute comminuted and displaced intertrochanteric left hip fracture. Osteopenia. Stable appearance of the right hip arthroplasty without complications. Mild degenerative changes of the left hip. Additional degenerative changes noted at the SI joints and visualized portions of the lumbar spine. SOFT TISSUES: Moderate retained stool in the visualized portions of the colon and rectum IMPRESSION: Acute comminuted and displaced intertrochanteric left hip fracture. Electronically signed by Danilo Calzada 05-14-2025 4:32 PM Chest X-Ray 05/14/25 15:01 COMPARISON: 07/11/2022 FINDINGS: HEART: Normal in size. LUNGS: No focal consolidation, pleural effusion, or vascular congestion. MEEDIASTINUM: Unremarkable. BONES: Bilateral shoulder replacement.No acute fractures are appreciated. OTHER: Unremarkable. IMPRESSION: No acute disease. Electronically signed by Danilo Calzada 05-14-2025 4:33 PM Hip X-Ray 05/15/25 07:30 FL hip LT 2-3V CLINICAL HISTORY: LT TROCH NAIL COMPARISON STUDY: 05/14/2025 FLUOROSCOPY TIME: 2 minutes 40 seconds FLUOROSCOPY IMAGES: 5 EXPOSURE DOSE: 51 mGy FINDINGS: Fluoroscopy was provided for left femoral gamma nail. IMPRESSION: Intraoperative fluoroscopy. ACT 112: Negative or not required by law. Electronically signed by: Delio Trujillo M.D. 05/15/2025 1:28 PM (1) Intertrochanteric fracture of left hip Encounter type: initial encounter Fracture alignment: displaced Fracture type: closed Qualified Code(s): S72.142A - Displaced intertrochanteric fracture of left femur, initial encounter for closed fracture
--- NOTE | 2025-05-18 13:19 | Hospitalist Progress Note ---
Date of Service May 18, 2025 Assessment & Plan (1) Intertrochanteric fracture of left hip: (2) Myelopathy concurrent with and due to spinal stenosis of cervical region: (3) Hypertension: (4) Sleep apnea in adult: (5) Morbid obesity: (6) Rheumatoid arthritis: Plan 69-year-old woman admitted with hip fracture after a mechanical fall in her kitchen # Pathologic osteoporotic fracture of L hip Operation Date: 05/15/25 07:30 Actual Procedures p Open Reduction Internal Fixation Left Hip Fracture(Left) - Devon Mercado MD - continue acetaminophen, oxycodone, gabapentin for pain control as well as her usual cyclobenzaprine PRN - pain medications: Oxycodone 5 mg as needed moderate pain, oxycodone 10 mg as needed severe pain improved PT, hydromorphone 0.5 mg IV as needed if pain and oxycodone ineffective - BID aspirin for DVT prophylaxis postoperatively for 6 weeks - vitamin D level normal at 60 - mild hypoxia related to hypoventilation improved - PT/OT recommending rehab - ordered scheduled MiraLAX for bowel regimen - bid, will increase - still has peoples has not been up to chair yet - slow to mobilize but improving # DM type 2 - A1c 6.5%, at goal - monitor BG qAC and qHS, prn premeal aspart - Increased CR 05/17. BG at goal # cervical myelopathy, recent L ankle fusion - contributes to fall risk and ambulatory dysfunction -wbat from ankle perspective once hip repaired, L ankle brace as needed -PT/OT postop -cont gabapentin # obstructive sleep apnea and morbid obesity with BMI of 41.9 contributing to hypoxia/hypoventilation. continue to be extremely cautious with sedating medications. incentive spirometer # HTN - hypotension improved now normotensive to hypertensive, resume ARB # RA - stable, hold xeljanz # HLD - cont simvastatin DVT ppx- twice daily aspirin SNF referrals made for rehab, ready for dc to rehab setting, discussed with care coord Admission and Anticipated Discharge Date Admission Date: May 14, 2025 Subjective stood x4 trials with heavy 2pa yesterday continues L hip pain with movement one muscle spasm overnight resolved with po meds Physical Exam 2 Physical Exam: General Appearance: Normal. Vital signs: unremarkable past 24h, has been on room air exam unchanged 05/18 HEENT: Within normal limits. Respiratory: Lungs clear bilaterally, no rhonchi, rales, or wheezes. Cardiovascular: Regular heart rhythm, no murmurs, rubs, or gallops. Gastrointestinal: Abdomen soft, nontender, nondistended, bowel sounds present. Extremities: Lower extremities warm, well perfused, no edema. Skin: Warm and dry, no rash. Neurological: Awake, alert, oriented x4. Psychiatric: Normal. Other observations: silver dressing on L hip incision site. No surrounding erythema. No strikethrough Still with peoples catheter - yellow urine Results & Data Results & Data Vital Signs (Past 12 Hours) Vital Signs Temp Pulse Resp BP Pulse Ox O2 Del Method O2 Flow Rate 05/18/25 07:20 Nasal Cannula 2 05/18/25 07:12 36.9 C 89 16 149/75 H 96 Room Air Laboratory Results 05/18/25 07:50 05/16/25 05:48 PG Care Time/CCT Total # of Minutes Spent Total Time Spent with Patient: Total time spent is greater than 50% in coordination of care (as documented) at patient's floor/unit and/or counseling patient: Coding Level of Care Code 29121 SUB INP/OBS CARE 2/35MIN Diagnoses Intertrochanteric fracture of left hip S72.142A Encounter type: initial encounter Fracture alignment: displaced Fracture type: closed Myelopathy concurrent with and due to spinal stenosis of cervical region M48.02; G99.2 Hypertension I10 Sleep apnea in adult G47.30 Morbid obesity E66.01 Rheumatoid arthritis M06.9 (1) Intertrochanteric fracture of left hip Encounter type: initial encounter Fracture alignment: displaced Fracture type: closed Qualified Code(s): S72.142A - Displaced intertrochanteric fracture of left femur, initial encounter for closed fracture
[2025-05-18] MEDS: SENNA 8.6 MG TAB PO SCH (14:18)
[2025-05-18] MEDS: POLYETHYLENE (MIRALAX) 17 GM PACK PO SCH (20:29)
--- NOTE | 2025-05-19 06:55 | Orthopedic Progress Note ---
Date of Service May 19, 2025 Assessment & Plan (1) Intertrochanteric fracture of left hip: Plan: IMPRESSION: POD#4 s/p ORIF left hip fracture PLAN: Continue diabetic diet. She will need tighter glycemic control to assist with wound healing WBAT LLE with walker and ankle brace. DVT Prophylaxis: TEDs and foot pumps to BLE, 81 mg ASA BID x 6 weeks. Continue pain control with Oxycodone. Silverlon dressing remain in place until she is seen in the office in 2 weeks. She may shower over it. Continue PT/OT D/C Planning per case management. The patient states that she has previously had inpatient rehab at [facility] Continue care per primary service. Ok for discharge from Ortho standpoint. Please recall if any ortho issues. Admission and Anticipated Discharge Date Admission Date: May 14, 2025 Subjective Feeling better. Was able to stand with PT and range her knee yesterday. Physical Exam Physical Exam: Left lower extremity: Silverlon dressings are clean dry intact. Calf is soft and non-tender. Neurovascularly unchanged. No pain with gentle ROM of hip and knee. Results & Data Vital Signs (Past 12 Hours) Vital Signs Temp Pulse Resp BP Pulse Ox O2 Del Method O2 Flow Rate 05/18/25 22:19 36.8 C 80 16 133/68 96 Nasal Cannula 2 05/18/25 20:05 Nasal Cannula 2 Laboratory Results 05/18/25 05/18/25 05/18/25 Range/Units 20:10 16:34 11:29 WBC (4.8-10.8) K/ul RBC (4.20-5.40) M/uL Hgb (12.0-16.0) g/dL Hct (37.0-47.0) % MCV (80.0-100.0) fL MCH (25.0-34.0) pg MCHC (32.0-36.0) g/dL RDW Std Deviation (36.4-46.3) fL RDW Coeff of Rachel (11.5-14.5) % Plt Count (130-400) K/uL MPV (9.4-12.4) fL Absolute Nucleated RBC (0.00-0.12) K/uL Nucleated RBC % (auto) % POC Glucose 150 H 126 H 129 H (70-99) mg/dl 05/18/25 05/18/25 Range/Units 07:50 07:40 WBC 8.97 (4.8-10.8) K/ul RBC 3.03 L (4.20-5.40) M/uL Hgb 9.5 L (12.0-16.0) g/dL Hct 27.9 L (37.0-47.0) % MCV 92.1 (80.0-100.0) fL MCH 31.4 (25.0-34.0) pg MCHC 34.1 (32.0-36.0) g/dL RDW Std Deviation 45.2 (36.4-46.3) fL RDW Coeff of Rachel 13.5 (11.5-14.5) % Plt Count 272 (130-400) K/uL MPV 10.2 (9.4-12.4) fL Absolute Nucleated RBC 0.02 (0.00-0.12) K/uL Nucleated RBC % (auto) 0.2 % POC Glucose 137 H (70-99) mg/dl (1) Intertrochanteric fracture of left hip Encounter type: initial encounter Fracture alignment: displaced Fracture type: closed Qualified Code(s): S72.142A - Displaced intertrochanteric fracture of left femur, initial encounter for closed fracture
[2025-05-19 08:18] VITALS: BP 137/76; PULSE 83; TEMP 98.1; O2SAT 95
[2025-05-19] MEDS ORDERED: ONDANSETRON ORAL SOLN 0.8 MG/1 ML PO PRN (10:00)
[2025-05-19] MEDS ORDERED: ONDANSETRON 4 MG OD TAB PO PRN (10:39)
--- NOTE | 2025-05-19 12:21 | Discharge Summary ---
Discharge Summary Date of Service May 19, 2025 Principal Dx & Hospital Course #1 = Principal Diagnosis (1) Intertrochanteric fracture of left hip: (2) Myelopathy concurrent with and due to spinal stenosis of cervical region: (3) Hypertension: (4) Sleep apnea in adult: (5) Morbid obesity: (6) Rheumatoid arthritis: Plan 69 years old female with PMH of FULL CODE @ home alone, morbid ob esity with BMI 41.9 (height 160.0 cm; weight 107.4 kg), GERMAINE not on nocturnal CPAP, mild intermittent asthma on monteleukast 10mg PO qpm, allergic rhinitis on loratadine 10mg PO qam, non-insulin dependent DM2 with HbA1c 6.5% (05/15/2025, 5:19am), hyperlipidemia on simvastatin 10mg PO qhs, HTN on olmesartan 5mg PO qam and spironolactone 25mg PO qam, rheumatoid arthritis on Xeljanz, cervical myelopathy, s/p C4 corpectomy with removal of hardware @ C5-C6 (06/08/2024, 7:45am, [facility] Spine Surgeon Dr. Kush Murphy), and ambulatory dysfunction, s/p recent L ankle fusion (01/2025), now with L ankle brace and home-scheduled gabapentin 800mg PO qhs and home-scheduled gabapentin 400mg PO q9:00am, 1:00pm, and 5:00pm, who reported yet another mechanical fall at home in patient's kitchen as patient opened her refrigerator, lost her balance, fell, reached out and grabbed a nearby doorknob, but the door swung open, and consequently, patient fell and landed onto her left side, and could not get up off the floor by herself, on 05/14/2025, with patient subsequently sustaining an acute, comminuted and displaced intertrochanteric left hip fracture, for which patient underwent definitive intervention treatment with ORIF with gamma nail (05/15/2025, 7:30am, [facility] Orthopedic Surgeon Dr. Devon Mercado). The following medical issues were addressed while the patient remained in [facility] from admission date 05/14/2025 through discharge date 05/19/2025: 1. [id number] ambulatory dysfunction culminating in recurrent mechanical fall at home and acute, comminuted and displaced intertrochanteric left hip fracture, for which patient underwent definitive intervention treatment with ORIF with gamma nail (05/15/2025, 7:30am, [facility] Orthopedic Surgeon Dr. Devon Mercado). Patient underwent daily PT/OT Service evaluations post-operatively and has demonstrated very slow progress, not being able to get out of bed and go to the bathroom by herself, and hence, patient continues to require the use of an indwelling peoples catheter on hospital discharge to [facility] on discharge date 05/19/2025, and that was originally inserted on admission date 05/14/2025. Patient is incapable of being discharged back to her home alone safely, and is not a candidate for acute rehabilitation. Hence, patient is being discharged to [facility] on 05/19/2025 for continued daily PT/OT Service evaluations on a sub-acute basis/level. In the interim, patient continues to receive ASA 81mg PO bid for DVT prophylaxis while in [facility], and patient should continue this medication at [facility] for at least 6 weeks. Patient will also continue with hospital-started oxycodone 5mg PO q4 prn pain ans well as her home-scheduled gabapentin 800mg PO qhs and home-scheduled gabapentin 400mg PO q9:00am, 1:00pm, and 5:00pmon hospital discharge to [facility] on 05/19/2025. Patient will also follow up with her [facility] Orthopedic Surgeon Ms. Krystin Luther PA-C, within 2 weeks of hospital discharge. 2. Long-term glycemic control is modest with HbA1c 6.5% (05/15/2025, 5:19am). cf., admission serum glucose 183 mg/dL (05/14/2025, 2:58pm). cf., discharge fingerstick glucose 123 mg/dL (05/19/2025, 11:48am). Patient was maintained on a carbohydrate consistent diet, regular insulin sliding scale qac + qhs, and POC glucose qac + qhs while in [facility]. Patient will continue with carbohydrate consistent diet, but will NOT continue with regular insulin sliding scale qac + qhs, or POC glucose qac + qhs, on hospital discharge to [facility] on 05/19/2025, 1:30pm. 3. Chronic cervical myelopathy, s/p C4 corpectomy with removal of hardware @ C5-C6 (06/08/2024, 7:45am, [facility] Spine Surgeon Dr. Kush Murphy), and ambulatory dysfunction, s/p recent L ankle fusion (01/2025), now with L ankle brace and home-scheduled gabapentin 800mg PO qhs and home-scheduled gabapentin 400mg PO q9:00am, 1:00pm, and 5:00pm. Patient will continue with L ankle brace and home-scheduled gabapentin 800mg PO qhs and home- scheduled gabapentin 400mg PO q9:00am, 1:00pm, and 5:00pm on hospital discharge to [facility] on 05/19/2025, 1:30pm. 4. GERMAINE. Non-compliant with nocturnal CPAP at home. Observe. 5. Mild intermittent asthma. Asymptomatic on home-scheduled monteleukast 10mg PO qpm. Patient will continue this medication on hospital discharge to [facility] on 05/19/2025, 1:30pm. 6. Allergic rhinitis. Asymptomatic on home-scheduled loratadine 10mg PO qam. Patient will continue this medication on hospital discharge to [facility] on 05/19/2025, 1:30pm. 7. HTN. Modestly controlled with discharge BP 137/76 (05/19/2025, 8:30am), not on home-scheduled olmesartan 5 PO qam or home-scheduled spironolactone 25mg PO qam due to transient hypotension with BP 99/60 (05/16/2025, 7:20am). Patient will resume both home-scheduled olmesartan 5 PO qam or home-scheduled spironolactone 25mg PO qam on hospital discharge to [facility] on 05/19/2025, 1:30pm. 8. Hyperlipidemia. Asymptomatic on home-scheduled simvastatin 10mg PO qhs while in [facility]. Patient will continue this medication on hospital discharge to [facility] on 05/19/2025, 1:30pm. 9. Rheumatoid arthritis. Asymptomatic. Continue to hold off home-scheduled Xeljanz given its potential to precipitate immunosuppression in this patient still having difficulty convalescing from her orurk-uc-[id number] ambulatory dysfunction culminating in recurrent mechanical fall at home and acute, comminuted and displaced intertrochanteric left hip fracture, for which patient underwent definitive intervention treatment with ORIF with gamma nail (05/15/2025, 7:30am, [facility] Orthopedic Surgeon Dr. Devon Mercado). I surmise that patient may resume her home-scheduled Xeljanz AFTER patient is discharged from [facility] back to her home alone. 10.DVT prophylaxis. Asymptomatic on home-started ASA 81mg PO bid while in [facility]. Patient will continue this medication on hospital discharge to [facility] on 05/19/2025, 1:30pm, for at least the next 6 weeks. 11.Code status, FULL CODE. ACLS as required. There were no adverse events noted with this hospitalization. Admission HPI Per Admitting Provider 69 y/o with diabetes, RA, asthma and multiple orthopedic problems including bilateral TSAs and R TYREE and cervical myelopathy s/p c-spine fusion with frequent falls. Underwent L ankle fusion Sept this year, cleared for weightbearing. Was in her USOH and wearing new ankle brace when she opened refrigerator and lost her balance. She fell, reached out and grabbed nearby doorknob but door swung and she landed on her left side with immediate severe L hip pain and unable to get up / bear weight. BIB EMS and found to have L sided intratrochanteric hip fracture in ED. Currently having episodes of severe LBP and L hip/leg pain related to muscle spasms. Denies shortness of breath, r equiring 2-3L supp O2 after receiving fentanyl, morphine and lorazepam IV for pain control. Hx GERMAINE intolerant of CPAP and morbid obesity with BMI 41.9. No significant cardiac history and no chest pain. Discharge Exam Constitutional General: comfortable, coherent, cooperative. Wide awake and alert. Not confused, lethargic, or obtunded. Patient speaks in complete, fluent, and articulate sentences without pause, interruption, cough, or wheeze. HEENT: normocephalic, atraumatic. EOMI. PERRL. No nystagmus, gaze paresis, anisocoria, miosis, mydriasis, hyphema, scleral injection, conjunctivitis, or pterygium. No otorrhea. No rhinorrhea. No pharyngeal erythema, edema, or discharge. Neck: supple, no stridor, bruit, goiter, JVD. Jugular venous pressure is estimated to be 3 cm above the sternal angle of Mahesh, which in turn, is 5 cm above the level of the right atrium; hence, jugular venous pressure is estimated to be 8 cm H2O, which is normal. Lymph: no anterior/posterior cervical, supraclavicular, infraclavicular, axillary, epitrochlear, or inguinal lymphadenopathy. Chest: symmetric rise and falls with respirations. Non-tender to palpation. Lungs: clear to auscultation and percussion; no audible expiratory wheeze, egophony, pectoriloquy, increase in tactile fremitus, or flatness/dullness to percussion at the bases. Heart: RRR, S1 and S2 noted. No S3 or S4 summation gallop. No tripartite friction rub. Grade II/ early systolic murmur @ LLSB without radiation to the carotids, axilla, or back, and which remains invariant in regards to the respiratory cycle. Abdomen: soft, non-tender, non-distended. No rebound, guarding, Aranda's sign, or organomegaly. Bowel sounds auscultated in all 4 quadrants. Extremity: no clubbing, cyanosis, or edema. 2+ pedal pulses bilaterally. Skin: no decubitus ulcer, exanthem, or enanthem. Neuro: alert and oriented in regards to person, place, time, and situation. DTR+. 5/5 motor strength in all 4 extremities, both proximally and distally. Psychiatric: no flat affect. Smiles appropriately. Discharge Plan Discharge Items Patient Disposition: Transfer Residential Fac Reason For Visit: HIP FRACTURE Discharge Diagnosis: s/p ORIF with gamma nail treatment of acute comminuted and displaced intertrochanteric left hip fracture (05/15/2025, 7:30am, [facility] Orthopedic Surgeon Dr. Devon Mercado). Condition on Discharge: Fair Activity: Resume your previous activity Lifting: Gradually increase as tolerated Bathing: No limitations Weightbearing Comment: Weightbearing as tolerated on left lower extremity with walker assistance. Non-emergency contact: Primary Care Provider Call non-emergency contact if: you have any medication questions Follow-up/Referrals: Skyler Jimenez DO [Primary Care Provider] - Krystin Luther PA-C [Physician Pack Press Operator] - 05/31/25 4:15 pm Diet: Carb Consistent or DM2 and Heart Healthy Addtl Attending Provider Instructions: See your PCP Dr. Skyler Jimenez within 5-7 days of hospital discharge. See your Orthopedic Surgeon Ms. Krystin Luther PA-C, within 2 weeks of hospital discharge. Addtl Plug Shaper Hand Provider Instructions: Weightbearing as tolerated on left lower extremity with walker assistance. May need maximum assistance with two-person Ice with easy wrap Keep Silverlon dressing in place Importance of glycemic control discussed with patient to aid with wound healing Will need inpatient rehab. Case management working on placement Pain control p.o. medication DVT prophylaxis with MANDI stockings and aspirin Will need a 2-week follow-up at [facility] orthopedics with either Dr. Mercado or one of the [place]. A message will be sent to teams to schedule this appointment Pending Studies at Discharge: No Stand-Alone Forms: My [facility] [employer] Skilled Items Patient informed of condition?: Yes DNR: No Discharge Level of Care: Skilled Communicable Disease: No Discharge Prognosis: Stable Lines: None Urinary Catheter: No Medications and DC Order Prescriptions: New aspirin 81 mg Tablet,Delayed Release (Dr/Ec) 81 mg PO BID Qty: 60 0RF oxycodone 5 mg Tablet 5 mg PO Q4H PRN (Reason: pain) Qty: 30 0RF Continued montelukast [Singulair] 10 mg tablet 10 mg PO QPM Qty: 30 0RF olmesartan 5 mg tablet 5 mg PO QAM multivitamin Tablet 1 tab PO QAM vitamin B complex Tablet 1 tab PO QAM cholecalciferol (vitamin D3) [Vitamin D3] 1,000 unit Capsule 1,000 unit PO QDL loratadine 10 mg Capsule 10 mg PO QAM simvastatin 10 mg Tablet 10 mg PO HS biotin 1 tab PO QPM azelastine 137 mcg (0.1 %) aerosol,spray 1 spray INTNAS BID PRN (Reason: allergies) Rx Instructions: administer into each nostril gabapentin 400 mg capsule 400 mg PO UD Rx Instructions: take 400mg in the morning,afternoon and evening gabapentin 400 mg capsule 800 mg PO HS cyanocobalamin (vitamin B-12) 1,000 mcg tablet 1,000 mcg PO QAM cyclobenzaprine 5 mg tablet 5 mg PO BID PRN (Reason: muscle spasms) acetaminophen [Tylenol Extra Strength] 500 mg tablet 1,000 mg PO Q8 PRN (Reason: Pain) spironolactone 25 mg tablet 25 mg PO QAM Discontinued aspirin 81 mg Tablet,Delayed Release (Dr/Ec) 81 mg PO QAM Xeljanz XR 11 mg tablet extended release 24 hr 11 mg PO QAM diclofenac potassium 50 mg tablet 50 mg PO QDL Discharge Orders: Discharge Order (Routine); Ordered 05/19/25 Ordered By: Ramiro Mireles Admission Data Admit Date/Time: 05/14/25 17:56 Attending Provider: Ramiro Mireles Admit Provider: Zenia Cross Primary Care Provider: Skyler Jimenez Other Providers: Zenia Cross; Jeremy Keys; Devon Mercado Hospital Stay Data Consultations 05/14/25 17:19 ED Decision to Admit Stat 05/17/25 10:47 Consult Orthopedic Surgery Routine Procedures Performed Operation Date: 05/15/25 07:30 Actual Procedures p Open Reduction Internal Fixation Left Hip Fracture(Left) - Devon Mercado MD Diagnostic Imagining Performed 05/15/25 07:30 FL hip LT 2-3V Routine Pending Results Patient Have Any Pending Studies at Discharge: No Discharge Instructions Given to Patient (Per Discharging Provider) See your PCP Dr. Skyler Jimenez within 5-7 days of hospital discharge. See your Orthopedic Surgeon Ms. Krystin Luther PA-C, within 2 weeks of hospital discharge. Total Time Total Time Spent Total Time Spent (In Minutes): 35 minutes. Of this time period, 19 minutes were spent in coordinating patient's discharge. Coding Level of Care Code 46978 INP/OBS DISCH >30 MIN Diagnoses Intertrochanteric fracture of left hip S72.142A Encounter type: initial encounter Fracture alignment: displaced Fracture type: closed Myelopathy concurrent with and due to spinal stenosis of cervical region M48.02; G99.2 Hypertension I10 Sleep apnea in adult G47.30 Morbid obesity E66.01 Rheumatoid arthritis M06.9
== END 2025-05-19 14:50 | DRG 481 ==
LOC: ED 14:51 → EDINP 17:56 → SUATTDRO 17:56 → 2E 20:27 → 3N 05-15 13:21